=== PATIENT | male | born 1965 | race Caucasian/White ===

== ENCOUNTER 2019-10-02 16:35 | Outpatient (REF) | payer OTHER, SELFPAY ==
[2019-10-06 14:39] LABS: COVID-19 RT-PCR Result Not Detected
== END 2019-10-02 16:55 ==
LOC: NCHCN 16:35
PROVIDERS: PCP Family Medicine; Visit Provider Physician Assistant
DX: Z20.828 Contact with and (suspected) exposure to other viral communicable diseases (principal); J06.9 Acute upper respiratory infection, unspecified
CPT/HCPCS: U0003

== ENCOUNTER 2019-11-03 19:31 | Outpatient (REF) | payer OTHER, SELFPAY ==
[2019-11-06 09:06] LABS: COVID-19 RT-PCR Result Negative (Negative)
== END 2019-11-03 19:51 ==
LOC: NCHCN 19:31
PROVIDERS: PCP Family Medicine; Visit Provider Physician Assistant
DX: J06.9 Acute upper respiratory infection, unspecified (principal); R05 Cough; J31.0 Chronic rhinitis
CPT/HCPCS: U0003

== ENCOUNTER 2020-02-09 08:16 | Outpatient (CLI) | payer OTHER, SELFPAY ==
[2020-02-10 23:45] LABS: COVID-19 RT-PCR Result NEGATIVE (Negative)
== END 2020-02-09 08:36 ==
PROVIDERS: PCP Family Medicine; Visit Provider Surgery
DX: Z01.818 Encounter for other preprocedural examination (principal)
CPT/HCPCS: U0003

== ENCOUNTER 2020-02-12 06:12 | Day surgery (SDC) | payer OTHER, SELFPAY ==
[2020-02-12] VITALS (7 sets, daily range): BP systolic 83–139; BP diastolic 54–105; PULSE 47–78; RESP 10–16; TEMP 35.7–37; O2SAT 96–100
[2020-02-12] MEDS: Lactated Ringers 1,000 ML 80 ML IV (06:51)
[2020-02-12] MEDS: Celecoxib 200 MG CAP PO (06:51)
[2020-02-12] MEDS: Acetaminophen 500 MG TAB 1000 MG PO (06:51)
[2020-02-12] MEDS: Gabapentin 300 MG CAP PO (06:51)
[2020-02-12] MEDS: ceFAZolin 2 GM/50 ML BAG IVPB (07:42)
[2020-02-12] MEDS: Bupivacaine 0.5% Pres-Free 30 ML VIAL (07:46)
[2020-02-12] MEDS: Bupivacaine LIPOSOME/PF 133 MG/10 ML VIAL IJ (07:46)
--- NOTE | 2020-02-12 09:08 | ROE_ITS ---
Date of service: 02/12/20 Time of Service: 09:09 Operative Note Operative Note DATE OF PROCEDURE: 02/12/20 PRE-OP DIAGNOSIS: left inguinal hernia- painful POST-OP DIAGNOSIS: same PROCEDURE: open left inguinal hernia repair w/ mesh- indirect SURGEON: Jacqui Moeller ANESTHESIA: MAC ESTIMATED BLOOD LOSS: 5 PATHOLOGY: none sent COMPLICATIONS: None Patient was transported to: same day Patient's condition: stable Procedure Description: INDICATIONS: The pt is here today for surgery regarding symptomatic --- inguinal hernia that has failed outpatient conservative medical management and he is here today for repair. Informed consent was obtained, explaining risks and benefits of the procedure including but not limited to bleeding, infection, pneumonia, blood clots, chronic pain, chronic numbness, damage to testicle resulting in removal, recurrence of hernia, reaction to Mesh necessitating removal, and other unforetold complications, and complications of anesthesia-which were addressed by the HORTICULTURE INSTRUCTOR. The patient is marked in preOp prior to the procedure DESCRIPTION OF PROCEDURE: The pt is then brought to the operative room suite. Anesthesia was administered per the Department of Anesthesia. The patient was prepped and draped in the usual sterile fashion using ChloraPrep scrub solution. Pause for the cause was done. He did receive preop IV antibiotics, and 30 mL of .25% Marcaine w/ epinephrine was used for local anesthetization. A #12 blade was used to make an incision over the external ring. Electrocautery used to provide hemostasis and dissect down to the fascia. The fascia was pretty much obliterated and there was nothing to open. The cord is elevated. The nerve was not identified. There is a small cord lipomas. Electro-cautery is used to provide hemostasis. A Helga drain was placed around the cord to assist in mobilization. The cord was explored. There was is small hernia sac on the cord. There is no direct hernia pushing through the floor. The hernia sac is dissected off the cord using a combination of blunt dissection and electrocautery. Electrocautery is used to provide hemostasis. There are no contents within the hernia sac. The hernia sac is than inverted and returned to the abdominal cavity. A medium size plug is than inserted into the defect through the internal ring, and over sewn to tighten up the ring with 2-0 vicryl. The cord structures are still able to freely move through the ring itself. The patch was then placed onto the floor, and using 2-0 Vicryl, sewn into the pubic tubercle and the shelving portions of the inguinal ligament, in the standard Lichenstein fashion. The tails of the mesh are brought around the cord, sewn together w/ 2-0 Vicryl, and tucked under the external oblique. The wound was copiously irrigated. There was no bleeding noted. The drain was removed. All structures are returned to normal anatomical position. The nerve is not sewn into the mesh, nor caught up in any sutures. The external oblique is re-approximated using 2-0 vicryl in a running fashion. Deep tissue was approximated with 3-0 Vicryl in a running fashion, and skin was approximated with 4-0 Monocryl in a running subcuticular fashion. Skin glue and sterile dressings are applied. The patient tolerated the procedure without complications to recovery in stable condition. JACQUI MOELLER, DO
--- NOTE | 2020-02-12 09:22 | W.PM.DSUDISC ---
Discharge Plan Disposition Patient Disposition: HOME Condition: Good Discharge Details Reason For Visit: HERNIA INGUINAL (L) Attending Provider: Jacqui Olmos Primary Care Provider: Maryse Perry Home Meds and New Rx's Prescriptions: New ibuprofen 600 mg tablet 600 mg PO Q6H PRNQty: 60 RF: 3 tramadol 50 mg tablet 50 mg PO Q6H PRNQty: 14 RF: 0 Continued fexofenadine [Radhika Allergy] 180 mg tablet 180 mg PO DAILY RF: 0 multivitamin [Daily Multi-Vitamin] Tablet 1 tab PO DAILY RF: 0 Excedrin Migraine 250-250-65 mg tablet 2 tab PO ONCE RF: 0 Discontinued ibuprofen 200 mg tablet 400 mg PO Q6H PRNRF: 0 Discharge Instructions Additional Instructions: Dr. Olmos HERNIA REPAIR ? POSTOPERATIVE INSTRUCTIONS Patients who have this type of surgery can usually be expected to return to work within two weeks and have minimal amounts of discomfort. ? ACTIVITY: The day of surgery should be spent resting. However, you can be up for short periods of time, I.E., going to the bathroom or kitchen. Avoid lifting or straining. On the day following surgery, you can be up and about as desired. ? LIFTING: Restrict your lifting to no more than five pounds for the first week following surgery. For the second week after surgery, don?t lift more than ten pounds. We will decide when you are done with restrictions and when you can return to work, at your follow-up appointment. ? DIET: There are no dietary restrictions following surgery. However, you may want to start with small amounts of liquids to avoid nausea the day of surgery. ? INCISION CARE: You will notice purple skin glue closing the incision. Do not peel this off- it will wear off on its own. After 24 hours you may shower. The dressing may be replaced for comfort, but is not necessary. An ice bag may be applied to the incision for 72 hours following surgery. ? SIGNS OF INFECTION: It is not unusual to have some black and blue discoloration of the skin around the incision, but also scrotum and penis. It will slowly disappear. If you have any increased redness, drainage, fever (above 100 degrees), please contact your doctor for an examination. ? DISCOMFORT: You may expect to have some mild discomfort at the incision sight. If severe pain develops you should contact your doctor for further instructions. ? URINATION: Patients who have surgery occasionally have problems urinating. If you experience problems and are not able to urinate within 6 hours following your surgery, please call your doctor immediately or go to your nearest Emergency Room for evaluation. ? DRIVING: NO driving for 72 hours after surgery or if you are still taking narcotic pain medication. ? MEDICATIONS: Alternate Tylenol 1000mg by mouth every 8hours and Ibuprofen 600mg every 6hours. Take the Tylenol and ibuprofen continuously for the first 72hrs- not just when you have pain. Use the tramadol for breakthrough pain. Use ICE! Twenty minutes on, and then off, continuously for the first 72hours. If you are taking narcotic pain medication, follow the instructions on the label and do not drive. Pain medications can make you very constipated. Make sure you are moving your bowels daily. If not, take Miralax, milk of magnesia or magnesium citrate. ? REPORT: Unusual swelling, severe pain, unresolved nausea, signs of infection, or difficulty in urination to your surgeon. Follow up in clinic with Dr. Olmos in 1-2 weeks. [phone] Stand Alone Forms: DSU Post op Instructions Activity:: no lifting over 5-10 Remove Dressings/Wound Care:: Do Not Remove Shower/Bathe:: 24 hours Diet:: As Tolerated Discharge Orders Discharge Orders: Discharge Order (Routine); Ordered 02/12/20 Ordered By: Jacqui Olmos Discharge Data Discharge Date/Time-TO BE ENTERED AT DEPARTURE: 02/12/20 10:55 Discharge Comment: with DS: Diagnosis Discharge Diagnosis (1) Left inguinal hernia: Status: Acute
== END 2020-02-12 10:55 | disposition home or self-care (01) ==
PROVIDERS: PCP Family Medicine; Visit Provider Surgery
PROC: (CPT 49505; principal; 2020-02-12 08:45)
DX: K40.90 Unilateral inguinal hernia, without obstruction or gangrene, not specified as recurrent (principal); G89.18 Other acute postprocedural pain; F17.210 Nicotine dependence, cigarettes, uncomplicated
CPT/HCPCS: 49505; 76942; C1781; J0690; J1100; J1885; J2001; J2405

== ENCOUNTER 2020-03-06 11:41 | Outpatient (REF) | payer OTHER, SELFPAY ==
[2020-03-06 20:35] LABS: HCT 42.3 % (40.0-50.0); HGB 14.4 g/dL (13.5-17.5); MCH 31.6 pg (27.0-33.0); MPV 11.1 fL (8.0-11.0); Platelet Count 279 10^3/uL (130-400); RBC 4.55 10^6/uL (4.36-5.78); RDW 12.6 % (11.8-14.1); RDW-SD 43.4 fL; WBC 5.37 10^3/uL (4.4-10.8)
[2020-03-06 21:03] LABS: Hemoglobin A1C 5.7 % (3.8-5.6)
[2020-03-06 21:07] LABS: ALT 31 U/L (16-63); AST 15 U/L (15-37); Albumin 4.1 g/dL (3.4-5.0); Alkaline Phosphatase 72 U/L (46-116); Anion Gap 9.2 mmol/L (3-11); BUN 19 mg/dL (7-18); Bilirubin, Total 0.4 mg/dL (0.2-1.0); CO2 27.8 mmol/L (21.0-32.0); CREATININE 1.01 mg/dL (0.70-1.30); Calcium 9.1 mg/dL (8.5-10.1); Calculated LDL 131 mg/dL (<100); Chloride 103 mmol/L (98-107); Cholesterol 191 mg/dL (<200); Glucose 121 mg/dL (74-106); HDL Cholesterol 46 mg/dL (40-60); Potassium 4.2 mmol/L (3.5-5.1); Sodium 140 mmol/L (136-145); TSH (W/Ref FT4) 1.56 uIU/mL (0.36-3.74); Total Protein 7.3 g/dL (6.4-8.2); Triglyceride 73 mg/dL (<150)
[2020-03-06 21:40] LABS: COMMENT (LAB VIEW ONLY) 24.74 mg/dL
== END 2020-03-06 12:01 ==
LOC: NCHCN 11:41
PROVIDERS: PCP Family Medicine; Visit Provider Family Medicine
DX: I10 Essential (primary) hypertension (principal)
CPT/HCPCS: 80053; 80061; 85027; 82043; 82570; 83036; 84443

== ENCOUNTER 2020-04-01 01:20 | Outpatient (CLI) | payer OTHER, SELFPAY ==
--- NOTE | 2020-04-01 15:30 | DI.MRI_ITS ---
EXAM: MR LUMBAR SPINE WO CLINICAL HISTORY: LT SCIATICA, BACK PAIN, M54.32. TECHNIQUE: Multiplanar multisequence MRI was performed. COMPARISON: No exams were available for comparison FINDINGS: MR examination lumbosacral spine was performed according to the usual protocol. No significant bony signal abnormality is seen apart from mild Tiffanie discal vertebral signal changes at multiple levels co nsistent with disc degeneration. There are mild to moderate facet hypertrophic degenerative changes at L4-5 and L5-S1. No significant findings from the T11-T12 level through the L3-4 level apart from minimal disc bulge a t L1-2. The conus medullaris appears intact. No bony central canal spinal stenosis or neural forami nal stenosis identified at these levels. At L4-5 there is a large disc herniation which is central, left paracentral, and left lateral and whi ch occupies up to about 40 percent of the cross-sectional area of the spinal canal at this level. Th ere is presumed impingement on the left L5 nerve root. Neural foramina and bony central spinal canal appear intact as does level. At L5-S1 there is a slight disc bulge, no central canal spinal stenosis, disc herniation, or neural f oraminal stenosis.. IMPRESSION: Large left-sided disc herniation at L4-5 with marked deformity of the thecal sac, this occupies up to about 40 percent of the cross-sectional area of the spinal canal and appears to impinge/compressed l eft L5 nerve root. DATA REPOSITORY:
== END 2020-04-01 01:40 ==
PROVIDERS: PCP Family Medicine; Visit Provider Family Medicine
DX: M51.26 Other intervertebral disc displacement, lumbar region (principal)
CPT/HCPCS: 72148

== ENCOUNTER 2020-05-01 17:59 | Outpatient (REF) | payer OTHER, SELFPAY ==
[2020-05-01 20:52] LABS: HGB 14.9 g/dL (13.5-17.5); MCH 32.1 pg (27.0-33.0); MCHC 33.9 % (32.0-36.0); MCV 94.8 fL (80-95); Platelet Count 298 10^3/uL (130-400); RBC 4.64 10^6/uL (4.36-5.78); RDW 13.5 % (11.8-14.1); RDW-SD 47.4 fL; WBC 10.36 10^3/uL (4.4-10.8)
[2020-05-01 21:16] LABS: ALT 40 U/L (16-63); AST 13 U/L (15-37); Albumin 3.6 g/dL (3.4-5.0); Alkaline Phosphatase 64 U/L (46-116); Anion Gap 7.5 mmol/L (3-11); BUN 28 mg/dL (7-18); Bilirubin, Total 0.4 mg/dL (0.2-1.0); CO2 27.5 mmol/L (21.0-32.0); CREATININE 1.11 mg/dL (0.70-1.30); Calcium 9.3 mg/dL (8.5-10.1); Chloride 102 mmol/L (98-107); Glucose 112 mg/dL (74-106); Potassium 5.1 mmol/L (3.5-5.1); Sodium 137 mmol/L (136-145); Total Protein 6.7 g/dL (6.4-8.2)
== END 2020-05-01 18:19 ==
LOC: NCHCN 17:59
PROVIDERS: PCP Family Medicine; Visit Provider Family Medicine
DX: I10 Essential (primary) hypertension (principal); Z01.818 Encounter for other preprocedural examination
CPT/HCPCS: 80053; 85027

== ENCOUNTER 2020-09-02 01:36 | Outpatient (CLI) | payer OTHER, SELFPAY ==
[2020-09-03 19:38] LABS: COVID-19 RT-PCR UVMMC Result Negative (Negative)
== END 2020-09-02 01:37 | disposition home or self-care (01) ==
LOC: LBO 01:36
PROVIDERS: PCP Family Medicine; Visit Provider Family Medicine
DX: Z20.828 Contact with and (suspected) exposure to other viral communicable diseases (principal)
CPT/HCPCS: U0003

== ENCOUNTER 2020-09-05 03:00 | Outpatient (CLI) | payer OTHER, SELFPAY ==
[2020-09-05] MEDS: Albuterol HFA 18 GM 200 PUFF INH IH (09:21)
[2020-09-05] MEDS: Inhaler, Assist Device 1 EACH MC (09:21)
--- NOTE | 2020-09-09 08:08 | W.PFT ---
Date of service: 09/05/20 Time of Service: 08:09 Pulmonary Function Test Result Interpretation Spirometry: Shows mild obstructive airways disease with no significant bronchodilator response Lung Volumes: No restriction Diffusion Capacity: Mildly reduced even when corrected to alveolar volume Airway Pressure: Normal Impression Mild obstructive airways disease with no bronchodilator response, this is associated with Mild diffusion defect Clinical Correlation therefore is recommended.
== END 2020-09-05 03:01 | disposition home or self-care (01) ==
PROVIDERS: PCP Family Medicine; Visit Provider Family Medicine
DX: R06.09 Other forms of dyspnea (principal); Z87.891 Personal history of nicotine dependence
CPT/HCPCS: 94060; 94726; 94729

== ENCOUNTER 2020-10-02 09:08 | Outpatient (REF) | payer OTHER, SELFPAY ==
[2020-10-02 15:17] LABS: HCT 43.3 % (40.0-50.0); HGB 14.4 g/dL (13.5-17.5); MCHC 33.3 % (32.0-36.0); MCV 93.3 fL (80-95); MPV 10.8 fL (8.0-11.0); Platelet Count 266 10^3/uL (130-400); RBC 4.64 10^6/uL (4.36-5.78); RDW 12.4 % (11.8-14.1); RDW-SD 42.8 fL; WBC 5.42 10^3/uL (4.4-10.8)
[2020-10-02 15:42] LABS: ALT 45 U/L (16-63); AST 20 U/L (15-37); Albumin 4.2 g/dL (3.4-5.0); Alkaline Phosphatase 64 U/L (46-116); Anion Gap 8.2 mmol/L (3-11); BUN 17 mg/dL (7-18); Bilirubin, Total 0.3 mg/dL (0.2-1.0); CO2 27.8 mmol/L (21.0-32.0); CREATININE 0.9 mg/dL (0.70-1.30); Calcium 9.1 mg/dL (8.5-10.1); Chloride 102 mmol/L (98-107); Glucose 103 mg/dL (74-106); Potassium 4.4 mmol/L (3.5-5.1); Sodium 138 mmol/L (136-145); Total Protein 7.3 g/dL (6.4-8.2)
[2020-10-02 22:55] LABS: ESR 6 mm/hr (<or=20)
== END 2020-10-02 09:09 | disposition home or self-care (01) ==
LOC: NCHCN 09:08
PROVIDERS: PCP Family Medicine; Visit Provider Family Medicine
DX: I10 Essential (primary) hypertension (principal); R10.9 Unspecified abdominal pain; M54.5 Low back pain
CPT/HCPCS: 80053; 85027; 85652

== ENCOUNTER 2020-10-17 09:51 | Outpatient (CLI) | payer OTHER, SELFPAY ==
--- NOTE | 2020-10-17 | DI.RAD_ITS ---
EXAM: XR LUMBAR SPINE AP, LAT CLINICAL HISTORY: BACK AND LEG PAIN AFTER SURGERY. TECHNIQUE: 2D digital imaging was performed. COMPARISON: No exams were available for comparison FINDINGS: No evidence of fracture or listhesis nor pars defects. Some disc space narrowing at L1-2 level is no matheus. Lesser amount of disc space L2-3. Normal disc height L3-4. Mild disc space narrowing L4-5 and L5-S1 levels. There is no scoliosis. Vacuum phenomenon is seen within the L1-2 disc space. Sacroi liac joints unremarkable. There is no scoliosis. Some vascular calcification is noted at the level of the lower most aorta and proximal common iliac arteries. Facet joints exhibit minimal degenerativ e changes. There is no scoliosis. IMPRESSION: Degenerative disc disease as described above. DATA REPOSITORY: RADIATION DOSE DELIVERED:
== END 2020-10-17 10:11 ==
PROVIDERS: PCP Family Medicine; Visit Provider Physician Assistant Surgical
DX: M54.5 Low back pain (principal); M79.604 Pain in right leg; M79.605 Pain in left leg; M51.37 Other intervertebral disc degeneration, lumbosacral region; Z98.890 Other specified postprocedural states
CPT/HCPCS: 72100

== ENCOUNTER 2020-10-23 15:48 | Outpatient (REF) | payer OTHER, SELFPAY ==
[2020-10-23 20:06] LABS: Magnesium 2.1 mg/dL (1.8-2.4)
[2020-10-23 21:20] LABS: Ferritin 693 ng/mL (26-388); Vitamin B12 622 pg/mL (193-986)
== END 2020-10-23 15:49 | disposition home or self-care (01) ==
LOC: NCHCN 15:48
PROVIDERS: PCP Family Medicine; Visit Provider Family Medicine
DX: R20.2 Paresthesia of skin (principal); R25.2 Cramp and spasm
CPT/HCPCS: 82607; 82728; 82746; 83735

== ENCOUNTER 2020-11-25 19:31 | Outpatient (REF) | payer OTHER, SELFPAY ==
[2020-11-25 18:24] LABS: C-Reactive Protein 0.07 mg/dL (0.0-0.3)
[2020-11-27 10:14] LABS: Cyclic Citrullinated Peptide <2.5 U/mL (<5.0)
[2020-11-27 13:28] LABS: ANA Interpretation Negative (Negative)
[2020-11-27 13:32] LABS: IgA 186 mg/dL (85-499); Interpretation (See Note); Tissue Transglutaminase IgA <1.2 U/mL (<4.0)
== END 2020-11-25 19:32 | disposition home or self-care (01) ==
LOC: NCHCN 19:31
PROVIDERS: PCP Family Medicine; Visit Provider Family Medicine
DX: R53.83 Other fatigue (principal); M25.50 Pain in unspecified joint; M79.604 Pain in right leg; M79.605 Pain in left leg
CPT/HCPCS: 82784; 83516; 86200; 86038; 86140

== ENCOUNTER 2020-11-26 08:44 | Outpatient (CLI) | payer OTHER, SELFPAY ==
[2020-11-26 08:50] VITALS: BP 116/88; PULSE 64; RESP 16; TEMP 35.8; O2SAT 99
--- NOTE | 2020-11-26 09:34 | DI.RAD_ITS ---
Exam(s) XR PAIN CLINIC LUMBAR SP 2V EXAM: XR PAIN CLINIC LUMBAR SP 2V CLINICAL HISTORY: Dx:Lumbar Radiculopathy TECHNIQUE: 2D and realtime digital imaging was performed. COMPARISON: No exams were available for comparison FINDINGS: C-arm fluoroscopy was utilized by Dr. Gomez during reported lumbar epidural steroid injection. Hard copper roller handler printing y shows injection in the midline at what appears to be the L5-S1 level. IMPRESSION: RADIATION DOSE DELIVERED: taniya Sanders=7.76 mGy
[2020-11-26] MEDS: Omnipaque 240 MG/ML 50 ML BTL IJ (09:38)
[2020-11-26] MEDS: methylPREDNISolone ACETATE 80 MG/ML VIAL IJ (09:38)
--- NOTE | 2020-11-26 09:40 | PDOC.PAIN ---
Pain Clinic Procedure Note Procedure Note Procedure Note: CANDAL EPIDURAL STEROID WITH CATHETER INJECTION PROCEDURE NOTE Pre-operative diagnosis: lumbar radiculopathy Post-operative diagnosis: same as above COMMENTS: patient has left more than right leg pain. he is status post L4-5 diskectomy with laminectomy by Dr Can in 04/2020. Prior to surgery, he was having left leg symptoms which improved after surgery but is now recurring. He has occasional right calf tingling to a lesser extend compared to left leg. He was evaluated by Ms Ara Hollis APRN in our pain clinic for this issue. Adrian Guardado has been referred to the [facility] for lumbar epidural steroid injection. Patient was greeted by the nurse who verified patients name and . Patient was then taken to the fluoroscopy suite. Patient was interviewed and the medical record reviewed. There were no medical, pharmacologic, radiographic, or other structural contraindications to attempting fluoroscopically guided lumbar epidural steroid injection. Risks and expected side effects as well as potential benefits of the procedure were reviewed and voiced concerns addressed. The patient consent form was signed and witnessed. Standard time-out procedure was performed. Patient was placed in the prone position on the fluoroscopy table and automated blood pressure cuff and pulse oximeter applied. The skin entry point for entering/approaching the epidural space via the sacral hiatus and marked. Following thorough chlorhexadine preparation of the skin and draping and 1% lidocaine infiltration of the skin entry point and subcutaneous tissues, a 17 gauge Touhy needle was placed under fluoroscopic guidance and with loss of resistance technique into the epidural space. Needle tip placement and depth were aided and confirmed by fluoroscopy. There was no paresthesia or return of blood or CSF through the needle. An 19 gauge radio-opaque Arrow cath was thread to the L5-S1 and 1 cc's of Omnipaque 240 was injected with clear epidural spread confirmed with fluoroscopy. 80mg depomedrol was injected, this is followed by 2cc of preservative free 1% lidocaine. There was not any unusual discomfort expressed. Vital signs were stable throughout the procedure and were as recorded in nursing records. Follow up plans and appointments were discussed.Post procedure instruction was given as documented in nursing records and having met discharge criteria and was discharged from the [facility]. COMMENTS: Patient tolerated procedure without issue. Pre-procedure pain level VAS score moderate (4-5) out of 10, post-procedure pain level 3/10. Howard Gomez MD Pain Management
[2020-11-26 09:45] VITALS: BP 117/88; PULSE 58; RESP 15; O2SAT 100
== END 2020-11-26 08:45 | disposition home or self-care (01) ==
LOC: PC 08:44
PROVIDERS: PCP Family Medicine; Visit Provider Internal Medicine
DX: M54.16 Radiculopathy, lumbar region (principal)
CPT/HCPCS: 62323; 72100; J1040; Q9967

== ENCOUNTER 2021-01-03 13:55 | Day surgery (SDC) | payer OTHER, SELFPAY ==
[2021-01-03 14:25] VITALS: BP 120/86; PULSE 93; RESP 16; TEMP 36.2; O2SAT 99
--- NOTE | 2021-01-03 14:46 | ANES.PREOP_ITS ---
General Info Date of Service Date Performed: 01/03/21 Height: 5 ft 9 in Weight: 72.2 kg Body Mass Index (BMI): 23.5 Surgical Procedure: Operation Date: 01/03/21 13:05 Proposed Procedures Side Surgeon mitul Olmos, DO Meds Allergies and Home Medications Allergies Allergy/AdvReac Type Severity Reaction Status Date / Time tree and shrub pollen Allergy Verified 01/01/21 14:18 Home Medication Medication Instructions Recorded multivitamin 1 tab PO DAILY 02/07/20 lisinopril 40 mg tablet 20 mg PO DAILY 05/08/20 cyclobenzaprine 10 mg tablet 10 mg PO HS 10/10/20 pantoprazole 40 mg tablet,delayed 40 mg PO DAILY #30 tab 10/10/20 release albuterol sulfate [Proventil HFA] 2 puff INHALATION Q6H PRN 10/21/20 cetirizine 10 mg PO DAILY 10/21/20 diclofenac sodium [Voltaren] 4 g TOPICAL BID PRN 10/21/20 duloxetine 20 mg capsule,delayed 20 mg PO DAILY cap 10/29/20 release turmeric 400 mg capsule 400 mg PO DAILY 10/29/20 CBD oil 20 mg PO BID 12/05/20 bisacodyl 5 mg tablet,delayed 5 mg PO ONCE #4 tab 12/26/20 release polyethylene glycol 3350 17 238 g PO ONCE #238 g 12/26/20 gram/dose oral powder camphor-methyl salicylate-menthol 1 applic TOPICAL DAILY PRN 12/31/20 3 %-15 %-5 % topical cream lidocaine 4 % topical patch 1 patch TOPICAL DAILY PRN 12/31/20 menthol 16 % topical spray 1 spray TOPICAL DAILY 12/31/20 Current Visit Medications: Current Medications Generic Name Dose Route Start Last Admin Trade Name Freq PRN Reason Stop Dose Admin Ringer's Solution 1,000 mls @ 80 mls/hr 01/03/21 06:00 IV 02/01/21 23:59 [facility]ION [facility] IV Miscellaneous Supplies 1 each 01/03/21 06:00 Iv Access IV 02/01/21 23:59 DIRECTED BONIFACIO Sodium Chloride 0 ml 01/03/21 06:00 Normal Saline Flush 10 Ml Syr IV 02/01/21 23:59 PRN PRN Sodium Chloride 0 ml 01/03/21 06:00 Normal Saline 10 Ml Vial IJ 02/01/21 23:59 DIRECTED PRN Sterile Water 0 ml 01/03/21 06:00 Water,Injection,Sterile 10 Ml Vial IJ 02/01/21 23:59 DIRECTED PRN PFSH Active Problems Active Problems: Problem Status Onset Code Inguinodynia R10.30 Shingles outbreak B02.9 Chronic low back pain with right-sided sciatica M54.41, G89.29 Former smoker Z87.891 Left inguinal hernia K40.90 H/O vasectomy Z98.52 Medical History Medical History Abdominal pain Acute depression Allergic rhinitis Arthritis of facet joint of lumbar spine Back pain Bilateral lumbar radiculopathy VALENTIN (dyspnea on exertion) Fatigue GERD (gastroesophageal reflux disease) Hernia History of chest pain Pt. states he thinks it related to his hernia and states my whole torso is screwed up History of prediabetes Hypertension Impairment of balance pt. states if he gets up fast or bends over he gets dizzy Left inguinal hernia Left leg pain Low back pain Lumbar disc herniation with radiculopathy Numbness and tingling of foot Pre-diabetes Rash Sciatica, left side Shingles Situational depression Vertebral osteophyte Surgical History Surgical History H/O vasectomy History of left inguinal hernia repair Status post lumbar surgery Tobacco Smoking/Tobacco Use Status: Former Tobacco Use Alcohol Alcohol Intake: current Alcohol intake frequency: a few times a month Alcohol type: beer and hard liquor Substance Use Substance use: Occasionally Substance use type: marijuana Vital Signs and Lab Results Vital Signs Most Recent Vital Signs in EMR: Most Recent Vital Signs Temp Pulse Resp BP Pulse Ox 36.2 C L 93 H 16 120/86 99 01/03/21 14:25 01/03/21 14:25 01/03/21 14:25 01/03/21 14:25 01/03/21 14:25 Lab Results Blood Type / Crossmatch: No Data to Display Complete Blood Count: No Data to Display Complete Metabolic Panel: No Data to Display Liver Function Panel: No Data to Display Coagulation Panel: No Data to Display Cardiac Panel: No Data to Display Arterial Blood Gas: No Data to Display Venous Blood Gas: No Data to Display Pancreas Panel: No Data to Display Thyroid Panel: No Data to Display Infectious Disease: No Data to Display Blood Cultures: No Data to Display Toxicology Panel: No Data to Display Imaging and Studies Imaging and Studies Stress Test Summary: Impressions: Normal study after maximal exercise. Summary: Stress: Exercise capacity is average for age. 07/25/15 Pulmonary Function Summary: Impression Mild obstructive airways disease with no bronchodilator response, this is associated with Mild diffusion defect Clinical Correlation therefore is recommended. 09/09/20 Anesthesia Assessment and Plan Anesthesia History Personal History: No History of Anesthesia Complications and Pseudocholi nesterase Deficiency Family History: No Family History of Anesthesia Complications Exercise Tolerance Exercise Tolerance: Metabolic Equivalents>4 Pertinent Negatives Pertinent Negatives: No Symptoms of GERD, No Major Cardiovascular Symptoms or Complaints, No Major Pulmonary Symptoms or Complaints and No History of CVA/TIA Cardiac & Pulmonary Exam Cardiac Exam: Normal S1/S2 Heart Sounds Pulmonary Exam: Clear Bilateral Breath Sounds Airway Exam Known Difficult Airway: No Mallampati Class: 1 Mouth Opening: Narrow (< 3cm) Thyromental Distance: Greater than 3 cm Neck Range of Motion: Full ROM Neck Circumference: Normal Teeth Condition: Normal Dentition ASA Classification ASA Score: ASA 2 Emergency Case?: No NPO Status NPO Status: NPO Clears >2 hours, Solids >8 hours Anesthesia Plan Resuscitation Status: Full Code Anesthesia Technique: General Anesthesia Airway Planned: Natural Airway Monitors Used: Standard Monitors
[2021-01-03] MEDS: Lactated Ringers 1,000 ML 80 ML IV (14:53)
[2021-01-03 14:55] VITALS: BMI 23.5
--- NOTE | 2021-01-03 16:20 | BOWEL_PTH ---
PATIENT: Adrian Guardado LOC: [facility] U#:[id number] AGE/SX: 55/M ROOM: RE01/03/[address]: Jacqui Olmos : 1965 BED: DIS: 01/03/2021 SPEC #: [id number] RECD: 01/03/21 17:40 STATUS: FELIX RE #: [id number] SRAVAN: 01/03/21 16:[address]: Jacqui Olmos DEPT: Surgical Specimen RECD BY: Reyna Fletcher ENTERED: 01/03/21 17:41 SP TYPE: Bowel OTHR DR: Maryse Perry Tissues: 1 - BIOPSY BOWEL Procedures: GROSS AND MICRO LEVEL 4 Comments: [id number]
--- NOTE | 2021-01-03 16:23 | W.COLOREPORT ---
Date of service: 01/03/21 Time of Service: 20:57 Colonoscopy Report Date of procedure: 01/03/21 Pre-op diagnosis general: Heme+ stool test Post-op diagnosis procedure note: other (diverticula/A. polyp) Procedure: hot snore polypectomy Anesthesia Type: General:No Airway Estimated blood loss (mL): 1 Pathology: other Complications: None Disposition: same day Prep: Miralax/Dulcolax Retraction Time: 12 Procedure Description: After informed consent was obtained the patient was taken to the procedure room and placed in a left decubitous position. Monitors were applied and a time out was done. The patients name, date of , procedure, allergies to medications and metal in their body was reviewed. The patient was then sedated. Once sedated and comfortable a rectal exam was done. External exam was normal. Internal exam revealed a normal sphincter tone and no palpable masses. The scope was then introduced and retrofelexed. no internal hemorrhoids were identified. The scope was then advanced to the cecum w/out difficulty. The TI and appendiceal orifice were identified. The prep was good . The scope was then slowly retracted over 12 minutes back into the rectum. He has a large 1.5 cm polyp at 20 cm. The polyp is on a long thin stalk. This is removed with a hot polypectomy snare. All specimen is retrieved and no bleeding is noted. Clip is not required. He does have diverticuli throughout the entirety of the colon?they do carry all the way over to the right colon. Majority are concentrated in the sigmoid colon. They are small in size and number. There is no signs of active bleeding or infection. The scope was removed and the patient was woken up and taken back to Same day surgery in stable condition. The patient tolerated the procedure well and there were no immediate complications. repeat scope in 3 yrs time Follow up: The patient should follow up in 3 years unless they develop changes in bowel habits or other new gastrointestinal complaints.
[2021-01-03 16:27] VITALS: BP 108/79; PULSE 88; RESP 14; TEMP 36.3; O2SAT 97
--- NOTE | 2021-01-03 16:27 | W.ANESPOSTOP ---
Postoperative Evaluation Date, Time and Location Date Performed: 01/03/21 Time Performed: 16:27 Patient Location: Day Surgery Unit Vital Signs Most Recent Imported Vital Signs: Most Recent Vital Signs Temp Pulse Resp BP Pulse Ox 36.2 C L 93 H 16 120/86 99 01/03/21 14:25 01/03/21 14:25 01/03/21 14:25 01/03/21 14:25 01/03/21 14:25 Most Recent Manually Entered Vital Signs: Adult Blood Pressure: 108/79 Heart Rate: 82 Respirations: 18 Oxygen Saturation (%): 96 Temperature (C): 36.2 C Pain Score (0-10 Scale): 0 Assessment Mental Status: Arousable with meaningful communication Airway and Respiratory Function: Patent airway with normal (patient baseline) respiratory exam Cardiovascular Function: Hemodynamically Stable Hydration Status: Adequately Hydrated Nausea & Vomiting: No Nausea or Vomiting Pain: Pt. Denies Any Pain Peripheral Nerve Block: Patient did not receive a nerve block
[2021-01-03 16:28] VITALS: BP 108/79; PULSE 82; RESP 18; TEMPC 36.2; O2SAT 96
--- NOTE | 2021-01-03 16:30 | W.PM.DSUDISC ---
Discharge Plan Disposition Patient Disposition: HOME Condition: Good Discharge Details Reason For Visit: colon scope Attending Provider: Jacqui Olmos Primary Care Provider: Maryse Perry Home Meds and New Rx's Prescriptions: Continued multivitamin [Daily Multi-Vitamin] Tablet 1 tab PO DAILY RF: 0 cetirizine 10 mg Tablet 10 mg PO DAILY RF: 0 albuterol sulfate [Proventil HFA] 90 mcg/actuation Hfa Aerosol Inhaler 2 puff INHALATION Q6H PRNRF: 0 diclofenac sodium [Voltaren] 1 % Gel 4 g TOPICAL BID PRNRF: 0 duloxetine [Cymbalta] 20 mg capsule,delayed release(DR/EC) 20 mg PO DAILY RF: 0 turmeric 400 mg capsule 400 mg PO DAILY RF: 0 cyclobenzaprine 10 mg tablet 10 mg PO HS RF: 0 pantoprazole 40 mg tablet,delayed release (DR/EC) 40 mg PO DAILY Qty: 30 RF: 12 CBD oil 20 mg capsule 20 mg PO BID RF: 0 lisinopril 40 mg tablet 20 mg PO DAILY RF: 0 lidocaine [Salonpas (lidocaine)] 4 % adhesive patch,medicated 1 patch topical DAILY PRNRF: 0 Icy Hot (menthol) 16 % aerosol,spray 1 spray topical DAILY RF: 0 [place] 3-15-5 % cream 1 applic topical DAILY PRNRF: 0 Discontinued bisacodyl [Dulcolax (bisacodyl)] 5 mg tablet,delayed release (DR/EC) 5 mg PO ONCE Qty: 4 RF: 0 polyethylene glycol 3350 17 gram/dose powder 238 g PO ONCE Qty: 238 RF: 0 Discharge Instructions Additional Instructions: DSU Colonoscopy Post-Op Instructions Instructions for Everyone who is given Anesthesia: For your safety, please do the following for the next twenty-four (24) hours: *Do Not operate a motor vehicle (car, truck, motorcycle, etc.) *Do Not drink alcoholic beverages or use any recreational drugs for the first 24 hours or while taking pain medications. The medications in your body may have a reaction that can be dangerous. *Do Not make any important decisions or sign any important papers. Findings:diverticula throughout the entire colon large polyp -My office will send a letter in 3 to 4 weeks time detailing the type of polyp it was and when to repeat the colonoscopy -No ASA/NSAID's for 72 hrs Follow up: Most likely repeat in 3 years time 1. No lifting over 20 pounds or strenuous activity for the first 24 hours after your procedure. After 24 hours there are no restrictions on your activity but you may feel fatigued for a few days. 2. After you arrive home you may have a light meal and return to your normal diet as you can tolerate it without feeling sick to your stomach. 3. You may have a bloated, gaseous feeling in your belly (abdomen) after a colonoscopy. Passing gas and belching will help. Walking or lying down on your left side with your knees flexed may relieve the discomfort. Call the office at [phone] (Office) or [phone] (Hospital) right away if you notice any of the following: a.Vomiting of blood or ?coffee ground stools?. b.Rectal bleeding 1Tbsp, blood clots or continuous bleeding. c.Severe belly (abdominal) pain. d.A hard distended belly (abdomen) and an inability to pass gas. 4. Please don?t expect to have a normal BM (bowel movement) for 2-3 days after your procedure. 5. If there are questions regarding the findings of your procedure, please contact your doctor 6. If you are unable to contact your doctor with a problem, contact the hospital at [phone]. 7. Continue all your regular medications unless directed otherwise. I understand the above instructions and have no questions. Signature of Patient or Adult Escort Name of Responsible Adult Escort Signature of Nurse Date/Time Activity:: see above Diet:: see above DS: Diagnosis Discharge Diagnosis (1) Heme + stool: Status: Acute
[2021-01-03] MEDS: Hyoscyamine 0.125 MG SL/ORAL/CHEW SL (16:59)
[2021-01-03 17:04] VITALS: BP 100/70; PULSE 70; RESP 18; TEMP 36; O2SAT 100
== END 2021-01-03 17:40 | disposition home or self-care (01) ==
PROVIDERS: PCP Family Medicine; Visit Provider Surgery
PROC: 0DJD8ZZ Inspection of Lower Intestinal Tract, Via Natural or Artificial Opening Endoscopic (ICD-10-PCS; CPT 45378; principal; 2021-01-03 13:00)
DX: Z12.11 Encounter for screening for malignant neoplasm of colon (principal); D12.5 Benign neoplasm of sigmoid colon; K57.30 Diverticulosis of large intestine without perforation or abscess without bleeding; I10 Essential (primary) hypertension; R73.03 Prediabetes; M54.5 Low back pain; K21.9 Gastro-esophageal reflux disease without esophagitis
CPT/HCPCS: 45385; 88305; J2001; J3490

== ENCOUNTER 2021-06-09 12:37 | Outpatient (REF) | payer OTHER, SELFPAY ==
[2021-06-09 15:43] LABS: Calculated LDL 141 mg/dL (<100); Cholesterol 207 mg/dL (<200); HDL Cholesterol 50 mg/dL (40-60); Triglyceride 80 mg/dL (<150)
[2021-06-09 15:44] LABS: Hemoglobin A1C 5.3 % (<5.7)
[2021-06-10 09:54] LABS: Hepatitis C Ab w Rflx HCV PCR Negative (Negative)
[2021-06-10 10:10] LABS: HIV-1/2 Ag & Ab Screen Negative (Negative)
[2021-06-11 15:55] LABS: Testosterone, Free 11.6 ng/dL (4.06-15.6); Testosterone, Total 646 ng/dL (240-950)
== END 2021-06-09 12:38 | disposition home or self-care (01) ==
LOC: NCHCN 12:37
PROVIDERS: PCP Family Medicine; Visit Provider Family Medicine
DX: I10 Essential (primary) hypertension (principal); R73.03 Prediabetes; R53.83 Other fatigue; Z00.00 Encounter for general adult medical examination without abnormal findings; Z11.4 Encounter for screening for human immunodeficiency virus [HIV]; Z11.59 Encounter for screening for other viral diseases
CPT/HCPCS: 80061; 84402; 84403; 86803; 87389; 83036

== ENCOUNTER 2021-08-21 12:07 | Outpatient (CLI) | payer OTHER, SELFPAY ==
--- NOTE | 2021-08-21 06:00 | DI.RAD_ITS ---
Exam(s) XR PAIN CLINIC LUMBAR SP 2V EXAM: XR PAIN CLINIC LUMBAR SP 2V CLINICAL HISTORY: Dx: Lumbar Radiculopathy TECHNIQUE: 2D and realtime digital imaging was performed. COMPARISON: No exams were available for comparison FINDINGS: C-arm fluoroscopy was utilized by Dr. Mahmood during caudal steroid injection. Hard copy shows an appar ent epidural injection at the level of the distal sacrum IMPRESSION: RADIATION DOSE DELIVERED: Ka,r= 8.38 . mGy
[2021-08-21 12:24] VITALS: BP 139/93; PULSE 87; RESP 18; TEMP 37; O2SAT 99
--- NOTE | 2021-08-21 12:59 | PDOC.PAIN ---
Pain Clinic Procedure Note Procedure Note Procedure Note: CAUDAL EPIDURAL STEROID WITH CATHETER INJECTION PROCEDURE NOTE COMMENTS: He was evaluated in our office on 07/23/21. His pre-procedure pain VAS was 6/10. DX: Lumbar radiculopathy Adrian Guardado has been referred to the [facility] for lumbar epidural steroid injection. Patient was greeted by the nurse who verified patients name and . Patient was then taken to the fluoroscopy suite. Patient was interviewed and the medical record reviewed. There were no medical, pharmacologic, radiographic, or other structural contraindications to attempting fluoroscopically guided lumbar epidural steroid injection. Risks and expected side effects as well as potential benefits of the procedure were reviewed and voiced concerns addressed. The patient consent form was signed and witnessed. Standard time-out procedure was performed. Patient was placed in the prone position on the fluoroscopy table and automated blood pressure cuff and pulse oximeter applied. The skin entry point for entering/approaching the epidural space at the sacral hiatus and marked. Following thorough chlorhexadine preparation of the skin and draping and 1% lidocaine infiltration of the skin entry point and subcutaneous tissues, a 17 gauge Touhy needle was placed under fluoroscopic guidance and with loss of resistance technique into the epidural space. Needle tip placement and depth were aided and confirmed by fluoroscopy. There was no paresthesia or return of blood or CSF through the needle. An Arrow cath was thread to the S1 region and 1 cc's of Omnipaque 240 was injected with clear epidural spread confirmed with fluoroscopy. 80mg depomedrol was injected. There was not any unusual discomfort expressed. Vital signs were stable throughout the procedure and were as recorded in nursing records. Follow up plans and appointments were discussed.Post procedure instruction was given as documented in nursing records and having met discharge criteria and was discharged from the [facility]. COMMENTS: This procedure can be completed up to 3 times per 12 months if it is helpful. Post-operative pain VAS = 3/10. Moo Mahmood DO, MPH [facility]
[2021-08-21 13:07] VITALS: BP 137/81; PULSE 67; RESP 18; O2SAT 98
[2021-08-21] MEDS: methylPREDNISolone ACETATE 80 MG/ML VIAL IJ (13:07)
[2021-08-21] MEDS: Omnipaque 240 MG/ML 50 ML BTL IJ (13:07)
== END 2021-08-21 12:08 | disposition home or self-care (01) ==
LOC: PC 12:07
PROVIDERS: PCP Family Medicine; Visit Provider Preventive Medicine Occupational Medicine
DX: M54.16 Radiculopathy, lumbar region (principal)
CPT/HCPCS: 62323; 72100; J1040; Q9967

== ENCOUNTER 2022-02-18 16:20 | Outpatient (REF) | payer OTHER, SELFPAY ==
[2022-02-18 15:25] LABS: Anion Gap 6.4 mmol/L (3-11); BUN 15 mg/dL (7-18); CO2 27.6 mmol/L (21.0-32.0); CREATININE 0.9 mg/dL (0.70-1.30); Calcium 8.9 mg/dL (8.5-10.1); Chloride 101 mmol/L (98-107); Glucose 97 mg/dL (74-106); Potassium 4.1 mmol/L (3.5-5.1); Sodium 135 mmol/L (136-145)
== END 2022-02-18 16:21 | disposition home or self-care (01) ==
LOC: NCHCN 16:20
PROVIDERS: PCP Family Medicine; Visit Provider Family Medicine
DX: I10 Essential (primary) hypertension (principal)
CPT/HCPCS: 80048

== ENCOUNTER → 2023-06-14 01:10 | Outpatient (CLI) | payer OTHER, SELFPAY ==
--- NOTE | 2023-06-14 08:15 | DI.MRI_ITS ---
Exam(s) MR IAC BRAIN WO/W EXAM: MR IAC BRAIN WO/W CLINICAL HISTORY: L>R SNHL,h90.3sn hearing loss. TECHNIQUE: Multiplanar multisequence MRI of the brain and internal auditory canals was performed. CONTRAST MATERIAL: IV Contrast: 15 mL of Dotarem contrast administered. COMPARISON: CT HEAD WITH/WITHOUT CONTRAST from 02/08/2012 MR MRA HEAD WO from 04/18/[address] WITHOUT CONTRAST from 09/17/2014 FINDINGS: VENTRICLES AND EXTRA AXIAL SPACES: Normal in size and morphology for the patient's age. HEMORRHAGE: None. CEREBRAL PARENCHYMA: No focus of restricted diffusion to suggest acute infarct. No space-occupying le yaneth identified. MIDLINE SHIFT: None. BRAINSTEM/CEREBELLUM: Normal. CALVARIUM: Normal. ENHANCEMENT: No suspicious enhancement identified. VISUALIZED PARANASAL SINUSES/MASTOIDS: There is opacification of several mid ethmoid air cells bilate rally. The remaining visualized paranasal sinuses are clear. There is fluid seen in the mastoid air cells bilaterally. [place] OF COOK: Normal flow void. PITUITARY GLAND: Unremarkable. IAC/CP ANGLE: The internal auditory canals are within normal limits. The cerebellar pontine angles ar e unremarkable. No enhancing lesions are seen. Visualized portion of the facial nerves appear within normal limits. OTHER FINDINGS: None. IMPRESSION: 1. No evidence of a mass or enhancing lesion in the internal auditory canals or cerebellopontine angl es. 2. No evidence of an intracranial mass or acute infarct. 3. Ethmoid sinusitis. Mild mastoiditis bilaterally. DATA REPOSITORY:
[2023-06-14 13:21] LABS: CREATININE 0.9 mg/dL (0.70-1.30); Estimated GFR 100.24 (mL/min/1.73m2)
[2023-06-14] MEDS: Normal Saline Flush 10 ML SYR IVP (14:02)
[2023-06-14] MEDS: Gadoterate meglumine 20 ML SYRINGE 15 ML IVP (14:02)
== END ==
PROVIDERS: PCP Family Medicine; Visit Provider Otolaryngology
DX: H90.3 Sensorineural hearing loss, bilateral (principal); J01.20 Acute ethmoidal sinusitis, unspecified
CPT/HCPCS: 70553; 82565

== ENCOUNTER 2024-05-29 09:51 | Day surgery (SDC) | payer OTHER, SELFPAY ==
--- NOTE | 2024-05-28 19:03 | W.PM.DSUDISC ---
Date of service: 05/29/24 Time of Service: 11:00 Discharge Plan Disposition Patient Disposition: Home Condition: Good Discharge Details Reason For Visit: screening colonoscopy Attending Provider: Silviano Sales Primary Care Provider: Maryse Perry Home Meds and New Rx's Prescriptions: Continued multivitamin [Daily Multi-Vitamin] Tablet 1 tab PO DAILY magnesium 400 mg PO DAILY amlodipine 10 mg tablet 10 mg PO HS cyclobenzaprine 10 mg tablet 10 mg PO HS gabapentin 300 mg capsule 300 mg PO QHS turmeric 400 mg capsule 400 mg PO DAILY vitamin B complex Capsule 1 cap PO DAILY amitriptyline 10 mg tablet 10 mg PO HS Patient Comments: TAKE ONE TO TWO TABLETS BY MOUTH AT BEDTIME omega-3 fatty acids Capsule 1,000 mg PO BID Discontinued bisacodyl [Dulcolax (bisacodyl)] 5 mg tablet,delayed release (DR/EC) 5 mg PO ONCE Qty: 4 0RF Rx Instructions: Take per colonoscopy instructions provided by ordering providers office polyethylene glycol 3350 17 gram/dose powder 17 g PO ONCE Qty: 238 0RF Rx Instructions: Take per colonoscopy instructions provided by ordering providers office Discharge Instructions Instructions: Colon polyps, Diverticulosis Additional Instructions: Adrian, was very nice to meet you today, and I hope you are comfortable during the colonoscopy. Everything went very smoothly. Your prep was excellent, and I could see everything fine. You have a little bit of proctitis, or inflammation in the rectum. This could be something as simple as irritation from the bowel prep, or could be related to the loose stools that you experience. Very mild inflammatory bowel disease, or perhaps irritable bowel syndrome would be consistent with this. He also had 1 polyp in your rectum, which I removed today. The polyp we sent off for testing. Similar to your last experience, we will check on the nature of the polyp before we make a decision regarding the timing of your next colonoscopy. But I would expect something like 3 to 5 years depending upon that polyp. He also have a little bit of diverticulosis. These are little weak spots in the muscular layer of the colon wall that causes the inside lining of the colon to pooch through. These can get infected or inflamed during episodes that we refer to as flareups of diverticulitis. I attached some general information here about typical approaches to: Rectal polyps, as well as diverticular disease. Once I have the results of the polyp report, the office will be in touch. If you have any questions in the meantime, please do not hesitate to ask. 1. If tolerated, consume a soft, low fiber diet for 1-2 days. 2. Do not drive, drink alcohol, operate machinery, make critical decisions, or do activities that require coordination or balance for 24 hours. 3. Because air was put into your colon during the procedure, expelling air from your rectum (passing gas or farting) is normal. 4. You may not have a bowel movement for 1-3 days because of the colonoscopy prep. This is normal. 5. Go directly to the emergency room if you notice any of the following: Develop chills (warm to touch), or if you have a thermometer and your temperature is above 101 Difficulty breathing or difficultly swallowing Persistent vomiting Severe abdominal pain, other than gas cramps Severe chest pain Black, tarry stools Any bleeding ? exceeding one tablespoon 6. Call your physician if the site where your intravenous was started becomes red, swollen, painful, and warm to touch. 7. Your physician has reviewed your pre-procedure medications. Please continue to take those medications as previously ordered. You will be given specific information/education regarding any changes to your medications before leaving. Activity:: Activity as Tolerated Diet:: As Tolerated Discharge Orders Discharge Orders: Discharge Order (Routine); Ordered 05/28/24 Ordered By: Silviano Sales DS: Diagnosis Discharge Diagnosis (1) Encounter for screening colonoscopy: Status: Acute Asessment and Plan: Follow-up on polypectomy results
--- NOTE | 2024-05-28 19:04 | COLE_ITS ---
Date of service: 05/29/24 Time of Service: 11:02 Colonoscopy Report Date of procedure: 05/29/24 Pre-op diagnosis general: screening colonoscopy Post-op diagnosis procedure note: other (Proctitis, rectal polyp, diverticulosis) Procedure: colonoscopy with polypectomy Surgeon: Silviano Sales Anesthesia Type: General:No Airway Estimated blood loss (mL): 5 Pathology: other (0.25 cm flat polyp in the rectum) Complications: None Disposition: same day Indications: Adrian is a 59 year old man with a history of adenomatous polyps who needs his next screening colonoscopy Prep: Miralax/Dulcolax Procedure Start Time: 10:34 Procedure End Time: 10:51 Retraction Time: 10 Findings: Mild proctitis, diverticulosis, 0 .25 cm flat polyp in the rectum Procedure Description: After the induction of anesthesia, and with the patient in left lateral decubitus position, I began by performing an external anorectal exam.? Perineum and skin were normal, as was the anal verge.? There was no evidence of external hemorrhoids.? Next, I performed a digital rectal exam.? I did not appreciate any abnormal findings.? Next, I advanced a colonoscope into the rectal vault.? I performed retroflexion.? This appeared normal. In the midportion of the rectal vault was a small patch of inflammation. There is no evidence of any ulceration or recent bleeding. Immediately adjacent to this was a 0.5 cm flat polyp. This was removed with cold forceps with minimal bleeding..? Using insufflation, I then advanced the colonoscope beyond the rectal folds and into the sigmoid colon before advancing towards the cecum.? The quality of the prep was excellent.? The scope was noted to be in the cecum by identification of the ileocecal valve and appendiceal orifice.? I then began withdrawing the colonoscope using repeated irrigation as necessary for full evaluation of the colonic mucosa. ?There was some sigmoid diverticulosis. Once the scope was withdrawn to the level of the rectum, great care was taken to examine portions of the rectal folds.? Finally, the scope was withdrawn and the patient was brought to the same-day surgery recovery unit as the anesthetic wore off. ?The findings and instructions were shared with the patient prior to discharge. [place] Bowel Prep [place] Bowel Prep Right Colon: 3 Left Colon: 3 Transverse Colon: 3 Total Score: 9
--- NOTE | 2024-05-29 07:51 | ANES.PREOP_ITS ---
General Info Date of Service Date Performed: 05/29/24 Height: 5 ft 9 in Weight: 76.204 kg Body Mass Index (BMI): 24.7 Surgical Procedure: Operation Date: 05/29/24 11:05 Proposed Procedure Side Surgeon mitul Sales MD Meds Allergies and Home Medications Allergies Allergy/AdvReac Type Severity Reaction Status Date / Time tree and shrub pollen Allergy Other (See Verified 05/29/24 10:11 Comment) Home Medication ?Medication ?Instructions ?Recorded multivitamin (Daily Multi-Vitamin 1 tab PO DAILY 02/07/20 tablet) omega-3 fatty acids 1,000 mg PO BID 08/21/21 magnesium 400 mg PO DAILY 05/11/23 amlodipine 10 mg tablet 10 mg PO HS 02/22/24 cyclobenzaprine 10 mg tablet 10 mg PO HS 02/22/24 gabapentin 300 mg capsule 300 mg PO QHS 02/22/24 turmeric 400 mg capsule 400 mg PO DAILY 02/22/24 vitamin B complex 1 cap PO DAILY 02/22/24 amitriptyline 10 mg tablet 10 mg PO HS 05/29/24 Current Visit Medications: Current Medications Generic Name Dose Route Start Last Admin Trade Name Freq PRN Reason Stop Dose Admin IV Miscellaneous Supplies 1 each 05/29/24 06:00 Iv Access IV 06/25/24 23:59 [facility]ED [facility] Ondansetron HCl 4 mg 05/28/24 19:05 Ondansetron 4 Mg/2 Ml Vial IVP 06/27/24 19:04 Q4H PRN PRN Nausea / Vomiting Sodium Chloride 0 ml 05/29/24 06:00 Normal Saline Flush 10 Ml Syr IV 06/25/24 23:59 PRN PRN Sodium Chloride 0 ml 05/29/24 06:00 Normal Saline 10 Ml Vial IJ 06/25/24 23:59 DIRECTED PRN Sterile Water 0 ml 05/29/24 06:00 Water,Injection,Sterile 10 Ml Vial IJ 06/25/24 23:59 DIRECTED PRN PFSH Active Problems Active Problems: Problem Status Onset Code Encounter for screening colonoscopy Acute Z12.11 Asymmetric SNHL (sensorineural hearing loss) Acute H90.3 Lumbar radiculitis Acute M54.16 Neuropathy Acute G62.9 Insomnia Acute G47.00 Chronic back pain Acute M54.9, G89.29 Sensorineural hearing loss (SNHL) of both ears Acute H90.3 Tinnitus of both ears Acute H93.13 Allergic rhinitis Acute J30.9 Impacted cerumen, right ear Acute H61.21 Tinnitus, bilateral Acute H93.13 Peripheral neuropathy Acute G62.9 Tubulovillous adenoma Acute D36.9 Heme + stool Acute R19.5 Inguinodynia Acute R10.30 Shingles outbreak Acute B02.9 Chronic low back pain with right-sided sciatica Acute M54.41, G89.29 Former smoker Acute Z87.891 Left inguinal hernia Acute K40.90 H/O vasectomy Acute Z98.52 Medical History Medical History IBS (irritable bowel syndrome) Preventative health care Bilateral lumbar radiculopathy History of prediabetes Acute depression Numbness and tingling of foot Left leg pain 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 states if he gets up fast or bends over he gets dizzy Shingles GERD (gastroesophageal reflux disease) VALENTIN (dyspnea on exertion) Rash Low back pain Sciatica, left side Hypertension Fatigue Pre-diabetes Situational depression Lumbar disc herniation with radiculopathy History of chest pain Pt. states he thinks it related to his hernia and states my whole torso is screwed up Abdominal pain Back pain Hernia Surgical History Surgical History History of colonoscopy with polypectomy (~01/03/21) Status post lumbar surgery History of left inguinal hernia repair Tobacco Smoking/Tobacco Use Status: Former Tobacco Use Alcohol Alcohol Intake: current Alcohol intake frequency: holidays/special occasions only Alcohol type: beer and hard liquor Substance Use Substance use: Occasionally Substance use type: marijuana Vital Signs and Lab Results Vital Signs Most Recent Vital Signs in EMR: Temp Pulse Resp BP Pulse Ox 36.5 C 72 16 140/92 H 99 05/29/24 10:00 05/29/24 10:00 05/29/24 10:00 05/29/24 10:00 05/29/24 10:00 Lab Results Blood Type / Crossmatch: No Data to Display Complete Blood Count: No Data to Display Complete Metabolic Panel: No Data to Display Liver Function Panel: No Data to Display Coagulation Panel: No Data to Display Cardiac Panel: No Data to Display Arterial Blood Gas: No Data to Display Venous Blood Gas: No Data to Display Pancreas Panel: No Data to Display Thyroid Panel: No Data to Display Infectious Disease: No Data to Display Blood Cultures: No Data to Display Toxicology Panel: No Data to Display Imaging and Studies Imaging and Studies Study information below may be from another EMR and interpreted by another provider. Please see original notes in EMR for more complete details. Stress Test Summary: Impressions: Normal study after maximal exercise. Summary: Stress: Exercise capacity is average for age. 07/25/15 Pulmonary Function Summary: Impression Mild obstructive airways disease with no bronchodilator response, this is associated with Mild diffusion defect Clinical Correlation therefore is recommended. 09/09/20 Anesthesia Assessment and Plan Anesthesia History Personal History: No History of Anesthesia Complications Family History: No Family History of Anesthesia Complications Exercise Tolerance Exercise Tolerance: Metabolic Equivalents>4 Pertinent Negatives Pertinent Negatives: No Symptoms of GERD, No Major Cardiovascular Symptoms or Complaints and No Major Pulmonary Symptoms or Complaints Cardiac & Pulmonary Exam Cardiac Exam: Normal S1/S2 Heart Sounds Pulmonary Exam: Clear Bilateral Breath Sounds Implantable Cardiac Device Does patient have a Pacemaker or an ICD?: No Airway Exam Known Difficult Airway: No Mallampati Class: 1 Mouth Opening: Narrow (< 3cm) Thyromental Distance: Greater than 3 cm Neck Range of Motion: Full ROM Neck Circumference: Normal Teeth Condition: Normal Dentition ASA Classification ASA Score: ASA 2 Emergency Case?: No NPO Status NPO Status: NPO Clears >2 hours, Solids >8 hours Anesthesia Plan Resuscitation Status: Full Code Anesthesia Technique: General Anesthesia Airway Planned: Natural Airway Monitors Used: Standard Monitors Preoperative Comments:: 59 yo for colo. Sig pmhx: htn, GERD, back pain, dyspnea, pre dm. Stress: normal PFT: mild obstruction Previous anes: - colo, prop, no issues - hernia, Mac 3 grade 1.
[2024-05-29 10:00] VITALS: BP 140/92; PULSE 72; RESP 16; TEMP 36.5; O2SAT 99
[2024-05-29] MEDS: Normal Saline Flush 10 ML SYR IV (10:15)
--- NOTE | 2024-05-29 10:35 | BOWEL_PTH ---
PATIENT: Adrian Guardado LOC: [facility] U#:[id number] AGE/SX: 59/M ROOM: RE05/29/[address]: Silviano Sales MD : [id number] BED: DIS: 05/29/2024 SPEC #: [id number] RECD: 05/29/24 12:55 STATUS: FELIX REQ #: [id number] SRAVAN: 05/29/24 10:[address]: Silviano Sales DEPT: Surgical Specimen RECD BY: Reyna Fletcher ENTERED: 05/29/24 12:56 SP TYPE: Bowel OTHR DR: Maryse Perry Tissues: 1 - BIOPSY BOWEL Procedures: GROSS AND MICRO LEVEL 4 Comments: [id number]
[2024-05-29 10:55] VITALS: BP 109/76; PULSE 79; RESP 16; TEMP 36.1; O2SAT 99
[2024-05-29 11:02] VITALS: BMI 24.7
--- NOTE | 2024-05-29 11:05 | W.ANESPOSTOP ---
Postoperative Evaluation Date, Time and Location Date Performed: 05/29/24 Time Performed: 10:57 Patient Location: Day Surgery Unit Vital Signs Most Recent Imported Vital Signs: Most Recent Vital Signs Temp Pulse Resp BP Pulse Ox 36.1 C L 79 16 109/76 99 05/29/24 10:55 05/29/24 10:55 05/29/24 10:55 05/29/24 10:55 05/29/24 10:55 Pain Score Most Recent Pain Score: Most Recent Pain Score Pain Level 0 05/29/24 10:55 Assessment Mental Status: Awake (Alert & Oriented to Patient Baseline) Airway and Respiratory Function: Patent airway with normal (patient baseline) respiratory exam Cardiovascular Function: Hemodynamically Stable Hydration Status: Adequately Hydrated Nausea & Vomiting: No Nausea or Vomiting Pain: Pt. Denies Any Pain Peripheral Nerve Block: Patient did not receive a nerve block
[2024-05-29 11:30] VITALS: BP 118/91; PULSE 58; RESP 16; TEMP 36.5; O2SAT 99
== END 2024-05-29 11:45 | disposition home or self-care (01) ==
LOC: SUR 09:51
PROVIDERS: PCP Family Medicine; Visit Provider Surgery
PROC: 0DJD8ZZ Inspection of Lower Intestinal Tract, Via Natural or Artificial Opening Endoscopic (ICD-10-PCS; CPT 45378; principal; 2024-05-29 11:00)
DX: Z12.11 Encounter for screening for malignant neoplasm of colon (principal); K62.1 Rectal polyp; K57.30 Diverticulosis of large intestine without perforation or abscess without bleeding; K62.89 Other specified diseases of anus and rectum; I10 Essential (primary) hypertension; R73.03 Prediabetes
CPT/HCPCS: 45380; 88305; J2704

== ENCOUNTER 2024-06-02 15:20 | Outpatient (REF) | payer SELFPAY ==
--- OUTSIDE RECORDS SUMMARY | 2024-06-02 15:21 | XMS_ITS | Clinical Summary ---
Author Organization [facility] Address [address] [place] [address] Care Team Providers Care Bolt Loader Name Role Phone Maryse Perry MD Primary Care Provider [phone] Encounters Date Type Department Care Team Description 05/29/2024 Lab Requisition [facility] Pathology & Laboratory Medicine - [facility] [address] [place] [address] Silviano Sales MD Encounter for screening for malignant neoplasm of colon from Last 3 Months Social History Tobacco Use Types Packs/Day Years Used Date Smoking Tobacco: Never Assessed Interpersonal Safety Answer Date Record ed Physically Hurt Never 02/18/2020 Verbally Threaten Not on file 02/18/2020 Sex and Gender Information Value Date Recorded Sex Assigned at Not on file Legal Sex Male 18:17 EST Gender Identity Not on file Sexual Orientation Not on file Plan of Treatment Health Maintenance Due Date Last Done Comments Hepatitis B Vaccine (1 of 3 - 19+ 3-dose series) 04/05 COVID-19 Vaccine ( season) 2024 Hepatitis C Screen Completed 06/09/2021 Procedures Procedure Name Priority Date/Time Associated Diagnosis Comments SURGICAL PATHOLOGY Today 05/29/2024 10 :35 EST Encounter for screening for malignant neoplasm of colon HEPATITIS C AB W REFLEX TO HCV RNA BY PCR Routine 06/09/2021 10:17 EST from Last 3 Months or Most Recently Relevant to Health Maintenance Results * SURGICAL PATHOLOGY (05/29/2024 10:35 EST) Note to Patient The following pathology results have been interpreted by your pathologist and may be available to you before your health provider has had the opportunity to review them. Please allow time for your provider to receive these results and explore management options, if applicable. 05/30/2024 18:06 [facility] Final Diagnosis A. RECTUM, POLYP, BIOPSY: - Hyperplastic polyp. 05/30/2024 18:06 [facility] Attestation By the signature below, the attending physician certifies that they have 1) personally conducted a gross and/or microscopic examination of the described specimen(s), and/or personally interpreted the results of laboratory testing of the described specimen(s), and 2) personally rendered or confirmed the above diagnosis. 05/30/2024 18:06 [facility] at 1806 Clinical History Colorectal cancer screening, history of colon polyps, daily incontinent of liquid stool 05/30/2024 18:06 [facility] Gross Description A. Received in formalin labelled with proper patient identification (initials D, T) and rectal polyp is a single garcía focally brown tissue (0.3 x 0.3 x 0.2 cm). Submitted intact in A1. Shreya Shanestacy 05/30/2024 6:15 05/30/2024 18:06 [facility] Performing Lab [facility] 05/30/2024 18:06 [facility] Scanned Images 05/30/2024 18:06 [facility] Tissue SPECIMEN FROM RECTUM / Unknown 05/29/2024 10:35 EST 05/29/2024 17:58 EST us Silviano Sales MD PATHOLOGY ORDERABLES Final Resu lt [facility] [address] [place] [address] * HEPATITIS C AB W REFLEX TO HCV RNA BY PCR (06/09/2021 10:17 EST) Hep C Antibody Negative Negative 06/10/2021 9:48 [facility] Blood VENOUS BLOOD / Unknown 06/09/2021 10:17 EST 06/09/2021 21:38 EST us Provider Outr Resulting Lab CHEMISTRY & BLOOD GA S ORDERABLES Final Result [facility] [address] [place] [address] from Last 3 Months or Most Recently Relevant to Health Maintenance Insurance C[employer] Care Teams Bolt Loader Relationship Specialty Start Date End Date Maryse Perry MD [address] [place] [phone] PCP - General 05/29/15
--- OUTSIDE RECORDS SUMMARY | 2024-06-02 15:21 | XMS_ITS | Encounter Summary ---
Author Organization [facility] Address [address] [place] [address] Care Team Providers Care Marine Rigger Name Role Phone Maryse Perry MD Primary Care Provider [phone] Encounter Details Date Type Department Care Team (Late st Contact Info) Description 06/09/2021 Lab Requisition [facility] Pathology & Laboratory Medicine - [facility] [address] [place], [place] [id number] Outr Resulting Lab, Provider Social History Tobacco Use Types Packs/Day Years Used Date Smoking Tobacco: Never Assessed Interpersonal Safety Answer Date Record ed Physically Hurt Never 02/18/2020 Verbally Threaten Not on file 02/18/2020 Sex and Gender Information Value Date Recorded Sex Assigned at Not on file Legal Sex Male 18:17 EST Gender Identity Not on file Sexual Orientation Not on file documented as of this encounter Plan of Treatment Not on file documented as of this encounter Procedures Procedure Name Priority Date/Time Associated Diagnosis Comments HEPATITIS C AB W REFLEX TO HCV RNA BY PCR Routine 06/09/2021 10:17 EST documented in this encounter Results * HEPATITIS C AB W REFLEX TO HCV RNA BY PCR (06/09/2021 10:17 EST) Hep C Antibody Negative Negative 06/10/2021 9:48 EST [facility] Blood VENOUS BLOOD / Unknown 06/09/2021 10:17 EST 06/09/2021 21:38 EST us Provider Outr Resulting Lab CHEMISTRY & BLOOD GA S ORDERABLES Final Result [facility] [address] [place] [address] documented in this encounter Visit Diagnoses Not on filedocumented in this encounter Care Teams Marine Rigger Relationship Specialty Start Date End Date Maryse Perry MD [address] [place] [phone] PCP - General 05/29/15 documented as of this encounter
--- OUTSIDE RECORDS SUMMARY | 2024-06-02 15:21 | XMS_ITS | Encounter Summary ---
Author Organization [facility] Address [address] [place] [address] Care Team Providers Care Pier Worker Name Role Phone Maryse Perry MD Primary Care Provider [phone] Encounter Details Date Type Department Care Team (Late st Contact Info) Description 01/03/2021 Lab Requisition [facility] Pathology & Laboratory Medicine - [facility] [address] [place] [address] Jacqui Olmos, DO [address] [place], [place] [id number] Encounter for other general examination Social History Tobacco Use Types Packs/Day Years [...] Date/Time Associated Diagnosis Comments SURGICAL PATHOLOGY Today 01/03/2021 16 :20 EDT Encounter for other general examination documented in this encounter Results * SURGICAL PATHOLOGY (01/03/2021 16:20 EDT) Final Diagnosis A. 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 01/06/2021 17:39 EDT [facility] Attestation By the signature below, the attending physician certifies that they have 1) personally conducted a gross and/or microscopic examination of the described specimen(s), and/or personally interpreted the results of laboratory testing of the described specimen(s), and 2) personally rendered or confirmed the above diagnosis. 01/06/2021 17:39 [facility] at 1739 Clinical History Heme occult positive 01/06/2021 17:39 EDT [facility] Gross Description A. Received in formalin labelled with proper patient identification (initials D, T) and polyp @ 20 cm is a single brown nodular polypoid tissue (0.7 x 0.5 x 0.3 cm). The specimen is bisected and submitted entirely in A1. JESUSITA PRO(ASC) 01/04/2021 13:46 01/06/2021 17:39 EDT [facility] Performing Lab [facility] 01/06/2021 17:39 T [facility] Scanned Images 01/06/2021 17:39 T [facility] Tissue ENTIRE COLON / Unknown 01/03/2021 16:20 EDT 01/03/2021 22:22 EDT us Jacqui Olmos DO PATHOLOGY ORDERABLES Final Re sult [facility] [address] [place] [address] documented in this encounter Visit Diagnoses Diagnosis Encounter for other general examination documented in this encounter Care Teams Pier Worker Relationship Specialty Start Date End Date Maryse Perry MD [address] [place] [phone] PCP - General 05/29/15 documented as of this encounter
--- OUTSIDE RECORDS SUMMARY | 2024-06-02 15:21 | XMS_ITS | Encounter Summary ---
Author Organization [facility] Address [address] [place] [address] Care Team Providers Care Insurance Agents Supervisor Name Role Phone Maryse Perry MD Primary Care Provider [phone] Encounter Details Date Type Department Care Team (Late st Contact Info) Description 11/03/2019 Lab Requisition [facility] Pathology & Laboratory Medicine - [facility] [address] [place] [address] Miky Meraz MD [address] [place] [phone] Encounter for other general examination Social History Tobacco Use Types Packs/Day Years Used Date Smoking Tobacco: Never Assessed Sex and Gender Information Value Date Recorded Sex Assigned at Not on file Legal Sex Male 18:17 EST Gender Identity Not on file Sexual Orientation Not on file documented as of this encounter Plan of Treatment Not on file documented as of this encounter Procedures Procedure Name Priority Date/Time Associated Diagnosis Comments ZZCOVID-19 TEST [facility] PCR Today 11/03/2019 11:52 EDT Encounter for other general examination documented in this encounter Results * COVID-19 TEST [facility] PCR (11/03/2019 11:52 EDT) COVID-19 rt-PCR Result Negative Negative 11/04/2019 15:49 EDT [facility] Comment: Negative results do not preclude 2019-nCoV infection and should not be used as the sole basis for treatment or other patient management decisions. Negative results must be combined with clinical observations, patient history, and epidemiological information. This test has not been FDA cleared or approved. This test has been internally validated, but independent review and determination of emergency use authorization ??(EUA) by the FDA is pending. Performed on the [employer] Fast Swab ENTIRE NASOPHARYNX / Unknown 11/03/2019 11:52 EDT 11/03/2019 22:15 EDT Miky Meraz MD MICROBIOLOGY - GENERAL ELENA YAO Final Result [facility] [address] [place] [address] documented in this encounter Visit Diagnoses Diagnosis Encounter for other general examination documented in this encounter Care Teams Insurance Agents Supervisor Relationship Specialty Start Date End Date Maryse Perry MD [address] [place] [phone] PCP - General 05/29/15 documented as of this encounter
--- OUTSIDE RECORDS SUMMARY | 2024-06-02 15:21 | XMS_ITS | Encounter Summary ---
Author Organization [facility] Address [address] [place] [address] Care Team Providers Care Coding Specialist Name Role Phone Maryse Perry MD Primary Care Provider [phone] Encounter Details Date Type Department Care Team (Late st Contact Info) Description 05/29/2024 Lab Requisition [facility] Pathology & Laboratory Medicine - [facility] [address] [place] [address] Silviano Sales MD [address] [place] [address], [address] [place], [place] [id number] Encounter for screening for malignant neoplasm of colon Social History Tobacco Use Types Packs/Day Years [...] for screening for malignant neoplasm of colon documented in this encounter Results * SURGICAL PATHOLOGY (05/29/2024 10:35 EST) Note to Patient The following pathology results have been interpreted by your pathologist and may be available to you before your health provider has had the opportunity to review them. Please allow time for your provider to receive these results and explore management options, if applicable. 05/30/2024 18:06 [facility] Final Diagnosis A. RECTUM, POLYP, BIOPSY: - Hyperplastic polyp. 05/30/2024 18:06 [facility] Attestation By the signature below, the attending physician certifies that they have 1) personally conducted a gross and/or microscopic examination of the described specimen(s), and/or personally interpreted the results of laboratory testing of the described specimen(s), and 2) personally rendered or confirmed the above diagnosis. 05/30/2024 18:06 [facility] at 1806 Clinical History Colorectal cancer screening, history of colon polyps, daily incontinent of liquid stool 05/30/2024 18:06 [facility] Gross Description A. Received in formalin labelled with proper patient identification (initials D, T) and rectal polyp is a single garcía focally brown tissue (0.3 x 0.3 x 0.2 cm). Submitted intact in A1. Shreya Denney 05/30/2024 6:15 05/30/2024 18:06 [facility] Performing Lab [facility] 05/30/2024 18:06 [facility] Scanned Images 05/30/2024 18:06 [facility] Tissue SPECIMEN FROM RECTUM / Unknown 05/29/2024 10:35 EST 05/29/2024 17:58 EST us Silviano Sales MD PATHOLOGY ORDERABLES Final Resu lt [facility] [address] [place] [address] documented in this encounter Visit Diagnoses Diagnosis Encounter for screening for malignant neoplasm of colon Special screening for malignant neoplasms, colon documented in this encounter Care Teams Coding Specialist Relationship Specialty Start Date End Date Maryse Perry MD [address] [place] [phone] PCP - General 05/29/15 documented as of this encounter
--- OUTSIDE RECORDS SUMMARY | 2024-06-02 15:21 | XMS_ITS | Encounter Summary ---
Author Organization [facility] Address [address] [place] [address] Care Team Providers Care Manager Of Compensation Name Role Phone Maryse Perry MD Primary Care Provider [phone] Encounter Details Date Type Department Care Team (Late st Contact Info) Description 09/02/2020 Lab Requisition [facility] Pathology & Laboratory Medicine - [facility] [address] [place], [place] [phone] Outr Resulting Lab, Provider Social History Tobacco [...] Priority Date/Time Associated Diagnosis Comments ZZCOVID-19 TEST [facility] PCR Today 09/02/2020 13:43 EST COVID-19 TESTING Routine 09/02/2020 13:4 3 EST documented in this encounter Results * COVID-19 TEST [facility] PCR (09/02/2020 13:43 EST) Swab ENTIRE NASOPHARYNX / Unknown 09/02/2020 13:43 EST 09/02/2020 20:51 EST us Provider Outr Resulting Lab MICROBIOLOGY - GENER AL ORDERABLES Final Result [facility] [address] [place] [address] * COVID-19 TESTING (09/02/2020 13:43 EST) COVID-19 rt-PCR Result Negative Negative 09/03/2020 19:32 EST [facility] Comment: This test was developed and its performance characteristics determined by [facility]. It has not been cleared or approved by the US Food and Drug Administration. FDA does not require this test to go through premarket FDA review. This test is used for clinical purposes. It should not be regarded as investigational or for research. This laboratory is certified under the Clinical Laboratory Improvement Amendments (CLIA) as qualified to perform high complexity clinical laboratory testing. This test is based on the [facility] COVID-19 Emergency Use Authorization (EUA) assay, with minor modification as defined by the FDA Performed on the 48domain Pro RT-PCR System. This test has not been FDA cleared or approved. This test has been authorized by FDA under an EUA for use by authorized laboratories. This test has been authorized only for detection of nucleic acid from 2019-nCoV, not for any other viruses or pathogens. This test is only authorized for the duration of the declaration that circumstances exist justifying the authorization of emergency use of in vitro diagnostic tests for detection and/or diagnosis of 2019-nCoV under section 564(b)(1) of Act, 21 U.S.C ?? 360bbb-3(b) (1), unless the authorization is terminated or revoked sooner. Negative results do not preclude 2019-nCoV infection and should not be used as the sole basis for treatment or other patient management decisions. Negative results must be combined with clinical observations, patient history, and epidemiological information. Performing Lab [facility] 09/03/2020 19:32 EST [facility] Swab 09/02/2020 13:4 3 EST 09/02/2020 20:51 EST us Provider Outr Resulting Lab MICROBIOLOGY - GENER AL ORDERABLES Final Result Performing Organization Address City/[facility]/ZIP Co de Phone Number [facility] [address] [place] [phone] documented in this encounter Visit Diagnoses Not on filedocumented in this encounter Care Teams Manager Of Compensation Relationship Specialty Start Date End Date Maryse Perry MD [address] [place] [phone] PCP - General 05/29/15 documented as of this encounter
--- OUTSIDE RECORDS SUMMARY | 2024-06-02 15:21 | XMS_ITS | Encounter Summary ---
Author Organization [facility] Address [address] [place] [address] Care Team Providers Care Assistant Professor Of Life Sciences Name Role Phone Maryse Perry MD Primary Care Provider [phone] Encounter Details Date Type Department Care Team (Late st Contact Info) Description 06/09/2021 Lab Requisition [facility] Pathology & Laboratory Medicine - [facility] [address] [place], [place] [phone] Outr Resulting Lab, Provider Social History Tobacco [...] Procedure Name Priority Date/Time Associated Diagnosis Comments HIV 1/2 ANTIGEN AND ANTIBODY, 4TH GENERATION Routine 06/09/2021 10:17 EST documented in this encounter Results * HIV 1/2 ANTIGEN AND ANTIBODY, 4TH GENERATION (06/09/2021 10:17 EST) HIV 1 and 2 Antibody/p24 Antigen, 4th Generation Negative Negative 06/10/2021 10:06 EST [facility] Comment:If acute HIV-1 infec tion is suspected in a high risk patient, submit plasma specimen for HIV-1 RNA quantitation test. Blood VENOUS BLOOD / Unknown 06/09/2021 10:17 EST 06/09/2021 21:38 EST Narrative [facility] - 06/10/2021 10:06 EST Fourth Generation assay performed on the Ybrant Digitalaur XPT. us Provider Outr Resulting Lab IMMUNOLOGY AND SEROL OGY ORDERABLES Final Result [facility] [address] [place] [address] documented in this encounter Visit Diagnoses Not on filedocumented in this encounter Care Teams Assistant Professor Of Life Sciences Relationship Specialty Start Date End Date Maryse Perry MD [address] [place] [phone] PCP - General 05/29/15 documented as of this encounter
--- OUTSIDE RECORDS SUMMARY | 2024-06-02 15:21 | XMS_ITS | Encounter Summary ---
Author Organization [facility] Address [address] [place] [address] Care Team Providers Care Streetcar Dispatcher Name Role Phone Maryse Perry MD Primary Care Provider [phone] Encounter Details Date Type Department Care Team (Late st Contact Info) Description 11/26/2020 Lab Requisition [facility] Pathology & Laboratory Medicine - [facility] [address] [place], [place] [phone] Outr Resulting Lab, Provider Social History Tobacco [...] Procedure Name Priority Date/Time Associated Diagnosis Comments CELIAC DISEASE PANEL Today 11/25/2020 16:17 EDT HOLD SST Today 11/25/2020 16:17 EDT HOLD SST Today 11/25/2020 16:17 EDT CCP ANTIBODIES Today 11/25/2020 16:17 EDT ANTI NUCLEAR AB (RENETTA), IFA Today 11/25/2020 16:17 EDT documented in this encounter Results * HOLD SST (11/25/2020 16:17 EDT) Hold Hold 11/26/2020 17:[address] [facility] Blood VENOUS BLOOD / Unknown 11/25/2020 16:17 EDT 11/26/2020 16:43 EDT us Provider Outr Resulting Lab LAB INFO SERVICE AND SUPPORT & PHONE RESULT Final Result [facility] [address] [place] [address] * HOLD SST (11/25/2020 16:17 EDT) Hold Hold 11/26/2020 17:[address] [facility] Blood VENOUS BLOOD / Unknown 11/25/2020 16:17 EDT 11/26/2020 16:43 EDT us Provider Outr Resulting Lab LAB INFO SERVICE AND SUPPORT & PHONE RESULT Final Result Performing Organization Address [facility]/ZIP Co de Phone Number [facility] [address] [place] [address] * ANTI NUCLEAR AB (RENETTA), IFA (11/25/2020 16:17 EDT) [facility] RENETTA Interpretation Negative Negative 2020 13:[address] [facility] Comment:No titer performed, RENETTA Screen is negative. Blood VENOUS BLOOD / Unknown 11/25/2020 16:17 EDT 11/26/2020 16:[address] [facility] - 11/27/2020 13:23 EDT Results were obtained with the INOVA NOVA Lite HEp-2 RENETTA Kit by indirect immunofluorescence. us Provider Outr Resulting Lab IMMUNOLOGY AND SEROL OGY ORDERABLES Final Result Performing Organization Address [facility]/ZIP Co de Phone Number [facility] [address] [place] [address] * CCP ANTIBODIES (11/25/2020 16:17 EDT) CCP Antibodies <2.5 <5.0 U/mL 11/27/2020 10:[address] [facility] Blood VENOUS BLOOD / Unknown 11/25/2020 16:17 EDT 11/26/2020 16:42 EDT us Provider Outr Resulting Lab IMMUNOLOGY AND SEROL OGY ORDERABLES Final Result Performing Organization Address [facility] de Phone Number [facility] [address] [place] [address] * CELIAC DISEASE PANEL (11/25/2020 16:17 EDT) Tissue Transglutaminase Antibody IGA <1.2 <4.0 U/mL 11/27/2020 13:[address] [facility] Comment: A negative result may be due to IgA deficiency and does not rule out celiac disease. ? Negative: ??<4.0 U/mL ? Weak Positive: ??4.0 - 10.0 U/mL ? Positive: ??>10.0 U/mL Results were obtained with the Qalendra QUANTA Lite R h-tTG IgA VANITA assay on the EduRise DSX. IgA 186 85 - 499 mg/dL 11/27/2020 13:[address] [facility] Celiac Disease Interpretation Negative Serology. Celiac disease unlikely. Approximately 10% of patients with celiac disease are seronegative. Patients who are already adhering to a gluten-free diet may also be seronegative. If celiac disease is highly clinically suspected, referral to gastroenterology for additional evaluation is recommended. 11/27/2020 13:[address] [facility] Blood VENOUS BLOOD / Unknown 11/25/2020 16:17 EDT 11/26/2020 16:42 EDT us Provider Outr Resulting Lab IMMUNOLOGY AND SEROL OGY ORDERABLES Final Result Performing Organization Address [facility]/ZIP Co de Phone Number [facility] [address] [place] [address] documented in this encounter Visit Diagnoses Not on filedocumented in this encounter Care Teams Streetcar Dispatcher Relationship Specialty Start Date End Date Maryse Perry MD [address] [place] [phone] PCP - General 05/29/15 documented as of this encounter
--- OUTSIDE RECORDS SUMMARY | 2024-06-02 15:21 | XMS_ITS | Encounter Summary ---
Author Organization [facility] Address [address] [place] [address] Care Team Providers Care Correctional Officer Lieutenant Name Role Phone Maryse Perry MD Primary Care Provider [phone] Encounter Details Date Type Department Care Team (Late st Contact Info) Description 02/09/2020 Lab Requisition [facility] Pathology & Laboratory Medicine - [facility] [address], [place] [id number] Outr Resulting Lab, Provider Social History Tobacco [...] Procedure Name Priority Date/Time Associated Diagnosis Comments DO NOT ORDER STANDALONE - [facility] COVID TEST Today 02/09/2020 11:15 EDT COVID-19 TESTING Routine 02/09/2020 11:1 5 EDT documented in this encounter Results * DO NOT ORDER STANDALONE - [facility] COVID TEST (02/09/2020 11:15 EDT) COVID-19 rt-PCR Result NEGATIVE Negative 02/10/2020 22:09 EDT [facility] Comment: 2019-novel Coronavirus (2019-nCoV) not detected by the qRT-PCR assay. Consider testing for other respiratory viruses or re-collecting for 2019-nCoV testing. Note: Optimum timing for peak viral levels during infections caused by 2019-nCoV have not been determined. Collection of multiple specimens from the same patient may be necessary to detect the virus. Limitations Positive results are indicative of active infection with SARS-CoV-2 but do not rule out bacterial infection or co-infection with other viruses. The agent detected may not be the definite cause of disease. In addition, detection of viral RNA may not indicate the presence of infectious virus or that SARS-CoV-2 is the causative agent for clinical symptoms. Negative results do not preclude SARS-CoV-2 infection and should not be used as the sole basis for patient management decisions. Negative results must be combined with clinical observations, patient history, and epidemiological information. False negative results may also occur if amplification inhibitors are present in the specimen or if inadequate numbers of organisms are present in the specimen. Optimum specimen types and timing for peak viral levels during infections caused by SARS-CoV-2 have not been fully determined. Collection of multiple specimens (types and time points) from the same patient may be necessary to detect the virus. The test was validated for use with upper respiratory specimens obtained via nasopharyngeal or oropharyngeal swabs in VTM, UTM, M4, M5, M6, saline, and MTM media. The performance of this test has not been established for other specimens. Specimens collected using other FDA recommended Specimen Collection Materials listed in the FDA COVID-19 Diagnostic Technologies communication (October 12, 2019) are processed with the caveat that they were not all validated for use with this test and the result must be interpreted in this context. Furthermore, a false negative results may occur if a specimen is improperly collected, transported or handled. If the virus mutates in the RT-PCR target region, SARS-CoV-2 may not be detected or may be detected less predictably. Inhibitors or other types of interference may produce a false negative result. An interference study evaluating the effect of common cold medications was not performed. This test is not FDA-cleared but its performance characteristics were established by our CLIA-certified, CAP-accredited, high complexity laboratory in accordance with CLIA regulations, [employer] (CAP) guidelines (Oct 05, 2019), and FDA guidance (Sep 16, 2019). This test is only for use under the Food and Drug Administration's Emergency Use Authorization. Swab ENTIRE NASOPHARYNX / Unknown 02/09/2020 11:15 EDT 02/09/2020 15:48 EDT us Provider Outr Resulting Lab MICROBIOLOGY - GENER AL ORDERABLES Final Result [facility] [place] * COVID-19 TESTING (02/09/2020 11:15 EDT) [facility] COVID-19 rt-PCR Result NEGATIVE Negative 02/10/2020 23:40 EDT [facility] Comment: 2019-novel Coronavirus (2019-nCoV) not detected by the qRT-PCR assay. Consider testing for other respiratory viruses or re-collecting for 2019-nCoV testing. Note: Optimum timing for peak viral levels during infections caused by 2019-nCoV have not been determined. Collection of multiple specimens from the same patient may be necessary to detect the virus. Limitations Positive results are indicative of active infection with SARS-CoV-2 but do not rule out bacterial infection or co-infection with other viruses. The agent detected may not be the definite cause of disease. In addition, detection of viral RNA may not indicate the presence of infectious virus or that SARS-CoV-2 is the causative agent for clinical symptoms. Negative results do not preclude SARS-CoV-2 infection and should not be used as the sole basis for patient management decisions. Negative results must be combined with clinical observations, patient history, and epidemiological information. False negative results may also occur if amplification inhibitors are present in the specimen or if inadequate numbers of organisms are present in the specimen. Optimum specimen types and timing for peak viral levels during infections caused by SARS-CoV-2 have not been fully determined. Collection of multiple specimens (types and time points) from the same patient may be necessary to detect the virus. The test was validated for use with upper respiratory specimens obtained via nasopharyngeal or oropharyngeal swabs in VTM, UTM, M4, M5, M6, saline, and MTM media. The performance of this test has not been established for other specimens. Specimens collected using other FDA recommended Specimen Collection Materials listed in the FDA COVID-19 [employer] communication (October 12, 2019) are processed with the caveat that they were not all validated for use with this test and the result must be interpreted in this context. Furthermore, a false negative results may occur if a specimen is improperly collected, transported or handled. If the virus mutates in the RT-PCR target region, SARS-CoV-2 may not be detected or may be detected less predictably. Inhibitors or other types of interference may produce a false negative result. An interference study evaluating the effect of common cold medications was not performed. This test is not FDA-cleared but its performance characteristics were established by our CLIA-certified, CAP-accredited, high complexity laboratory in accordance with CLIA regulations, College [employer] [place] [employer] (CAP) guidelines (Oct 05, 2019), and FDA guidance (Sep 16, 2019). This test is only for use under the Food and Drug Administration's Emergency Use Authorization. Performing Lab [facility] 02/10/2020 23:40 EDT [facility] Swab 02/09/2020 11:1 5 EDT 02/09/2020 15:48 EDT us Provider Outr Resulting Lab MICROBIOLOGY - GENER AL ORDERABLES Final Result [facility] [address] [place] [address] [facility] [place], [place] documented in this encounter Visit Diagnoses Not on filedocumented in this encounter Care Teams Correctional Officer Lieutenant Relationship Specialty Start Date End Date Maryse Perry MD [address] [place] [phone] PCP - General 05/29/15 documented as of this encounter
--- OUTSIDE RECORDS SUMMARY | 2024-06-02 15:21 | XMS_ITS | Referral Summary ---
Author Organization [facility] Address [address] [place] [address] Care Team Providers Care Transit Man Name Role Phone Maryse Perry MD Primary Care Provider [phone] Encounters Date Type Department Care Team Description 05/29/2024 Lab Requisition [facility] Pathology & Laboratory Medicine - [facility] [address] [place] [address] Silviano Sales MD Encounter for screening for [...] Orientation Not on file Plan of Treatment Not on file Procedures Procedure Name Priority Date/Time Associated Diagnosis [...] explore management options, if applicable. 05/30/2024 18:06 [facility] Final Diagnosis A. RECTUM, POLYP, BIOPSY: - Hyperplastic polyp. 05/30/2024 18:06 [facility] Attestation By the signature below, the attending physician certifies that they have 1) personally conducted a gross and/or microscopic examination of the described specimen(s), and/or personally interpreted the results of laboratory testing of the described specimen(s), and 2) personally rendered or confirmed the above diagnosis. 05/30/2024 18:06 [facility] at 1806 Clinical History Colorectal cancer screening, history of colon polyps, daily incontinent of liquid stool 05/30/2024 18:06 [facility] Gross Description A. Received in formalin labelled with proper patient identification (initials D, T) and rectal polyp is a single garcía focally brown tissue (0.3 x 0.3 x 0.2 cm). Submitted intact in A1. Shreya Denney 05/30/2024 6:15 05/30/2024 18:06 [facility] Performing Lab [facility] 05/30/2024 18:06 [facility] Scanned Images 05/30/2024 18:06 [facility] Tissue SPECIMEN FROM RECTUM / Unknown 05/29/2024 10:35 EST 05/29/2024 17:58 EST us Silviano Sales MD PATHOLOGY ORDERABLES Final Resu lt [facility] [address] [place] [address] * HEPATITIS C AB W REFLEX TO HCV RNA BY PCR (06/09/2021 10:17 EST) Hep C Antibody Negative Negative 06/10/2021 9:48 [facility] Blood VENOUS BLOOD / Unknown 06/09/2021 10:17 EST 06/09/2021 21:38 EST us Provider Outr Resulting Lab CHEMISTRY & BLOOD GA S ORDERABLES Final Result [facility] [address] [place] [address] from Last 3 Months or Most Recently Relevant to Health Maintenance Insurance [employer] Care Teams Transit Man Relationship Specialty Start Date End Date Maryse Perry MD [address] [place] [address] [phone] PCP - General 05/29/15
--- OUTSIDE RECORDS SUMMARY | 2024-06-02 15:22 | XMS_ITS | Encounter Summary ---
Author Organization [facility] [place] [address] [place] [address] Care Team Providers Care Brief Writer Name Role Phone Maryse Perry MD Primary Care Provider [phone] Encounter Details Date Type Department Care Team (Late st Contact Info) Description 10/09/2022 8:00 AM EDT Office Visit Functional [facility] Program at [facility] [address] [place] [phone] Stanley Flannery Jr., PT Low back pain, non-specific; Sacroiliac joint dysfunction of right side; Radiculopathy of lumbar region; Sacro-iliac pain; Chronic bilateral low back pain with bilateral sciatica Social History Tobacco Use Types Packs/Day Years Used Date Smoking Tobacco: Former Cigarettes 0.3 36 1 09/03/1983 - 07/03/2020 Smokeless Tobacco: Never Alcohol Use Standard Drinks/Week Comments Yes 0 (1 standard drink = 0.6 oz pur e alcohol) drinks occasionally Sex and Gender Information Value Date Recorded Sex Assigned at Not on file Gender Identity Not on file Sexual Orientation Not on file documented as of this encounter Miscellaneous Notes * Treatment - Therapy - Stanley Flannery Jr., PT - 10/09/2022 8:00 AM EDT [facility] Physical Therapy Note [facility] Day 14 Protocol Subjective: Adrian returns today for a scheduled follow up appointment with [facility]. Adrian reported Lower Back Pain Stiffness this morning. Objectives and Treatment Received Exercises performed as a group of 6 with guidance and individualized cues for form. 30 Minutes Standing Warm Up Exercises High March Heel-kick March Squat Step Back Toe Touch Knees to Hands B Forward Lunges Side Lunges Forward Bending and Backward Bending Chin Tucks 30 Minutes Supine, Sidelying, Prone Mat Exercises (2 x 15 each) Lower trunk rotation Straight Leg Raises Curl Up/Crunch Bridge Lower Abdominal Foot Taps B Sidelying Hip Abduction Prone Scap Retraction Prone Hip Extension Press Ups Dumbbells - Bicep curls, shoulder raises to 90 degrees of flexion, straight leg deadlift, and pronereverse flies on plinth. 2x10 reps for each Weight Machines - Lat pull downs, single arm seated row, leg press, chest press, knee extensions, and back extensions. 2x10 reps for each [place] chair back extensions 2 sets to tolerance Cardio performed today: 1 Hr Walk See [facility] flowsheet for details on time held and weights completed Patient participated in all exercises. Assessment: Adrian returns for follow up visit. He was able to progress weights appropriately, while successfully maintaining form. Cues were needed intermittently for maintenance of posture during exercise and avoid compensation. He actively participated as a member of the group throughout session. Plan: Return for follow up with [facility] per protocol. Length of visit: Participated in warm-up and strengthening program from 8:00 a.m. through 11:00 a.m. today as part of group intervention with individualized cues provided. Lena Maguire PTA/JAMESON, present and assisting in supervision of session. Personal Function 3 Month Goals ?? 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 documented in this encounter Plan of Treatment Not on file documented as of this encounter Visit Diagnoses Diagnosis Low back pain, non-specific Sacroiliac joint dysfunction of right side Disorders of sacrum Radiculopathy of lumbar region Thoracic or lumbosacral neuritis or radiculitis, unspecified Sacro-iliac pain Disorders of sacrum Chronic bilateral low back pain with bilateral sciatica documented in this encounter Care Teams Brief Writer Relationship Specialty Start Date End Date Maryse Perry MD [address] [place] [address] PCP - General Family Medicine 11/28/20 documented as of this encounter
--- OUTSIDE RECORDS SUMMARY | 2024-06-02 15:22 | XMS_ITS | Encounter Summary ---
Author Organization [facility] Address [address] [facility] [place] [address] Care Team Providers Care Construction Technician Name Role Phone Maryse Perry MD Primary Care Provider [phone] Reason for Visit * Reason Comments Back Pain Encounter Details Date Type Department Care Team (Late st Contact Info) Description 10/05/2022 11:00 AM EDT Office Visit Functional [facility] at [facility] [address] [place] [phone] Jacque Engel, OT Low back pain, non-specific Social History Tobacco Use Types Packs/Day Years [...] Miscellaneous Notes * Treatment - Therapy - Jacque Engel OT - 10/05/2022 11:00 AM EDT [facility] Occupational Therapy Note [facility] Day 10 Protocol Subjective: Mr. Guardado returns today for a scheduled follow up appointment with [facility]. He reports feeling okay, weekend was challenging. Objective: Refer to [facility] protocol for details and explanation of each activity. Mr. Guardado participated in the following activities: See individual flow sheets for weight progressions. Increased resistance levels of functional conditioning exercises according to personal recovery goals. Instructed in proper body mechanics for safe lifting. Monitored and instructed in proper form during functional conditioning exercises and provided cues for safety and efficiency. Group of 8 Functional Therapy: 1. AM Session of functional conditioning ( X ) Completed ( ) Not Completed Exercises reviewed are as follows: - Crate Carry for 5 Minutes or 1 Handed Bucket carry 10 minutes - Push/Pull - x10 reps - Weighted Cart Twist x20 reps - Wall Clock - x6 reps Functional Crate Lifting: - Floor to Waist (straight- leg lifting) = 2 x 10 reps - Waist to Shoulder = 2 x10 reps - Occasional Lift (Squat Lift) = 1x 5 reps 2. PM Session of functional conditioning ( X ) Completed ( ) Not Completed Exercises reviewed are as follows: - Crate Carry for 5 Minutes or 1 Handed Bucket carry 10 minutes - Push/Pull - x10 reps - Weighted Vacuum - x20 reps - PEGS 4 minutes/ 3 Functional Crate Lifting: - Floor to Waist (straight- leg lifting) = 2 x 10 reps - Waist to Shoulder = 2x10 reps - Occasional Lift (Squat Lift) = 1 x 5 reps Instructed in 10 minutes of mindfulness meditation activity focusing on walking meditation. Participated in a 40 minute outdoor walk including 1.4 miles, a hill climb and up/down one flight of stairs. Weekend Home Program: Reviewed Mr. Guardado's participation in assigned home exercise program over the past weekend. He reports he was able to complete his home program: Walking 20 minutes: Completed Stretching twice a day: Completed Functional lifting: Completed Mindfulness meditation: Completed Please see goals in initial OT evaluation report from Day 1. Daily functional conditioning progressis documented on a flow sheet which is available on request. Assessment: Mr. Guardado continues to work according to protocol in order to reach his functional goals. He had a good understanding of today's conditioning principles and participated actively in progression of function. He continues to demonstrate good form with all functional conditioning exercises as weights progress. He actively participated with initiation of training components. They were supportive of the other members of the group throughout the session. Plan: Return for follow up with [facility] per protocol. Continue training according to planned progressions towards functional recovery goals. Length of Treatment: Mr. Guardado participated in program activities from 11:00 a.m. through 3:00 p.m. today as part of group intervention with individualized cues provided. Lena Maguire PTA/JAMESON, present and assisting in supervision of session. documented in this encounter Plan of Treatment Not on file documented as of this encounter Visit Diagnoses Diagnosis Low back pain, non-specific documented in this encounter Care Teams Construction Technician Relationship Specialty Start Date End Date Maryse Perry MD [address] [place] [address] PCP - General Family Medicine 11/28/20 documented as of this encounter
--- OUTSIDE RECORDS SUMMARY | 2024-06-02 15:22 | XMS_ITS | Encounter Summary ---
Author Organization [facility] Address [facility] [place] [address] Care Team Providers Care Front Desk Assistant Name Role Phone Maryse Perry MD Primary Care Provider [phone] Reason for Visit * Reason Comments Follow-up [facility] 1 MON F/U - Test ing prior at [facility] Encounter Details Date Type Department Care Team (Late st Contact Info) Description 11/13/2022 9:30 AM EDT Office Visit [facility] [place] [phone] Serenity Smart, CEILING INSTALLER [facility] [place] [address] Low back pain, non-specific; Sacroiliac joint dysfunction of right side; Radiculopathy of lumbar region Social History Tobacco Use Types Packs/Day Years [...] on file documented as of this encounter Last Filed Vital Signs Vital Sign Reading Time Taken Comments Blood Pressure - - Pulse - - Temperature - - Respiratory Rate - - Oxygen Saturation - - Inhaled Oxygen Concentration - - Weight 75.8 kg (167 lb) 11/13/2022 9:29 AM EDT Height 175.3 cm (5' 9) 11/13/2022 9:29 AM EDT Body Mass Index 24.66 11/13/2022 9:29 AM EDT documented in this encounter Progress Notes * Serenity Smart APRN - 11/13/2022 9:30 AM EDT Chief Complaint: right side low back/ SI joint pain and right lower extremity tingling, left low sided back pain, radiating down left lower extremity. SUBJECTIVE: Adrian Guardado is here for one month follow up to completion of the Functional [facility] program. In general, things have gone fairly well. 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 Wakes him at night. Having some headaches related to allergies. OBJECTIVE; Functional goals and progress Towards those goals is: A&O in NAD. Normal respiratory effort No lower extremity edema or cyanosis noted. Tender lumbar paraspinal musculature and bilateral SIJs. DTRs intact Strength intact Gait is intact. ASSESSMENT: 1. Low back pain, non-specific 2. Sacroiliac joint dysfunction of right side 3. Radiculopathy of lumbar region Chief complaint requiring rehabilitation: right side low back/SI joint pain and right lower extremity tingling, left low sided back pain, radiating down left lower extremity. PLAN: Patient will f/u on a prn basis. Mg at hs and trial magnesium sport spray. Advised to discuss insomnia with PCP for consideration of sleep study. Discussed positioning to help reduce spasm. 20 out of 25 minutes was spent in face to face consultation of present symptoms and future plan of care. documented in this encounter Plan of Treatment Not on file documented as of this encounter Visit Diagnoses Diagnosis Low back pain, non-specific Sacroiliac joint dysfunction of right side Disorders of sacrum Radiculopathy of lumbar region Thoracic or lumbosacral neuritis or radiculitis, unspecified documented in this encounter Care Teams Front Desk Assistant Relationship Specialty Start Date End Date Maryse Perry MD [address] [place] [address] PCP - General Family Medicine 11/28/20 documented as of this encounter
--- OUTSIDE RECORDS SUMMARY | 2024-06-02 15:22 | XMS_ITS | Encounter Summary ---
Author Organization [facility] Address One [facility] [address] Care Team Providers Care Landscape Management Technician Name Role Phone Maryse Perry MD Primary Care Provider [phone] Encounter Details Date Type Department Care Team (Late st Contact Info) Description 10/01/2022 8:00 AM EDT Office Visit Functional Mandaen Program at [facility] [address] [place] [phone] Stanley Flannery Jr., PT Low back pain, non-specific; Chronic bilateral low back pain with bilateral sciatica; Sacro-iliac pain; Radiculopathy of lumbar region; Sacroiliac joint dysfunction of right side Social History Tobacco Use Types Packs/Day Years [...] on file documented as of this encounter Progress Notes * Stanley Flannery Jr., PT - 10/01/2022 8:00 AM EDT Functional Mandaen Program (Day 8) Physical Therapy Mid-Way Testing ?? Personal Function 3 Month Goals ?? 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 Be able to lift 50lbs Recreational:?Be able to walk for 1 hour, Be able to start up chain pan, be able to cut, stack wood, Be able to garden Daily Living:?Be able to vacuum, Be able to bend over to load glove examiner, reach for dog bowl, ??Be able to sleep for 6hrs continuously ?? Subjective: Mr. Guardado returns today for a scheduled follow up appointment with FRP. 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 Adrian would to discuss a return to work planning. Objective: Endurance and Flexibility Test Results: Reported Tolerance (minutes) First Day of FRP: Mid-Way of FRP: Sittin ??60 Standin ??300 Walkin ??30 Flexibility (degrees): Neck: First Day of FRP: Mid-Way of FRP: Bending Forward: 44 ??60 Bending Back: 45 ??50 Turning Right: 65 ??80 Turning Left: 75 ??80 Tilting Right: 38 ??45 Tilting Left: 30 ??42 Low Back: First Day of FRP: Mid-Way of FRP: Bending Forward: 32 ??35 Bending Back: 3 ??5 Straight Leg Raise Right: 63 ??70 Straight Leg Raise Left: 63 ??70 Straight Leg Raise Pelvic: ? Treadmill First Day of FRP: Mid-Way of FRP: ?? MET Level: Heart Rate: MET Level: Heart Rate: Treadmill Endurance: 4 98 ??8 ??118 Reason for Stopping (if applicable): Balance ??Short of Breath ?? Sensation: Light touch reduced L lateral lower leg, . ?? Reflexes Right Left Tricep normal normal Brachioradialis normal normal Patella normal normal Achilles normal normal ?? AROM (degrees) shoulder flexion right WNL, left WNL. ?? UE Strength Right Left Shoulder abduction 5/5 5/5 Shoulder ER 5/5 5/5 Elbow flexion 5/5 5/5 Elbow extension 5/5 5/5 Wrist ulnar deviation 55/5 5/5 Finger abduction 5/5 5/5 LE Strength Right Left Hip flexion 4+/5 4+/5 Knee extension 5/5 5/5 Dorsiflexion 5/5 5/5 Hallux extension 5/5 5/5 Plantarflexion 5/5 5/5 ?? Neural tension screening: Seated straight leg raise right positive, left neg. ?? Assessment:?? Adrian is progressing as planned with quota based training.?He is also making modest progress with ROM and endurance over the first 8 days of program which bodes well for long-term improvement over 4 week program and beyond. He has built considerable tolerance with weight training as well as evidenced by OT assessment. ? Plan: Return for follow up with FRP per protocol. ?? Length of visit: ??Participated in program physical activity from 8:00 a.m. through 11:00 a.m. today.??During that time, a total of 30 minutes was spent to develop, monitor, and progress individualized physical therapy strategies. documented in this encounter Plan of Treatment Not on file documented as of this encounter Visit Diagnoses Diagnosis Low back pain, non-specific Chronic bilateral low back pain with bilateral sciatica Sacro-iliac pain Disorders of sacrum Radiculopathy of lumbar region Thoracic or lumbosacral neuritis or radiculitis, unspecified Sacroiliac joint dysfunction of right side Disorders of sacrum documented in this encounter Care Teams Landscape Management Technician Relationship Specialty Start Date End Date Maryse Perry MD [address] [place] [address] PCP - General Family Medicine 11/28/20 documented as of this encounter
--- OUTSIDE RECORDS SUMMARY | 2024-06-02 15:22 | XMS_ITS | Encounter Summary ---
Author Organization [facility] Address [facility] [place] [address] Care Team Providers Care Rubberizing Mechanic Name Role Phone Maryse Perry MD Primary Care Provider [phone] Encounter Details Date Type Department Care Team (Late st Contact Info) Description 09/30/2022 8:00 AM EDT Office Visit Functional Denominational Program at [facility] [address] [place] [phone] Stanley Flannery Jr., PT Low back pain, non-specific; Chronic bilateral low back pain with bilateral sciatica; Radiculopathy of lumbar region; Sacroiliac joint dysfunction of right side; Sacro-iliac pain Social History Tobacco Use Types Packs/Day Years [...] Therapy - Stanley Flannery Jr., PT - 09/30/2022 8:00 AM EDT FRP Physical Therapy Note FRP Day 7 Protocol Subjective: Adrian returns today for a scheduled follow up appointment with FRP. Adrian stated he is feeling pretty good reporting lower back soreness. Objectives and Treatment Received Exercises performed as a group of 6 with guidance and individualized cues for form. 30 Minutes Standing Step Exercises Toe Taps Heel Taps Step Up - R foot lead Step Up - L foot lead Side Step - R Side Step - L Step Up and Knee Lift - R Step Up and Knee Lift - L Step Up and Over Forward Bending Back Bending Chin Tuck Neck Extensions 30 Minutes Exercise Ball (2 x 10 each) Seated Spine Flexion/Extension Seated Alt Arm Raises Seated March Wall Push Ups Wall Squats Supine Lower Trunk Rotation Supine Crunches Press Ups Dumbbells - Bicep curls, shoulder raises to 90 degrees of flexion, straight leg deadlift, and pronereverse flies on plinth. 2x10 reps for each Weight Machines - Lat pull downs, single arm seated row, leg press, chest press, knee extensions, and back extensions. 2x10 reps for each Olayinka chair back extensions 2 sets to tolerance Cardio performed today: None See FRP flowsheet for details on time [...] session. Plan: Return for follow up with [facility] per protocol. Length of visit: Participated in [...] Be able to bend over to load dredge hand, reach for dog bowl, ??Be able to sleep for 6hrs continuously ?? documented in this encounter Plan of Treatment Not on file documented as of this encounter Visit Diagnoses Diagnosis Low back pain, non-specific Chronic bilateral low back pain with bilateral sciatica Radiculopathy of lumbar region Thoracic or lumbosacral neuritis or radiculitis, unspecified Sacroiliac joint dysfunction of right side Disorders of sacrum Sacro-iliac pain Disorders of sacrum documented in this encounter Care Teams Rubberizing Mechanic Relationship Specialty Start Date End Date Maryse Perry MD [address] [facility] [address] [place] [address] PCP - General Family Medicine 11/28/20 documented as of this encounter
--- OUTSIDE RECORDS SUMMARY | 2024-06-02 15:22 | XMS_ITS | Encounter Summary ---
Author Organization [facility] Address One [facility] [place] [address] Care Team Providers Care House Rn Name Role Phone Maryse Perry MD Primary Care Provider [phone] Encounter Details Date Type Department Care Team (Latest Contact Info) Description 11/13/2022 Travel Social History Tobacco Use Types Packs/Day Years [...] documented as of this encounter Visit Diagnoses Not on filedocumented in this encounter Care Teams House Rn Relationship Specialty Start Date End Date Maryse Perry MD [address] [place] [address] PCP - General Family Medicine 11/28/20 documented as of this encounter
--- OUTSIDE RECORDS SUMMARY | 2024-06-02 15:22 | XMS_ITS | Encounter Summary ---
Author Organization [facility] Address [facility] [place] [address] Care Team Providers Care Spragger Name Role Phone Maryse Perry MD Primary Care Provider [phone] Reason for Visit * Reason Comments Back Pain Encounter Details Date Type Department Care Team (Late st Contact Info) Description 10/12/2022 11:00 AM EDT Office Visit Functional Sikhism Program at [facility] [address] [place] [phone] Jacque Engel, OT Low back pain, non-specific [...] - Therapy - Jacque Engel OT - 10/12/2022 11:00 AM EDT P Occupational Therapy Note [facility] Day 15 Protocol Subjective: Mr. Guardado returns today for a scheduled follow up appointment with [facility]. He reports continued back pain, however finds his function has improved. Objective: Refer to [facility] protocol for details and explanation of each activity. Mr. Guardado participated in the following activities: See individual flow sheets for weight progressions. Increased resistance levels of functional conditioning exercises according to personal recovery goals. Continued to monitor form with heavier lifting to ensure good body mechanics, safety and efficiency. Group of 8 Functional Therapy: 1. AM Session of functional conditioning ( X ) Completed ( ) Not Completed Exercises reviewed are as follows: - Crate Carry for 5 Minutes or 1 Handed Bucket carry 10 minutes - Push/Pull - x10 reps - Weighted Cart Twist x20 reps - Wall Clock - x4 reps Functional Crate Lifting: - Floor to [...] - x20 reps - PEGS 4 minutes/ 2 Functional Crate Lifting: - Floor to Waist (straight- leg lifting) = 2 x 10 reps - Waist to Shoulder = 2x10 reps - Occasional Lift (Squat Lift) = 1 x 5 reps Instructed in 3 minutes of mindfulness meditation activity focusing on breathing. Participated in a30 minute outdoor walk including 1.2 miles and up/down one flight of stairs. Weekend [...] and participated actively in progression of function. They demonstrate good form with all functional conditioning exercises and hasdone well with pacing himself during his gym routine which will benefit him post program. He actively participated with initiation of training components. They were supportive of the other members ofthe group throughout the session. Plan: Return for follow up with FRP per protocol. Continue training according to planned progressions towards functional recovery goals. Length of Treatment: Mr. Guardado participated in program activities from 11:00 a.m. through 3:00 p.m. today as part of group intervention with individualized cues provided. Lena Maguire PTA/JAMESON, present and assisting in supervision of session. Goals Personal Function 3 Month Goals ?? 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
--- OUTSIDE RECORDS SUMMARY | 2024-06-02 15:22 | XMS_ITS | Encounter Summary ---
Author Organization [facility] Address [facility] [place] [address] Care Team Providers Care Political Anthropologist Name Role Phone Maryse Perry MD Primary Care Provider [phone] Reason for Visit * Reason Comments Back Pain Encounter Details Date Type Department Care Team (Late st Contact Info) Description 10/06/2022 11:00 AM EDT Office Visit Functional Amish Program at [facility] [address] [place] [phone] Jacque Engel, OT Low back pain, non-specific [...] - Therapy - Jacque Engel OT - 10/06/2022 11:00 AM EDT P Occupational Therapy Note [facility] Day 11 Protocol Subjective: Mr. Guardado returns today for a scheduled follow up appointment with [facility]. He reports no new complaints today. Objective: Refer to [facility] protocol for details and explanation of [...] Twist x20 reps - Wall Clock - x8 reps Functional Crate Lifting: - Floor to [...] = 1 x 5 reps Instructed in 5 minutes of mindfulness meditation activity focusing on progressive muscle relaxation. Participated in a 26 minute outdoor walk including 1 mile, and up/down one flight of stairs, and 10 minutes of unguarded beach ball volleyball activity. Self-Care Discussion: Provided instruction on a pacing strategy to help determine appropriate activity stop/rest points based on time, rather than symptoms in order to better prevent and manage pain flare-ups. Encouraged him to identify one important activity that he would like to increase tolerance. Please see goals in initial OT evaluation [...] form with all functional conditioning exercises as the weights progress. He voiced he might be challenged by incorporation of pacing strategies into his work schedule, however this will be crucial in the long run to maintain his increased tolerances gained during program. Plan to meet individually tomorrow to discuss this and return to work concerns. 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
--- OUTSIDE RECORDS SUMMARY | 2024-06-02 15:22 | XMS_ITS | Encounter Summary ---
Author Organization [facility] Address [address] [place] [address] Care Team Providers Care Soda Jerker Name Role Phone Unavailable Primary Care Provider Unavailabl e Encounter Details Date Type Department Care Team (Late st Contact Info) Description 02/24/2001 Results Only [facility] [address] [place] [address] Jewel Hamilton MD [address] [place] [address] Social History Tobacco Use Types Packs/Day Years [...] Priority Date/Time Associated Diagnosis Comments SURGICAL PATHOLOGY Routine 02/24/2001 0:00 EDT documented in this encounter Results * SURGICAL PATHOLOGY (02/24/2001 0:00 EDT) Pathology Report: SURGICAL PATHOLOGY REPORT Reports generated via electronic interface contain original data; however they are lacking the format of the original report. Caution should be taken when reading/interpreti ng unformatted reports. Name: ? ADRIAN SPICER ? Accession #: ? [id number] ? : ? 1965 (Age: 35) ??M ? Collect Date: ? 02/24/2001 ? Location: ? [facility] ? Receive Date: ? 02/28/2001 ? Provider: JEWEL HAMILTON MD Copy to: ADRIAN BAZAN MD ? Final Pathologic Diagnosis: A. ?Vas deferens, right, vasectomy: 1. ?Full cross section obtained with no pathologic features. B. ?Vas deferens, left, vasectomy: 1. ?Full cross section obtained with no pathologic features. Document reviewed and electronically signed by: Jessie Ferreira MD Report ??Date: 03/03/2001 17:37 By the signature above, the attending physician certifies that he/she has personally conducted a gross and/or microscopic examination of the described specimens and rendered or confirmed the above diagnosis. Specimen(s) Received: ? R & L vas deferens Clinical History: ? Elective sterilization; bilateral vasectomy; clinical diagnosis code: V25.2 Gross Description: ? Received in formalin labelled Debby and #1 R vas deferens is a garcía-white cylindrically shaped fragment of tissue that measures 0.6 cm in length and 0.2 cm in diameter. ??Serial sectioning reveals a pinpoint lumen with a wall thickness of 0.1 cm. ??Two retail wireless sales representative cross sections are submitted as (A). Received in formalin labelled Debby and #2 L vas deferens is a garcía-white cylindrically shaped fragment of tissue that measures 1.1 cm in length and 0.2 cm in diameter. ??Serial sectioning reveals a pinpoint lumen with a wall thickness of 0.1 cm. ??Two retail wireless sales representative cross sections are submitted as (B). (Dr. Green-PL)/mhd End of Report [facility] 02/24/2001 02/28/2001 15: 51 EDT us Jewel Hamilton MD PATHOLOGY ORDERABLES Final Resul t [facility] [address] [place] [address] documented in this encounter Visit Diagnoses Not on filedocumented in this encounter
--- OUTSIDE RECORDS SUMMARY | 2024-06-02 15:22 | XMS_ITS | Encounter Summary ---
Author Organization [facility] [place] [address] Care Team Providers Care Medical Data Entry Clerk Name Role Phone Maryse Perry MD Primary Care Provider [phone] Encounter Details Date Type Department Care Team (Late st Contact Info) Description 09/28/2022 8:00 AM EDT Office Visit Functional Mosque Program at [facility] [address] [place] [phone] Stanley Flannery Jr., PT Low back pain, non-specific; Sacro-iliac pain; Sacroiliac joint dysfunction of right side; Radiculopathy of lumbar region; Chronic bilateral low back pain with bilateral [...] Therapy - Stanley Flannery Jr., PT - 09/28/2022 8:00 AM EDT FRP Physical Therapy Note [facility]P Day 5 Protocol Subjective: Adrian returns today for a scheduled follow up appointment with FRP. Adrian stated he is feeling okay reporting Lower Back Pain & Tightness. Objectives and Treatment Received Exercises performed as a group of 8 with guidance and individualized cues for form. [...] 2 sets to tolerance Cardio performed today: 10 Mins on TM See FRP flowsheet for details on time [...] session. Plan: Return for follow up with [facility] per protocol. Length of visit: Participated in warm-up and strengthening program from 8:00 a.m. through 10:00 a.m. 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 documented in this encounter Plan of Treatment Not on file documented as of this encounter Visit Diagnoses Diagnosis Low back pain, non-specific Sacro-iliac pain Disorders of sacrum Sacroiliac joint dysfunction of right side Disorders of sacrum Radiculopathy of lumbar region Thoracic or lumbosacral neuritis or radiculitis, unspecified Chronic bilateral low back pain with bilateral sciatica documented in this encounter Care Teams Medical Data Entry Clerk Relationship Specialty Start Date End Date Maryse Perry MD [address] [facility] [address] [place] [address] PCP - General Family Medicine 11/28/20 documented as of this encounter
--- OUTSIDE RECORDS SUMMARY | 2024-06-02 15:22 | XMS_ITS | Encounter Summary ---
Author Organization [facility] Address [facility] [place] [address] Care Team Providers Care Rigger Third Name Role Phone Maryse Perry MD Primary Care Provider [phone] Encounter Details Date Type Department Care Team (Late st Contact Info) Description 10/12/2022 8:00 AM EDT Office Visit Functional Quaker Program at [facility] [address] [place] [phone] Stanley Flannery Jr., PT Low back pain, non-specific; Sacroiliac joint dysfunction of right side; Chronic bilateral low back pain with bilateral sciatica; Radiculopathy of lumbar region; Sacro-iliac pain Social History Tobacco Use Types [...] Therapy - Stanley Flannery Jr., PT - 10/12/2022 8:00 AM EDT FRP Physical Therapy Note [facility] Day 15 Protocol Subjective: Adrian returns today for a scheduled follow up appointment with FRP. Adrian reported continued Lower Back Tightness, but reported he is moving Better. Objectives and Treatment Received Exercises performed as a group of 7 with guidance and individualized cues for form. 30 Minutes Standing Warm Up Exercises High March Heel-kick March Squat Step Back Toe Touch Knees to Hands B Forward Lunges Side Lunges Forward Bending and Backward Bending Chin Tucks 30 Minutes Supine, Sidelying, Prone Mat Exercises (2 x 20 each) Lower trunk rotation Straight Leg Raises [...] weights completed Patient participated in all exercises. Self-Care Program Type of Exercise Specific recommendations Frequency Mindfulness/ Relaxation - 3 minute breathing & Progressive Muscle Relaxation ([employer] Timer Alexandra- Wiliam Markham) - 10 Percent Happier 2-3x/day AM & PM Stretching Mat stretches (mp3 in myDH) 5-7x/wk MECHANICAL STRATEGIES: 1. Back: Press Ups from floor/standing backbends against table & Cat/Cow 2. Neck/Shoulder: Chin tucks, then head back and shake 3. Shoulders/Upper Back: Back bend over chair/edge of bed All At least 2x/day Cardio/Aerobic/ Endurance (gives endorphine boost - natural pain reliever) Choose from: Walk Step routine (mp3 in myDH) Warm Up [place] (mp3 in myDH) Treadmill Rowing Machine Biking 3-7x/wk For 20-30 min Strength training Gym Routine/Theraband Routine OR Mat Strengthening Routine OR Crate Lifting (1x/wk) 3-5x/wk Your Self-Care Flare-up Plan: 1. Don't Panic, take a deep breath or two a. Is this the same chronic pain or new pain? b. If new pain and you are still having trouble after a few days, have it checked out. 2. Check Your Head (What things in life are stressful? What automatic thoughts are you having aboutthe pain?) 3. Try Mechanical Strategies (See Stretching) to balance repeated daily movements (See Self Care: Counter-acting Daily Strains). a. You may need to do these strategies more often and see if they help 4. Resume exercise routine? Have you stopped doing some of all of your exercises? a. Start slowly if it's challenging (10 min walk or more if you can.) 5. Use Mindfulness/relaxation strategies to calm the nervous system. Use passive coping tools (ex. heat, ice, massage, etc. - temporary relief) ONLY to help return to active tools (exercise) that will cause lasting change. Assessment: Adrian returns for follow up visit. He was able to progress weights appropriately, while successfully maintaining form. Cues were needed intermittently for maintenance of posture during exercise and avoid compensation. He actively participated as a member of the group throughout session. Met with Adrian??individually to outline a weekly schedule for self care exercise at home and in agym setting. Discussed prescription for gym use x 3 months. 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 Establishedself-care Flare-up plan. Adrian understands the importance of continuing the program to meet vocational, recreational, and daily living goals. Plan: Return for follow up with FRP per protocol. Length of visit: Participated in [...] Be able to bend over to load gunner's mate, reach for dog bowl, ??Be able to sleep for 6hrs continuously ? documented in this encounter Plan of Treatment Not on file documented as of this encounter Visit Diagnoses Diagnosis Low back pain, non-specific Sacroiliac joint dysfunction of right side Disorders of sacrum Chronic bilateral low back pain with bilateral sciatica Radiculopathy of lumbar region Thoracic or lumbosacral neuritis or radiculitis, unspecified Sacro-iliac pain Disorders of sacrum documented in this encounter Care Teams Rigger Third Relationship Specialty Start Date End Date Maryse Perry MD [address] [place] [address] PCP - General Family Medicine 11/28/20 documented as of this encounter
--- OUTSIDE RECORDS SUMMARY | 2024-06-02 15:22 | XMS_ITS | Encounter Summary ---
Author Organization [facility] Address [facility] [place] [address] Care Team Providers Care Car Seat Maker Name Role Phone Maryse Perry MD Primary Care Provider [phone] Reason for Visit * Reason Comments Back Pain Encounter Details Date Type Department Care Team (Late st Contact Info) Description 09/25/2022 11:00 AM EST Office Visit Functional Congregational Program at [facility] [address] [place] [phone] Jacque Engel, OT Low back pain, non-specific [...] - Therapy - Jacque Engel OT - 09/25/2022 11:00 AM EST FRP Occupational Therapy Note [facility] Day 4 Protocol Subjective: Mr. Guardado returns today for a scheduled follow up appointment with P. He reports feeling increased pain in his low back today. Objective: Refer to [facility] protocol for details and explanation of [...] Weighted Vacuum - x20 reps - PEGS 3 minutes/ 3 Functional Crate Lifting: - Floor to Waist (straight- leg lifting) = 2 x 10 reps - Waist to Shoulder = 2x10 reps - Occasional Lift (Squat Lift) = 1 x 5 reps Instructed in 15 minutes of mindfulness meditation activity focusing on whole body breathing. Participated in a 30 minute outdoor walk including 0.6 miles, and 15 minutes of unguarded beach ball volleyball activity. Provided an overview of a home exercise program for him to keep up with over the weekend to maintain progress to date, focusing on walking, stretching, functional lifting, and mindfulness meditation. Assigned weekend homework of deciding when and where he will exercise each day and assigned target lifting goals for the upcoming weekend. Home exercise program to include once daily functional lifting of forward bend x 20 repetitions and squat x 5 repetitions. Will compliment with once daily walking session, twice daily stretching sessions, and 5-10 minutes of mindfulness meditation focusing on breathing. Weekend Lifting Numbers Type of lift Weight Forward Bend 10 Squat 15 Please see goals in initial OT evaluation report from Day 1. Daily functional conditioning progressis documented on a flow sheet which is available on request. Assessment: Mr. Guardado continues to work according to protocol in order to reach his functional goals. He had a good understanding of today's conditioning principles and participated actively in progression of function. He continues to demonstrate fair form with all functional conditioning exercises and has demonstrated improvement with regards to flexibility as demonstrated by the PEG exercisetoday. He actively participated with initiation of training components. They were supportive of theother members of the group throughout the session. Plan: Return for follow up with FRP per protocol. Continue training according to planned progressions towards functional recovery goals. Length of Treatment: Mr. Guardado participated in program activities from 11:00 a.m. through 3:00 p.m. today as part of group intervention with individualized cues provided. Goals Personal Function 3 Month Goals ?? 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 documented in this encounter Plan of Treatment Not on file documented as of this encounter Visit Diagnoses Diagnosis Low back pain, non-specific documented in this encounter Care Teams Car Seat Maker Relationship Specialty Start Date End Date Maryse Perry MD [address] [place] [address] PCP - General Family Medicine 11/28/20 documented as of this encounter
--- OUTSIDE RECORDS SUMMARY | 2024-06-02 15:22 | XMS_ITS | Encounter Summary ---
Author Organization [facility] Address [place] [address] Care Team Providers Care Airborne Operations Superintendent Name Role Phone Maryse Perry MD Primary Care Provider Encounter Details Date Type Department Care Team (Late st Contact Info) Description 09/25/2022 8:00 AM EST Office Visit Functional Mandaen Program at [facility] [address] [place] [phone] Stanley Flannery Jr., PT Low back pain, non-specific; Sacro-iliac pain; Radiculopathy of lumbar region; Chronic bilateral low back pain with bilateral sciatica; Sacroiliac joint dysfunction of right side Social [...] Therapy - Stanley Flannery Jr., PT - 09/25/2022 8:00 AM EST [facility]P Physical Therapy Note [facility] Day 4 Protocol Subjective: Adrian returns today for a scheduled follow up appointment with FRP. Adrian stated he doing well just sore. Objectives and Treatment Received Exercises performed as a group of 8 with guidance and individualized cues for form. 30 Minutes Standing Warm Up Exercises High March Heel-kick March Squat Step Back Toe Touch Knees to Hands B Forward Lunges Side Lunges Forward Bending and Backward Bending Chin Tucks 30 Minutes Supine, Sidelying, Prone Mat Exercises (2 x 10 each) Lower trunk rotation Straight Leg Raises [...] Assessment: Adrian returns for follow up visit. They were able to progress weights appropriately, while successfully maintaining form. Cues were needed intermittently for maintenance of posture during exercise and avoid compensation. He actively participated as a member of the group throughout sessi on. Plan: Return for follow up with [facility] per protocol. 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
--- OUTSIDE RECORDS SUMMARY | 2024-06-02 15:22 | XMS_ITS | Encounter Summary ---
Author Organization [facility] Address [address] [place] [address] Care Team Providers Care Gunsmith Apprentice Name Role Phone Maryse Perry MD Primary Care Provider [phone] Encounter Details Date Type Department Care Team (Latest Contact Info) Description 03/24/2017 8:55 EDT - 03/24/2017 23:59 EDT Hospital Encounter [address] [address] Unknown, Provider, MD Discharge Disposition: Home or Self Care Social History Tobacco Use Types Packs/Day Years Used Date Smoking Tobacco: Never Assessed Sex and Gender Information Value Date Recorded Sex Assigned at Not on file Legal Sex Male 18:17 EST Gender Identity Not on file Sexual Orientation Not on file documented as of this encounter Discharge Disposition Disposition Code Departure Means Destination Home or Self Correction documented in this encounter Plan of Treatment Not on file documented as of this encounter Visit Diagnoses Not on filedocumented in this encounter Care Teams Gunsmith Apprentice Relationship Specialty Start Date End Date Maryse Perry MD [address] [place] [id number] PCP - General 05/29/15 documented as of this encounter
--- OUTSIDE RECORDS SUMMARY | 2024-06-02 15:22 | XMS_ITS | Encounter Summary ---
Author Organization [facility] Address [facility] [place] [address] Care Team Providers Care Sports Equipment Supervisor Name Role Phone Maryse Perry MD Primary Care Provider [phone] Reason for Visit * Reason Comments Back Pain Encounter Details Date Type Department Care Team (Late st Contact Info) Description 10/08/2022 11:00 AM EDT Office Visit Functional Evangelical Program at [facility] [address] [place] [phone] Jacque Engel, OT Low back pain, non-specific [...] - Therapy - Jacque Engel OT - 10/08/2022 11:00 AM EDT P Occupational Therapy Note [facility] Day 13 Protocol Subjective: Mr. Guardado returns today for a scheduled follow up appointment with [facility]. He reports feeling okay, sore as usual. Objective: Refer to [facility] protocol for details and explanation of each [...] 1x 5 reps 2. PM Session of Unguarded activity and mindfulness Instructed in 25 minutes of mindfulness meditation activity focusing on Walk in the [place]. Participated in 12 minutes of bike at level 9 and 45 minutes of unguarded gallegos bag toss activity. Sleep Discussion: Discussed importance of improving sleep in order to better manage and cope with pain. Discussion included education about the causes of poor sleep and insomnia, the bidirectional effect between sleepand pain, and reviewing skills related to improved sleep quantity and quality. Basic sleep drive, architecture, and structure were reviewed, and specific recommendations made for improving sleep. Individualized Treatment: Met with Mr. Guardado to discuss vocational plan and return to work concerns. Educated Mr. Guardadoon FRP expectations, and work capacity. We reviewed upcoming end of program testing and developmentof his work Met with Mr. Guardado for continued discussion of vocational plan and return to work concerns. Reviewed upcoming end of program testing and development of his work release based on the testing and review of his progress during FRP. Also discussed the FRP follow-up visits that are designed to reviewhis status and make adjustments as needed to his discharge plan. We did discuss increasing his workdays since his capacity will be greater than when he started the program. We also discussed ways to add a little bit of the home program to his routine at a time, rather than trying to focus on getting it all in place at once as a way to be more successful. Will meet again next week to further discuss work capacity and collaborate on return to work release and accommodations that consider his tolerances during program, training and final testing numbers, as well as individualized discussions and problem solving. Please see goals in initial OT evaluation report from Day 1. Daily functional conditioning progressis documented on a flow sheet which is available on request. Assessment: Mr. Guardado continues to work according to protocol in order to reach his functional goals. He had a good understanding of today's conditioning principles and participated actively in progression of function. He continues to demonstrate good pacing throughout his functional conditioning routine and we discussed return to work plans today. He actively participated with initiation of training [...] present and assisting in supervision of session. A total of 15 minutes was spent during that time to establish and implement individualized occupational therapy strategies. Goals Personal Function 3 Month Goals ?? 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
--- OUTSIDE RECORDS SUMMARY | 2024-06-02 15:22 | XMS_ITS | Encounter Summary ---
Author Organization [facility] Address [facility] [place] [address] Care Team Providers Care Mechanic Marine Engine Name Role Phone Maryse Perry MD Primary Care Provider [phone] Encounter Details Date Type Department Care Team (Late st Contact Info) Description 09/24/2022 10:00 AM EST Office Visit Functional Pentecostalism Program at [facility] [address] [place] [address] Madeleine Durham, YARI 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 Pain & Function? Presenter: Madeleine Durham MS GRAPHICS INTERN This one hour lecture began with interactive exercises to demonstrate the difficulties in assessingand understanding another person???s pain. Then the question of activity limitation and prescription was reviewed in terms of personal pain experience and expectations, functional goals and priorities, medical expertise. The learning model of reacting to pain by limiting activity was reviewed leading to a discussion of the development of safe training methods that are gradually progressive and goal- and quota-based rather than symptom- reactive. Importance of maintaining physical gains after rehabilitation by committing to a more active lifestyle was stressed. and Title: Goal Setting Presenter:Madeleine Durham APRN This is a one hour lecture and interactive group session. Individuals??? responses to their initialgoal setting questionnaires are discussed with special attention to the diversity of their pain andfunctional goals and priorities. The complex relationship between pain and function is discussed inthe context of underlying beliefs and expectations and how these may dramatically affect recovery and the individuals??? ability to get what they want from treatment. Practical application of these issues to the individual???s situation is stressed. Lecture Time: 60 min. documented in this encounter Plan of Treatment Not on file documented as of this encounter Visit Diagnoses Diagnosis Low back pain, non-specific documented in this encounter Care Teams Mechanic Marine Engine Relationship Specialty Start Date End Date Maryse Perry MD [address] [place] [address] PCP - General Family Medicine 11/28/20 documented as of this encounter
--- OUTSIDE RECORDS SUMMARY | 2024-06-02 15:22 | XMS_ITS | Encounter Summary ---
Author Organization [facility] Address [facility] [place] [address] Care Team Providers Care Inspector Tubes Name Role Phone Maryse Perry MD Primary Care Provider [phone] Reason for Visit * Reason Comments Back Pain Encounter Details Date Type Department Care Team (Late st Contact Info) Description 10/07/2022 11:00 AM EDT Office Visit Functional Zoroastrianism Program at [facility] [address] [place] [phone] Jacque Engel, OT Low back pain, non-specific [...] - Therapy - Jacque Engel OT - 10/07/2022 11:00 AM EDT FRP Occupational Therapy Note [facility] Day 12 Protocol Subjective: Mr. Guardado returns today for a scheduled follow up appointment with [facility]. He reports feeling sore today. Objective: Refer to [facility] protocol for details and explanation of [...] = 1 x 5 reps Instructed in 16 minutes of mindfulness meditation activity focusing on progressive muscle relaxation. Participated in a 30 minute outdoor walk including 1 mile and up/down one flight of stairs. Self-Care Discussion: Met to discuss overall self care principles including: posture, pacing, body mechanics, exercise and some basics of managing flare-ups. Encouraged him to think about how he will apply the individualized strategies that he has been practicing while at [facility], and how he will incorporate them into his individual self-care plan. Continued to discuss the process of developing a specific home program with Mr. Guardado for him tocontinue progressing his functional capacities after discharge. Mr. Guardado was oriented to the resources provided in the program binder that describe the variouscardio, stretching, and strengthening exercises completed during [facility] that can be incorporated into their home-based self-care program. Mr. Guardado was educated in the process used to develop their self-care program. He was instructedto identify which exercises he finds most beneficial and practical, to prepare for an individual meeting with the PT prior to discharge, to finalize his individual self care plan. Mr. Guardado was advised to follow the program routine developed jointly with the FRP team for 3-6 months post discharge, to ensure understanding of the basic principles discussed, with ample time toget used to an established routine. Please see goals in initial OT evaluation [...] demonstrate good form with all functional conditioning exercises. He actively participated with initiation of training components. They were supportive of the other membersof the group throughout the session. 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 documented in this encounter Plan of Treatment Not on file documented as of this encounter Visit Diagnoses Diagnosis Low back pain, non-specific documented in this encounter Care Teams Inspector Tubes Relationship Specialty Start Date End Date Maryse Perry MD [address] [place] [address] PCP - General Family Medicine 11/28/20 documented as of this encounter
--- OUTSIDE RECORDS SUMMARY | 2024-06-02 15:22 | XMS_ITS | Encounter Summary ---
Author Organization [facility] Address [facility] [place] [address] Care Team Providers Care Rail Maintenance Worker Name Role Phone Maryse Perry MD Primary Care Provider [phone] Encounter Details Date Type Department Care Team (Late st Contact Info) Description 10/08/2022 8:00 AM EDT Office Visit Functional Synagogue Program at [facility] [address] [place] [phone] Stanley Flannery Jr., PT Low back pain, non-specific; Radiculopathy of lumbar region; Sacro-iliac pain; Chronic [...] Therapy - Stanley Flannery Jr., PT - 10/08/2022 8:00 AM EDT FRP Physical Therapy Note P Day Protocol Subjective: Adrian returns today for a scheduled follow up appointment with FRP. Adrian stated his Lower Back is Stiff. Objectives and Treatment Received Exercises performed as [...] Extensions 30 Minutes Exercise Ball (2 x 15 each) Seated Spine Flexion/Extension Seated Alt Arm [...] 2 sets to tolerance Cardio performed today: 12 Mins on Upright Bike See FRP flowsheet for details on time [...] session. Plan: Return for follow up with [facility] per protocol. 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
--- OUTSIDE RECORDS SUMMARY | 2024-06-02 15:22 | XMS_ITS | Encounter Summary ---
Author Organization [facility] Address One [facility] [place] [address] Care Team Providers Care Figure Clerk Name Role Phone Maryse Perry MD Primary Care Provider [phone] Encounter Details Date Type Department Care Team (Late st Contact Info) Description 10/02/2022 8:00 AM EDT Office Visit Functional Anglican Program at [facility] [address] [place] [phone] tSanley Flannery Jr., PT Low back pain, non-specific; Chronic bilateral low back pain with bilateral sciatica; Sacroiliac joint dysfunction of right side; Sacro-iliac pain; Radiculopathy of lumbar region Social History Tobacco [...] Therapy - Stanley Flannery Jr., PT - 10/02/2022 8:00 AM EDT FRP Physical Therapy Note [facility] Day 9 Protocol Subjective: Adrian returns today for a scheduled follow up appointment with FRP. Adrian stated he is feeling lower back pain & tightness from testing yesterday. Objectives and Treatment Received Exercises performed as [...] tolerance Cardio performed today: 10 Mins on Upright Bike See FRP flowsheet [...] session. Plan: Return for follow up with [facility] per protocol. 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
--- OUTSIDE RECORDS SUMMARY | 2024-06-02 15:22 | XMS_ITS | Encounter Summary ---
Author Organization [facility] Address [address] [place] [address] Care Team Providers Care Business Liaison Manager Name Role Phone Maryse Perry MD Primary Care Provider [phone] Reason for Visit * Reason Comments Back Pain Encounter Details Date Type Department Care Team (Late st Contact Info) Description 10/14/2022 11:00 AM EDT Office Visit Functional [facility] at [facility] [address] [place] [id number] Jacque Engel, OT Low back pain, non-specific [...] - Therapy - Jacque Engel OT - 10/14/2022 11:00 AM EDT P Occupational Therapy Note [facility] Day 17 Protocol Subjective: Mr. Guardado returns today for a scheduled follow up appointment with [facility]. He reports no new complaints today. Objective: Refer to [facility] protocol for details and explanation of each [...] reps - Wall Clock - x6 reps - PEGS 5 minutes/ 2 Functional Crate Lifting: - Floor to Waist (straight- leg lifting) = 2 x 10 reps - Waist to Shoulder = 2 x10 reps - Occasional Lift (Squat Lift) = 1x 5 reps 2. PM Session of Outdoor walk, unguarded activity and mindfulness Instructed in 10 minutes of mindfulness meditation activity focusing on silent meditation. Participated in a 60 minute outdoor walk including 1.8 miles, a hill climb and up/down one flight of stairs,and 15 minutes of unguarded beach ball volleyball activity. Please see goals in initial OT evaluation report from Day 1. Daily functional conditioning progressis documented on a flow sheet which is available on request. Assessment: Mr. Guardado continues to work according to protocol in order to reach his functional goals. He had a good understanding of today's conditioning principles and participated actively in progression of function. They demonstrate form and pacing strategies with all functional conditioning e xercises. Plan to complete final testing tomorrow and review goals in preparation for discharge meetings. 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
--- OUTSIDE RECORDS SUMMARY | 2024-06-02 15:22 | XMS_ITS | Encounter Summary ---
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 [facility] Admission Staff Meeting 09/24/2022 Zaira Nuñez, am compiling the information for Madeleine Durham APRN, to discuss and review with the patient. I met with Mr. Guardado for the entire 30 minutes today to discuss his admission and progress in the [facility] Program as written in this note. We discussed medical progress, imaging, surgical decision making, current pain and functional status, compared that status to personal recovery goals, and established the plan of care accordingly as below. The chief complaint requiring rehabilitation is right side low back/SI joint pain and right lower extremity tingling, left low sided back pain, radiating down left lower extremity. ??Anatomic diagnoses have included radiculopathy. Prior treatments included??surgery, injections, physical therapy, Lyrica, tylenol, chiropractic, heat, left shoe inserts, ice, icy hot/biofreeze/lidocaine, lidocaine patches, tiger balm, TENs unit. ??Stretching and walking continue to be done every day, and heat stillhelps. Moving helps his symptoms. He would ultimately like to reduce some of his medications. ?? Further diagnostic testing??is not??planned. ??Additional medical procedures are not??planned. ? Activity limiting health problems include history of??migraines, bilateral knee pain, right carpal tunnel. ?? 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 He??reports there is not??an active worker's compensation claim and/or there??is not??a personal injury claim associated with this injury. Results of the Touch Pad Questionnaires You Filled out: 09/22/2022 [facility] DISCHARGE SUMMARY QUESTIONNAIRE TOTALS INSOMNIA SEVERITY INDEX 15 (Moderately severe insomnia) Total PHQ-9 13 (Moderate Depression) Central Sensitization Inventory 59 (Severe) PDQ Total Score 90 (Severe) MAYDA-7 13 (Moderate Anxiety) Facs Scoring 62 (Severe) Visual Analog Scale (VAS) for Pain Score 2.57 Pain over the last week rating score 4.81 Title Endurance and Flexibility Test Results: Reported Tolerance (minutes) First Day of FRP: End of FRP: 1 Month Follow-up: 3 Month Follow-up (optional): Sittin Standin Walkin Flexibility (degrees): Neck: First Day of FRP: End of FRP: 1 Month Follow-up: 3 Month Follow-up (optional): Bending Forward: 44 Bending Back: 45 Turning Right: 65 Turning Left: 75 Tilting Right: 38 Tilting Left: 30 Low Back: First Day of FRP: End of FRP: 1 Month Follow-up: 3 Month Follow-up (optional): Bending Forward: 32 Bending Back: 3 Straight Leg Raise Right: 63 Straight Leg Raise Left: 63 Straight Leg Raise Pelvic: Treadmill First Day of FRP: End of FRP: 1 Month Follow-up: 3 Month Follow-up (optional): MET Level: Heart Rate: MET Level: Heart Rate: MET Level: Heart Rate: MET Level: Heart Rate: Treadmill Endurance: 4 98 Reason for Stopping (if applicable): balance FRP OT Objective Measures Physical Capacity Test Results: Lifting: (pounds/heart rate) First Day of FRP End of Program 1 Month Follow-Up 3 Month Follow-Up Repetitive Floor to Waist ? Repetitive Waist to Shoulder ? 1-Time Maximum 20 ? 2-Handed Carry - 50 ft 20 ? 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 Cc: Adrian Guardado [address] [place] [id number] Maryse Perry MD [address] [address] FUNCTIONAL CHRISTIANITY PROGRAM (FRP) PROTOCOL DESCRIPTION IN ORDER TO MAINTAIN APPROPRIATE SOCIAL DISTANCING DUE TO THE COVID-19 PANDEMIC, THE PROGRAM WILL BE A HYBRID MODEL OF ON-SITE DAYS WELL PARTICIPATION VIA TELEHEALTH SERVICES. NEED FOR ON-SITE VS. TELEHEALTH TREATMENT WILL BE DETERMINED BASED ON THE # OF PARTICIPANTS AND THE VARIED NEED FOR SPECIFIC ACCESS TO FRP EQUIPMENT. THE BASIC STRUCTURE AND COMPONENTS EACH DAY WILL BE CONSISTENT REGARDLESS OF LOCATION AND FULL PARTICIPATION WILL BE EXPECTED FROM ALL. DAY 1 TESTING The first day of FRP consists of testing by multiple disciplines to measure baseline values including: Visual Analog Pain Scale, FACS, CSI, MAYDA-7, PDQ, LARISA, PHQ-9, PCL-5, Sitting Standing & Walking tolerance, Range of Motion measured in degrees using an inclinometer, MET Level, Lifting capacity(occasional & frequent), Push/Pull, Carry-2 handed 50 ft, DOT level. The Moy-Ruiz Reading Test may also be utilized as needed to provide information in the most appropriate format. Day 1 testing includes: * Physical Therapy: Functional Assessment (PT section) * Occupational Therapy: Functional Assessment (OT section) * Touch Pad Survey for questionnaires * Medical Consult with [facility] (Associate Pain Provider: JESUSITA GREENBERG) or MD Medical Provider STRETCH, STRENGTH, & AEROBICS 1 hour daily with 2 [facility] staff members (combination of: DPT,OT, CAFE MANAGER/TOVAR) Low impact aerobic conditioning and strengthening class that alternates between floor aerobics, step aerobics, yoga, exercise ball training, supine/prone/side- lying strengthening and stretching. Thisis the first class of every day so that patients begin the day with a warm-up of low-impact and lowintensity conditioning. The goal of the class is to introduce and encourage different types of cardiovascular conditioning and strengthening. STRENGTHENING & CARDIOVASCULAR EXERCISE 1 hour daily with 2 [facility] staff members (DPT & CAFE MANAGER) The physical therapy staff instructs, modifies, and supervises upper extremity, lower extremity, and core strengthening exercises focused on regaining total body fitness. These exercises are completed by all patients and include free weights, weight machines, general upper and lower extremity exercise, and specific spinal flexor and extensor strengthening. Available dumbbells include 1-50 lbs. The exercises are listed in the training record and can be changed for each program and/or individualized for each patient. Patients are methodically encouraged to increase their repetitions, sets or weight for their exercises daily. The therapists will recommend an increase in 1 set, or 10 repetitions, or 1-20 lbs in weight. This will be decided by the therapists daily based on the patient's ability to complete the current exercise prescription, exercise mechanics, tolerance level, or current relevant physical complaints. Cardiovascular conditioning includes at least 3-15 minutes of one activity to be completed in 1-4 sessions. FRP patients seldom have the conditioning to complete 15 minutes of one activity at a sufficient intensity to provoke a cardiovascular training response. Therefore, P utilizes multiple sessions to reach cardiovascular goals. Multiple types of cardiovascular equipment will be used which include: stationary bike, elliptical machine, treadmill, outdoor walks and stairwells. Exercise grades, intensity, and times are monitored and recorded. Perceived exertion or heart rate may also be usedto rate exercise intensity. Intensity, incline, speed, and/or time will be increased daily. However, walking speed will be initially accelerated and emphasized. A normal walking speed of 3.5mph is a common goal of patients before the end of a program. Self-Care (sometimes ???Home Exercise?? ) Plans are individualized for specific chief complaints and any secondary musculoskeletal and/or cardiovascular concerns. They include cardiovascular training, strengthening, stretching (ROM activities when needed) and mindfulness/relaxation training. These programs are to be completed by patients during their time away from [facility] (evenings, weekends - off days as necessary). Throughout the course of treatment, patients are educated and guided in exercise decision-making principles. This education takes place throughout the treatment sessions, and is progressive for each patient at the pace that is appropriate for them. The goal is that, by program completion, they willbe able to make alterations/corrections as required independently so as to maintain the safety and effectiveness of their therapeutic exercises. By completion of the program, the patient will have an individualized therapeutic exercise Self Care Plan composed of 4 parts (cardiovascular training, strengthening, stretching and mindfulness/relaxation). It will be designed to maintain or progress gains in their preferred setting (home or gym) so they can benefit from continued functional recovery and pain relief on their own. Development of a ???Flare-Up Plan?? with the team is also included as part of the Self-Care plan prior to completion. Education will be provided throughout the program sessions on the natural history of chronic pain and the expectation that flare-ups will occur as part of this natural history. Theplan will include ways to distinguish chronic pain from acute pain and to determine whether or not medical intervention is necessary. Also included are personalized mechanical strategies and pain neuroscience strategies that can be used to manage chronic pain symptoms. FUNCTIONAL CONDITIONING 2 hours (over 2 sessions - AM and PM) with 2 [facility] staff members (OT, TOVAR/CAFE MANAGER, occasionally DPT) Work Conditioning: Involves progressive and graded activities used at work, home 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 These activities include 1. Lifting: starts at roughly 1/3 of ???frequent?? testing weight and increases in regular intervals each day until goal weight is reached. * Frequent -Floor to waist - 20 X per session; 1-2 sessions per day * Frequent - Waist to shoulder -20 X per session; 1-2 sessions per day * Occasional Lifting- 5X per session; 1-2 sessions per day 2. Carrying - 5-10 minutes - 1 and 2 handed approaches, increasing weight carried on a daily basis 3. Repetitive bending and reaching - up to 10 minutes - wearing hand weights to increase upper extremity strength and tolerance to bending. 4. Pushing and pulling sled -25 feet - either weight and repetitions increase daily 5. Lifting through ROM - increases in either repetition or weight daily During the work conditioning sessions, individuals are taught other strategies including pacing formanaging pain symptoms and when to utilize them most effectively. Sessions are designed to increasework capacity goals through both strengthening and exposure to the level identified in the Occupational Therapy initial note. Self Care Planning sessions are also conducted by the OT team, with focus on time management as well as location and resource planning. WALK and/or UNGUARDED ACTIVITIES, MINDFULNESS/RELAXATION TRAINING & STRETCHING 1 hour with 2 [facility] staff members (OT, TOVAR/CAFE MANAGER, occasionally DPT) Walk: 2-5x/wk patients will walk for 15-30 minutes, starting on flat terrain with minimal inclines for less time. They are encouraged to increase their speed, and therefore, heart rate, each day at their own pace to ultimately increase their walking tolerance. As their tolerance progresses, walks will include more incline. Unguarded Activity: 2-5x/wk games will be utilized to increase cardiovascular fitness, strength, endurance and flexibility and to encourage spontaneous or quick movements. Games will be played for 15-30 minutes. Mindfulness/Relaxation Training: Daily - patients will participate in 10-30 minutes of education and practice including but not limited to the following mindfulness and relaxation techniques for painmanagement: breathing focus, body scan, walking meditation, guided imagery, progressive muscle relaxation. Stretching techniques that are taught include standing and mat-based approaches. INDIVIDUAL TIME 15-30 minutes of individual treatment time with the OT and DPT. MEDICAL APPOINTMENTS (Meeting with [facility]/) Two 25 minute individual clinic visits with a medical provider to discuss progress, concerns and individuals status, goals, and plan. These happen in the first week of program to discuss overall plan, and at approximately the midway point of the program to discuss any concerns that may arise. Additionally, a 25 minute discharge clinic visit will happen on the final day of the program to summarizethe plan for the patient going forward, including the Self Long-Term Program, and any work plans ifapplicable. PAIN EDUCATION SERIES All discussions are approximately 1 hour and led by Occupational and Physical Therapy staff. The latest research shows that the more you know about pain and how it works, the better off you'llbe. This includes moving and functioning better, experiencing less pain, and having an increased ability and interest in healthy exercise and movement. This knowledge is essential to your recovery, and research has shown that anyone can understand it, so welcome to Pain Neuroscience. These group discussions are designed to educate patients on pain neuroscience, coping skills and how to manage pain stressors in their lives. All patients are encouraged to participate in the group discussion as they feel comfortable. The objective is to help patients understand that they are not alone in their feelings and pain situations. Group discussions allow connections to be made with the staff as well as other group members allowing a supportive environment for all. Topics covered will include: 1. Introduction to basic pain neuroscience - Learn what is happening in your tissues, nerves, and brain to create pain. How do we know what we know about pain, and if we know so much - why are you still in pain? This will explain some of the mysteries of pain. 2. The Sbu-Ejaikm-Wwsnec Model of Pain and Multidisciplinary Treatment - Understanding and treatingpain from a comprehensive, multidisciplinary approach is the gold standard of care. Studies have shown that understanding and viewing chronic pain though a biopsychosocial lens is a critical component of success in a program like this. 3. Pain Control Skills - Learn how habitual thoughts, emotions, and behaviors can actually turn thevolume up on pain and how techniques like breathing, relaxation response and mindfulness medicationcan turn the volume down. 4. Sleep and Chronic Pain - If you're not moving and you're not sleeping, you're not going to feel better. Learn to improve sleep habits even if you still have pain. 5. Pulling It All Together - How to maintain new habits at home, and how to manage relapses and flare-ups. MEDICAL PROVIDER DISCUSSIONS All discussions are 45 min-1 hour and are led by an MD/[facility] Interactive group discussions are designed to educate, motivate, and empower the patients to self-manage their pain and accompanying medical co-morbidities. Topics covered: 1. FUNCTIONAL CHRISTIANITY & GOAL SETTING ??? Interactive exercises to demonstrate the difficulties in assessing and understanding another person's pain. ??? The learning model of reacting to pain by limiting activity is reviewed, leading to a discussion of the development of safe training methods that are gradually progressive and goal- and quota-based rather than symptom-reactive. Importance of maintaining physical gains after rehabilitation by committing to a more active lifestyle is stressed. ??? The complex relationship between pain and function is discussed in the context of underlying beliefs and expectations and how these may dramatically affect recovery and the individuals' ability to get what they want from treatment. Practical application of these issues to the individual's situation is stressed. 2. ANATOMY, IMAGING, SURGICAL DECISION MAKING, MEDICATIONS ??? Topics covered: Importance of the History, Physical Examination, and Imaging studies. Solving the Mystery: Where is the Pain Coming From? Defines anatomy and possible pain generators in the back.Some thoughts and explanations for the failure to improve: What's known, what's not ??? This also includes listing all the patients' current and prior chief complaint-related medications, placing each in its pharmacological category. The personal experiences of the patients in termsof side effects and benefits are reviewed and discussed with references to the biochemical and clinical effects of the drugs. The lack of curative impact of these medications is stressed. The difficulties in determining optimal doses for analgesics are discussed in the context of the varying needs of patients and regulatory issues involved. The importance of prescribing in the framework of functional goals is reviewed as opposed to focusing entirely on symptom relief. 3. CHRONIC PAIN & THE NERVOUS SYSTEM ??? Reviews basic neuro anatomy and the relationship between pain and cognitive states, as well as the concept of central sensitization. A discussion regarding coping skills such as meditation, mindfulness and cognitive restructuring is discussed. 4. LIFESTYLE AND WELLNESS ??? The purpose of this discussion is to identify modifiable and non-modifiable factors that influence health and wellness. Focus on defining wellness and health, discussing non-modifiable risk factors of morbidity and mortality vs. modifiable factors. Discussion of strategies for maximal management of non- modifiable factors. Includes diet, nutrition information, exercise recommendations, sleep and stress management. All participants encouraged to participate and share helpful coping strategies. SUPPLEMENTAL DISCUSSIONS by [facility] staff OT, TOVAR/CAFE MANAGER, DPT, ORACLE EBS ARCHITECT as needed 1. COUNTERACTING STRAINS OF DAILY LIVING ??? An introduction to mechanical self-care techniques, why they can be helpful and the best ways to use them on a daily basis. 2. SELF CARE PLAN DEVELOPMENT ??? A review of the different parts of the Self Care Plan, which include traditional exercises suchas Strengthening, Stretching and Cardiovascular exercises, along with pain management techniques such as breathing and meditation, and a ???Flare-Up Plan?? to help manage pain on more challenging days. ??? How to incorporate a Self Care Plan into your (busy) daily life when it feels overwhelming. What are the expected challenges and what options will you have? 3. PACING STRATEGIES FOR CHRONIC PAIN ??? Why people with chronic pain often get stuck in unhelpful cycles with pain management (the ???Downward Pain Spiral?? and ???Boom and Bust Cycle?? ) and how to use a time-based method rather thana symptom-focused method to manage pain. 4. JOB HUNTING ??? A review of job seeking skills and hints to use after an injury and rehabilitation. Includes topics such as employer's obligations, your obligations, vocational rehabilitation, resume and cover letter writing, application process and writing. There is also an extensive discussion of the Americans with Disabilities Act. 5. WORKERS COMPENSATION & INSURANCE This will be provided asynchronously via telehealth recording. ??? This lecture provides a detailed description of the benefits, known criteria, application and review process for (6) most common types of disability; Workers Compensation, Short term/Chcf Disability, Social Security Disability, Tort/Liability, Marketing And Promotions Manager [place], and Medicaid. ??? During the course of the lecture patients are encouraged to share their concerns and questions as well as to elicit and dispel any myths, beliefs or assumptions they, their families, or others may have had about these resources. Further exploration of the often ensuing disappointments many patients have when recognizing the limitations of the types of disabilities as well as exploration and re-framing of the potential opportunities. ??? Concurrently, specifics of plateau (ie MMI or End Medical) for workers compensation as well as information on how impairment ratings are calculated are explored both to encourage patient planningas well as to begin to face these significant psychosocial stressors faced by patients as they end Functional [facility] and come to plateau. Patients who are not workers compensation are also encouraged to participate in this conversation as part of a therapeutic review of understanding their fellow participants and the challenges faced by others. FUNCTIONAL CHRISTIANITY PROGRAM (FRP) DAILY PROTOCOL OVERVIEW: FRP consists of 19* days of interdisciplinary treatment and patients are in the clinic each day from 8 am to 3 pm. Individual meeting times with DPT, OT, Medical Providers and Care Management occur at multiple points during the FRP. *Occasionally the # of program days may be changed to as few as 14 or as many as 20 due to staffinglimitations Functional [facility] Protocol Day 1 - Testing PT Evaluation (45 minutes) OT Evaluation (45 minutes) [facility] Evaluation (45 minutes) Care Management meeting as needed (30-45 minutes) Orientation and additional testing as needed (0.5-1 hour) Day 2 - Orientation Stretch, Strengthening and Aerobics Class (1 hour) Strengthening and Cardiovascular Exercise (1 hour) Functional Conditioning (1 hour) Pain Education/Medical Provider/Other Supplemental Discussion Topic (1 hour) Functional Conditioning (1 hour) Walk/Unguarded Activity, Mindfulness/Relaxation and Stretching (1 hour) Meeting with [facility] (25 minutes) - happens within first 2-5 days of program Day 3 Stretch, Strengthening and Aerobics Class (1 hour) Strengthening and Cardiovascular Exercise (1 hour) Functional Conditioning (1 hour) Pain Education/Medical Provider/Other Supplemental Discussion Topic (1 hour) Functional Conditioning (1 hour) Walk/Unguarded Activity, Mindfulness/Relaxation and Stretching (1 hour) Day 4 Stretch, Strengthening and Aerobics Class (1 hour) Strengthening and Cardiovascular Exercise (1 hour) Functional Conditioning (1 hour) Pain Education/Medical Provider/Other Supplemental Discussion Topic (1 hour) Functional Conditioning (1 hour) Walk/Unguarded Activity, Mindfulness/Relaxation and Stretching (1 hour) Day 5 Stretch, Strengthening and Aerobics Class (1 hour) Strengthening and Cardiovascular Exercise (1 hour) Functional Conditioning (1 hour) Pain Education/Medical Provider/Other Supplemental Discussion Topic (1 hour) Functional Conditioning (1 hour) Walk/Unguarded Activity, Mindfulness/Relaxation and Stretching (1 hour) Day 6 Stretch, Strengthening and Aerobics Class (1 hour) Strengthening and Cardiovascular Exercise (1 hour) Functional Conditioning (1 hour) Pain Education/Medical Provider/Other Supplemental Discussion Topic (1 hour) Functional Conditioning (1 hour) Walk/Unguarded Activity, Mindfulness/Relaxation and Stretching (1 hour) Day 7 Stretch, Strengthening and Aerobics Class (1 hour) Strengthening and Cardiovascular Exercise (1 hour) Functional Conditioning (1 hour) Pain Education/Medical Provider/Other Supplemental Discussion Topic (1 hour) Functional Conditioning (1 hour) Walk/Unguarded Activity, Mindfulness/Relaxation and Stretching (1 hour) Day 8 Stretch, Strengthening and Aerobics Class (1 hour) [place] Testing (60 min) Strengthening and Cardiovascular Exercise (30 minutes) Functional Conditioning (30 minutes) Pain Education/Medical Provider/Other Supplemental Discussion Topic (1 hour) Functional Conditioning (1 hour) Walk/Unguarded Activity, Mindfulness/Relaxation and Stretching (1 hour) Day 9 Stretch, Strengthening and Aerobics Class (1 hour) Strengthening and Cardiovascular Exercise (1 hour) Functional Conditioning (1 hour) Meeting with KIAH (25 minutes) - Madison review Pain Education/Medical Provider/Other Supplemental Discussion Topic (1 hour) Functional Conditioning (1 hour) Walk/Unguarded Activity, Mindfulness/Relaxation and Stretching (1 hour) Day 10 Stretch, Strengthening and Aerobics Class (1 hour) Strengthening and Cardiovascular Exercise (1 hour) Functional Conditioning (1 hour) Pain Education/Medical Provider/Other Supplemental Discussion Topic (1 hour) Functional Conditioning (1 hour) Walk/Unguarded Activity, Mindfulness/Relaxation and Stretching (1 hour) Day 11 Stretch, Strengthening and Aerobics Class (1 hour) Strengthening and Cardiovascular Exercise (1 hour) Functional Conditioning (1 hour) Pain Education/Medical Provider/Other Supplemental Discussion Topic (1 hour) Functional Conditioning (1 hour) Walk/Unguarded Activity, Mindfulness/Relaxation and Stretching (1 hour) Day 12 Stretch, Strengthening and Aerobics Class (1 hour) Strengthening and Cardiovascular Exercise (1 hour) Functional Conditioning (1 hour) Pain Education/Medical Provider/Other Supplemental Discussion Topic (1 hour) Functional Conditioning (1 hour) Walk/Unguarded Activity, Mindfulness/Relaxation and Stretching (1 hour) Day 13 Stretch, Strengthening and Aerobics Class (1 hour) Strengthening and Cardiovascular Exercise (1 hour) Functional Conditioning (1 hour) Pain Education/Medical Provider/Other Supplemental Discussion Topic (1 hour) Functional Conditioning (1 hour) Walk/Unguarded Activity, Mindfulness/Relaxation and Stretching (1 hour) Day 14 Stretch, Strengthening and Aerobics Class (1 hour) Strengthening and Cardiovascular Exercise (1 hour) Functional Conditioning (1 hour) Pain Education/Medical Provider/Other Supplemental Discussion Topic (1 hour) Functional Conditioning (1 hour) Walk/Unguarded Activity, Mindfulness/Relaxation and Stretching (1 hour) Day 15 Stretch, Strengthening and Aerobics Class (1 hour) Strengthening and Cardiovascular Exercise (1 hour) Functional Conditioning (1 hour) Pain Education/Medical Provider/Other Supplemental Discussion Topic (1 hour) Functional Conditioning (1 hour) Walk/Unguarded Activity, Mindfulness/Relaxation and Stretching (1 hour) Day 16 Stretch, Strengthening and Aerobics Class (1 hour) Strengthening and Cardiovascular Exercise (1 hour) Functional Conditioning (1 hour) Pain Education/Medical Provider/Other Supplemental Discussion Topic (1 hour) Functional Conditioning (1 hour) Walk/Unguarded Activity, Mindfulness/Relaxation and Stretching (1 hour) Day 17 Stretch, Strengthening and Aerobics Class (1 hour) Strengthening and Cardiovascular Exercise (1 hour) Functional Conditioning (1 hour) Pain Education/Medical Provider/Other Supplemental Discussion Topic (1 hour) Functional Conditioning (1 hour) Walk/Unguarded Activity, Mindfulness/Relaxation and Stretching (1 hour) Day 18 Stretch, Strengthening and Aerobics Class (1 hour) Final Testing (2 hours) Strengthening and Cardiovascular Exercise (1 hour) Functional Conditioning (1-2 hours) Walk/Unguarded Activity, Mindfulness/Relaxation and Stretching (1 hour) Day 19 Stretch, Strengthening and Aerobics Class (1 hour) Strengthening and Functional Conditioning (1 hour) Functional Conditioning (up to 1 hour) Individual Discharge Meeting with MD/KIAH and FRP team (25 minutes) Graduation and Final D/C information (20 minutes) documented in this encounter Plan of Treatment Not on file documented as of this encounter Visit Diagnoses Diagnosis Low back pain, non-specific documented in this encounter Care Teams Dragline Operator Helper Relationship Specialty Start Date End Date Maryse Perry MD [facility] [address] [place] [address] PCP - General Family Medicine 11/28/20 documented as of this encounter
--- OUTSIDE RECORDS SUMMARY | 2024-06-02 15:22 | XMS_ITS | Encounter Summary ---
Author Organization [facility] Address [address] [place] [address] Care Team Providers Care Electronics Lead Name Role Phone Maryse Perry MD Primary Care Provider [phone] Reason for Visit * Reason Comments Back Pain Encounter Details Date Type Department Care Team (Late st Contact Info) Description 10/23/2022 3:00 PM EDT Office Visit Functional [facility] Program at [facility] [address] [place] [id number] Lena Maguire, PEST CONTROL PILOT Low back pain, non-specific Social History Tobacco [...] Miscellaneous Notes * Treatment - Therapy - Lena Maguire PTA - 10/23/2022 3:00 PM EDT FRP Follow-up Gym Visit Work Status: Returned to work this week Subjective: Adrian reports that this week has been challenging and has also been complicated by health issues in the family requiring his to be away. He does his usual [employer] health workout in the morning before work (he has added the FRP floor exercises and a walk for 15 min). He does 20 minof cardio on his elliptical or bike in the PM + a weight strengthening exercise. Some sleep issues this week but not too bad. Heating pad and mindfulness first thing in AM and after workout at night. Objective: Treatment Received: gym Date End of Program 1 Week Status Treadmill 2.5 mph x 7% incline x 20' 2.5 mph x 7% incline x 20' Stretching: FIS, EIS FIS, EIS Vvchh-zq-ptnyr str leg lift (x20) 27.5# 27.5# Ubdel-qv-wxlkcuyo lift (x20) 22.5# 22.5# Squat lift (x5) 60# 60# Patient Education/Home Exercise Program: Reviewed Adrian's home exercise program and reviewed the importance of establishing consistent routine early, which he has done. No barriers to home program identified at this time. FRP Self Usp Program Type of Exercise Specific recommendations Frequency 1 week status Mindfulness/ Relaxation ? ? 3 minute breathing & Progressive Muscle Relaxation (Funinhand Timer Alexandra - Wiliam Markham) ??? 10 Percent Happier 2-3x/day ?AM &??PM Compliant Stretching Mat stretches (mp3 in myDH) 5-7x/wk Compliant MECHANICAL STRATEGIES: 1. Back: Press Ups from floor/standing backbends against table & Cat/Cow 2. Neck/Shoulder: Chin tucks, then head back and shake 3. Shoulders/Upper Back: Back bend over chair/edge of bed All At least 2x/day ?? Discussed doing FW and BW bends more frequently throughout the day at work. Cardio/Aerobic/ Endurance (gives endorphine boost - natural pain reliever) Choose from: Walk Step routine (mp3 in myDH) Warm Up [place] (mp3 in myDH) Treadmill Rowing Machine Biking 3-7x/wk For 20-30 min Compliant Strength training ? Gym Routine/Theraband Routine OR Mat Strengthening Routine OR Crate Lifting (1x/wk) 3-5x/wk Compliant ?? Your Self-Care Flare-up Plan: 1. Don't Panic, [...] active tools (exercise) that will cause lasting change.?? Assessment: Adrian has maintained gains made in the FRP and demonstrates good understanding of his home exercise program as well as the importance of continuing stretching, strengthening, mindfulnesspractice and cardiovascular exercise to maintain/increase functional capacities. Goals: Maintain/increase functional capacities. Plan: Adrian will meet with LUIS Garcia, for the [facility] follow-up in approximately one month. Adrian was encouraged to call with any questions or concerns regarding today's visit or the home exercise program. Length of visit: A total of 30 minutes was spent educating and treating Adrian and reviewing his home exercise program. documented in this encounter Plan of Treatment Not on file documented as of this encounter Visit Diagnoses Diagnosis Low back pain, non-specific documented in this encounter Care Teams Electronics Lead Relationship Specialty Start Date End Date Maryse Perry MD [address] [place] [address] PCP - General Family Medicine 11/28/20 documented as of this encounter
--- OUTSIDE RECORDS SUMMARY | 2024-06-02 15:22 | XMS_ITS | Encounter Summary ---
Author Organization [facility] Address [address] [facility] [place] [address] Care Team Providers Care Pie Maker Name Role Phone Maryse Perry MD Primary Care Provider Encounter Details Date Type Department Care Team (Latest Contact Info) Description 10/08/2022 Travel Social History Tobacco Use Types Packs/Day [...] on filedocumented in this encounter Care Teams Pie Maker Relationship Specialty Start Date End Date Maryse Perry MD [address] [place] [address] PCP - General Family Medicine 11/28/20 documented as of this encounter
--- OUTSIDE RECORDS SUMMARY | 2024-06-02 15:22 | XMS_ITS | Encounter Summary ---
Author Organization [facility] Address One [facility] [place] [address] Care Team Providers Care Medical Physicist Name Role Phone Maryse Perry MD Primary Care Provider [phone] Encounter Details Date Type Department Care Team (Latest Contact Info) Description 10/13/2022 Travel Social History Tobacco Use Types Packs/Day [...] on filedocumented in this encounter Care Teams Medical Physicist Relationship Specialty Start Date End Date Maryse Perry MD [address] [place] [address] PCP - General Family Medicine 11/28/20 documented as of this encounter
--- OUTSIDE RECORDS SUMMARY | 2024-06-02 15:22 | XMS_ITS | Encounter Summary ---
Author Organization [facility] Address One [facility] [place] [address] Care Team Providers Care Lens Cementer Name Role Phone Maryse Perry MD Primary Care Provider [phone] Reason for Visit * Reason Comments Back Pain Encounter Details Date Type Department Care Team (Late st Contact Info) Description 11/13/2022 8:00 AM EDT Office Visit Functional Mormon Program at [facility] [address] [place] [phone] Jacque Engel, OT Low back pain, non-specific [...] as of this encounter Progress Notes * Jacque Engel OT - 11/13/2022 8:00 AM EDT Images from the original note were not included. FUNCTIONAL SABIANIST PROGRAM FRP 1 MONTH FOLLOW-UP Dear Adrian Guardado, Thank you for attending your follow-up visit today. Your chief complaint requiring the FRP was right side low back/SI joint pain and right lower extremity tingling, left low sided back pain, radiating down left lower extremity. Anatomic diagnoses have included radiculopathy. Prior treatments included surgery, injections, physical therapy, Lyrica, Tylenol, chiropractic, heat, left shoe inserts, ice, icy hot/biofreeze/lidocaine, lidocaine patches, tiger balm, TENs unit. Stretching and walking continue to be done every day, and heat still helps. Moving helps his symptoms. He would ultimately like to reduce some of his medications Activity limiting health problems include history of migraines, bilateral knee pain, and right carpal tunnel. Since completing the program, everything has been going okay. He reports he mostly feels sore, likecharlie horses in his left calf. He reports his legs feel tired and weak. He reports he has had a few flare ups (6), he reports he raked one Wednesday and over-did it and did not do anything for thenext two days. He has returned to work and feels it has been okay. He reports he has been working through his lunch breaks and it has been busy. Patient Active Problem List Diagnosis Code ??? Sacroiliac joint dysfunction of right side M53.3 Results of the Touch Pad Questionnaires You Filled out: ??DH FRP DISCHARGE SUMMARY QUESTIONNAIRE TOTALS 09/22/2022 10/15/2022 11/13/2022 INSOMNIA SEVERITY INDEX (0-28) 15 (Moderately severe insomnia) 8 (Subthreshold) 14 (Subthreshold insomnia) Total PHQ-9 (0-27) 13 (Moderate Depression) 2 (Minimal) 8 (Mild Depression) Central Sensitization Inventory (0-100) 59 (Severe) 46 (Moderate) 56 (Severe) PDQ Total Score (0-150) 90 (Severe) 32 (Mild) 23 (Mild/Moderate) MAYDA-7 (0-21) 13 (Moderate Anxiety) 3 (Minimal) 6 (Mild Anxiety) Facs Scoring (0-100) 62 (Severe) 37 (Moderate) 36 (Moderate) Visual Analog Scale (VAS) for Pain Score (0-10) 2.57 1.12 1.87 Pain over the last week rating score (0-10) 4.81 2.36 2.34 Title Endurance and Flexibility Test Results: Reported Tolerance (minutes) First Day of FRP: End of FRP: 1 Month Follow-up: 3 Month Follow-up (optional): Sittin 120 120 Standin 300 300 Walkin 120 120 Flexibility (degrees): Neck: First Day of FRP: End of FRP: 1 Month Follow-up: 3 Month Follow-up (optional): Bending Forward: 44 70 70 Bending Back: 45 55 40 Turning Right: 65 90 80 Turning Left: 75 85 80 Tilting Right: 38 60 55 Tilting Left: 30 55 40 Low Back: First Day of FRP: End of FRP: 1 Month Follow-up: 3 Month Follow-up (optional): Bending Forward: 32 40 20 Bending Back: 3 25 20 Straight Leg Raise Right: 63 80 80 Straight Leg Raise Left: 63 80 75 Straight Leg Raise Pelvic: Treadmill First Day of FRP: End of FRP: 1 Month Follow-up: 3 Month Follow-up (optional): MET Level: Heart Rate: MET Level: Heart Rate: MET Level: Heart Rate: MET Level: Heart Rate: Treadmill Endurance: 4 98 9 134 9 100 Reason for Stopping (if applicable): balance Short of Breath Short of breath and left calf pain [place] Occupational Performance Measure Results - 3 Month Occupational Goals: Occupational Goals FRP Day 1 P S Current Status: End of Program Current Status: 1-month Follow-up P S Work/Productive Activity: Be able to slightly increase work days, doing more things maintenance tasks 3 3 Has been in communication with work, planning to return after program and increase to 6 hrs/day Returned to work, working about 6 hours and finds he is doing a lot of work orders. 6 6 Be able to lift 60lbs 2 2 Met Goal Has been lifting some toilets and ceiling tile boxes (around 40-50lbs) 5 5 Recreation/Leisure: Be able to walk for 1 hour with inclines 2 2 Was able to walk down to river andcome back up incline with trekking poles, 45 minutes. Has been completing inclines during programs.Has tried a couple of times but hasn't lately because of work. Uses trekking poles. 6 6 Be able to start up chain saw, be able to cut, stack wood, - - Has been able to try, used for 20 minutes and tried to incorporate some pacing strategies. Hasn't used it since end of program - - Be able to garden 1 1 Hasn't tried Has been cleaning all the flower beds, raking. 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 Finds he is sleeping continuously for about 2-3 hours. Uses icy hot lidocaine patches for his left calf 2 2 Total 14 15 3 Total 41 41 Mean score 2 1.85 Mean score 5.85 5.85 Change from Day 1 (??2 point change is clinically significant) 3.85 4 Original Lifting Goal New lifting goal: 60 lbs 65 lbs Current Lifting 65 lbs Current Lifting 65 lbs *Vu: P=Performance Score S=Satisfaction with Performance Score ASSESSMENT of OCCUPATIONAL PERFORMANCE Physical Capacity Test Results: Lifting: (pounds/heart rate) First Day of FRP End of Program 1 Month Follow-Up 3 Month Follow-Up Repetitive Floor to Waist 65/100 65/132 Repetitive Waist to Shoulder 30/93 35/119 1-Time Maximum 20 70 70 2-Handed Carry - 50 ft 20 60 60 Work Demand Level Sedentary-Light Medium Medium The results of this testing must be integrated with clinical findings and other observations to derive a final assessment of work capacity. Your Current Work/Functional Status: Mr. Guardado has returned to work, completing 6 hours per day and finds it has been super busy. He has been able to lift items at work but has been cautious. He has made good progress towards most of his functional goals, however hasn't been able to walk as muchand use his chain saw due to being busy at work. Status of Discharge Plans since Last Visit/Follow-up: Mr. Guardado has been compliant with his homeexercise routine. FRP Self Retirement Program Type of Exercise Specific recommendations Frequency 1 Week Follow Up 1 Month Follow Up Mindfulness/ Relaxation ? ? 3 minute breathing & Progressive Muscle Relaxation (Insight Timer Alexandra - Wiliam Markham) ??? 10 Percent Happier 2-3x/day AM & PM Compliant Has been doing some Qigong Stretching Mat stretches (mp3 in [facility]) 5-7x/wk Compliant Daily MECHANICAL STRATEGIES: 1. Back: Press Ups from floor/standing backbends against table & Cat/Cow 2. Neck/Shoulder: Chin tucks, then head back and shake 3. Shoulders/Upper Back: Back bend over chair/edge of bed All At least 2x/day Discussed doing FW and BW bends more frequently throughout the day at work. Daily Cardio/Aerobic/ Endurance (gives endorphine boost - natural pain reliever) Choose from: Walk Step routine (mp3 in myDH) Warm Up [place] (mp3 in myD) Treadmill Rowing Machine Biking 3-7x/wk For 20-30 min Compliant Walks everyday in AM/PM. Elliptical and/or bike for 20-25 mins 3-4x/week. Strength training Gym Routine/Theraband Routine OR Mat Strengthening Routine OR Crate Lifting (1x/wk) 3-5x/wk Compliant Completes mat strengthening exercises everyday. Will do therabands after cardio Your Self-Care Flare-up Plan: 1. Don't Panic, [...] (exercise) that will cause lasting change. Assessment: Mr. Guardado has been able to maintain most of his gains made at the end of program. Amberly done well with incorporation of his home exercise program into his routine, despite fatigue from work. We did discuss the importance of taking his lunch break and utilizing some of that time for stretching. He did loose some range of motion in both the cervical and lumbar spine, so we discussedcontinuing to perform the daily stretches, not just before work but during and after work. We also discussed incorporating more walks without his dog to get his heart rate up. He has met most of his functional goals, besides using his chainsaw and more walks on inclines due to his work schedule, however is going to try them when he has time. He is most concerned about his sleeping and his left leg cramps which he should discussed with Serenity Smart APRN at his follow up today. PLAN: Exercise: Continue with current plan Vocational Planning: Continue with current plan Counseling: None Next [facility] Follow-up Date: 3 month follow up as needed. 60 minutes was spent to review status of goals, test physical performance, and plan for continued self care. Cc: Adrian Guardado [address] [place] [address] [place] [address] Maryse Perry MD [address] [place] [address] documented in this encounter Plan of Treatment Not on file documented as of this encounter Visit Diagnoses Diagnosis Low back pain, non-specific documented in this encounter Care Teams Lens Cementer Relationship Specialty Start Date End Date Maryse Perry MD [address] [place] [address] PCP - General Family Medicine 11/28/20 documented as of this encounter
--- OUTSIDE RECORDS SUMMARY | 2024-06-02 15:22 | XMS_ITS | Encounter Summary ---
Author Organization [facility] [place] [address] Care Team Providers Care Regulatory Affairs Strategy Specialist Name Role Phone Maryse Perry MD Primary Care Provider [phone] Encounter Details Date Type Department Care Team (Late st Contact Info) Description 10/14/2022 8:00 AM EDT Office Visit Functional Alevism Program at [facility] [address] [place] [phone] Stanley Flannery Jr., PT Low back pain, non-specific; Sacro-iliac pain; Radiculopathy of lumbar region; Sacroiliac joint dysfunction of right side; Chronic [...] Therapy - Stanley Flannery Jr., PT - 10/14/2022 8:00 AM EDT FRP Physical Therapy Note FRP Day Protocol Subjective: Adrian returns today for a scheduled follow up appointment with FRP. Adrian reported continued Lower Back Stiffness, but feels Good. Objectives and Treatment Received Exercises performed as [...] session. Plan: Return for follow up with [facility] per protocol. 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
--- OUTSIDE RECORDS SUMMARY | 2024-06-02 15:22 | XMS_ITS | Encounter Summary ---
Author Organization [facility] Address One [facility] [place] [address] Care Team Providers Care Utility Tech Name Role Phone Maryse Perry MD Primary Care Provider [phone] Encounter Details Date Type Department Care Team (Latest Contact Info) Description 09/24/2022 Travel Social History Tobacco Use Types Packs/Day [...] on filedocumented in this encounter Care Teams Utility Tech Relationship Specialty Start Date End Date Maryse Perry MD [address] [place] [address] PCP - General Family Medicine 11/28/20 documented as of this encounter
--- OUTSIDE RECORDS SUMMARY | 2024-06-02 15:22 | XMS_ITS | Encounter Summary ---
Author Organization [facility] Address One [facility] [place] [address] Care Team Providers Care Long Wall Shear Operator Name Role Phone Maryse Perry MD Primary Care Provider [phone] Encounter Details Date Type Department Care Team (Latest Contact Info) Description 10/02/2022 Travel Social History Tobacco Use Types Packs/Day [...] on filedocumented in this encounter Care Teams Long Wall Shear Operator Relationship Specialty Start Date End Date Maryse Perry MD [address] [place] [address] PCP - General Family Medicine 11/28/20 documented as of this encounter
--- OUTSIDE RECORDS SUMMARY | 2024-06-02 15:22 | XMS_ITS | Encounter Summary ---
Author Organization [facility] Address [facility] [place] [address] Care Team Providers Care Management Trainee Marketing Name Role Phone Maryse Perry MD Primary Care Provider [phone] Encounter Details Date Type Department Care Team (Late st Contact Info) Description 10/02/2022 8:00 AM EDT Office Visit Functional Congregational Program at [facility] [address] [place] [address] Serenity Smart, MANAGER ROOFING [facility] [place] [address] Low back pain, non-specific; Radiculopathy of lumbar region; Sacroiliac joint dysfunction [...] as of this encounter Progress Notes * Serenity Smart, YARI - 10/02/2022 8:00 AM EDT Chief complaint requiring rehabilitation: lumbar radiculopathy, SIJ dysfunction SUBJECTIVE: Adrian is here for follow up regarding Problems identified in the day 1 visit. We identified the following barriers to obtaining His functional goals: history of??migraine headaches daily. Has been having headaches. Ross that he may have had less earringing for 2 days but it started again today. After the strength training he has been a bit more sore. Not taking flexeril during the day has helped him feel more clear. May be sleeping a little better. It takes approx 30 min to fall asleep and he wakes early. He is planning to try a different mattress to see if it helps. Bilateral knees have been more sore but Voltaren gel helps. Leg presses are most painful. right carpal tunnel has been sore. He has made adjustment to his exercises which have been helpful Progress has been consistent. Increased his lifting goal. Adopting pain neuroscience education principles. OBJECTIVE: Exam is deferred today. ASSESSMENT: Mr. Guardado is a 57 year old male with chronicc lower back and left leg pain. He is doing very well. He has increased the lifting goal and is feeling better. PLAN; Continued functional latter-day for chief complaint of lower back and leg pain 20 of this 25 minute counseling based visit was spent in face to face discussion regarding present and future plan of care. documented in this encounter Plan of Treatment Not on file documented as of this encounter Visit Diagnoses Diagnosis Low back pain, non-specific Radiculopathy of lumbar region Thoracic or lumbosacral neuritis or radiculitis, unspecified Sacroiliac joint dysfunction of right side Disorders of sacrum documented in this encounter Care Teams Management Trainee Marketing Relationship Specialty Start Date End Date Maryse Perry MD [address] [place] [address] PCP - General Family Medicine 11/28/20 documented as of this encounter
--- OUTSIDE RECORDS SUMMARY | 2024-06-02 15:22 | XMS_ITS | Encounter Summary ---
Author Organization [facility] Address [facility] [place] [address] Care Team Providers Care Solar Photovoltaic Electrician Name Role Phone Maryse Perry MD Primary Care Provider [phone] Reason for Visit * Reason Comments Back Pain Encounter Details Date Type Department Care Team (Late st Contact Info) Description 10/02/2022 11:00 AM EDT Office Visit Functional Anglican Program at [facility] [address] [place] [phone] Lena Maguire OTA Low back pain, non-specific Social History Tobacco [...] * Treatment - Therapy - Lena Maguire OTA - 10/02/2022 11:00 AM EDT P Occupational Therapy Note [facility] Day 9 Protocol Subjective: Mr. Guardado returns today for a scheduled follow up appointment with [facility]. He reports that he is ok with the peg activity although it is challenging. Objective: Refer to [facility] protocol for details and explanation of each activity. Mr. Guardado participated in the following activities: See individual flow sheets for weight progressions. Group of 7 Functional Therapy: 1. AM Session of functional conditioning ( X ) Completed ( ) Not Completed Exercises reviewed are as follows: - Crate Carry for 5 Minutes or 1 Handed Bucket carry 10 minutes - Push/Pull - x10 reps - Weighted Cart Twist x20 reps - Wall Clock - x4 reps at increased weight Functional Crate Lifting: - Floor to Waist [...] minutes of mindfulness meditation activity focusing on Thoughts and Emotions around pain. Participated in a 30 minute outdoor walk including 1 mile, up and down one flight of stairs and a slight hill climb, and 15 minutes of unguarded beach ball [...] participated actively in progression of function. He actively participated with initiation of training components. They were supportive of the other members of the group throughout the session. Plan: Return for follow up with [facility] per protocol. Continue training according to planned progressions towards functional recovery goals. Length of Treatment: Mr. Guardado participated in program activities from 10:00 a.m. through 3:00 p.m. today as part of group intervention with individualized cues provided. documented in this encounter Plan of Treatment Not on file documented as of this encounter Visit Diagnoses Diagnosis Low back pain, non-specific documented in this encounter Care Teams Solar Photovoltaic Electrician Relationship Specialty Start Date End Date Maryse Perry MD [address] [place] [address] PCP - General Family Medicine 11/28/20 documented as of this encounter
--- OUTSIDE RECORDS SUMMARY | 2024-06-02 15:22 | XMS_ITS | Encounter Summary ---
Author Organization [facility] Address [place] [address] Care Team Providers Care Supervisor Electronics Inspection Name Role Phone Maryse Perry MD Primary Care Provider [phone] Reason for Visit * Reason Comments Back Pain Encounter Details Date Type Department Care Team (Late st Contact Info) Description 10/15/2022 11:00 AM EDT Office Visit Functional Baptist Program at [facility] [address] [place] [phone] Jacque Engel, OT Low back pain, non-specific [...] Progress Notes * Jacque Engel OT - 10/15/2022 11:00 AM EDT [facility] Occupational Therapy Note [facility] Re-evaluation/Final Testing [facility] Day 18 Protocol Subjective: Mr. Guardado returns today for a scheduled follow up appointment with [facility]. He reports he is feeling good about his progress made during his time here and is feeling more confident in hisabilities to complete his daily tasks and engage in recreational tasks. Objective: Refer to P protocol for details and explanation of each activity. Mr. Guardado participated in the following activities: AM Re-evaluation ( X ) Completed ( ) Not completed PM Walk, stretch ( X ) Completed ( ) Not completed PM Session of functional conditioning ( X ) Completed:blinded weight assessment activity ( ) Not Completed Re-evaluation assessed functional strength, work readiness, and status of goals. Discussed the concept of a work readiness date in preparation for discharge tomorrow. Outlined a specific home lifting program with Mr. Guardado for him to continue progressing his functional capacities after discharge. Olivia Occupational Performance Measure Results - 3 Month Occupational Goals: Occupational Goals [facility] Day 1 P S Current Status: End of Program Current Status: 1-month Follow-up P S Work/Productive Activity: Be able to slightly increase work days, doing more things maintenance tasks 3 3 Has been in communication with work, planning to return after program and increase to 6 hrs/day Be able to lift 60lbs 2 2 Met Goal Recreation/Leisure: Be able to walk for 1 hour with inclines 2 2 Was able to walk down to river andcome back up incline with trekking poles, 45 minutes. Has been completing inclines during programs. Be able to start up chain saw, be able to cut, stack wood, 1 1 Has been able to try, used for 20 minutes and tried to incorporate some pacing strategies. 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 Total 15 14 Total Mean score 1.87 1.75 Mean score Change from Day 1 (??2 point change is clinically significant) Original Lifting Goal New lifting goal: 60 lbs 65 lbs Current Lifting 65 lbs Current Lifting lbs *Vu: P=Performance Score S=Satisfaction with Performance Score ASSESSMENT of OCCUPATIONAL PERFORMANCE Physical Capacity Test Results: Lifting: (pounds/heart rate) First Day of [facility]P End of Program 1 Month Follow-Up 3 Month Follow-Up Repetitive Floor to Waist 65/100 Repetitive Waist to Shoulder 30 1-Time Maximum 20 70 2-Handed Carry - 50 ft 20 60 Work Demand Level Sedentary-Light Medium The results of this testing must be integrated with clinical findings and other observations to derive a final assessment of work capacity. Vocational Planning: Job to return to: Yes Plan to start work at the end of the program: Yes. Planning to increase from 5 hrs to 6 hrs per dayuntil 1 month follow up a) Anticipated work readiness date: 10/19/2022 i) with restrictions: within tolerances and capacities noted above and in work capability form. Assessment: Mr. Guardado continues to work according to protocol in order to reach his functional goals. He has made substantial progress towards his 3 month functional recovery goals and has gone from a Sedentary-Light Physical Demand Level to a Medium Physical Demand Level. He has met his functional lifting goal and has done well with understanding and applying pain neuroscience education and pacing strategies to his gym routine. He has demonstrated a significant improvement in his self confidence in approaching challenging situations with regards to weights and his confidence in his abilities to complete work related tasks and daily living tasks. He was a pleasure to work with. Please see also short term OT goals in initial note. Plan: Return for follow up with [facility] per protocol. Length of Treatment: Mr. Guardado participated in program activities from 11:00 a.m. through 2:30 p.m today. During that time, a total of 15 minutes was spent re-testing physical performance and a total of 15 minutes was spent implementing individualized occupational therapy strategies. Care was provided by both an Occupational Therapist and Software Database Architect, [place] documented in this encounter Plan of Treatment Not on file documented as of this encounter Visit Diagnoses Diagnosis Low back pain, non-specific documented in this encounter Care Teams Supervisor Electronics Inspection Relationship Specialty Start Date End Date Maryse Perry MD [address] [place] [address] PCP - General Family Medicine 11/28/20 documented as of this encounter
--- OUTSIDE RECORDS SUMMARY | 2024-06-02 15:22 | XMS_ITS | Encounter Summary ---
Author Organization [facility] Address One [facility] [place] [address] Care Team Providers Care Labor Contractor Name Role Phone Maryse Perry MD Primary Care Provider [phone] Encounter Details Date Type Department Care Team (Latest Contact Info) Description 10/14/2022 Travel Social History Tobacco Use Types Packs/Day [...] on filedocumented in this encounter Care Teams Labor Contractor Relationship Specialty Start Date End Date Maryse Perry MD [address] [place] [address] PCP - General Family Medicine 11/28/20 documented as of this encounter
--- OUTSIDE RECORDS SUMMARY | 2024-06-02 15:22 | XMS_ITS | Encounter Summary ---
Author Organization [facility] Address [facility] [place] [address] Care Team Providers Care Restaurant Line Cook Name Role Phone Maryse Perry MD Primary Care Provider Encounter Details Date Type Department Care Team (Late st Contact Info) Description 09/30/2022 11:00 AM EDT Office Visit Functional Denominational Program at [facility] [address] [place] [phone] Jacque Engel, OT Low back pain, non-specific [...] - Therapy - Jacque Engel OT - 09/30/2022 11:00 AM EDT P Occupational Therapy Note [facility] Day 7 Protocol Subjective: Mr. Guardado returns today for a scheduled follow up appointment with [facility]. He reports the PEG exercise is becoming easier. He also reports he wore different footwear today which seemed tohelp with his low back pain. Objective: Refer to [facility] protocol for details and explanation of [...] minutes of mindfulness meditation activity focusing on Grounding. Participated in a15 minute treadmill walk including 5% incline at 2.5-2.6 mph, and 15 minutes of unguarded card gameactivity involving stooping and fast changing movements. Pain Education: Collaborated with Physical Therapy Your [employer] Discussion around applying Pain Neuroscience Education (PNE) introduced at Pain 100, including the concepts of an over-sensitive alarm, the role of threat perception, and the biopsychosocial model of chronic pain to their own experience. Today's topic focused on the Explain Pain approach of evaluating the context of a person's pain that can contribute to experiencing pain or not (e.g., Danger in Me v. Safety in Me). Participants watched the beginning of an educational video with Ricky Sweeney, PhD, Dsc (https://www.youtbluebottlebiz.com/watch?v=[email or web address]_Fs00nM) describing the brain's role in pain processing, and the ways that implicit mess ages of danger or safety determine the brain's decision whether to protect bodily tissues with pain. Participants were educated about the scientific basis of this understanding of pain. Please see goals in initial OT evaluation report from Day 1. Daily functional conditioning progressis documented on a flow sheet which is available on request. Assessment: Mr. Guardado continues to work according to protocol in order to reach his functional goals. He had a good understanding of today's conditioning principles and participated actively in progression of function. He continues to demonstrate significant improvement with form for all functional conditioning exercises and has demonstrated significant improvement in his flexibility and how he approaches mores challenging tasks/exercises that require forward flexion. 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
--- OUTSIDE RECORDS SUMMARY | 2024-06-02 15:22 | XMS_ITS | Encounter Summary ---
Author Organization [facility] Address [facility] [place] [address] Care Team Providers Care Desktop Administrator Name Role Phone Maryse Perry MD Primary Care Provider [phone] Encounter Details Date Type Department Care Team (Late st Contact Info) Description 09/28/2022 10:00 AM EDT Office Visit Functional Lutheran Program at [facility] [address] [place] [address] Serenity Smart APRN [facility] [place] [address] Low back pain, non-specific; Sacroiliac joint dysfunction of right side Social [...] of this encounter Progress Notes * Serenity Smart APRN - 09/28/2022 10:00 AM EDT [id number] Adrian Guardado 09/24/2022 Chief complaint requiring rehabilitation:lumbar radiculopathy, SIJ dysfunction FUNCTIONAL TAOISM PROGRAM REHABILTIATION TRAINING LECTURE Title: SPINAL ANATOMY, IMAGING, SURGERY, REHABILITATION AND MEDICATIONS Presenter: Serenity Smart APRN This is a one-hour discussion meant to enhance future encounters with health care providers. Patient expectations of pain relief and diagnosis were matched with a review of differential diagnosis andthe anatomy of spinal pain. Diagnostic tools and their capacities and limitations were reviewed. Absence of clear surgically correctable diagnoses, natural history of acute episode recovery and the nature of disability from chronic pain were reviewed. The role of quota based, goal oriented rehabilitation was reviewed in this context. The medication portion of the discussion began with Listing the patients??? current and prior chiefcomplaint-related medications, placing each in its pharmacological category. The personal experiences of the patients in terms of side effects and benefits were reviewed and discussed with referencesto the biochemical and clinical effects if the drugs. The lack of curative impact of these medications was stressed. The difficulties in determining optimal doses for analgesics were discussed in thecontext of the varying needs of patients and regulatory issues involved. The importance of prescribing in the framework of functional goals was reviewed as opposed to focusing entirely on symptom relief. documented in this encounter Plan of Treatment Not on file documented as of this encounter Visit Diagnoses Diagnosis Low back pain, non-specific Sacroiliac joint dysfunction of right side Disorders of sacrum documented in this encounter Care Teams Desktop Administrator Relationship Specialty Start Date End Date Maryse Perry MD [address] [place] [address] PCP - General Family Medicine 11/28/20 documented as of this encounter
--- OUTSIDE RECORDS SUMMARY | 2024-06-02 15:22 | XMS_ITS | Encounter Summary ---
Author Organization [facility] Address [facility] [place] [address] Care Team Providers Care Nurse Head Name Role Phone Maryse Perry MD Primary Care Provider [phone] Encounter Details Date Type Department Care Team (Late st Contact Info) Description 10/05/2022 8:00 AM EDT Office Visit Functional Anabaptist Program at [facility] [address] [place] [phone] Stanley Flannery Jr., PT Low back pain, non-specific; Radiculopathy of lumbar region; Sacro-iliac pain; Sacroiliac joint dysfunction of right side; Chronic [...] Therapy - Stanley Flannery Jr., PT - 10/05/2022 8:00 AM EDT [facility] Physical Therapy Note [facility] Day 10 Protocol Subjective: Adrian returns today for a scheduled follow up appointment with [facility]. Adrian stated he is feeling lower back sore & stiffness. Objectives and Treatment Received Exercises performed as [...] 2 sets to tolerance Cardio performed today: 15 Mins on TM See FRP flowsheet for [...] session. Plan: Return for follow up with [facility] per protocol. 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 documented in this encounter Plan of Treatment Not on file documented as of this encounter Visit Diagnoses Diagnosis Low back pain, non-specific Radiculopathy of lumbar region Thoracic or lumbosacral neuritis or radiculitis, unspecified Sacro-iliac pain Disorders of sacrum Sacroiliac joint dysfunction of right side Disorders of sacrum Chronic bilateral low back pain with bilateral sciatica documented in this encounter Care Teams Nurse Head Relationship Specialty Start Date End Date Maryse Perry MD [address] [facility] [address] [place] [address] PCP - General Family Medicine 11/28/20 documented as of this encounter
--- OUTSIDE RECORDS SUMMARY | 2024-06-02 15:22 | XMS_ITS | Encounter Summary ---
Author Organization [facility] Address [facility] [place] [address] Care Team Providers Care Arm Maker Name Role Phone Maryse Perry MD Primary Care Provider [phone] Encounter Details Date Type Department Care Team (Late st Contact Info) Description 10/12/2022 10:00 AM EDT Office Visit Functional Adventist Program at [facility] [address] [place] [address] Madeleine Durham APRN [facility] [place] [address] Low back pain, non-specific Social History Tobacco [...] of this encounter Progress Notes * Madeleine Durham APRN - 10/12/2022 10:00 AM EDT [id number] Adrian Guardado 10/12/2022 FUNCTIONAL RSTORATION PROGRAM REHABILITATION TRAINING LECTURE Chief complaint requiring rehabilitation: back pain Presenter: Madeleine [place] APRN Lifestyle and wellness discussion The purpose of this discussion is to identify modifiable and non modifiable factors that influencehealth and wellness. We will define wellness and health, discuss non modifiable risk factors of morbidity and mortality and modifiable factors. We will then discuss strategies for maximal management ofnon modifiable factors. Discussion will include diet and exercise recommendations, sleep and stressmanagement. All participants will be encouraged to participate and share helpful coping strategies. Time Spent: 1 hr. documented in this encounter Plan of Treatment Not on file documented as of this encounter Visit Diagnoses Diagnosis Low back pain, non-specific documented in this encounter Care Teams Arm Maker Relationship Specialty Start Date End Date Maryse Perry MD [address] [facility] [address] [place] [address] PCP - General Family Medicine 11/28/20 documented as of this encounter
--- OUTSIDE RECORDS SUMMARY | 2024-06-02 15:22 | XMS_ITS | Clinical Summary ---
Author Organization [facility] Address One [facility] [place] [address] Care Team Providers Care Crew Person Name Role Phone Maryse Perry MD Primary Care Provider [phone] Allergies Active Allergy Reactions Criticality Noted Date Comments Tree And Shrub Pollen 01/01/2021 Medications Medication Sig Dispensed Refills Start Date End Date Status cyclobenzaprine (Flexeril) 10 mg Tablet Take 10 mg by mouth as needed for Muscle spasms. Active multivitamin (THERAGRAN) Tablet Take 1 tablet by mouth daily. Active acetaminophen (Tylenol) 500 mg Tablet Take 1,000 mg by mouth every 6 hours as needed for Pain. Active pantoprazole EC (Protonix) 40 mg Tablet, Delayed Release (E.C.) Take 40 mg by mouth daily. 12/12/2020 Active menthol 16 % Aerosol, [place] Apply topically daily as needed. Active Camphor-Methyl Salicyl-Menthol ([place]) 3-15-5 % Cream Apply topically daily as needed. Active amLODIPine (Norvasc) 10 mg Tablet 10 mg daily. 04/11/2022 Active UNABLE TO FIND daily. tumeric Active fish oil-omega-3 fatty acids 1,000 mg Capsule Take 2 g by mouth 2 times daily. Active diclofenac sodium ([place]) 2 % Solution in Packet Apply topically. Active Active Problems Problem Noted Date Diagnosed Date Sacroiliac joint dysfunction of right side 07/01 Social History Tobacco Use Types Packs/Day Years Used Date Smoking Tobacco: Former Cigarettes 0.3 36 1 09/03/1983 - 07/03/2020 Smokeless Tobacco: Never Alcohol Use Standard Drinks/Week Comments Yes 0 (1 standard drink = 0.6 oz pur e alcohol) drinks occasionally Sex and Gender Information Value Date Recorded Sex Assigned at Not on file Gender Identity Not on file Sexual Orientation Not on file Last Filed Vital Signs Vital Sign Reading Time Taken Comments Blood Pressure 140/91 09/22/2022 1:03 PM EST Pulse 59 09/22/2022 1:03 PM EST Temperature 36.2 ??C (97.2 ??F) 01/10/2021 2:58 PM ED T Respiratory Rate 16 01/10/2021 2:58 PM EDT Oxygen Saturation 100% 08/31/2022 1:00 PM EST Inhaled Oxygen Concentration - - Weight 75.8 kg (167 lb) 11/13/2022 9:29 AM EDT Height 175.3 cm (5' 9) 11/13/2022 9:29 AM EDT Body Mass Index 24.66 11/13/2022 9:29 AM EDT Plan of Treatment Health Maintenance Due Date Last Done Comments CT Colonography 1967 Colonoscopy 1965 Colorectal Cancer Screening 1965 FIT DNA 1967 FIT 1965 Sigmoidoscopy (10 year) with FIT yearly 1967 Sigmoidoscopy 1965 HIV screen 1985 Hepatitis C Screening 1985 Lipid Screening 1985 Hepatitis B vaccine (0-59 yrs) (1) 1986 Tetanus/Diphtheria/Pertussis Vaccines (1 - Tdap) 04/05 Zoster vaccine (1 of 2) 2017 Advance Directive 2022 Covid-19 Vaccine (1 - 2023- season) 2024 Influenza (Flu) vaccine (1 o f 1 - Influenza standard series) 03/19/2024 Diabetes Screening (HgbA1C or Glucose) Discontinued Procedures Procedure Name Priority Date/Time Associated Diagnosis Comments COMPREHENSIVE METABOLIC PANEL Routine 02/25/2021 9:42 AM EDT Paresthesia from Last 3 Months or Most Recently Relevant to Health Maintenance Results * Comprehensive metabolic panel (non-fasting) (02/25/2021 9:42 AM EDT) Glucose 91 65 - 199 mg/dL [facility] Comment:Diabetes: >=200 mg/d L plus symptoms Blood Urea Nitrogen 15 10 - 20 mg/dL [facility] Creatinine 0.86 0.80 - 1.50 mg/dL [facility] Sodium 141 135 - 145 mmol/L [facility] Potassium 4.4 3.5 - 5.0 mmol/L [facility] Comment: Please note: ??Patients with WBC >100,000 may have falsely elevated Potassium levels. ??For accurate Potassium quantification in these patients send serum separator tube (gold top) for subsequent determinations. ??Contact the Clinical Chemistry Laboratory if there are any questions. Chloride 103 98 - 107 mmol/L [facility] Carbon Dioxide 30 22 - 31 mmol/L [facility] Anion Gap 8 5 - 15 mmol/L [facility] Calcium 9.2 8.5 - 10.5 mg/dL [facility] Protein, Total 6.8 6.1 - 8.0 gm/dL [facility] Albumin 4.6 3.2 - 5.2 gm/dL [facility] Aspartate Aminotransferase 19 0 - 39 unit/L [facility] Alanine Aminotransferase 22 0 - 55 unit/L [facility] Alkaline Phosphatase 66 40 - 130 unit/L [facility] Bilirubin, Total 0.4 0.2 - 1.3 mg/dL [facility] Est Glomerular Filtration Rate 99 >=60 mL/min/1. 73 m?? [facility] Comment: This patient? s estimated glomerular filtration rate (eGFR) is between 99 mL/min/1.73 m2 (patients with less muscle mass per kg body weight) and 115 mL/min/1.73 m2 (patients with more muscle mass per kg body weight) as determined by the CKD-EPI equation. Assessment of eGFR is not appropriate when creatinine concentrations are rapidly changing. For clinical decisions where creatinine clearance will affect therapy, a 24-hour urine creatinine clearance may be advised. Assignment of CKD stage 1 - 5 for patients with an eGFR near the transition point between stages may be based on clinical assessment of muscle mass and symptoms in addition to eGFR. Blood 02/25/2021 9:42 AM EDT 02/25/2021 10:04 AM EDT Narrative Resulting Agency Comment Spec In Lab Rob Díaz MD CHEMISTRY ORDERABLES [facility] [address] [place] [address] from Last 3 Months or Most Recently Relevant to Health Maintenance Care Teams Crew Person Relationship Specialty Start Date End Date Maryse Perry MD [address] [place] [address] PCP - General Family Medicine 11/28/20
--- OUTSIDE RECORDS SUMMARY | 2024-06-02 15:22 | XMS_ITS | Encounter Summary ---
Author Organization [facility] Address One [facility] [place] [address] Care Team Providers Care Program Control Analyst Name Role Phone Maryse Perry MD Primary Care Provider [phone] Encounter Details Date Type Department Care Team (Late st Contact Info) Description 10/13/2022 8:00 AM EDT Office Visit Functional Congregation Program at [facility] [address] [place] [id number] Stanley Flannery Jr., PT Low back pain, non-specific; Sacro-iliac pain; Sacroiliac joint dysfunction of right side; Chronic bilateral low back pain with bilateral sciatica; Radiculopathy of lumbar region Social History Tobacco [...] Therapy - Stanley Flannery Jr., PT - 10/13/2022 8:00 AM EDT [facility] Physical Therapy Note P Day Protocol Subjective: Adrian returns today for a scheduled follow up appointment with [facility]. Adrian stated his lower back is feeling good this morning. Objectives and Treatment Received Exercises [...] session. Plan: Return for follow up with [facility] per protocol. 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
--- OUTSIDE RECORDS SUMMARY | 2024-06-02 15:22 | XMS_ITS | Encounter Summary ---
Author Organization [facility] Address [facility] [place] [address] Care Team Providers Care Advertising Vice President Name Role Phone Maryse Perry MD Primary Care Provider [phone] Reason for Visit * Reason Comments Back Pain Encounter Details Date Type Department Care Team (Late st Contact Info) Description 09/24/2022 11:00 AM EST Office Visit Functional Restorationist Program at [facility] [address] [place] [phone] Jacque Engel, OT Low back pain, non-specific [...] - Therapy - Jacque Engel OT - 09/24/2022 11:00 AM EST [facility] Occupational Therapy Note P Day 3 Protocol Subjective: Mr. Guardado returns today for a scheduled follow up appointment with [facility]. He reports feeling some stiffness and soreness today. He did report that once he started straight leg lifting, he noticed he was able to go further the more he did the exercise. Objective: Refer to P protocol for details and explanation of each activity. Mr. Guardado participated in the following activities: Increased resistance levels of functional conditioning exercises [...] - x20 reps - PEGS 3 minutes/ 5 Functional Crate Lifting: - Floor to Waist (straight- leg lifting) = 2 x 10 reps - Waist to Shoulder = 2x10 reps - Occasional Lift (Squat Lift) = 1 x 5 reps Instructed in 5 minutes of mindfulness meditation activity focusing on breathing. Participated in a30 minute outdoor walk including 0.6 miles, and 10 minutes of unguarded beach ball volleyball activity. Mindfulness Discussion: Education provided around nervous system in relation to mindfulness practice. Discussed the ways that specific exercises can activate parasympathetic nervous system, including breathing retraining, progressive muscle relaxation, and guided imagery. We discussed the difference between the sympathetic nervous system and parasympathetic nervous system and how one can utilize stretches and various mindfulness practices to reduce muscle tension. Please see goals in initial OT evaluation report from Day 1. Daily functional conditioning progressis documented on a flow sheet which is available on request. Assessment: Mr. Guardado continues to work according to protocol in order to reach his functional goals. He had a good understanding of today's conditioning principles and participated actively in progression of function. He continues to demonstrate guarding around exercises that require flexion ofhis lumbar spine, including straight leg lifting and PEG exercise which could be related to fear avoidance behaviors. We discussed how his nervous system has been hyperalert with forward bending. Anticipate once he becomes stronger and confident in his abilities, his movement will be more fluid. Heactively participated with initiation of training components. They [...] things maintenance tasks. Be able to lift 60lbs Recreational:?Be able to walk for 1 hour with inclines, Be able to start up chain pan, be able to cut, stack wood, Be able to garden Daily Living:?Be able to vacuum, Be able to bend over to load bark press operator, reach for dog bowl, ??Be able to sleep for 6hrs continuously documented in this encounter Plan of Treatment Not on file documented as of this encounter Visit Diagnoses Diagnosis Low back pain, non-specific documented in this encounter Care Teams Advertising Vice President Relationship Specialty Start Date End Date Maryse Perry MD [address] [place] [address] PCP - General Family Medicine 11/28/20 documented as of this encounter
--- OUTSIDE RECORDS SUMMARY | 2024-06-02 15:22 | XMS_ITS | Encounter Summary ---
Author Organization [facility] Address One [facility] [place] [address] Care Team Providers Care Consulting Solution Manager Name Role Phone Maryse Perry MD Primary Care Provider [phone] Encounter Details Date Type Department Care Team (Latest Contact Info) Description 10/12/2022 Travel Social History Tobacco Use Types Packs/Day [...] on filedocumented in this encounter Care Teams Consulting Solution Manager Relationship Specialty Start Date End Date Maryse Perry MD [address] [place] [address] PCP - General Family Medicine 11/28/20 documented as of this encounter
--- OUTSIDE RECORDS SUMMARY | 2024-06-02 15:22 | XMS_ITS | Encounter Summary ---
Author Organization [facility] Address [address] [place] [address] Care Team Providers Care Fruit Express Agent Name Role Phone Maryse Damon MD Primary Care Provider [phone] Encounter Details Date Type Department Care Team (Late st Contact Info) Description 03/24/2017 Results Only [facility] [phone] Eliseo Dutton, [address] [place] [address] Social History Tobacco Use Types Packs/Day Years [...] Date/Time Associated Diagnosis Comments SURGICAL PATHOLOGY Routine 03/24/2017 9:54 EDT documented in this encounter Results * SURGICAL PATHOLOGY (03/24/2017 9:54 EDT) Pathology Report: SURGICAL PATHOLOGY REPORT Reports generated via electronic interface contain original data; however they are lacking the format of the original report. Caution should be taken when reading/interpret ing unformatted reports. Name: ? ADRIAN SPICER ? Accession #: ? [id number] ? : ? 1965 (Age: 51) ??M ? Collect Date: ? 03/24/2017 ? Location: ? [facility] ? Receive Date: ? 03/25/2017 ? Provider: ELISEO DUTTON DO Copy to: MARYSE DAMON MD ? Final Pathologic Diagnosis: SKIN OF SIDEBURN, RIGHT, SHAVE BIOPSY: - Seborrheic keratosis. Document reviewed and electronically signed by: NORBERT GIBSON MD Report ??Date: 03/26/2017 13:07 By the signature above, the attending physician certifies that he/she has personally conducted a gross and/or microscopic examination of the described specimens and rendered or confirmed the above diagnosis. Specimen(s) Received: Right sideburn Clinical History: Growing skin mass; clinical diagnosis code: D49.2 Gross Description: ? Received in formalin labelled with proper patient identification (initials D, T) and right sideburn is a shave biopsy of a garcía-mcgarry nodule (0.9 x 0.8 x 0.2 cm). The margin is inked blue. The specimen is sectioned into five sections and entirely submitted in 1 and 2. Chelsy Escalona 03/25/2017 11:43 AM End of Report [facility] 03/24/2017 9:54 EDT 03/25/2017 9:54 EDT us Eliseo Dutton DO PATHOLOGY ORDERABLES Fi nal Result [facility] [address] [place] [address] documented in this encounter Visit Diagnoses Not on filedocumented in this encounter Care Teams Fruit Express Agent Relationship Specialty Start Date End Date Maryse Damon MD [address] [place] [phone] PCP - General 05/29/15 documented as of this encounter
--- OUTSIDE RECORDS SUMMARY | 2024-06-02 15:22 | XMS_ITS | Encounter Summary ---
Author Organization [facility] Address [facility] [place] [address] Care Team Providers Care Excavator Backhoe Operator Name Role Phone Maryse Perry MD Primary Care Provider [phone] Encounter Details Date Type Department Care Team (Late st Contact Info) Description 09/29/2022 11:00 AM EDT Office Visit Functional Sabianism Program at [facility] [address] [place] [phone] Jacque Engel, OT Low back pain, non-specific [...] - Therapy - Jacque Engel OT - 09/29/2022 11:00 AM EDT [facility] Occupational Therapy Note [facility] Day 6 Protocol Subjective: Mr. Guardado returns today for a scheduled follow up appointment with [facility]. He reports no new complaints today. Half day of program today due to inclement weather. Objective: Refer to [facility] protocol for details and explanation of [...] Lift (Squat Lift) = 1x 5 reps Instructed in a self care management and relapse prevention strategy known as counteracting strainsof daily living. Handout provided regarding the indications, benefits, and strategies that can be used to alleviate discomfort as part of a self care plan. Participated in an introduction to self-care planning/home exercise program for him to continue progressing his functional capacities after discharge. Assigned homework for him to begin thinking about his daily schedule and when and where he will plan to integrate the four components of the self-care program (stretching, cardio, strengthening and mindfulness) into his daily schedule post discharge. Encouraged him to start outlining his weekly schedule and routine. 2. PM Session of functional conditioning ( ) Completed ( X ) Not Completed Please see goals in initial OT [...] all functional conditioning exercises and has demonstrated improved pace through his functional conditioning routine. He actively participated with initiation of training components. They were supportive of the other members of the group throughout the session. Plan: Return for follow up with [facility] per protocol. Continue training according to planned progressions towards functional recovery goals. Length of Treatment: Mr. Guardado participated in program activities from 10:00 a.m. through 12:00 p.m. today as part of group intervention with individualized cues provided. Lena Maguire PTA/JAMESON, present and assisting in supervision of session. Goals Personal Function 3 Month Goals ?? 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 Be able to lift??60lbs Recreational:?Be able to walk for 1 hour??with inclines, Be able to start up [employer], be ableto cut, stack wood, Be able to garden Daily Living:?Be able to vacuum, Be able to bend over to load photo tech, reach for dog bowl, ??Be able to sleep for 6hrs continuously ? documented in this encounter Plan of Treatment Not on file documented as of this encounter Visit Diagnoses Diagnosis Low back pain, non-specific documented in this encounter Care Teams Excavator Backhoe Operator Relationship Specialty Start Date End Date Maryse Perry MD [address] [place] [address] PCP - General Family Medicine 11/28/20 documented as of this encounter
--- OUTSIDE RECORDS SUMMARY | 2024-06-02 15:22 | XMS_ITS | Encounter Summary ---
Author Organization [facility] Address [facility] [address] Care Team Providers Care Paper Reel Operator Name Role Phone Maryse Perry MD Primary Care Provider [phone] Reason for Visit * Reason Comments Back Pain Encounter Details Date Type Department Care Team (Late st Contact Info) Description 10/09/2022 11:00 AM EDT Office Visit Functional Tenriism Program at [facility] [address] [place] [phone] Jacque Engel, OT Low back pain, non-specific [...] - Therapy - Jacque Engel OT - 10/09/2022 11:00 AM EDT P Occupational Therapy Note [facility] Day 14 Protocol Subjective: Mr. Guardado returns today for a scheduled follow up appointment with [facility]. He reports he is feeling sore this afternoon. Objective: Refer to [facility] protocol for details and explanation [...] focusing on silent meditation. Participated in a 40 minute outdoor walk including 1.4 miles, up/down one flight of stairs and a hill climb. Assigned updated target lifting goals for the upcoming weekend. Home exercise program to include once daily functional lifting of forward bend x 20 repetitions and squat x 5 repetitions. Will compliment with once daily walking session, twice daily stretching sessions, and 5-10 minutes of mindfulness meditation focusing on assigned selection of his choice. Please see goals in initial OT evaluation [...] form with all functional conditioning exercises as his weights progress. He actively participated with initiation of training components. They were supportive of the other members of the group throughout the session. Plan: Return for follow up with [facility] per protocol. Continue training according to planned progressions towards functional recovery goals. Length of Treatment: Mr. Guardado participated in program activities from 11:00 a.m. through 2:00 p.m. today as part of group intervention [...] Be able to bend over to load mining support worker, reach for dog bowl, ??Be able to sleep for 6hrs continuously documented in this encounter Plan of Treatment Not on file documented as of this encounter Visit Diagnoses Diagnosis Low back pain, non-specific documented in this encounter Care Teams Paper Reel Operator Relationship Specialty Start Date End Date Maryse Perry MD [facility] [address] [place] [address] PCP - General Family Medicine 11/28/20 documented as of this encounter
--- OUTSIDE RECORDS SUMMARY | 2024-06-02 15:22 | XMS_ITS | Encounter Summary ---
Author Organization [facility] Address One [facility] [place] [address] Care Team Providers Care Cnc Operator Machinist Name Role Phone Maryse Perry MD Primary Care Provider [phone] Encounter Details Date Type Department Care Team (Latest Contact Info) Description 10/09/2022 Travel Social History Tobacco Use Types Packs/Day [...] on filedocumented in this encounter Care Teams Cnc Operator Machinist Relationship Specialty Start Date End Date Maryse Perry MD [address] [place] [address] PCP - General Family Medicine 11/28/20 documented as of this encounter
--- OUTSIDE RECORDS SUMMARY | 2024-06-02 15:22 | XMS_ITS | Encounter Summary ---
Author Organization [facility] Address [facility] [place] [address] Care Team Providers Care Interpretative Dancer Name Role Phone Maryse Perry MD Primary Care Provider [phone] Encounter Details Date Type Department Care Team (Late st Contact Info) Description 10/06/2022 8:00 AM EDT Office Visit Functional Gnosticism Program at [facility] [address] [place] [phone] Stanley Flannery Jr., PT Low back pain, non-specific; Chronic bilateral low back pain with bilateral sciatica; Sacroiliac joint dysfunction of right side; Radiculopathy of lumbar region; Sacro-iliac pain Social [...] Therapy - Stanley Flannery Jr., PT - 10/06/2022 8:00 AM EDT [facility] Physical Therapy Note [facility] Day 11 Protocol Subjective: Adrian returns today for a scheduled follow up appointment with [facility]. Adrian stated his lower back is feeling pretty good this morning. Objectives and Treatment Received [...] session. Plan: Return for follow up with [facility] per protocol. Length of visit: Participated in [...] Be able to bend over to load dietary tech, reach for dog bowl, ??Be able [...] sacrum documented in this encounter Care Teams Interpretative Dancer Relationship Specialty Start Date End Date Maryse Perry MD [address] [facility] [address] [place] [address] PCP - General Family Medicine 11/28/20 documented as of this encounter
--- OUTSIDE RECORDS SUMMARY | 2024-06-02 15:22 | XMS_ITS | Encounter Summary ---
Author Organization [facility] Address One [facility] [place] [address] Care Team Providers Care Propeller Layout Worker Name Role Phone Maryse Perry MD Primary Care Provider [phone] Encounter Details Date Type Department Care Team (Latest Contact Info) Description 09/30/2022 Travel Social History Tobacco Use Types Packs/Day [...] on filedocumented in this encounter Care Teams Propeller Layout Worker Relationship Specialty Start Date End Date Maryse Perry MD [address] [place] [address] PCP - General Family Medicine 11/28/20 documented as of this encounter
--- OUTSIDE RECORDS SUMMARY | 2024-06-02 15:22 | XMS_ITS | Encounter Summary ---
Author Organization [facility] Address [facility] [place] [address] Care Team Providers Care Broadcast Program Director Name Role Phone Maryse Perry MD Primary Care Provider [phone] Reason for Visit * Reason Comments Back Pain Encounter Details Date Type Department Care Team (Late st Contact Info) Description 09/28/2022 11:00 AM EDT Office Visit Functional Synagogue Program at [facility] [address] [place] [phone] Jacque Engel, OT Low back pain, non-specific [...] - Therapy - Jacque Engel OT - 09/28/2022 11:00 AM EDT P Occupational Therapy Note [facility] Day 5 Protocol Subjective: Mr. Guardado returns today for a scheduled follow up appointment with [facility]. 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 Objective: Refer to [facility] protocol for details and explanation [...] = 1 x 5 reps Instructed in 8 minutes of mindfulness meditation activity focusing on body scan. Participated in a30 minute outdoor walk including 1 mile, up/down one flight of stairs and a slight hill climb. Weekend Home Program: Reviewed Mr. Guardado's participation [...] which is available on request. Assessment: Mr. Guradado continues to work according to protocol in order to reach his functional goals. He had a good understanding of today's conditioning principles and participated actively in progression of function. He continues to demonstrate good form with all functional conditioning exercises and has demonstrated improved flexibility in his lumbar spine as observed during the PEG exercise. We discussed graduated approaches to increases in activities in order to increase his tolerances and reduce his brain's associated perception of threat with certain movements and activities. He actively participated with initiation of training [...] Be able to bend over to load intranet support, reach for dog bowl, ??Be able to sleep for 6hrs continuously ?? documented in this encounter Plan of Treatment Not on file documented as of this encounter Visit Diagnoses Diagnosis Low back pain, non-specific documented in this encounter Care Teams Broadcast Program Director Relationship Specialty Start Date End Date Maryse Perry MD [facility] [address] [place] [address] PCP - General Family Medicine 11/28/20 documented as of this encounter
--- OUTSIDE RECORDS SUMMARY | 2024-06-02 15:22 | XMS_ITS | Encounter Summary ---
Author Organization [facility] Address One [facility] [place] [address] Care Team Providers Care Finance Effectiveness Manager Name Role Phone Maryse Perry MD Primary Care Provider [phone] Reason for Visit * Reason Comments Back Pain Encounter Details Date Type Department Care Team (Late st Contact Info) Description 10/01/2022 11:00 AM EDT Office Visit Functional Voodoo Program at [facility] [address] [place] [phone] Jacque Engel, OT Low back pain, non-specific [...] Progress Notes * Jacque Engel OT - 10/01/2022 11:00 AM EDT P Occupational Therapy Note [place] Testing [facility] Day 8 Protocol Subjective: Mr. Guardado returns today for a scheduled follow up appointment with [facility]. He reports he is feeling good overall and stronger and his pain is not as bad when he came into the program. 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 Planning to meet sometime next week for return to work planning. Objective: Refer to [facility] protocol for details and explanation of each activity. Mr. Guardado participated in the following activities: Group of 8 Functional Therapy: 1. AM Session of functional conditioning ( X ) Completed ( ) Not Completed Lifting re-evaluation Functional Strength Testing: Day 1 Day 8 Repetitive Floor to Waist (PILE) 15 50 PM Walk, unguarded activity and mindfulness: Instructed in 20 minutes of mindfulness meditation activity focusing on What to do about pain. Participated in a 30 minute outdoor walk including 1 mile, up and down one flight of stairs and a slighthill climb, and 15 minutes of unguarded beach ball volleyball activity Individualized Treatment: Increased resistance levels of functional conditioning exercises according to personal recovery goals. Completed midway functional strength testing. Used graphs as a visual aide to discuss daily progression of conditioning exercises toward 4 week strength training goals. Will continue to use graphs to map daily progress toward these goals. Met to further discuss and clarify functional recovery goals. We have agreed to set 25 lbs as a strength training goal for frequent waist to shoulder lifting, 30 lbs as a strength training goal for frequent floor to waist and 65 lbs as a occasional lifting goal as he would like to be able to meet his vocational and functional goals. Mr. Guardado participated actively in progression of function. Pain Education: Collaborated with Physical Therapy [employer] Continued discussion from yesterday with a focus on the Explain Pain approach of evaluating the context of a person's pain that can contribute to experiencing pain or not (e.g., Danger in Me v. Safety in Me). Assessment: Mr. Guardado is progressing according to FRP protocol and his functional goals as notedin initial OT evaluation report on Day 1. Objective testing today confirms he has made substantial gains thus far in terms of his physical capacities and has increased his lifting goal from 60 to 65 lbs. He continues to demonstrate improvement with all his functional conditioning exercises and finds he has been able to apply pain neuroscience education into his gym routine and is starting to think about his pain differently than before the program. Plan: Return for follow up with P per protocol. Length of Treatment: Mr. Guardado participated in program activities from 11:00 a.m. through 3:00 p.m. today. A total of 15 minutes were spent during that time to implement individualized occupational therapy strategies. Care was provided by both an Occupational Therapist and Special Class Welder, [place] Goals Personal Function 3 Month Goals ?? 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 Be able to lift??60lbs Recreational:?Be able to walk for 1 hour??with inclines, Be able to start up chain pan, be ableto cut, stack wood, Be able to garden Daily Living:?Be able to vacuum, Be able to bend over to load rda, reach for dog bowl, ??Be able to sleep for 6hrs continuously ?? documented in this encounter Plan of Treatment Not on file documented as of this encounter Visit Diagnoses Diagnosis Low back pain, non-specific documented in this encounter Care Teams Finance Effectiveness Manager Relationship Specialty Start Date End Date Maryse Perry MD [address] [facility] [address] [place] [address] PCP - General Family Medicine 11/28/20 documented as of this encounter
--- OUTSIDE RECORDS SUMMARY | 2024-06-02 15:22 | XMS_ITS | Encounter Summary ---
Author Organization [facility] Address One [facility] [place] [address] Care Team Providers Care Lime Kiln Operator Name Role Phone Mayrse Perry MD Primary Care Provider [phone] Encounter Details Date Type Department Care Team (Latest Contact Info) Description 10/15/2022 Travel Social History Tobacco Use Types Packs/Day [...] on filedocumented in this encounter Care Teams Lime Kiln Operator Relationship Specialty Start Date End Date Maryse Perry MD [address] [place] [address] PCP - General Family Medicine 11/28/20 documented as of this encounter
--- OUTSIDE RECORDS SUMMARY | 2024-06-02 15:22 | XMS_ITS | Encounter Summary ---
Author Organization [facility] Address One [facility] [place] [address] Care Team Providers Care Rn Employee Health Name Role Phone Maryse Perry MD Primary Care Provider [phone] Encounter Details Date Type Department Care Team (Latest Contact Info) Description 10/23/2022 Travel Social History Tobacco Use Types Packs/Day [...] on filedocumented in this encounter Care Teams Rn Employee Health Relationship Specialty Start Date End Date Maryse Perry MD [address] [place] [address] PCP - General Family Medicine 11/28/20 documented as of this encounter
--- OUTSIDE RECORDS SUMMARY | 2024-06-02 15:22 | XMS_ITS | Encounter Summary ---
Author Organization [facility] [place] [address] Care Team Providers Care Pole Setter Name Role Phone Maryse Perry MD Primary Care Provider [phone] Encounter Details Date Type Department Care Team (Late st Contact Info) Description 09/29/2022 8:00 AM EDT Office Visit Functional Bahai Program at [facility] [address] [place] [phone] Stanley Flannery Jr., PT Low back pain, [...] Therapy - Stanley Flannery Jr., PT - 09/29/2022 8:00 AM EDT [facility] Physical Therapy Note [facility] Day 6 Protocol Subjective: Adrian returns today for a scheduled follow up appointment with [facility]P. Adrian reported continued Lower Back Pain & Tightness. Objectives and Treatment Received Exercises performed as a group of 5 with guidance and individualized cues for form. 30 Minutes Standing Warm Up Exercises High March Heel-kick March Squat Step Back Toe Touch Knees to Hands B Forward Lunges Side Lunges Forward Bending and Backward Bending Chin Tucks 30 Minutes Supine, Sidelying, Prone Mat Exercises (2 x 12 each) Lower trunk rotation Straight Leg Raises [...] session. Plan: Return for follow up with [facility] per protocol. 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
--- OUTSIDE RECORDS SUMMARY | 2024-06-02 15:22 | XMS_ITS | Encounter Summary ---
Author Organization [facility] Address One [facility] [address] Care Team Providers Care Inspector Material Disposition Name Role Phone Maryse Perry MD Primary Care Provider [phone] Encounter Details Date Type Department Care Team (Latest Contact Info) Description 09/28/2022 Travel Social History Tobacco Use Types Packs/Day [...] on filedocumented in this encounter Care Teams Inspector Material Disposition Relationship Specialty Start Date End Date Maryse Perry MD [address] [place] [address] PCP - General Family Medicine 11/28/20 documented as of this encounter
--- OUTSIDE RECORDS SUMMARY | 2024-06-02 15:22 | XMS_ITS | Encounter Summary ---
Author Organization [facility] Address [facility] [address] Care Team Providers Care Junior Programmer Analyst Name Role Phone Maryse Perry MD Primary Care Provider [phone] Encounter Details Date Type Department Care Team (Late st Contact Info) Description 10/05/2022 10:00 AM EDT Office Visit Functional Alevism Program at [facility] [address] [place] [address] Serenity Smart APRN [facility] [place] [address] Low back pain, non-specific; Chronic bilateral low [...] Progress Notes * Serenity Smart APRN - 10/05/2022 10:00 AM EDT CHRONIC PAIN AND THE NERVOUS SYSTEM LECTURE. This one hour lecture begins with a review of the patho-anatomic model of pain transmission and reviews basic neuro anatomy . The relationship between pain and cognitive states is reviewed. As is the concept of central sensitization. A discussion regarding coping skills such as meditation, mindfulness and cognitive restructuring is discussed neuroscience Time Spent:45 MINUTES documented in this encounter Plan of Treatment Not on file documented as of this encounter Visit Diagnoses Diagnosis Low back pain, non-specific Chronic bilateral low back pain with bilateral sciatica Radiculopathy of lumbar region Thoracic or lumbosacral neuritis or radiculitis, unspecified documented in this encounter Care Teams Junior Programmer Analyst Relationship Specialty Start Date End Date Maryse Perry MD [facility] [address] [facility] [address] [place] [address] PCP - General Family Medicine 11/28/20 documented as of this encounter
--- OUTSIDE RECORDS SUMMARY | 2024-06-02 15:22 | XMS_ITS | Encounter Summary ---
Author Organization [facility] Address One [facility] [place] [address] Care Team Providers Care Correspondence Clerk Name Role Phone Maryse Perry MD Primary Care Provider [phone] Reason for Visit * Reason Comments Back Pain Encounter Details Date Type Department Care Team (Late st Contact Info) Description 10/13/2022 11:00 AM EDT Office Visit Functional Yazidism Program at [facility] [address] [place] [phone] Jacque Engel, OT Low back pain, non-specific [...] Progress Notes * Jacque Engel OT - 10/13/2022 11:00 AM EDT [facility] Occupational Therapy Note [facility] Day 16 Protocol Subjective: Mr. Guardado returns today for a scheduled follow up appointment with [facility]. He reports feeling good this morning. Objective: Refer to [facility] protocol for details and explanation of [...] one flight of stairs and a hill climb,and 20 minutes of unguarded beach ball volleyball activity . Please see goals in initial OT evaluation [...] PTA/JAMESON, present and assisting in supervision of session.. Goals Personal Function 3 Month Goals ?? 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
--- OUTSIDE RECORDS SUMMARY | 2024-06-02 15:22 | XMS_ITS | Encounter Summary ---
Author Organization [facility] Address [facility] [address] Care Team Providers Care Scowman Name Role Phone Maryse Perry MD Primary Care Provider [phone] Encounter Details Date Type Department Care Team (Late st Contact Info) Description 10/15/2022 8:00 AM EDT Office Visit Functional Sikh Program at [facility] [address] [place] [phone] Stanley Flannery Jr., PT Low back pain, non-specific; Sacro-iliac pain; Chronic bilateral low back pain [...] as of this encounter Miscellaneous Notes * Discharge - Therapy - Stanley Flannery Jr., PT - 10/15/2022 8:00 AM EDT [facility] Physical Therapy Note [facility] Day 18 Protocol Subjective: Adrian returns today for a scheduled follow up appointment with FRP and reports currentfunctional tolerances as listed below. Adrian reported feeling stronger and more flexible and less fearful of moving. ?? Objective: Title Endurance and Flexibility Test Results: Reported Tolerance (minutes) First Day of FRP: End of FRP: 1 Month Follow-up: 3 Month Follow-up (optional): Sittin 120 Standin 300 Walkin 120 Flexibility (degrees): Neck: First Day of FRP: End of FRP: 1 Month Follow-up: 3 Month Follow-up (optional): Bending Forward: 44 70 Bending Back: 45 55 Turning Right: 65 90 Turning Left: 75 85 Tilting Right: 38 60 Tilting Left: 30 55 Low Back: First Day of FRP: End of FRP: 1 Month Follow-up: 3 Month Follow-up (optional): Bending Forward: 32 40 Bending Back: 3 25 Straight Leg Raise Right: 63 80 Straight Leg Raise Left: 63 80 Straight Leg Raise Pelvic: Treadmill First Day of FRP: End of FRP: 1 Month Follow-up: 3 Month Follow-up (optional): MET Level: Heart Rate: MET Level: Heart Rate: MET Level: Heart Rate: MET Level: Heart Rate: Treadmill Endurance: 4 98 9 134 Reason for Stopping (if applicable): balance Short of Breath Sensation: ??Light touch reduced??L lateral lower leg,??. ?? Reflexes Right Left Tricep normal normal Brachioradialis normal normal Patella normal normal Achilles normal normal ?? AROM (degrees) shoulder flexion right??WNL, left??WNL. ?? UE Strength Right Left Shoulder abduction 5/5 5/5 Shoulder ER 5/5 5/5 Elbow flexion 5/5 5/5 Elbow extension 5/5 5/5 Wrist ulnar deviation 5/5 5/5 Finger abduction 5/5 5/5 ? LE Strength Right Left Hip flexion 5/5 5/5 Knee extension 5/5 5/5 Dorsiflexion 5/5 5/5 Hallux extension 5/5 5/5 Plantarflexion 5/5 5/5 ?? Neural tension screening: ??Seated straight leg raise right neg.,?left neg. Treatment Received: Refer to [facility] protocol for explanation of program/physical therapy details. 1. Therapeutic and Functional Exercise: See [facility] flow sheets for progression. Strengthening and conditioning designed per [facility] protocol was: (x) Completed ( ) Not completed 2. Home Exercise Program: Reviewed and modified current home exercise program. The HEP was: (x) Unchanged ( ) Modified 3. Neurological Assessment: (x) No change in status ( ) Change in status 4. Stretching Training Sessions: (x) Completed ( ) Not completed Evaluation of progress during FRP and discharge planning: Participation level was consistent and high. Self-Care Program Type of Exercise Specific recommendations Frequency Mindfulness/ Relaxation - 3 minute breathing & Progressive Muscle Relaxation (zanda Timer Alexandra- Wiliam Markham) - 10 Percent [...] Step routine (mp3 in myDH) Warm Up Eek (mp3 in myDH) Treadmill Rowing Machine Biking [...] that will cause lasting change. Assessment: Adrian has progressed as planned; he has good understanding of his home exercise program. Adrian has made significant progress overall, more notably with physical capacity, tolerance of positions, and lumbar extension and hip flexion. His continued confidence and utilization of exercisemay eventually allow for reduction in symptoms in the future. We will follow-up in 1 week to discuss integration of routine and answer any questions she has after cessation of program. Plan: Continue per FRP protocol. Length of visit: Participated in program physical activity from 8:00 a.m. through 2:30 p.m. today. During that time, 15 minutes were spent to re-test physical performance measures and 30 were spent to treat and further develop individual self-care exercise guidelines. Care was provided by Stanley Flannery Jr. DPT and Lena Maguire PTA. documented in this encounter Plan of Treatment Not on file documented as of this encounter Visit Diagnoses Diagnosis Low back pain, non-specific Sacro-iliac pain Disorders of sacrum Chronic bilateral low back pain with bilateral sciatica Radiculopathy of lumbar region Thoracic or lumbosacral neuritis or radiculitis, unspecified Sacroiliac joint dysfunction of right side Disorders of sacrum documented in this encounter Care Teams Scowman Relationship Specialty Start Date End Date Maryse Perry MD [address] [place] [address] PCP - General Family Medicine 11/28/20 documented as of this encounter
--- OUTSIDE RECORDS SUMMARY | 2024-06-02 15:22 | XMS_ITS | Encounter Summary ---
Author Organization [facility] [place] [address] Care Team Providers Care Shoulder Boner Name Role Phone Maryse Perry MD Primary Care Provider [phone] Encounter Details Date Type Department Care Team (Late st Contact Info) Description 10/16/2022 10:30 AM EDT Office Visit Functional Yarsani Program at [facility] [address] [place] [address] Madeleine Durham APRN [facility] [address] Low back pain, non-specific Social History Tobacco [...] Progress Notes * Madeleine Durham APRN - 10/16/2022 10:30 AM EDT Images from the original note were not included. [facility] Functional Yarsani Program Discharge Summary Mr. Adrian Guardado [id number] 10/16/2022 I, Zaira Justice, am compiling the information for Madeleine Durham APRN to discuss and review with the patient. Mr. Guardado attended the Functional Yarsani Program (FRP) from September 22 to October 16, 2022. The FRP combines progressive physical training, pain and disability education, behavioral med icine and vocational/activity planning geared toward achieving personal functional goals. I met with Mr. Guardado for 25 minutes today to discuss his discharge and progress in the Functional Yarsani Program as written in this note. We discussed medical progress, imaging, surgical decision making, current pain and functional status, compared that status to personal recovery goals and established the plan of care accordingly as below. Mr. Guardado attended the FRP for 19 of 19 days and participation level was consistent and high. Use of self care skills includes stretching, strengthening, cardiovascular conditioning, relaxation and pacing skills. The chief complaint requiring rehabilitation was right side low back/SI joint pain and right lower extremity tingling, left low sided back pain, radiating down left lower extremity. ??Anatomic diagnoses have included radiculopathy. Prior treatments included??surgery, injections, physical therapy, Lyrica, tylenol, chiropractic, heat, left shoe inserts, ice, icy hot/biofreeze/lidocaine, lidocaine patches, tiger balm, TENs unit.?Stretching and walking continue to be done every day, and heat still helps. Moving helps his symptoms.??He would ultimately like to reduce some of his medications. ?? Further diagnostic testing??is not??planned. ??Additional medical procedures are not??planned. ? Activity limiting health problems include history of??migraines, bilateral knee pain, right carpal tunnel. ?? 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 He??reports there is not??an active worker's compensation claim and/or there??is not??a personal injury claim associated with this injury.?? The progress during the [facility] was remarkable for the following outcomes. Results of the Questionnaires You Filled out: [facility] DISCHARGE SUMMARY QUESTIONNAIRE TOTALS 09/22/2022 10/15/2022 INSOMNIA SEVERITY INDEX (0-28) 15 (Moderately severe insomnia) 8 (Subthreshold) Total PHQ-9 (0-27) 13 (Moderate Depression) 2 (Minimal) Central Sensitization Inventory (0-100) 59 (Severe) 46 (Moderate) PDQ Total Score (0-150) 90 (Severe) 32 (Mild) MAYDA-7 (0-21) 13 (Moderate Anxiety) 3 (Minimal) Facs Scoring (0-100) 62 (Severe) 37 (Moderate) Visual Analog Scale (VAS) for Pain Score (0-10) 2.57 1.12 Pain over the last week rating score (0-10) 4.81 2.36 Title Endurance and Flexibility Test Results: Reported [...] Stopping (if applicable): balance Short of Breath FRP OT Objective Measures Physical Capacity Test Results: Lifting: (pounds/heart rate) First Day of FRP End of Program 1 Month Follow-Up 3 Month Follow-Up Repetitive Floor to Waist ?? 65/100 ? Repetitive Waist to Shoulder? 1-Time Maximum 20 70? 2-Handed Carry - 50 ft 20 60 ? Work Demand Level Sedentary-Light ??Medium ? 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 Be able to lift 60lbs. Has been in communication with work, planning to return after program and increase to 6 hrs/day. Met Goal. Recreational: Be able to walk for 1 hour with inclines. Be able to start up chain saw, be able to cut, stack wood. Be able to garden. Was able to walk down to river and come back up incline with trekking poles, 45 minutes. Has been completing inclines during programs. Has been able to try, used for 20 minutes and tried to incorporate some pacing strategies. Hasn't tried. Daily Living: Be able to vacuum. Be able to bend over to load drawing in hand, reach for dog bowl. Be able to sleep for 6hrs continuously. Hasn't tried. Met Goal. Has been able to sleep for about 5 hours. NOTE: Additional team members involved in discharge meeting include - Jacque Engel, OTR/L and Stanley Flannery Jr., DPT, Cert MDT Discharge Plan Self-Care Program Type of Exercise Specific recommendations Frequency Mindfulness/ Relaxation ? ? 3 minute breathing & Progressive Muscle Relaxation (Insight Timer Alexandra - Wiliam Markham) ??? 10 Percent Happier 2-3x/day ?? AM & PM Stretching Mat stretches (mp3 in myDH) 5-7x/wk MECHANICAL STRATEGIES: 1. Back: Press Ups from floor/standing backbends against table & Cat/Cow 2. Neck/Shoulder: Chin tucks, then head back and shake 3. Shoulders/Upper Back: Back bend over chair/edge of bed All At least 2x/day ?? Cardio/Aerobic/ Endurance (gives endorphine boost - natural pain reliever) Choose from: Walk Step routine (mp3 in myDH) Warm Up [place] (mp3 in myDH) Treadmill Rowing Machine Biking 3-7x/wk For 20-30 min Strength training ? Gym Routine/Theraband Routine OR Mat Strengthening Routine OR Crate Lifting (1x/wk) 3-5x/wk ?? Your Self-Care Flare-up Plan: 1. Don't [...] tools (exercise) that will cause lasting change.?? Vocational Planning: Job to return to: Yes Plan to start work at the end of the program: Yes. Planning to increase from 5 hrs to 6 hrs per dayuntil 1 month follow up a) Anticipated work readiness date: 10/19/2022 i) with restrictions: within tolerances and capacities noted above and in work capability form. ?? Follow-up Primary Care: Maryse Perry MD Medication Management: Maryse Perry MD Please arrive to all post program appointments wearing gym clothes and sneakers. You will be re-tested at these visits. Post Program Appointment Provider Arrival Time Location 1 Week Follow Up Sunday, October 23, 2022 Stanley Flannery Jr., DPT, Cert MDT 3:[address] 1 Month Follow Up Sunday, November 13, 2022 Tablet Questionnaire LUIS Garcia/Aisha Smart APRN 7:30 AM 8:00 AM 9:[address] [facility] [place]Please note that your tablet questionnaires can be completed through [facility] the day prior to your appointment. Please plan for a 1-year survey follow-up. I, Madeeline Durham, have reviewed the above compiled information and agree with its accuracy. I spentthe the entire 25 minutes with the patient discussing progress, goals and plans as documented in this note. cc: [place] [id number] Maryse Perry MD [address] [place] [address] Madeleine Durham APRN [facility] [place] [address] documented in this encounter Plan of Treatment Not on file documented as of this encounter Visit Diagnoses Diagnosis Low back pain, non-specific documented in this encounter Care Teams Shoulder Boner Relationship Specialty Start Date End Date Maryse Perry MD [address] [place] [address] PCP - General Family Medicine 11/28/20 documented as of this encounter
--- OUTSIDE RECORDS SUMMARY | 2024-06-02 15:22 | XMS_ITS | Encounter Summary ---
Author Organization [facility] [place] [address] Care Team Providers Care Heel Nail Rasper Name Role Phone Maryse Perry MD Primary Care Provider [phone] Encounter Details Date Type Department Care Team (Late st Contact Info) Description 10/07/2022 8:00 AM EDT Office Visit Functional Congregational Program at [facility] [address] [place] [phone] Stanley Flannery Jr., PT Low back pain, [...] Therapy - Stanley Flannery Jr., PT - 10/07/2022 8:00 AM EDT FRP Physical Therapy Note FRP Day 12 Protocol Subjective: Adrian returns today for a [...] tolerance Cardio performed today: 10 Mins on Elliptical See FRP flowsheet for details on time [...] session. Plan: Return for follow up with [facility] per protocol. 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 [address] [place] [address] PCP - General Family Medicine 11/28/20 documented as of this encounter
--- OUTSIDE RECORDS SUMMARY | 2024-06-02 15:22 | XMS_ITS | Encounter Summary ---
Author Organization [facility] Address [address] [facility] [place] [address] Care Team Providers Care Air Sealing Technician Name Role Phone Maryse Perry MD Primary Care Provider [phone] Encounter Details Date Type Department Care Team (Latest Contact Info) Description 10/07/2022 Travel Social History Tobacco Use Types Packs/Day [...] on filedocumented in this encounter Care Teams Air Sealing Technician Relationship Specialty Start Date End Date Maryse Perry MD [address] [place] [address] PCP - General Family Medicine 11/28/20 documented as of this encounter
--- OUTSIDE RECORDS SUMMARY | 2024-06-02 15:23 | XMS_ITS | Encounter Summary ---
Author Organization [facility] [address] [facility] [place] [address] Care Team Providers Care Bank Accountant Name Role Phone Maryse Perry MD Primary Care Provider [phone] Encounter Details Date Type Department Care Team (Late st Contact Info) Description 09/24/2022 8:00 AM EST Office Visit Functional Mormon Program at [facility] [address] [place] [phone] Stanley Flannery Jr., PT Low back pain, [...] Therapy - Stanley Flannery Jr., PT - 09/24/2022 8:00 AM EST FRP Physical Therapy Note FRP Day 3 Protocol Subjective: Adrian returns today for a scheduled follow up appointment with FRP. Adrian reported she was really sore and stiff. Objectives and Treatment Received Participated in session as a member in a group of 8. 30 Minutes Standing Warm Up Exercises High March Heel-kick March Squat Step Back Toe Touch Knees to Hands B Forward Lunges Side Lunges Forward Bends Backward Bends Chin Tucks 30 Minutes Supine, Sidelying, Prone Mat Exercises (2 x 10 each) Lower trunk rotation Straight Leg Raises Curl Up/Crunch Bridge Lower Abdominal Foot Taps B Sidelying Hip Abduction Prone Scap Retraction Prone Hip Extension Press Ups Exercises performed with guidance in establishing baseline weights for flowsheet: Dumbbells - Bicep curls, shoulder raises to 90 degrees of flexion, straight leg deadlift, and pronereverse flies on plinth. 2x10 reps for each Weight Machines - Lat pull downs, single arm seated row, leg press, chest press, knee extensions, and back extensions. 2x10 reps for each [place] chair back extensions 1 set to tolerance Cardio orientation performed on treadmill, elliptical, and upright bike See P flowsheet for details on time held and weights completed Patient participated in all exercises. Assessment: Adrian returns for follow up visit. He was able to establish challenging, but successful performance with all weights while maintaining form. Cues were needed intermittently for maintenance of form. He actively participated as a member of the group throughout session Plan: Return for follow up with [facility] per protocol. Length of visit: Participated in warm-up and strengthening program from 8:00 a.m. through 11:00 a.m. today as part of group intervention with individualized cues provided Personal Function 3 Month Goals ?? 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
--- OUTSIDE RECORDS SUMMARY | 2024-06-02 15:23 | XMS_ITS | Encounter Summary ---
Author Organization [facility] Address [address] [facility] [place] [address] Care Team Providers Care Powered Bridge Specialist Name Role Phone Maryse Perry MD Primary Care Provider [phone] Reason for Visit * Reason Comments Back Pain Encounter Details Date Type Department Care Team (Late st Contact Info) Description 09/23/2022 11:00 AM EST Office Visit Functional Jainism Program at [facility] [address] [place] [phone] Jacque Engel, OT Low back pain, non-specific [...] - Therapy - Jacque Engel OT - 09/23/2022 11:00 AM EST [facility] Occupational Therapy Note In Person Orientation to Functional Conditioning [facility] Day 2 Protocol Subjective: Mr. Guardado returns for Day 2 of the Functional Jainism Program. He reports he is feeling sore, specifically during the afternoon functional conditioning exercises. He reports the PEG exercise aggravated his low back pain. Objective: Refer to [facility] protocol for additional explanation of program/occupational therapy details. See individual flow sheet for progression of weights. Group of 8 Clinician demonstrated all functional conditioning exercises. Exercises performed as a group with guidance and individualized cues for form. AM Orientation and Conditioning - Mr. Guardado received individual instruction in functional conditioning and was given an opportunity to demonstrate understanding of and ability to perform each task. He completed a return demonstration for each exercise to ensure proper form and safety. Introduced straight-leg lifting technique used to increase back strength and decrease fear of re-injury. The rationale for this technique was thoroughly explained so that Mr. Guardado understands that, while it is an effective training technique, it will not be the appropriate technique to use for all heavy lifts in the future. Mr. Guardado participated in a regular session of conditioning at [facility]. Exercises reviewed are as follows: - Crate Carry for 5 Minutes or 1 Handed Bucket carry 10 minutes - Push/Pull - 0x10 reps - Weighted Cart Twist or Vacuum - 10lbs x20 reps - Wall Clock - 4lb ball x2 reps or PEGS 3 minutes Functional Crate Lifting: - Floor to Waist (straight- leg lifting) = 5 lbs x 10 reps - Waist to Shoulder = 5lbs x10 reps - Occasional Lift (Squat Lift) = 10 lbs x 5 reps Introduced the concept of mindfulness meditation and it's application within the functional tenriism program. Discussed it's use as an effective pain and stress management technique and discussed evidence for this approach. Assigned evening homework of completing a mindful ADL with a focus on paying attention to the 5 senses during a routine task. Discussed what to expect and general flow of formalized practices. ( X ) Completed ( ) Did not complete PM Conditioning - ( X ) Completed ( ) Did not complete Exercises reviewed are as follows: - Crate Carry for 5 Minutes or 1 Handed Bucket carry 10 minutes - Push/Pull - 0x10 reps - Weighted Cart Twist or Vacuum - 10lbs x20 reps - Wall Clock - 4lb ball x2 reps or PEGS 3 minutes Functional Crate Lifting: - Floor to Waist (straight- leg lifting) = 5 lbs x 10 reps - Waist to Shoulder = 5lbs x10 reps - Occasional Lift (Squat Lift) = 10 lbs x 5 reps Assessment: Mr. Guardado demonstrated a good understanding of today's functional conditioning principles and initial exercise protocols. He actively participated with initiation of training components. He demonstrates fair form with all functional conditioning exercises. He self reported that he was anxious today with learning the routine, however anticipate once he becomes more comfortable with the routine and increases his strength, self confidence in his abilities will also increase. He actively participated throughout session and was supportive of other members in the group Plan: Return for follow up with FRP per protocol. Length of Treatment: Mr. Guardado participated in program activities from 11:00 a.m. through 3:00 p.m. today as part of group intervention with individualized cues provided. Personal Function 3 Month Goals ?? 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 Be able to lift 60lbs Recreational: Be able to walk for 1 hour with inclines, Be able to start up chain pan, be able to cut, stack wood, Be able to garden Daily Living: Be able to vacuum, Be able to bend over to load investigations consultant, reach for dog bowl, Be able to sleep for 6hrs continuously documented in this encounter Plan of Treatment Not on file documented as of this encounter Visit Diagnoses Diagnosis Low back pain, non-specific documented in this encounter Care Teams Powered Bridge Specialist Relationship Specialty Start Date End Date Maryse Perry MD [address] [place] [address] PCP - General Family Medicine 11/28/20 documented as of this encounter
--- OUTSIDE RECORDS SUMMARY | 2024-06-02 15:23 | XMS_ITS | Encounter Summary ---
Author Organization [facility] [place] [address] Care Team Providers Care Crown Presser Name Role Phone None Primary Care Provider Unavailabl e Reason for Visit * Auth/Cert Specialty Diagnoses / Procedures Referred By Adolfo t Referred To Contact Diagnoses HNP, Spondylosis Procedures PRO LAMINEC/FACETECT/FORAMIN, LUMBAR 1 SEG PRO LAMINOTOMY, LUMBAR DISK, 1 INTRSP PRO MICROSURG TECHNIQUES, REQ OPER MICROSCOPE LAMINECTOMY, FACETECTOMY & FORAMINOTOMY,LUMBAR, ONE LEVEL (WRVU 15.37) LAMINOTOMY, DECOMPRESSION, FORAMINOTOMY, LUMBAR (WRVU 13.18) MICROSCOPE USE (WRVU 3.46) Referral ID Status Reason Start Date Expiration Date Visits Re quested Visits Authorized [id number] 1 1 Encounter Details Date Type Department Care Team (Late st Contact Info) Description 05/07/2020 7:25 AM EDT Ancillary Procedure Radiology Xray at [facility] [place] [phone] Social History Tobacco Use Types Packs/Day Years Used Date Smoking Tobacco: Every Day Cigarettes 0.3 36 Smokeless Tobacco: Never Alcohol Use Standard Drinks/Week [...] Procedure Name Priority Date/Time Associated Diagnosis Comments XR FLUORO NO RAD <1HR - OR USE Routine 05/07/2020 8:41 AM EDT documented in this encounter Results * XR Fluoro No Rad <1Hr - OR Use (05/07/2020 8:41 AM EDT) Narrative RAD - 05/07/2020 8:42 AM EDT This exam is auto-finalizing. No interpretation was done. Randy Can MD IMG FLUORO ORDERABLE S Performing Organization Address City/State/[facility] Co de Phone Number [place], [place] documented in this encounter Visit Diagnoses Not on filedocumented in this encounter Care Teams Crown Presser Relationship Specialty Start Date End Date None None PCP - General 05/07/20 11/27/20 documented as of this encounter
--- OUTSIDE RECORDS SUMMARY | 2024-06-02 15:23 | XMS_ITS | Encounter Summary ---
Author Organization [facility] Address [address] [facility] [place] [address] Care Team Providers Care Public Address Servicer Name Role Phone Maryse Perry MD Primary Care Provider [phone] Encounter Details Date Type Department Care Team (Latest Contact Info) Description 09/22/2022 Travel Social History Tobacco Use Types Packs/Day [...] on filedocumented in this encounter Care Teams Public Address Servicer Relationship Specialty Start Date End Date Maryse Perry MD [address] [place] [address] PCP - General Family Medicine 11/28/20 documented as of this encounter
--- OUTSIDE RECORDS SUMMARY | 2024-06-02 15:23 | XMS_ITS | Encounter Summary ---
Author Organization [facility] [place] [address] Care Team Providers Care Motion Picture Scene Builder Name Role Phone Maryse Perry MD Primary Care Provider [phone] Reason for Visit * Auth/Cert (Routine) Specialty Diagnoses / Procedures Referred By Adolfo lopez Referred To Contact Diagnoses SI dysfunction Procedures PRO INJECTION, SACROILIAC JOINT INJECTION PROCEDURE, SACROILIAC JOINT (WRVU 1.48) Hiren Hickey MD [facility] [place] [address] [facility] Referral ID Status Reason Start Date Expiration Date Visits Re quested Visits Authorized [id number] 1 1 Encounter Details Date Type Department Care Team (Latest Contact Info) Description 07/01/2022 2:48 PM EST - 07/01/2022 4:44 PM [facility] Hospital En[place] [address] Hiren Hickey MD [facility] [place] [address] Sacro-iliac pain Discharge Disposition: Home Social History Tobacco Use Types Packs/Day Years [...] Sign Reading Time Taken Comments Blood Pressure 109/84 07/01/2022 4:30 PM EST Pulse 87 07/01/2022 3:43 PM EST Temperature - - Respiratory Rate - - Oxygen Saturation 100% 07/01/2022 4:30 PM EST Inhaled Oxygen Concentration - - Weight - - Height - - Body Mass Index - - documented in this encounter Medications at Time of Discharge Medication Sig Dispensed Refills Start Date End Date amLODIPine (Norvasc) 10 mg Tablet 10 mg daily. 04/11/2022 UNABLE TO FIND daily. tumeric fish oil-omega-3 fatty acids 1,000 mg Capsule Take 2 g by mouth 2 times daily. menthol 16 % Aerosol, [place] Apply topically daily as needed. Camphor-Methyl Salicyl-Menthol (Keymar Elcho) 3-15-5 % Cream Apply topically daily as needed. pantoprazole EC (Protonix) 40 mg Tablet, Delayed Release (E.C.) Take 40 mg by mouth daily. 12/12/2020 acetaminophen (Tylenol) 500 mg Tablet Take 1,000 mg by mouth every 6 hours as needed for Pain. cyclobenzaprine (Flexeril) 10 mg Tablet Take 10 mg by mouth as needed for Muscle spasms. multivitamin (THERAGRAN) Tablet Take 1 tablet by mouth daily. pregabalin (LYRICA) 100 mg Capsule Take 100 mg by mouth 3 times daily. 03/16/2022 11/13/2022 buPROPion SR (Wellbutrin SR) 100 mg tablet sustained-release 12 hr 100 mg 2 times daily. 04/11/2011/13/2022 ARNICA TOP Apply topically daily as needed. Roll on 09/22/2022 UNABLE TO FIND daily as needed. Salon paws 09/25/2022 UNABLE TO FIND Apply topically daily as needed. Therma works- foam to help with muscle pain 09/25/2022 documented as of this encounter H&P Notes * Hiren Hickey MD - 07/01/2022 4:13 PM EST Patient Name: Adrian Guardado Patient Age: 57 y.o. Birthdate: 1965 Admit date: 07/01/2022 Attending Physician: Hiren Hickey MD PREPROCEDURE HISTORY AND PHYSICAL Date of Visit: July 01, 2022 Chief Complaint: Low back pain HPI: Subjective Adrian Guardado is a 57 y.o. male who presents today for right SI joint injection . The history is obtained from the patient, and I have reviewed medical records provided by the referring physician and located in the electronic medical record to fill in gaps in the patient's recollection of events, treatments and outcomes. LOCATION: Low back pain PAIN LEVEL AT REST 10/26 PAST MEDICAL HISTORY: Past Medical History: Diagnosis Date ??? High blood pressure PAST SURGICAL HISTORY: Past Surgical History: Procedure Laterality Date ??? HERNIA REPAIR 2019 ??? PRO LAMINEC/FACETECT/FORAMIN, LUMBAR 1 SEG Left 05/07/2020 LAMINECTOMY, FACETECTOMY & FORAMINOTOMY,LUMBAR, ONE LEVEL (WRVU 15.37) performed by Randy Can MD at [facility] OR ??? PRO LAMINOTOMY, LUMBAR DISK, 1 INTRSP Left 05/07/2020 LAMINOTOMY, DECOMPRESSION, FORAMINOTOMY, LUMBAR (WRVU 13.18) performed by Randy Can MD at [facility] OR ??? PRO MICROSURG TECHNIQUES, REQ OPER MICROSCOPE Left 05/07/2020 MICROSCOPE USE (WRVU 3.46) performed by Randy Can MD at [facility] OR FAMILY HISTORY: No family history on file. SOCIAL HISTORY: Social History Socioeconomic History ??? Marital status: Spouse name: Not on file ??? Number of children: Not on file ??? Years of education: Not on file ??? Highest education level: Not on file Occupational History ??? Not on file Tobacco Use ??? Smoking status: Former Packs/day: 0.25 Years: 36.00 Pack years: 9.00 Types: Cigarettes Quit date: 07/03/2020 Years since quittin.9 ??? Smokeless tobacco: Never Vaping Use ??? Vaping Use: Never used Substance and Sexual Activity ??? Alcohol use: Yes Comment: drinks occasionally ??? Drug use: Yes Types: Marijuana ??? Sexual activity: Not on file Other Topics Concern ??? Not on file Social History Narrative ??? Not on file Social Determinants of Health Financial Resource Strain: Not on file Food Insecurity: Not on file Transportation Needs: Not on file Physical Activity: Not on file Housing Stability: Not on file ALLERGIES: Tree and shrub pollen MEDICATIONS: Medications 07/01/22 1543 Medication Sig Taking? amLODIPine (Norvasc) 10 mg Tablet 10 mg daily. pregabalin (LYRICA) 100 mg Capsule Take 100 mg by mouth 3 times daily. buPROPion SR (Wellbutrin SR) 100 mg tablet sustained-release 12 hr 100 mg 2 times daily. UNABLE TO FIND daily. tumeric fish oil-omega-3 fatty acids 1,000 mg Capsule Take 2 g by mouth 3 times daily. ARNICA TOP Apply topically daily as needed. Roll on UNABLE TO FIND daily as needed. Salon paws menthol 16 % Aerosol, [place] Apply topically daily as needed. Camphor-Methyl Salicyl-Menthol (Keymar Elcho) 3-15-5 % Cream Apply topically daily as needed. UNABLE TO FIND Apply topically daily as needed. Therma works- foam to help with muscle pain pantoprazole EC (Protonix) 40 mg Tablet, Delayed Release (E.C.) Take 40 mg by mouth daily. acetaminophen (Tylenol) 500 mg Tablet Take 1,000 mg by mouth every 6 hours as needed for Pain. cyclobenzaprine (Flexeril) 10 mg Tablet Take 10 mg by mouth 3 times daily as needed for Muscle spasms. multivitamin (THERAGRAN) Tablet Take 1 tablet by mouth daily. ROS: Pt denies recent fever, chills, infection, wounds, hospitalizations, ED visits, use of antibiotics.Otherwise, as described above. PHYSICAL EXAM: BP 118/83 (Patient Position: Sitting) Pulse 87 SpO2 99% General: patient well developed and is non-distressed Head: normocephalic and atraumatic CV: normal rate, normal rhythm Pulmonary: effort and breath sounds normal, no wheezing Skin: non-diaphoretic and no rashes noted MSK: Low back pain Physical Exam RADIOLOGIC DATA: Reviewed prior to procedure LABS/DX RESULTS: Labs reviewed and no new labs pertinent to today's procedure. ASSESSMENT: 1. Sacro-iliac pain PLAN: Proceed with right SI joint injection Leon Bonilla MD MPH PGY5 Pain Management Fellow [address] [phone] / [facility] I have seen and examined the patient and reviewed the fellow's above history and agree with the details as written. The assessment and plan were formulated in discussion with me, and I agree with them as documented. Hiren Hickey MD, MS Leasing Property Manager of Anesthesiology [facility] [address] [phone] / [facility] documented in this encounter Miscellaneous Notes * Op Note - Hiren Hickey MD - 07/01/2022 4:33 PM EST Pain Management Operative Note Patient Name: Adrian Guardado : [id number] MR#: [id number] Case Date: 07/01/2022 Surgeon: Surgeon(s) and Role: * Hiren Hickey MD - Primary * Leon Bonilla MD - Fellow Present on Admission: ??? Sacroiliac joint dysfunction of right side Postoperative diagnosis: Same Procedure(s) (LRB): INJECTION PROCEDURE, SACROILIAC JOINT (WRVU 1.48) (Right) INTRA-ARTICULAR SI JOINT INJECTION Date of Service: 05/07/2022 Patient: Adrian Guardado Provider: Leon Bonilla MD, MPH Adrian Guardado has been referred to the Pain Management Center for intra- articular SI joint injection. Mr. Guardado was interviewed and the medical record reviewed. There were no medical, pharmacologic,radiographic or other structural contraindications to attempting fluoroscopically guided intra-articular SI joint injection. Risks and expected side effects as well as potential benefit of the procedure were reviewed with Mr. Guardado, and his voiced concerns were addressed. The printed consent form was signed and witnessed. Standard time-out procedure was performed. Mr. Guardado was placed in the prone position on the fluoroscopy table and automated blood pressurecuff and pulse oximeter applied. The skin entry point for approaching the right sacroiliac joint was identified under the most advantageous fluoroscopic view and marked. Following thorough Chlorhexadine preparation of the skin and draping and 1% lidocaine infiltration of the skin entry point and subcutaneous tissues, a 22 gauge spinal needle was placed under fluoroscopic guidance into the right sacroiliac joint. Intra-articular placement was confirmed by a clear arthrogram resulting from the injection of 0.25ml Omnipaque 240. 1 ml (.5% Bupivicaine 1cc) 40 mg Depomedrol was injected intra-articularily with an initial reproduction of a significant component of the usual pain. The needle was flushed with 0.5 cc of 1% Lidocaine and removed without difficulty. (49 cc of Omnipaque was wasted) Mr. Guardado's vital signs were stable throughout the procedure and were as recorded in the docflowsheet by the nursing staff. If given, dosages of intravenous drugs for anxiolysis and analgesia weredocumented in MAR. Follow up plans and appointments were discussed with the Mr. Guardado. Post procedure instruction was given as documented in nursing documentation and having met discharge criteria, he was dischargedfrom the Pain Management Center. Leon Bonilla MD MPH PGY5 Pain Fellow Discussed and performed with Dr. Hickey who is supervising and attending physician. I have seen and examined the patient and reviewed the fellow's above history and I agree with the details as written. I was the attending physician supervising the fellow in the above care and I was present with the fellow for the entire procedure. Hiren Hickey MD, MS Leasing Property Manager of Anesthesiology [facility] [address] [phone] / [facility] CC: JESUSITA Roe [facility] [address] documented in this encounter Plan of Treatment Not on file documented as of this encounter Procedures Procedure Name Priority Date/Time Associated Diagnosis Comments Injection, Sacroiliac Joint (57759) 07/01/2022 4:28 PM EST Sacro-iliac pain INJECTION PROCEDURE, SACROILIAC JOINT Routine 07/01/2022 3:43 PM EST Sacro-iliac pain documented in this encounter Visit Diagnoses Diagnosis Sacro-iliac pain Disorders of sacrum documented in this encounter Active and Recently Administered Medications Times are shown in EST. PRN Medication Order 06/29/2022 06/30/2022 07/01/2022 BUpivacaine (pf) (Marcaine) (5 mg/mL) 0.5% injection (CANCELED) ONCE PRN, Starting on Wed07/01/22 at 1633, Until Wed07/01/22 at 1844, Intra-Operative (Intra-Procedure), Routine 1633 (Given - Provid er: Leon Bonilla MD - Comment: RIGHT SIJ) iohexoL (Omnipaque) (240 mg/mL) solution (CANCELED) ONCE PRN, Starting on Wed07/01/22 at 1634, Until Wed07/01/22 at 1844, Intra-Operative (Intra-Procedure), Routine 1634 (Given - Provid er: Leon Bonilla MD - Comment: RIGHT SIJ) methylPREDNISolone acetate (DEPO-Medrol) (40 mg/mL) injection (CANCELED) ONCE PRN, Starting on Wed07/01/22 at 1634, Until Wed07/01/22 at 1844, Intra-Operative (Intra-Procedure), Routine 1634 (Given - Provid er: Leon Bonilla MD - Comment: RIGHT SIJ) documented in this encounter Care Teams Motion Picture Scene Builder Relationship Specialty Start Date End Date Maryse Perry MD [address] [place] [address] PCP - General Family Medicine 11/28/20 documented as of this encounter
--- OUTSIDE RECORDS SUMMARY | 2024-06-02 15:23 | XMS_ITS | Encounter Summary ---
Author Organization [facility] Address [facility] [place] [address] Care Team Providers Care Corporate Events Director Name Role Phone Maryse Perry MD Primary Care Provider [phone] Encounter Details Date Type Department Care Team (Late st Contact Info) Description 09/03/2022 Telephone Pain and Spine Center at [facility] [place] [address] Zaira Justice Social History Tobacco Use Types Packs/Day Years [...] as of this encounter Miscellaneous Notes * Telephone Encounter - Zaira Justice - 09/03/2022 9:12 AM EST Spoke with patient to inform him that he has been accepted into the September 2022 Functional Sikhism Program. Requested that he keep a look out in the mail for his invitation packet and call back toconfirm. Also informed him that a staff member would be calling to discuss his insurance coverage for the program. Patient expressed understanding and will call once he receives invitation. documented in this encounter Plan of Treatment Not on file documented as of this encounter Visit Diagnoses Not on filedocumented in this encounter Care Teams Corporate Events Director Relationship Specialty Start Date End Date Maryse Perry MD [address] [place] [address] PCP - General Family Medicine 11/28/20 documented as of this encounter
--- OUTSIDE RECORDS SUMMARY | 2024-06-02 15:23 | XMS_ITS | Encounter Summary ---
Author Organization [facility] [place] [address] Care Team Providers Care Statistical Methods Teacher Name Role Phone Maryse Perry MD Primary Care Provider [phone] Encounter Details Date Type Department Care Team (Latest Contact Info) Description 07/27/2022 4:30 PM EST TH Visit (TeleHealth) [facility] [place] [address] Madeleine Durham APRN [facility] [place] [address] Sacro-iliac pain; Sacroiliac joint dysfunction of right side Social [...] Progress Notes * Madeleine Durham APRN - 07/27/2022 4:30 PM EST Images from the original note were not included. [facility] Date of Consultation: July 24, 2022 Referring Provider: Moises Rayo Reason for request of consultation: Hoping to bend, get out of a chair, some way to get better Chief Complaint: Back pain right side History of Present Illness: Mr. Guardado is a 57 y.o. year-old male who presents to the pain clinic seen at the request of Moises Dumontjaviertianyokastarafael for discussion of chronic low back pain, right-sided, right lateral leg pain and some residual left leg pain. Mr. Cheng saw the patient in the neck and ordered an MRI. He also question whether or not a repeat SI injection might be helpful since the patient has had good response to this in the past. Patient's history is such that he was injured on 2019 with lifting piece of plywoodand twisting. He went to an urgent care and ended up working all summer and then going to surgery eventually and at L4-5 on the left which was causing left lateral leg pain to the great toe. Those symptoms and proved and he can walk without a cane after surgery he spent about a month recovering then got shingles eventually went back to work in September and more full-time till October and then in till January but then had to stop because of his pain. He has had multiple injections that have been helpfulsomewhat. 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 The left has always felt sore and has never really fully recovered. He reports that his goal is to be able to do the things that are important to him. He like to be able to work outside more he likes to work around his house. He walks his elderly [employer] and [employer] mix about 20 minutes a day. He does work on his daughter's house and enjoys that but finds that it is limited. He is done a lot of lifestyle changes he is trying to his diet and has lost a lot of weight, he is quit smoking, he drinks alcohol minimally. He is otherwise healthy. [facility] Telemedicine Visit updated interval history 07/27/2022: Verbal consent: The concept of ???Telemedicine?? has been described to the patient. Patient has been informed of the anticipated benefits and possible risks. Patient understands the information provided regarding telemedicine, has had the opportunity to ask questions about this information, and all questions havebeen answered to patient???s satisfaction. Patient consents for the use of telemedicine in his/her medical care and authorizes the transmission of any relevant medical information to providers and their staff involved in patient???s medical or mental health care. Verbal consent obtained by myself or auxiliary staff: Yes Patient Location: Home Provider Location: Office Adrian reports that he had great results from the SI joint injection with almost no pain. He is reporting a little bit more pain now than he had initially and but pain level can be anywhere from 2-6 on a scale of 10. He is scheduled to come for a gap assessment for the functional cheondoism program on the of this month with myself and Jacque samuels. He has cut back on his work hours going down from 8 hours to 5 hours a day which is helping as well. PAIN ASSESSMENT: Description: sharp right sided Back pain , right leg painis dull and pushing, sharp around the knee Weakness, numbness, tingling: great toe more numb Saddle Anesthesia: no' Other associated symptoms: Lateral hip pain , abdominal pain post hernia repair Alleviating factors: recline, heat on back , pillow with weigth on front ( abdomen) Aggravating factors: activity: bending, transitioning, sitting or driving in a car, reaching, Pain today: 2/10 up to 6 on a scale of 10 myD-H Pain 05/06/2022 VR12 - Physical Summary Component 27.08 VR12 - Mental Component Summary 40.09 Audit C 2 (Low Risk) MODEMS Satisfaction 66.67 Family History of Substance Abuse (Male) 0 Personal History of Substance Abuse(Male) 0 Age 0 History of Preadolescent sexual abuse(Male) 0 Psychological Disease 0 ORT Total Scores (Male) 0 (Low risk) BPI Severity Score 4 BPI Interference Score 5.43 PAST THERAPIES: PT surgery Injection lyrica Tylenol BID Chiropractor Heat shoe insert Functional Status Work-- 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 Allergies & Adverse Reactions: Tree and shrub pollen Problem List: Patient Active Problem List Diagnosis Code ??? Sacroiliac joint dysfunction of right side M53.3 Social History: Social History Socioeconomic History ??? Marital status: Spouse name: Not on file ??? Number of children: Not on file ??? Years of education: Not on file ??? Highest education level: Not on file Occupational History ??? Not on file Tobacco Use ??? Smoking status: Former Packs/day: 0.25 Years: 36.00 Pack years: 9.00 Types: Cigarettes Quit date: 07/03/2020 Years since quittin.0 ??? Smokeless tobacco: Never Vaping Use ??? [...] on file Housing Stability: Not on file Family History No family history on file. Past Medical History: Past Medical History: Diagnosis Date ??? High blood pressure ??? Sacroiliac joint dysfunction of right side 07/01/2022 Past Surgical History: Past Surgical History: Procedure Laterality Date ??? HERNIA REPAIR 2019 ??? PRO INJECTION, SACROILIAC JOINT Right 07/01/2022 INJECTION PROCEDURE, SACROILIAC JOINT (WRVU 1.48) performed by Hiren Hickey MD at [facility] ??? PRO LAMINEC/FACETECT/FORAMIN, LUMBAR 1 SEG Left 05/07/2020 LAMINECTOMY, FACETECTOMY & FORAMINOTOMY,LUMBAR, ONE LEVEL (WRVU 15.37) performed by Randy Can MD at [facility] OR ??? PRO LAMINOTOMY, LUMBAR DISK, 1 INTRSP Left 05/07/2020 LAMINOTOMY, DECOMPRESSION, FORAMINOTOMY, LUMBAR (WRVU 13.18) performed by Randy Can MD at [facility] OR ??? PRO MICROSURG TECHNIQUES, REQ OPER MICROSCOPE Left 05/07/2020 MICROSCOPE USE (WRVU 3.46) performed by Randy Can MD at [facility] OR Review of Systems: Denies fever, chills, weight loss, SOB, abdominal pain, leg weakness/numbnes, arm weakness/numbness, bowel or bladder incontinence, balance issues , cold sensation RISK ASSESSMENT: Smoking: quit smoking Alcohol:very rare Physical Exam: No data found. Appearance/ Behavior Well groomed, good eye contact, relaxed, cooperative, normal speech, no acute distress, no involuntary movements Lungs Respirations unlabored Skin No rash, asymmetric hair loss, bruises, scars, swelling Musckuloskeletal Inspection/Palpation/ Range of Motion/Facet Loading maneuvers Gait: Nonantalgic Assistive device: None Heel, toe, heel to toe: Without difficulty, they can balance on each leg without hip drop. Inspection: good alignment, no excessive curvature, shoulder and hip levels equal bilaterally; no skin breakdown ROM: Fair range of motion with forward flexion, minimal extension, Palpation: Right-sided low back pain, no sensory changes in the lower extremities on the right but some residual left lateral leg sensory changes, reflexes symmetrical at the knees and ankles, negative straight leg raises, negative femoral tension stretch, good range of motion of the hips bilaterally, positive SI joint dysfunction test on the right with DIANA maneuver, Gaenslen's, compression, distraction, shear testing. There is no Buck or clonus. From previous appointment Imaging & Other Studies: I reviewed the images with the patient and answered his questions Assessment: Mr. Guardado is a 57 y.o. year-old male who presents to the [facility] clinic seen at the request of Skylar for discussion of right-sided back pain and some new onset left lateral leg symptoms with numbness and tingling and some pain as well as left-sided residual symptoms. The patient has an upcoming appointment for a gap assessment on the of this month with myself and the OT. In the meantime he is having good response from his SI joint injection. He is noticing some left-sided symptoms but not very few right-sided symptoms. Hopefully he willbe a good candidate for the functional cheondoism program in September. We had talked about having doing some PT in the meantime but it decided to hold off until after he comes to the functional cheondoism gap assessment. Thank you Dr. Rayo for allowing my participation in Adrian Guardado's care. Madeleine Durham, , FOUNDATION RELATIONS DIRECTOR-BC, TECHNOLOGY INTERN Nurse practitioner Pain management [facility] documented in this encounter Plan of Treatment Not on file documented as of this encounter Visit Diagnoses Diagnosis Sacro-iliac pain Disorders of sacrum Sacroiliac joint dysfunction of right side Disorders of sacrum documented in this encounter Care Teams Statistical Methods Teacher Relationship Specialty Start Date End Date Maryse Perry MD [address] [place] [address] PCP - General Family Medicine 11/28/20 documented as of this encounter
--- OUTSIDE RECORDS SUMMARY | 2024-06-02 15:23 | XMS_ITS | Encounter Summary ---
Author Organization [facility] [place] [address] Care Team Providers Care Water Resource Consultant Name Role Phone Maryse Perry MD Primary Care Provider [phone] Reason for Visit * Auth/Cert (Routine) Specialty Diagnoses / Procedures Referred By Adolfo lopez Referred To Contact Diagnoses SI dysfunction Procedures PRO INJECTION, SACROILIAC JOINT INJECTION PROCEDURE, SACROILIAC JOINT (WRVU 1.48) Hiren Hickey MD [facility] [place] [address] RUST Referral ID Status Reason Start Date Expiration Date Visits Re quested Visits Authorized [id number] 1 1 Encounter Details Date Type Department Care Team (Late st Contact Info) Description 07/01/2022 3:30 PM EST - 07/01/2022 4:00 PM [place] [phone] Hiren Hickey MD [facility] [place] [address] INJECTION PROCEDURE, SACROILIAC JOINT (WRVU 1.48) Social History Tobacco Use Types Packs/Day Years [...] Sign Reading Time Taken Comments Blood Pressure 118/83 07/01/2022 3:43 PM EST Pulse 87 07/01/2022 3:43 PM EST Temperature - - Respiratory Rate - - Oxygen Saturation 99% 07/01/2022 3:43 PM EST Inhaled Oxygen Concentration - - [...] 2 times daily. menthol 16 % Aerosol, [place] Apply topically daily as needed. Camphor-Methyl Salicyl-Menthol ([place]) 3-15-5 % Cream Apply topically daily as [...] 15.37) performed by Randy Can MD at [facility] MAIN OR ??? PRO LAMINOTOMY, LUMBAR DISK, 1 INTRSP Left 05/07/2020 LAMINOTOMY, DECOMPRESSION, FORAMINOTOMY, LUMBAR (WRVU 13.18) performed by Randy Can MD at [facility] MAIN OR ??? PRO MICROSURG TECHNIQUES, REQ OPER MICROSCOPE Left 05/07/2020 MICROSCOPE USE (WRVU 3.46) performed by Randy Can MD at [facility] MA[facility] OR FAMILY HISTORY: No family history [...] Tree and shrub pollen MEDICATIONS: Medications 07/01/22 4714 Medication Sig Taking? amLODIPine (Norvasc) 10 mg [...] needed. Salon paws menthol 16 % Aerosol, [place] Apply topically daily as needed. Camphor-Methyl Salicyl-Menthol ([place]) 3-15-5 % Cream Apply topically daily as [...] Bonilla MD MPH PGY5 Pain Management Fellow [address] [address] / [facility] I have seen and examined the patient and reviewed the fellow's above history and agree with the details as written. The assessment and plan were formulated in discussion with me, and I agree with them as documented. Hiren Hickey MD, MS Dietary Services Director of Anesthesiology [facility] [address] [address] / [facility] documented in this encounter Miscellaneous Notes * Op Note - Hiren Hickey MD - 07/01/2022 4:33 PM EST Pain Management Operative Note Patient Name: Adrian Guardado : [id number] MR#: [id number] Case Date: 07/01/2022 Surgeon: Surgeon(s) and Role: [...] drugs for anxiolysis and analgesia weredocumented in SEP. Follow up plans and appointments were discussed [...] the entire procedure. Hiren Hickey MD, MS Dietary Services Director of Anesthesiology [employer] [facility] [address] [phone] / [facility] CC: JESUSITA Roe [facility] [place] [address] documented in this encounter Plan of Treatment Not on file documented as of this encounter Procedures Procedure Name Priority Date/Time Associated Diagnosis Comments Injection, Sacroiliac Joint (49778) 07/01/2022 4:28 PM EST Sacro-iliac pain INJECTION PROCEDURE, SACROILIAC JOINT Routine 07/01/2022 3:43 PM EST Sacro-iliac pain documented in this encounter Visit Diagnoses Diagnosis Sacro-iliac pain Disorders of sacrum Sacro-iliac pain Disorders of sacrum documented in this encounter Administered Medications Inactive Administered Medications - up to 3 most recent administrations Medication Order MAR Action Action Date Dose Rate Site BUpivacaine (pf) (Marcaine) (5 mg/mL) 0.5% injection ONCE PRN, Starting on Wed07/01/22 at 1633, Until Wed07/01/22 at 1844, Intra-Operative (Intra-Procedure), Routine Given 07/01/2022 4:33 PM EST 1 mL iohexoL (Omnipaque) (240 mg/mL) solution ONCE PRN, Starting on Wed07/01/22 at 1634, Until Wed07/01/22 at 1844, Intra-Operative (Intra-Procedure), Routine Given 07/01/2022 4:34 PM EST 1 mL methylPREDNISolone acetate (DEPO-Medrol) (40 mg/mL) injection ONCE PRN, Starting on Wed07/01/22 at 1634, Until Wed07/01/22 at 1844, Intra-Operative (Intra-Procedure), Routine Given 07/01/2022 4:34 PM EST 40 mg documented in this encounter Active and Recently [...] SIJ) documented in this encounter Care Teams Water Resource Consultant Relationship Specialty Start Date End Date Maryse Perry MD [facility] [address] [facility] [address] [place] [address] PCP - General Family Medicine 11/28/20 documented as of this encounter
--- OUTSIDE RECORDS SUMMARY | 2024-06-02 15:23 | XMS_ITS | Encounter Summary ---
Author Organization [facility] Address [facility] [place] [address] Care Team Providers Care Parts Facilitator Name Role Phone Maryse Perry MD Primary Care Provider [phone] Reason for Referral * Consultation (Routine) - Closed Specialty Diagnoses / Procedures Referred By Adolfo lopez Referred To Contact [facility] Diagnoses Low back pain, non-specific Procedures [place] GROUP THERAPEUTIC PROCEDURES [place] GROUP THERAPEUTIC PROCEDURES PRO ESTABLISHED PATIENT LEVEL 3 [facility] [facility] HEALTH EDUCATION PRO THERAPEUTIC ACTIVITIES,DIRECT PT CONTACT BY PROVIDER, EACH 15 MIN PRO THERAPEUTIC ACTIVITIES,DIRECT PT CONTACT BY PROVIDER, EACH 15 MIN Madeleine Durham APRN [facility] [place] [address] [facility] [address] [place] [address] Referral ID Status Reason Start Date Expiration Date V isits Requested Visits Authorized [id number] Closed Consult, Test & Treat 09/14/2022 09/14/2023 1 1 Encounter Details Date Type Department Care Team (Late st Contact Info) Description 09/14/2022 Orders Only [place] [address] Madeleine Durham APRN [facility] [place] [address] Low back pain, non-specific (Primary Dx) Social History Tobacco Use Types Packs/Day Years [...] as of this encounter Plan of Treatment Scheduled Referrals Name Type Priority Associated Diagnoses Orde r Schedule Referral to [facility] and Spine Center (Internal only) Outpatient Referral Routine Low back pain, non-specific Ordered: 09/14/2022 documented as of this encounter Visit Diagnoses Diagnosis Low back pain, non-specific- Primary documented in this encounter Care Teams Parts Facilitator Relationship Specialty Start Date End Date Maryse Perry MD [address] [place] [address] PCP - General Family Medicine 11/28/20 documented as of this encounter
--- OUTSIDE RECORDS SUMMARY | 2024-06-02 15:23 | XMS_ITS | Encounter Summary ---
Author Organization [facility] Address [facility] [place] [address] Care Team Providers Care Outboard Motor Assembler Name Role Phone Maryse Perry MD Primary Care Provider [phone] Reason for Visit * Reason Onset Date Comments Questions 04/25/2021 Encounter Details Date Type Department Care Team (Late st Contact Info) Description 04/25/2021 Telephone Neurology at [facility] [place] [phone] Rob Díaz MD [facility] [place] [address] Questions Social History Tobacco Use Types Packs/Day Years [...] encounter Miscellaneous Notes * Telephone Encounter - Eduin Cobian RN - 04/28/2021 2:02 PM EDT Images for 11/19/20 and 12/31/20 MRI can be selected and viewed in the images tab at this time, MRIreports for the same dates are in the media tabs. * Telephone Encounter - Eduin Cobian RN - 04/28/2021 1:57 PM EDT Returned call to Adrian to discuss. Reached voicemail. Left a message to return call to: Eduin Cobian, RN, [facility] [place], . * Telephone Encounter - Alex Pena - 04/25/2021 8:58 AM EDT Call Center / [place] Message - General Issue Call Provider patient sees in Clinic: Rob Díaz Caller and relationship (if other than patient-full name): [employer] and position if other than patient or family: n/a Call back number: [phone] Ok to leave a message: yes Reason for call: Pt stated he is wondering what the next steps are. Pt stated he is still experiencing nerve pain and would like to schedule a fuv. Pt stated he is still waiting for the MRI result. Please call to discuss. Disposition of Call (choose one and remove others) Routine Message sent to the Nurse: Nurse/[place] contacted via: Message: y Call: n Pager: n documented in this encounter Plan of Treatment Not on file documented as of this encounter Visit Diagnoses Not on filedocumented in this encounter Care Teams Outboard Motor Assembler Relationship Specialty Start Date End Date Maryse Perry MD [address] [place] [address] PCP - General Family Medicine 11/28/20 documented as of this encounter
--- OUTSIDE RECORDS SUMMARY | 2024-06-02 15:23 | XMS_ITS | Encounter Summary ---
Author Organization [facility] [place] [address] Care Team Providers Care Machine Silver Stripper Name Role Phone Maryse Perry MD Primary Care Provider [phone] Encounter Details Date Type Department Care Team (Late st Contact Info) Description 08/31/2022 1:00 PM EST Office Visit [facility] at [facility] [place] [address] Madeleine Durham APRN [facility] [place] [address] Low back pain, non-specific Social History Tobacco [...] Sign Reading Time Taken Comments Blood Pressure 121/87 08/31/2022 1:00 PM EST Pulse 77 08/31/2022 1:00 PM EST Temperature - - Respiratory Rate - - Oxygen Saturation 100% 08/31/2022 1:00 PM EST Inhaled Oxygen Concentration - - Weight - - Height - - Body Mass Index - - documented in this encounter Progress Notes * Madeleine Durham, YARI - 08/31/2022 1:00 PM EST Images from the original note were not included. Functional Worship Program Medica;l [place] Chief complaint requiring rehabilitation: right side low back/SI joint pain and right lower extremity tingling, left low sided back pain, radiating down left lower extremity S: Adrian is being seen today for medical clearance for the Functional Worship program, a graduated exercise program aimed at the patient achieving His functional goals, despite having chronic pain. DESC; HIS, HER, THEIR:[id number]} pain pattern is described as right side low back/SI joint pain and right lower extremity tingling, left low sided back pain, radiating down left lower extremity, He has had treatments including surgery, injections, physical therapy, Lyrica, tylenol, chiropractic, heat, left shoe inserts, ice, icy hot/biofreeze/lidocaine, lidocaine patches, tiger balm, TENs unit. The patient's current goals are : Personal Function 3 Month Goals ?? 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 Be able to lift 50lbs Recreational: Be able to walk for 1 hour, Be able to start up chain pan, be able to cut, stack wood, Be able to garden Daily Living: Be able to vacuum, Be able to bend over to load kiln feeder, reach for dog bowl, Be able to sleep for 6hrs continuously ?? 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 He reports there is not an active worker's compensation claim and/or there is not a personal injuryclaim associated with this injury. ? Further diagnostic testing is not planned. Additional medical procedures are not planned. ?? Activity limiting health problems include history of migraines, bilateral knee pain, right carpal tunnel. Physical Examination PHYSICAL EVALUATION ?? Resting Vital Signs: BP 122/86 HR 88 ?? Gait: normal. Appearance/ Behavior Well groomed, good eye contact, relaxed, cooperative, normal speech, no acute distress, no involuntary movements Eyes Sclera anicteric, conjunctiva clear. ENT Hearing grossly intact Lungs CTA bilaterally Cardiovascular Reg RR without murmur, Skin No rash, asymmetric hair loss, bruises, scars, swelling Musckuloskeletal Inspection/Palpation/ Range of Motion/Facet Loading maneuvers Gait: Nonantalgic Assistive device: None Heel, toe, heel to toe: Without difficulty Pt is able to balance on each leg without hip drop. Inspection: good alignment, no excessive curvature, shoulder and hip levels equal bilaterally; no skin breakdown Palpation: Mildly tender in the left low back. No tenderness over the ischial bursa, no tenderness over the SI joint, Negative sacroiliac joint dysfunction tests, negative weakness with abduction. SLR: negative Neuro Motor Strength Segment Muscle Action Bilateral Results C5 Detoid Shoulder abduction 5/5 C5 Biceps Elbow flexion 5/5 C6 Extensor carpi radialis Wrist extension 5/5 C7 Triceps Elbow extension 5/5 C8, T1 Hand intrinsics Grasp 5/5 L2-5, S 1 Gluteus medius Hip Adduction 5/5 L4-5, S1 Gluteus medius Hip Abduction 5/5 L2 Iliopsoas Hip flexion 5/5 L3 Quadriceps Knee extension 5/5 L4 Tibialis anterior Ankle Dorsiflexion 5/5 L5 Extensor hallucis Great toe extension 5/5 S1 Gastrocnemius Ankle Plantar flexion 5/5 Reflexes: Segment Tendon Bilateral C5 Biceps 2+ C6 Brachioradialis 2+ C7 Triceps 2+ Upper Galvan Neg L3-4 Patella 2+ S1 Ankle 2+ Lower Babinski Down going Clonus Neg Sensory Exam: No sensory deficits noted in cervical, thoracic, lumbar dermatomes Vascular: warm to touch + 2 pedal pulses O: Please see Jacque Engel's note from today for details of the physical testing and current functional level. In general the patient's current level of functioning is in the sedentary demandlevel and goals are in the medium to heavy demand level. A: There is a gap between His goals and abilities. This was a counseling visit for 40 minutes out of 40 talking about symptom management and functional recovery, reviewing the content of FRP, and logistics specific to participation including, travel,lodging and exercise and activity planning . We have mutually decided to proceed with the followingplan. P: Adrian is a green light for functional hoahaoism. He is currently on the wait list for the September program. His human resources department is asking for a estimated return to work date. I have given him my card and Ms. Jessica Hernandez, our social workers information about the fact that we really cannot do this until we determine what program he will be participating in but I did inform him thathe can let them know that once he is in the program when he leaves he will have a work capacity andit would be in detail. . Madeleine Durham, MS, ELEVATED WORK PLATFORM OPERATOR-BC, MENTAL TELEPATHIST Nurse practitioner Pain management [facility] documented in this encounter Plan of Treatment Not on file documented as of this encounter Visit Diagnoses Diagnosis Low back pain, non-specific documented in this encounter Care Teams Machine Silver Stripper Relationship Specialty Start Date End Date Maryse Perry MD [facility] [address] [facility] [address] [place] [address] PCP - General Family Medicine 11/28/20 documented as of this encounter
--- OUTSIDE RECORDS SUMMARY | 2024-06-02 15:23 | XMS_ITS | Encounter Summary ---
Author Organization [facility] Address [facility] [place] [address] Care Team Providers Care Hand Loom Weaver Name Role Phone Maryse Perry MD Primary Care Provider [phone] Reason for Referral * Physical Therapy (Routine) - Closed Specialty Diagnoses / Procedures Referred By Contac t Referred To Contact Diagnoses Radiculopathy of lumbar region Chronic bilateral low back pain with bilateral sciatica Moises Rayo PA [facility] [place] [address] Referral ID Status Reason Start Date Expiration Date V isits Requested Visits Authorized [id number] Closed Evaluate and Treat Non PCP 04/16/2022 10/13/2022 12 12 Reason for Visit * Reason Comments Back Pain Buttock Pain * Consultation (Routine) - Closed Specialty Diagnoses / Procedures Referred By Contac t Referred To Contact [facility] Diagnoses Sacroiliitis Spine - Sacroiliitis/ buttock pain/ MRI 11/2020 & XR 10/2020 in e[facility] Deshawn Vazquez, INSPECTOR MATERIAL DISPOSITION [address] [place] [address] [facility] [place] [address] Referral ID Status Reason Start Date Expiration Date V isits Requested Visits Authorized [id number] Closed Evaluate and Treat PCP Updated and/or Approved 01/21/2022 01/21/2023 3 3 Encounter Details Date Type Department Care Team (Latest Contact Info) Description 04/16/2022 9:45 AM EDT Office Visit [place] [address] Moises Rayo PA [facility] [place] [address] Radiculopathy of lumbar region; Chronic bilateral low [...] Sign Reading Time Taken Comments Blood Pressure 119/90 04/16/2022 9:32 AM EDT Pulse 78 04/16/2022 9:32 AM EDT Temperature - - Respiratory Rate - - Oxygen Saturation - - Inhaled Oxygen Concentration - - Weight 74.8 kg (165 lb) 04/16/2022 9:32 AM EDT Height 175.3 cm (5' 9) 04/16/2022 9:32 AM EDT Body Mass Index 24.37 04/16/2022 9:32 AM EDT documented in this encounter Progress Notes * Moises Rayo PA - 04/16/2022 9:45 AM EDT Images from the original note were not included. [facility] Moises Rayo PA-C Dear Colleagues, I had the pleasure of seeing this patient at the [facility] for evaluation. Brief summary and plan: Diagnosis: 1) Low back pain 2) Lumbar radiculopathy Assessment/plan: Adrian is a 7 year old male who presents to clinic for evaluation of low back pain and bilateral leg symptoms. He has history of discectomy and some residual symptoms from this on the left. He is somewhat limited function due to his symptoms and is interested in options moving forward. He had some relief with SI injection and may benefit from repeat injection. His MRI is dated but did show lateral recess stenosis at the L4-5 level. We discussed that an updated MRI could be pursued to assess anyfurther changes and look for any new neural impingement, particularly given his right leg radiatingpain which is different than when he had his prior MRI. He will reach out to his prior provider that did his SI injection and I placed order for PT that he can start while he has some relief from injection. Order placed for MRI and we will follow up once MRI is completed. 1) MRI lumbar spine 2) Recommend pursuing repeat SI injection. 3) PT referral. Recommend starting this around any interventional procedure. 4) Follow up after imaging for further discussion. HPI: Adrian is a 57 year old male who presents to clinic for evaluation of low back pain and bilateral leg symptoms. He had a prior lumbar discectomy with Dr. Can in 2019 which did provide some initial relief but continues to have persistent left leg symptoms of pain numbness and tingling down his left lower extremity. He also has some right sided symptoms in similar pattern that is somewhat new forhim. He also complains of chronic back pain that is worse with prolonged sitting or increased activity. He does describe some left groin pain as well. His symptoms are limiting for him and he made a career change due to these symptoms. He does not report bowel/bladder changes or constitutional symptoms. Treatments have included multiple trials of PT for which he continues a home exercise program. health care manager. Epidural and SI injections. SI provided modest back relief but did not alleviate leg symptoms. He also has a shoe insert in the left recommended by his chiropractor for leg length. 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 Ambulates without assistive device. Able to toe and heel walk. He has tenderness about the right paraspinals, bilateral SI, sciatic notch. He has functional forward flexion to 80 degrees with increased pain returning to neutral. Pain with extension to 10 degrees. He has decreased sensation about left lateral thigh and calf. Motor strength is 5/5 in bilateral lower extremities. Absent reflex at left knee, 1+ right. Achilles 2+ bilaterally. Positive FABERand Gaenslen's. Imaging: Reviewed lumbar MRI from 11/19/20 which shows L4-5 left lateral recess stenosis abutting the L5 nerveroot and moderate left foraminal narrowing at this level as well. Expected posterior surgical changes seen. Assessment/plan: Adrian is a 7 year old male who presents to clinic for evaluation of low back pain and bilateral leg symptoms. He has history of discectomy and some residual symptoms from this on the left. He is somewhat limited function due to his symptoms and is interested in options moving forward. He had some relief with SI injection and may benefit from repeat injection. His MRI is dated but did show lateral recess stenosis at the L4-5 level. We discussed that an updated MRI could be pursued to assess anyfurther changes and look for any new neural impingement, particularly given his right leg radiatingpain which is different than when he had his prior MRI. He will reach out to his prior provider that did his SI injection and I placed order for PT that he can start while he has some relief from injection. Order placed for MRI and we will follow up once MRI is completed. 1) MRI lumbar spine 2) Recommend pursuing repeat SI injection. 3) PT referral. Recommend starting this around any interventional procedure. 4) Follow up after imaging for further discussion. Thank you for letting me participate in this patient's care. Sincerely, Moises Rayo PA-C [facility] documented in this encounter Miscellaneous Notes * Addendum Note - Raysa El RN - 04/16/2022 9:45 AM EDTAddended by: RAYSA EL on: 04/20/2022 11:44 AM Modules accepted: Orders documented in this encounter Plan of Treatment Scheduled Referrals Name Type Priority Associated Diagnoses Orde r Schedule Referral to Physical Therapy Outpatient Referral Routine Radiculopathy of lumbar region Chronic bilateral low back pain with bilateral sciatica Ordered: 04/16/2022 documented as of this encounter Visit Diagnoses Diagnosis Radiculopathy of lumbar region Thoracic or lumbosacral neuritis or radiculitis, unspecified Chronic bilateral low back pain with bilateral sciatica documented in this encounter Care Teams Hand Loom Weaver Relationship Specialty Start Date End Date Maryse Perry MD [address] [place] [address] PCP - General Family Medicine 11/28/20 documented as of this encounter
--- OUTSIDE RECORDS SUMMARY | 2024-06-02 15:23 | XMS_ITS | Encounter Summary ---
Author Organization [facility] [place] [address] Care Team Providers Care Oracle Ascp Consultant Name Role Phone Unknown Primary Care Provider Unavailabl e Encounter Details Date Type Department Care Team (Late st Contact Info) Description 04/30/2020 12:45 PM EDT Telephone Pre-Admission Testing at [facility] [place] [address] Social History Tobacco Use Types Packs/Day Years [...] as of this encounter Progress Notes * Shreyas Mijares RN - 04/30/2020 1:12 PM EDTSummary: covid screen EXPOSURE: Have you been in contact with anyone suspected of or confirmed to have COVID-19 in the PAST 14 DAYS? []Yes [x]No COVID-19 SCREENING: In the past 14 days, have you had any of the following symptoms: [] Fever (subjective or documented fever) [] Chills [] Cough [] Shortness of breath or difficulty breathing [] Fatigue [] Muscle or body aches [] Headache [] New loss of taste or smell [] Sore throat [] Nausea or vomiting [] Diarrhea [x]NONE OF THE ABOVE documented in this encounter Plan of Treatment Not on file documented as of this encounter Visit Diagnoses Not on filedocumented in this encounter Care Teams Oracle Ascp Consultant Relationship Specialty Start Date End Date Unknown None PCP - General 04/30/20 05/06/20 documented as of this encounter
--- OUTSIDE RECORDS SUMMARY | 2024-06-02 15:23 | XMS_ITS | Encounter Summary ---
Author Organization [facility] Address [facility] [place] [address] Care Team Providers Care Roof Service Technician Name Role Phone Maryse Perry MD Primary Care Provider [phone] Encounter Details Date Type Department Care Team (Late st Contact Info) Description 12/31/2020 12:05 AM EDT Ancillary Procedure Radiology Library at [facility] [place] [address] Maryse Perry MD [address] [place] [address] [address] Social History Tobacco Use Types Packs/Day Years [...] Procedure Name Priority Date/Time Associated Diagnosis Comments FILM LIBRARY STORAGE ONLY MR PELVIS Routine 12/31/2020 12:05 AM EDT documented in this encounter Results * Film Library- Storage Only MR Pelvis (12/31/2020 12:05 AM EDT) Narrative LISANDRA - 04/14/2021 2:05 PM EDT This exam is auto-finalizing. It's purpose is for storage only. Maryse Perry MD IMG FILM LIBRARY ORD ERABLES [place], [place] documented in this encounter Visit Diagnoses Not on filedocumented in this encounter Care Teams Roof Service Technician Relationship Specialty Start Date End Date Maryse Perry MD [facility] [address] [place] [address] PCP - General Family Medicine 11/28/20 documented as of this encounter
--- OUTSIDE RECORDS SUMMARY | 2024-06-02 15:23 | XMS_ITS | Encounter Summary ---
Author Organization [facility] Address [facility] [place] [address] Care Team Providers Care Golf Sales Manager Name Role Phone Maryse Perry MD Primary Care Provider [phone] Reason for Visit * Consultation (Routine) - Closed Specialty Diagnoses / Procedures Referred By Adolfo lopez Referred To Contact Neurology Diagnoses Zoster without complications Paresthesia of skin Dorsalgia, unspecified paresthesia LE - EMG and consult Randy Can MD [address] [place] [address] [facility] [address] [place] [address] Referral ID Status Reason Start Date Expiration Date V isits Requested Visits Authorized [id number] Closed Evaluate and Treat 12/13/2020 12/13/2021 1 1 Encounter Details Date Type Department Care Team (Late st Contact Info) Description 02/25/2021 9:00 AM EDT [place] [address] Rob Díaz MD [facility] [place] [address] Paresthesia Social History Tobacco Use Types Packs/Day Years [...] Sign Reading Time Taken Comments Blood Pressure 117/85 02/25/2021 8:42 AM EDT Pulse 75 02/25/2021 8:42 AM EDT Temperature - - Respiratory Rate - - Oxygen Saturation - - Inhaled Oxygen Concentration - - Weight 77.6 kg (171 lb) 02/25/2021 8:42 AM EDT w ith shoes on Height 175.3 cm (5' 9) 02/25/2021 8:42 AM EDT r eported Body Mass Index 25.25 02/25/2021 8:42 AM EDT documented in this encounter Progress Notes * Rob Díaz MD - 02/25/2021 9:00 AM [place] [address] 02/25/2021 Patient name: Adrian Guardado Date of : 1965 Referring provider: Randy Can MD [address] [place] [address] HISTORY REASON FOR REFERRAL/CHIEF COMPLAINT: Paresthesia HISTORY OF PRESENTING COMPLAINTS: 57 Y M referred for diffuse paresthesiae. He is following with Dr. Can at [facility] for chronic back issues. He says he has tingling of both feet s and hands. He also has pains in his knees, forearm. He dropsthings. Sometimes trip . He had shingles after a back surgery in Apr 2020. He has hernia issues on left side with is also bothering him. Torso feels weak. He was seen by Rheumatology for these issues in December. He was thought to have fibromyalgia. Inflammatory markers were negative. He is taking turmeric supplements for long time. He wonders if that suppressed the inflammatory markers. He was put on cymbalta which hasn't helped much. Subsequently he has been on Gabapentin 600 TiD. It makes him groggy and causing mood issues. He recently quit his job because he has been having difficulty standing for long time. His feet tend to burn by the end of the day. He has raynaud's affecting his hands and legs. He is seeing a chiropractor which seems to be helping his back. After overdoing at work or other activities , back issues worsen. He had been seeing PT for leg weakness. He feels like left leg is weaker than right side . He had shingles vaccine recently and is planned to have the second vaccine. PMHx: Past Medical History: Diagnosis Date ??? High blood pressure Shingles. Past Surgical History: Procedure Laterality Date ??? HERNIA REPAIR 2019 ??? PRO LAMINEC/FACETECT/FORAMIN, LUMBAR 1 SEG Left 05/07/2020 LAMINECTOMY, FACETECTOMY & FORAMINOTOMY,LUMBAR, ONE LEVEL (WRVU 15.37) performed by Randy Can MD at [facility] MAIN OR ??? PRO LAMINOTOMY, LUMBAR DISK, 1 INTRSP Left 05/07/2020 LAMINOTOMY, DECOMPRESSION, FORAMINOTOMY, LUMBAR (WRVU 13.18) performed by Randy Can MD at [facility] MAIN OR ??? PRO MICROSURG TECHNIQUES, REQ OPER MICROSCOPE Left 05/07/2020 MICROSCOPE USE (WRVU 3.46) performed by Randy Can MD at [facility] MAIN OR Family History: No family history on file. Mother had arthritis related issues. Social History: reports that he quit smoking about 7 months ago. His smoking use included cigarettes. He has a 9.00pack-year smoking history. He has never used smokeless tobacco. He reports current alcohol use. He reports current drug use. Drug: Marijuana. No flowsheet data found. Lives in [place] with and daughter. He has 2 daughters. Review of systems: [x] Review of systems otherwise negative Medications: Current Outpatient Medications on File Prior to Visit Medication Sig Dispense Refill ??? ARNICA TOP Apply topically daily as needed. Roll on ??? UNABLE TO FIND daily as needed. Salon paws ??? menthol 16 % Aerosol, [place] Apply topically daily as needed. ??? Camphor-Methyl Salicyl-Menthol ([place]) 3-15-5 % Cream Apply topically daily as needed. ??? UNABLE TO FIND Apply topically daily as needed. Therma works- foam to help with muscle pain ??? lisinopriL (Prinivil;Zestril) 20 mg Tablet Take 20 mg by mouth daily. ??? cyclobenzaprine (Flexeril) 10 mg Tablet Take 10 mg by mouth 3 times daily as needed for Muscle spasms. ??? cetirizine (ZyrTEC) 10 mg Tablet Take 10 mg by mouth daily. ??? multivitamin (THERAGRAN) Tablet Take 1 tablet by mouth daily. ??? DULoxetine DR (Cymbalta) 30 mg Capsule, Delayed Release(E.C.) Take 30 mg by mouth 2 times daily. ??? pantoprazole EC (Protonix) 40 mg Tablet, Delayed Release (E.C.) Take 40 mg by mouth daily. ??? acetaminophen (Tylenol) 500 mg Tablet Take 1,000 mg by mouth every 6 hours as needed for Pain. No current facility-administered medications on file prior to visit. Allergies: Allergies Allergen Reactions ??? Tree And Shrub Pollen EXAMINATION Vitals: BP 117/85 Pulse 75 Ht 175.3 cm (5' 9) Comment: reported Wt 77.6 kg (171 lb) Comment: with shoes on BMI 25.25 kg/m?? General Examination: Appearance: alert, no distress. Malnourished. Cardiovascular: Rate regular, S1S2 normal, no murmur Respiratory: Symmetric expansion, lungs clear to auscultation Extremity: no edema Skin: Marbling +. R side of back has shingles scars. Neurological Examination o Higher functions: - Speech: fluent, no aphasia/dysarthria or dysphonia - Alert and oriented. o Cranial Nerves - II-XII: Pupils bilaterally equal and symmetric conjugate gaze, reacting to light. No ptosis/nystagmus. Vision normal. No field deficits. EOMI. No facial droop. - Hearing loss on left side. o Reflexes - +2 Bilaterally biceps, BR , knee and ankles. o Motor and Coordination - Normal tone, bulk strength and coordination of right and left sided muscles o Sensory - Normal sensations bilaterally. o Skull and Spine/ Gait - Normal - Normal gait - Tandem:Mild imbalance. LABS AND IMAGING Labs GENERAL THYROID: No results found for: TSH, [id number], FREET4, TT4, THYROIDAB, THGAB FolateNo results found for: SFOLATE ESRNo results found for: SEDRATE CRPNo results found for: CRP B12No results found for: [id number] CKNo results found for: CK Angiotensin ConvertaseNo results found for: MARKEL INFECTIONS HIVNo results found for: HIV12 HEPATITIS PANELNo results found for: HAV, HEPBSAB, HBEAG, HEPBSAG, HEPCAB AUTOIMMUNE PANEL ANANo results found for: RENETTA DSDNANo results found for: DNAABDS Vandana results found for: ADELAIDE C3,C4, COMPLEMENTSNo results found for: C3, C4 CARDIOLIPIN, LUPUSNo components found for: CARDIOLIPINANTIBODY, LUPUS, ANTICOAGULANT CELIAC: TTG, GLIADIN, ENDOMYSIALNo components found for: TTRANSGLUTAMINASEANTIBODY ANTIGLIADINANTIBODY VASCULITIS: C,P,ANCA, MPONo results found for: PANCA, CANCA, MYELOP, PR3AB NMONo components found for: NEUROMYELITISOPTICAANTIBODY MG: ACHRAB, Anit MuSK, LEMSNo components found for: ACETYLCHOLINERECEPTORABBINDING, LEMSANTIBODY, ANTISKELETALMUSCLEANTIBODY CRYOGLOBULINSNo components found for: CRYOGLOBULINS METABOLIC CERULOPLASMINNo components found for: CERULOPLASMIN BETA 2 MICROGLOBULINNo results found for: B2MG No results found for: TPROTEINPEP, ALBELECT, ALPHA1, ALPHA2, GAMMAGLOB, APB1 CORTISOLNo results found for: CORTISOL LDH No results found for: LDH NUTRITIONAL VITAMIN DNo results found for: 25OHVITD PRE ALBUMINNo results found for: PREALBUMIN FERRITINNo results found for: IRON COPPERNo results found for: COPPER PERIPHERAL NEUROPATHY HEMOGLOBIN A1CNo results found for: HA1C LIPID PROFILENo results found for: CHLPL, HDL, CHOLHDL, TRIG, LDLCHOL, LDLDIRECT MAYDA 65No results found for: [id number] ANTI GM1,ANTI SGPG, MAG@RESUFAST (MAGAUTOAB,SGPG,MAGWB,GM1AB)@ HEAVY METAL SCREENNo results found for: LEAD, ARSENIC METHYLMLONIC ACIDNo results found for: METHYLMAL IgA, IGG No results found for: IGA, IGG CSF PANEL No results found for: NUCCELMANCSF, RBCCSFCT, SEGSCSF, LYMPHSCSF, NUMCELLCTCSF, CSFGLUC, CSFPROTEIN, XANTHOCHROM, MCSBFTYPE, MCS, CSFIGGINDEX, LYMEAB, VDRLSCRNCSF, OLIGOCSF, HSVDNA, ARBOWNILECSF, ENTVPCR, VZVPCR PARANEOPLASTIC PANEL No results found for: PARANEOINTRP, ANNA1, ANNA2, ANNA3, AGNA1, PCA1, PCA2, PCATYPETR, AMPHIPHYSIN,SMBN3USF, STRIATMSCLAB, CACHABPQTYPE, CACHABNTYPE, ACHRBINDAB, NEUROKCHAB, NMDARECEPTOR, [id number] THROMBOSIS HOMEOCYSTEINENo results found for: HOMOCYSTEINE THROMBOSIS PANELNo results found for: ACAIGM, [id number] FACTOR V LEIDEN No components found for: FACTORVLEIDEN PROTEIN C,SNo components found for: PROTEINC, PROTEINS ANTITHROMBIN IIINo components found for: ANTITHROMBINIII Miscellaneous Send outsNo results found for: MISCSENDOUT, MISCMAYO MRI C/ L spine: DJD changes. ASSESSMENT, PLAN & RECOMMENDATIONS ASSESSMENT: 55 Y M with history of HTN, Zoster referred for evaluation of diffuse pains and paresthesiae. He was previously diagnosed with fibromyalgia. He has some skin changes, rashes related to prior zoster. No large fiber neuropathy signs. Imaging of C/ L spine shows DJD changes. IMPRESSION: Diffuse paresthesia. Fibromyalgia. To r/o small fiber neuropathy. PLAN/RECOMMENDATIONS: ??? He seems to have diffuse paresthesiae which could be related to fibromyalgia. However a small fiber neuropathy needs to be ruled out. ??? Will arrange EMG to evaluate further. ??? Additional blood tests for neuropathy today ??? Started on amitriptyline 10 mg HS with plan to titrate up as tolerated. ??? Follow up for EMG. Rob Díaz MD Department of Neurology [facility] documented in this encounter Miscellaneous Notes * Addendum Note - Diann Horowitz - 02/25/2021 9:00 AM EDTAddended by: DIANN HOROWITZ on: 02/25/2021 09:30 AM Modules accepted: Orders documented in this encounter Plan of Treatment Not on file documented as of this encounter Procedures Procedure Name Priority Date/Time Associated Diagnosis Comments HC VENIPUNCTURE Routine 02/25/2021 9:42 AM EDT Paresthesia HEMOGRAM Routine 02/25/2021 9:42 AM EDT Paresthesia DIFFERENTIAL, AUTOMATED Routine 02/26/20 9:42 AM EDT Paresthesia HC CBC,PLT & AUTO DIFF Routine 9:42 AM EDT Paresthesia HC THYROID STIMULATING HORMONE, SERUM Routine 02/25/2021 9:42 AM EDT Paresthesia HC SERUM PROT. ELECTROPHORESIS Routine 02/25/2021 9:42 AM EDT Paresthesia HC GAMMA GLUTAMYL TRANSFERASE Routine 02/25/2021 9:42 AM EDT Paresthesia HC VITAMIN B12 SERUM Routine 02/25/2021 9:42 AM EDT Paresthesia HC CREATINE PHOSPHOKINASE, SERUM Routine 02/25/2021 9:42 AM EDT Paresthesia COMPREHENSIVE METABOLIC PANEL Routine 02/25/2021 9:42 AM EDT Paresthesia documented in this encounter Results * Differential, Automated (02/25/2021 9:42 AM EDT) Neutrophil % 60.6 % [facility] Neutrophil Absolute 4.17 1.70 - 6.10 x10(3)/[facility] Lymph % 25.0 % [facility] Lymphocytes Abs 1.7 0.9 - 3.2 x10(3)/[facility] Monocyte % 10.2 % [facility] Monocyte Abs 0.7 0.3 - 0.9 x10(3)/[facility] Eos % 2.9 % [facility] Eosinophils Abs 0.2 0.0 - 0.4 x10(3)/[facility] Basophil % 1.0 % [facility] Baso Absolute 0.1 0.0 - 0.1 x10(3)/[facility] Immature Gran % 0.30 % [facility] Comment: Immature granulocytes(IG's)percentage and absolute count will include metamyelocytes, myelocytes, and promyelocytes. Blood smears from CBCs yielding IG's will be scanned manually for concordance. If this scan disagrees with the automated IG or if promyelocytes are noted, a manual differential will be performed. Immature Gran Absolute 0.02 0.00 - 0.04 x10(3)/[facility] Blood 02/25/2021 9:42 AM EDT 02/25/2021 10:04 AM EDT Narrative Resulting Agency Comment Spec In Lab Rob Díaz MD HEMATOLOGY ORDERABLE S [facility] [place] [address] * (ABNORMAL) Hemogram (02/25/2021 9:42 AM EDT) White Blood Cell 6.9 4.0 - 9.5 x10(3)/[facility] Red Blood Cell 4.10(L) 4.58 - 5.54 x10(6)/mc L [facility] Hemoglobin 12.9(L) 13.7 - 16.5 gm/dL [facility] Hematocrit 38.9(L) 40.5 - 48.5 % [facility] Mean Cell Volume 94.9(H) 82.9 - 93.1 fL [facility] Mean Cell Hemoglobin 31.5 27.5 - 32.1 pg [facility] Mean Cell Hemoglobin Concentration 33.2 32.0 - 35.7 gm/dL [facility] Platelet 244 145 - 357 x10(3)/mc L [facility] RDW Standard Deviation 46.0(H) 36.0 - 45.0 fL [facility] RDW coefficient of variation 13.2 11.4 - 13.8 % [facility] Mean Platelet Volume 10.2 7.6 - 12.9 fL [facility] NRBC% auto 0.0 % [facility] NRBC Absolute 0.000 0.000 - 0.000 x10(3)/mc L [facility] Blood 02/25/2021 9:42 AM EDT 02/25/2021 10:04 AM EDT Narrative Resulting Agency Comment Spec In Lab Rob Díaz MD HEMATOLOGY ORDERABLE S [facility] [place] [address] * Lyme IgG & IgM Antibody (02/25/2021 9:42 AM EDT) Lyme Antibody Neg Neg [facility] Blood 02/25/2021 9:42 AM EDT 02/26/2021 5:17 AM EDT Narrative Resulting Agency Comment Spec In Lab Rob Díaz MD IMMUNOLOGY ORDERABLE S [facility] [place] [address] * Gamma GT (02/25/2021 9:42 AM EDT) Gamma Glutamyl Transferase 17 8 - 61 unit/L [facility] Blood 02/25/2021 9:42 AM EDT 02/25/2021 10:04 AM EDT Narrative Resulting Agency Comment Spec In Lab Rob Díaz MD CHEMISTRY ORDERABLES Performing Organization Address City/[facility]/ZIP Co de Phone Number [facility] [place] [address] * Vitamin B12 (02/25/2021 9:42 AM EDT) Vitamin B12 820 232 - 1,245 pg/mL [facility] Blood 02/25/2021 9:42 AM EDT 02/25/2021 10:04 AM EDT Narrative Resulting Agency Comment Spec In Lab Rob Díaz MD CHEMISTRY ORDERABLES Performing Organization Address [facility] Co de Phone Number [facility] [place] [address] * TSH (02/25/2021 9:42 AM EDT) Pathologist [facility] Thyroid Stimulating Hormone 2.46 0.27 - 4.20 mcIU/mL [facility] Comment: Reference Interval (mcIU/mL): Females: ??First Trimester: 0.23-3.88 ??Second Trimester: 0.22-3.90 ??Third Trimester: 0.44-4.66 Blood 02/25/2021 9:42 AM EDT 02/25/2021 10:04 AM EDT Narrative Resulting Agency Comment Spec In Lab Rob Díaz MD CHEMISTRY ORDERABLES Performing Organization Address [facility] Co de Phone Number [facility] [place] [address] * CK (02/25/2021 9:42 AM EDT) [facility] Creatine Kinase 82 0 - 200 unit/L [facility] Blood 02/25/2021 9:42 AM EDT 02/25/2021 10:04 AM EDT Narrative Resulting Agency Comment Spec In Lab Rob Díaz MD CHEMISTRY ORDERABLES Performing Organization Address [facility] Co de Phone Number [facility] [place] [address] * Protein Electrophoresis, serum (02/25/2021 9:42 AM EDT) [facility] Total Prot Electrophoresis 6.5 6.1 - 8.0 gm/dL [facility] Albumin Electrophoresis 4.48 3.60 - 6.00 gm/dL [facility] Alpha 1 Globulin 0.14 0.10 - 0.30 gm/dL [facility] Alpha 2 Globulin 0.60 0.40 - 0.90 gm/dL [facility] Beta Globulin 0.60 0.50 - 1.00 gm/dL [facility] Gamma Globulin 0.68 0.50 - 1.30 gm/dL [facility] M1 Band None Detected None Detected [facility] Blood 02/25/2021 9:42 AM EDT 02/25/2021 10:04 AM EDT Narrative Resulting Agency Comment Spec In Lab Rob Díaz MD CHEMISTRY ORDERABLES [facility] [place] [address] * Comprehensive metabolic panel (non-fasting) (02/25/2021 9:42 AM EDT) Glucose 91 65 - 199 mg/dL [facility] Comment:Diabetes: >=200 mg/d L plus symptoms Blood Urea Nitrogen 15 10 - 20 mg/dL [facility] Creatinine 0.86 0.80 - 1.50 mg/dL [facility] Sodium 141 135 - 145 mmol/L [facility] Potassium 4.4 3.5 - 5.0 mmol/L [facility] Comment: Please note: ??Patients with WBC >100,000 may have falsely elevated Potassium levels. ??For accurate Potassium quantification in these patients send serum separator tube (gold top) for subsequent determinations. ??Contact the Clinical Chemistry Laboratory if there are any questions. Chloride 103 98 - 107 mmol/L [facility] Carbon Dioxide 30 22 - 31 mmol/L [facility] Anion Gap 8 5 - 15 mmol/L [facility] Calcium 9.2 8.5 - 10.5 mg/dL [facility] Protein, Total 6.8 6.1 - 8.0 gm/dL [facility] Albumin 4.6 3.2 - 5.2 gm/dL [facility] Aspartate Aminotransferase 19 0 - 39 unit/L [facility] Alanine Aminotransferase 22 0 - 55 unit/L [facility] Alkaline Phosphatase 66 40 - 130 unit/L [facility] Bilirubin, Total 0.4 0.2 - 1.3 mg/dL [facility] Est Glomerular Filtration Rate 99 >=60 mL/min/1. 73 m?? [facility] Comment: This patient? s estimated [...] In Lab Rob Díaz MD CHEMISTRY ORDERABLES [facility] [place] [address] documented in this encounter Visit Diagnoses Diagnosis Paresthesia Disturbance of skin sensation documented in this encounter Care Teams Golf Sales Manager Relationship Specialty Start Date End Date Maryse Perry MD [address] [place] [address] PCP - General Family Medicine 11/28/20 documented as of this encounter
--- OUTSIDE RECORDS SUMMARY | 2024-06-02 15:23 | XMS_ITS | Encounter Summary ---
Author Organization [facility] [place] [address] Care Team Providers Care Nuclear Auxiliary Operator Name Role Phone Maryse Perry MD Primary Care Provider [phone] Reason for Referral * Consultation (Routine) - Closed Specialty Diagnoses / Procedures Referred By Contac t Referred To [facility] Diagnoses Sacro-iliac pain Madeleine Durham APRN [facility] [place] [address] [facility] [place] [place] [address] Referral ID Status Reason Start Date Expiration Date V isits Requested Visits Authorized [id number] Closed Consult, Test & Treat 05/07/2022 05/07/2023 1 1 Reason for Visit * Consultation (Routine) - Closed Specialty Diagnoses / Procedures Referred By Contac t Referred To [facility] Diagnoses Radiculopathy of lumbar region Chronic bilateral low back pain with bilateral sciatica Moises Rayo PA [facility] [place] [address] [facility] [place] [place] [address] Referral ID Status Reason Start Date Expiration Date V isits Requested Visits Authorized [id number] Closed Consult, Test & Treat 04/16/2022 04/16/2023 3 3 Encounter Details Date Type Department Care Team (Late st Contact Info) Description 05/07/2022 8:00 AM EDT Office Visit Pain and Spine Center [place] [facility] [place] [address] Madeleine Durham, YARI [facility] [place] [address] Sacro-iliac pain (Primary Dx) Social History Tobacco Use Types [...] Sign Reading Time Taken Comments Blood Pressure 122/86 05/07/2022 7:52 AM EDT Pulse 88 05/07/2022 7:52 AM EDT Temperature - - Respiratory Rate - - Oxygen Saturation 100% 05/07/2022 7:52 AM EDT Inhaled Oxygen Concentration - - Weight 77.1 kg (170 lb) 05/07/2022 7:52 AM EDT Height 175.3 cm (5' 9) 05/07/2022 7:52 AM EDT Body Mass Index 25.1 05/07/2022 7:52 AM EDT documented in this encounter Progress Notes * Madeliene Durham, YARI - 05/07/2022 8:00 AM EDT Images from the original note were not included. [facility] Date of Consultation: May 06, 2022 Referring Provider: Moises Rayo Reason for request of consultation: Hoping to bend, get out of a chair, some way to get better Chief Complaint: Back pain right side History of Present Illness: Mr. Guardado is a 57 y.o. 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 He walks his elderly [employer] and [employer] about 20 minutes a day. He does work on his daughter's house and enjoys that but finds that it is limited. He is done a lot of lifestyle changes he is trying to his diet and has lost a lot of weight, he is quit smoking, he drinks alcohol minimally. He is otherwise healthy. PAIN ASSESSMENT: Description: sharp right sided Back [...] or driving in a car, reaching, Pain today:3/10 Best in past week:3/10 Worst in past week:6/10 No flowsheet data found. 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 Allergies & Adverse Reactions: Tree and shrub pollen Problem List: There is no problem list on file for this patient. Social History: Social History Socioeconomic History ??? Marital status: Unknown Spouse name: Not on file ??? Number of children: Not on file ??? Years of education: Not on file ??? Highest education level: Not on file Occupational History ??? Not on file Tobacco Use ??? Smoking status: Former Smoker Packs/day: 0.25 Years: 36.00 Pack years: 9.00 Types: Cigarettes Quit date: 07/03/2020 Years since quittin.8 ??? Smokeless tobacco: Never Used Vaping Use ??? Vaping Use: Never used [...] History: Diagnosis Date ??? High blood pressure Past Surgical History: Past Surgical History: Procedure Laterality Date ??? HERNIA REPAIR 2019 ??? PRO LAMINEC/FACETECT/FORAMIN, LUMBAR 1 SEG Left 05/07/2020 LAMINECTOMY, FACETECTOMY & FORAMINOTOMY,LUMBAR, ONE LEVEL (WRVU 15.37) performed by Randy Can MD at [facility] MAIN OR ??? PRO LAMINOTOMY, LUMBAR DISK, 1 INTRSP Left 05/07/2020 LAMINOTOMY, DECOMPRESSION, FORAMINOTOMY, LUMBAR (WRVU 13.18) performed by Randy Can MD at [facility] MAIN OR ??? PRO MICROSURG TECHNIQUES, REQ OPER MICROSCOPE Left 05/07/2020 MICROSCOPE USE (WRVU 3.46) performed by Randy Can MD at [facility] MAIN OR Review of Systems: Denies fever, [...] testing. There is no Buck or clonus. Imaging & Other Studies: I reviewed the images with the patient and answered his questions Assessment: Mr. Guardado is a 57 y.o. year-old male who presents to the [facility] clinic seen at the request of Mr. Cheng for discussion of right-sided back pain and some new onset left lateral leg symptoms with numbness and tingling and some pain as well as left-sided residual symptoms. The patient and I discussed a couple of things we discussed an epidural steroidinjection to see if that would help with his leg symptoms but he is actually more concerned about his back pain and so I will order an SI and injection for him in addition, we discussed the functional sikhism program and the welcome group for the active pain service and he is quite interested in this. He is uncertain as to whether or not he can take off the whole month for the functional sikhism program so we did also talked about the community- based FRP based at [facility] with Dr. Mahmood. Viraj agreed to have him go forward with the injection and follow-up with me after and in the meantime he is also going to participate in the walking group for the active pain service and will discussfurther treatment options at his follow-up. Printed information about SI injections were given to him and follow-up will be after his procedure. All questions were answered. Thank you Dr. Rayo for allowing my participation in Adrian Guardado's care. Madeleine Durham, MS, COATING MIXER TENDER-BC, PRINCIPAL SOFTWARE ENGINEER Nurse practitioner Pain management [facility] documented in this encounter Plan of Treatment Scheduled Referrals Name Type Priority Associated Diagnoses Orde r Schedule Amb Referral to Active Pain Care Services Outpatient Referral Routine Sacro-iliac pain Ordered: 05/07/2022 documented as of this encounter Visit Diagnoses Diagnosis Sacro-iliac pain- Primary Disorders of sacrum documented in this encounter Care Teams Nuclear Auxiliary Operator Relationship Specialty Start Date End Date Maryse Perry MD [address] [place] [address] PCP - General Family Medicine 11/28/20 documented as of this encounter
--- OUTSIDE RECORDS SUMMARY | 2024-06-02 15:23 | XMS_ITS | Encounter Summary ---
Author Organization [facility] Address [address] [facility] [place] [address] Care Team Providers Care Electrifier Operator Name Role Phone Unknown Primary Care Provider Unavailabl e Encounter Details Date Type Department Care Team (Late st Contact Info) Description 05/02/2020 External Results Pre-Admission Testing at [facility] [place] [address] Social History Tobacco Use Types [...] Procedure Name Priority Date/Time Associated Diagnosis Comments LAB SCAN Routine 05/01/2020 ECG SCAN Routine 05/01/2020 documented in this encounter Results * Scan Doc: Lab (05/01/2020) Historical Provider MD MEDIA MGR SCAN EX T ORDR/RSLT * Scan Doc: ECG (05/01/2020) Historical Provider MD MEDIA MGR SCAN EX T ORDR/RSLT documented in this encounter Visit Diagnoses Not on filedocumented in this encounter Care Teams Electrifier Operator Relationship Specialty Start Date End Date Unknown None PCP - General 04/30/20 05/06/20 documented as of this encounter
--- OUTSIDE RECORDS SUMMARY | 2024-06-02 15:23 | XMS_ITS | Encounter Summary ---
Author Organization [facility] Address [facility] [place] [address] Care Team Providers Care Assistant Professor Of Business Name Role Phone Maryse Perry MD Primary Care Provider [phone] Encounter Details Date Type Department Care Team (Late st Contact Info) Description 04/02/2021 External Results [place] [address] Stevie Vazquez MD [facility] [place] [address] Social History Tobacco Use Types Packs/Day Years [...] Procedure Name Priority Date/Time Associated Diagnosis Comments EMG SCAN Routine 03/31/2021 documented in this encounter Results * Scan Doc: EMG (03/31/2021) Stevie Vazquez MD MEDIA MGR SCAN EXT O RDR/RSLT documented in this encounter Visit Diagnoses Not on filedocumented in this encounter Care Teams Assistant Professor Of Business Relationship Specialty Start Date End Date Maryse Perry MD [address] [place] [address] [address] [place] [address] PCP - General Family Medicine 11/28/20 documented as of this encounter
--- OUTSIDE RECORDS SUMMARY | 2024-06-02 15:23 | XMS_ITS | Encounter Summary ---
Author Organization [facility] Address [facility] [place] [address] Care Team Providers Care Endoscope Technician Name Role Phone None Primary Care Provider Unavailabl e Encounter Details Date Type Department Care Team (Late st Contact Info) Description 06/04/2020 Ancillary Procedure Radiology at [facility] [address] [place] [id number] Randy Can MD [address] [address] Social History Tobacco Use Types Packs/Day Years [...] Diagnosis Comments FILM LIBRARY STORAGE ONLY MR SPINE Routine 06/04/2020 12:00 AM EST documented in this encounter Results * Film Library- Storage Only MR Spine (06/04/2020 12:00 AM EST) Narrative LISANDRA - 06/07/2020 1:55 PM EST This exam is auto-finalizing. It's purpose is for storage only. Randy Can MD IMG FILM LIBRARY ORD ERABLES [place], [place] documented in this encounter Visit Diagnoses Not on filedocumented in this encounter Care Teams Endoscope Technician Relationship Specialty Start Date End Date None None PCP - General 05/07/20 11/27/20 documented as of this encounter
--- OUTSIDE RECORDS SUMMARY | 2024-06-02 15:23 | XMS_ITS | Encounter Summary ---
Author Organization [facility] Address [facility] [place] [address] Care Team Providers Care Fish Culturist Name Role Phone Maryse Perry MD Primary Care Provider [phone] Encounter Details Date Type Department Care Team (Late st Contact Info) Description 09/22/2022 11:45 AM EST Office Visit Functional Mu-Ism Program at [facility] [address] [place] [address] Serenity Smart APRN [facility] [place] [address] Low back pain, non-specific; Sacroiliac joint dysfunction [...] Progress Notes * Serenity Smart, YARI - 09/22/2022 11:45 AM EST Chief complaint requiring rehabilitation: right side low back/ SI joint pain and right lower extremity tingling, left low sided back pain, radiating down left lower extremity 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 Is tired at the end of the day. Tried working 8 hours but couldn't tolerate. Travelling an hour here. Not sure if will do hybrid. Stressed due to financials. Spine surgery [address] Can. Improved gait. This is the goals and health barriers visit and note for admission to the Functional Mu-Ism Program. The patient's current goals are : Personal Function 3 Month Goals ?? 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 Be able to lift 50lbs Recreational:?Be able to walk for 1 hour, Be able to start up chain pan, be able to cut, stack wood, Be able to garden Daily Living:?Be able to vacuum, Be able to bend over to load erp business analyst, reach for dog bowl, ??Be able to sleep for 6hrs continuously ?? With these goals in mind, the following review of systems was positive as noted: Medication review and reconciliation completed in chart Chest pain: No Shortness of breath: No Palpitations: with anxiety Chronic cough: No Hypertension: yes, controlled with amlodipine Joint pains or injuries: CTS right and knees. Any physical problem that might worsen with exercise: No Depression: yes, on wellbutrin--helps Anxiety/PTSD: anxiety, easily overwhelmed. Sleep problems: sleeps poorly. Has trouble getting comfortable and quieting mind Counseling history: No Alcohol: No, can't tolerate it. Previously drank Caffiene: 2 coffee per day. And cups green tea. Cigarettes: quit, 2020 Marijuana occasionally. Only in evening. PHYSICAL EXAM Pulse: 59 BP: 140/91 Lungs: CTA bilaterally Heart:RRR No Murmur, No Click Abdomen: hernia surgical scar left inguinal. Some tenderness Neuro-screen reveals dec sensation left foot. 2+ DTRs. Left ankle 5-/5 remainder 5/5 HEALTH BARRIERS TO PERSONAL GOALS with PLAN for EACH: history of??migraine headaches daily. Takes tylenol, rest helps. bilateral knee pain tries not to let it affect him right carpal tunnel. May need adjustment to activities. Increases with extension Consider sleep study if not improving with increased activity and stress/anxiety reduction strategies. This was a counseling-based visit for 30 of the 45 minute encounter, discussing the goals, barrier problems and plans as outlined above. Serenity Smart APRN Nurse practitioner Functional Mu-Ism Program [facility] documented in this encounter Plan of Treatment Not on file documented as of this encounter Visit Diagnoses Diagnosis Low back pain, non-specific Sacroiliac joint dysfunction of right side Disorders of sacrum Radiculopathy of lumbar region Thoracic or lumbosacral neuritis or radiculitis, unspecified documented in this encounter Care Teams Fish Culturist Relationship Specialty Start Date End Date Maryse Perry MD [facility] [address] [facility] [address] [place] [address] PCP - General Family Medicine 11/28/20 documented as of this encounter
--- OUTSIDE RECORDS SUMMARY | 2024-06-02 15:23 | XMS_ITS | Encounter Summary ---
Author Organization [place] [address] Care Team Providers Care Desk Operator Name Role Phone Maryse Perry MD Primary Care Provider [phone] Reason for Referral * Consultation (Routine) - Closed Specialty Diagnoses / Procedures Referred By Adolfo lopez Referred To Contact Pain and Spine Center Diagnoses Sacroiliitis Spine - Sacroiliitis/ buttock pain/ MRI 11/2020 & XR 10/2020 in [facility] Deshawn Vazquez APRN [address] [place] [address] [facility] [place] [address] Referral ID Status Reason Start Date Expiration Date V isits Requested Visits Authorized [id number] Closed Evaluate and Treat PCP Updated and/or Approved 01/21/2022 01/21/2023 3 3 Encounter Details Date Type Department Care Team (Late st Contact Info) Description 01/21/2022 Transcribe Orders eD Incoming Referrals [phone] Deshawn Vazquez APRN [address] [place] [address] Sacroiliitis Social History Tobacco Use Types Packs/Day Years [...] Spine Center (Internal only) Outpatient Referral Routine Sacroiliitis Ordered: 01/21/2022 documented as of this encounter Visit Diagnoses Diagnosis Sacroiliitis Sacroiliitis, not elsewhere classified documented in this encounter Care Teams Desk Operator Relationship Specialty Start Date End Date Maryse Perry MD [facility] [address] [place] [address] PCP - General Family Medicine 11/28/20 documented as of this encounter
--- OUTSIDE RECORDS SUMMARY | 2024-06-02 15:23 | XMS_ITS | Encounter Summary ---
Author Organization [facility] Address [facility] [place] [address] Care Team Providers Care Senior Teradata Developer Name Role Phone Maryse Perry MD Primary Care Provider [phone] Encounter Details Date Type Department Care Team (Late st Contact Info) Description 04/16/2022 Orders Only [place] [address] Raysa Andrews RN Radiculopathy of lumbar region; Chronic bilateral low [...] as of this encounter Progress Notes * Raysa Andrews RN - 04/16/2022 3:12 PM EDT New MRI order placed to allow Open MRI to follow protocol and include contrast given h/o Left L4/[address] Oleary in 2019 documented in this encounter Plan of Treatment Not on file documented as of this encounter Visit Diagnoses Diagnosis Radiculopathy of lumbar region Thoracic or lumbosacral neuritis or radiculitis, unspecified Chronic bilateral low back pain with bilateral sciatica documented in this encounter Care Teams Senior Teradata Developer Relationship Specialty Start Date End Date Maryse Perry MD [address] [place] [address] PCP - General Family Medicine 11/28/20 documented as of this encounter
--- OUTSIDE RECORDS SUMMARY | 2024-06-02 15:23 | XMS_ITS | Encounter Summary ---
Author Organization [facility] [place] [address] Care Team Providers Care Director Digital Advertising Name Role Phone Maryse Perry MD Primary Care Provider [phone] Encounter Details Date Type Department Care Team (Late st Contact Info) Description 08/31/2022 2:00 PM EST Office Visit Pain and Spine Center at [facility] [place] [address] [facility] [address] Sacro-iliac pain Social History Tobacco Use Types [...] as of this encounter Progress Notes * Maryse Young PsyD - 08/31/2022 2:00 PM EST ACTIVE PAIN CARE, a program of the [facility] Pain Neuroscience Education Patient: Adrian Servin Debby Date: 08/31/2022 Topic: Pain 100 Explain Pain: Musculoskeletal Pain 150 minute Health & Behavior Intervention Group focused on Pain Neuroscience Education providedby Maryse Young PsyD, pain psychologist. The title of the group is Explain Pain: Why Things Hurt and introduces patients to the basics of pain neuroscience. This group is intended to educate patients on how the nervous system and the brain process information and contribute to their pain experience. The intention is to help patients better understand the complexity of their pain and enhance their motivation and ability to engage in active pain care, and thereby develop more effective self management strategies. Participants were educated that pain is a normal, human experience, however persistent pain is typically more due to the sensitive nervous system and how the brain processes information from the bodyand environment. Participants were provided the rationale for the education: that research has shown that if patients know and understand about pain, they experience better treatment outcomes, function better, experience less pain, and have greater interest in healthy exercise and movement. Participants were encouraged to follow up this single-session education with diagnosis specific education and engagement in Active Pain Care interdisciplinary treatment options, including the Functional Jehovah'S Witness Program or Pain Coaching documented in this encounter Plan of Treatment Not on file documented as of this encounter Visit Diagnoses Diagnosis Sacro-iliac pain Disorders of sacrum documented in this encounter Care Teams Director Digital Advertising Relationship Specialty Start Date End Date Maryse Perry MD [facility] [address] [place] [address] PCP - General Family Medicine 11/28/20 documented as of this encounter
--- OUTSIDE RECORDS SUMMARY | 2024-06-02 15:23 | XMS_ITS | Encounter Summary ---
Author Organization [facility] Address [facility] [place] [address] Care Team Providers Care Checkman Name Role Phone Maryse Perry MD Primary Care Provider [phone] Encounter Details Date Type Department Care Team (Late st Contact Info) Description 09/14/2022 Telephone Pain and Spine Center at [facility] [place] [address] Zaira Justice Social History Tobacco Use Types [...] * Telephone Encounter - Zaira Justice - 09/14/2022 2:10 PM EST Reason for call: To determine confirmation of enrollment in the upcoming Functional Gnosticism Program for dates 09/22 -10/16 Invitation Packet Received: Yes Pain Education: Pain 100 Complete Arrival Time for Day 1: 9:15am Covid-19 Vax Status: Yes, Booster Yes Schedule Cleared: Yes Days unable to attend: 0 Traveling each day. Are you interested in a Hybrid option? No At this time we do not anticipate any hybrid participation however, in the event that you are unable to be on site or are pending a covid test result we would like to know the following information: Hybrid Capability: Yes [facility] Account: Active Wifi: Yes (Yes, No, Wired internet) Device: Tablet Microphone, Speaker, Camera: Yes Space free from distraction, large enough for movement: Yes Comfort Level with Technology: Fair The patient was read the following statements to ensure the same discussion for all participants: Your invitation packet contains the Hybrid Equipment Check List - please review this and make note of what you have around your home so that the team of providers know what you have available when itis time to create your home program. FRP days start at 8am, please arrive at 7:45am each day to ensure that you are ready to start at 8am. If you are late or absent for multiple days, the team may discuss discontinuing the program with you until you are able to participate fully. In light of the ever changing Covid-19 infection rate, we ask that in the week leading up to the start of program you please be aware and cautious of your activities, as it can affect you, other participants and staff members in the program. The safety of you and our staff is of utmost importance to the Functional Gnosticism Program (FRP). documented in this encounter Plan of Treatment Not on file documented as of this encounter Visit Diagnoses Not on filedocumented in this encounter Care Teams Checkman Relationship Specialty Start Date End Date Maryse Perry MD [address] [place] [address] PCP - General Family Medicine 11/28/20 documented as of this encounter
--- OUTSIDE RECORDS SUMMARY | 2024-06-02 15:23 | XMS_ITS | Encounter Summary ---
Author Organization [facility] [place] [address] Care Team Providers Care Solution Sales Senior Executive Name Role Phone Shannon Hendricks APRN Primary Care Provider Encounter Details Date Type Department Care Team (Late st Contact Info) Description 04/01/2020 Ancillary Procedure Radiology at [facility] [address] [place] [id number] Randy Can MD [address] [place], [place] [address] [place] [address] Social History Tobacco Use Types Packs/Day Years [...] FILM LIBRARY STORAGE ONLY MR SPINE Routine 04/01/2020 12:00 AM EDT documented in this encounter Results * Film Library- Storage Only MR Spine (04/01/2020 12:00 AM EDT) Narrative RAD - 04/04/2020 5:22 PM EDT This exam is auto-finalizing. It's purpose is for storage only. Randy Can MD IMG FILM LIBRARY ORD ERABLES [place], [place] documented in this encounter Visit Diagnoses Not on filedocumented in this encounter Care Teams Solution Sales Senior Executive Relationship Specialty Start Date End Date Shannon Hendricks APRN [address] [place] [address] PCP - General 06/10/10 04/29/20 documented as of this encounter
--- OUTSIDE RECORDS SUMMARY | 2024-06-02 15:23 | XMS_ITS | Encounter Summary ---
Author Organization [facility] [place] [address] Care Team Providers Care Setter Induction Heating Equipment Name Role Phone Maryse Perry MD Primary Care Provider [phone] Reason for Visit * Reason Comments Back Pain Encounter Details Date Type Department Care Team (Late st Contact Info) Description 09/22/2022 12:30 PM EST Office Visit Functional [facility] at [facility] [place] [address] [place] [phone] Jacque Engel, OT Low back pain, non-specific [...] as of this encounter Miscellaneous Notes * Initial Evaluation - Jacque Engel OT - 09/22/2022 12:30 PM EST Functional [facility] Program (Day 1) Group #: [id number] Occupational Therapy Evaluation Problem List: 1. Unclear Vocational Goal 2. Inability to do usual and customary job and daily activities secondary to decreased lifting strength, functional ROM, limited positional tolerances, fear of re-injury and inability to manage pain. 3. Mr. Guardado lacks effective pain management strategies to use on the job, in the community, andat home. 4. Decreased ability to participate in activities of daily living and home maintenance. 5. Excessive muscle guarding prevents spontaneous motions needed for work, fitter up, 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 Subjective: Mr. Guardado reports that the primary reason for seeking Occupational Therapy services through the Functional [facility] Program is right side low back/SI joint pain and right lower extremity tingling, left low sided back pain, radiating down left lower extremity. Mr. Guardado reports a long standing history of low back pain after he was injured on 2019 with lifting apiece of plywood and twisting. Mr. Guardado reports using the following pain management strategies: Heating Pad, topicals, TENs, Lyrica, Flexeril, Tylenol. 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 OCCUPATIONAL PROFILE Work / Productive Activity Status: Present work status: Excused for the month to complete work. 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 Mr. Guardado reports the following return to work plan: Planning to return [employer] as a Corporate Librarian. Do you plan to return to work after the program: Yes Job to return to: Yes He identifies the following barriers to return to work: - physical demands exceed current physical capacities He is not working with a Vocational Rehabilitation counselor at this time. Mr. Guardado reports receiving the following benefits: None Self-Care (ADL & IADL) & Leisure Activities: Based on the occupational performance interview of the English Occupational Performance Measure (COPM), Mr. Guardado reports Moderate limitationsin self-care and leisure activities. He reports most difficulty with lifting and carrying heavier items with work related tasks and daily activities, and recreational activities. English Occupational Performance Measure Results - 3 Month Occupational Goals: Occupational Goals FRP Day 1 P S Current Status: End of Program Current Status: 1-month Follow-up P S Work/Productive Activity: Be able to work a 8hr day, doing more things maintenance tasks 3 3 Be able to lift 60lbs 2 2 Recreation/Leisure: Be able to walk for 1 hour with inclines 2 2 Be able to start up chain saw, be able to cut, stack wood, 1 1 Be able to garden 1 1 Daily Living (ADL, IADL): Be able to vacuum 2 2 Be able to bend over to load waitangi tribunal member, reach for dog bowl, 2 2 Be able to sleep for 6hrs continuously 2 1 Total 15 14 Total Mean score 1.87 1.75 Mean score Change from Day 1 (??2 point change is clinically significant) Lifting Goal: 60 lbs Current Lifting lbs Current Lifting lbs *Vu: P=Performance Score S=Satisfaction with Performance Score ASSESSMENT of OCCUPATIONAL PERFORMANCE Physical Capacity Test Results: Lifting: (pounds/heart rate) First Day of FRP End of Program 1 Month Follow-Up 3 Month Follow-Up Repetitive Floor to Waist 15 Repetitive Waist to Shoulder 15 1-Time Maximum 20 2-Handed Carry - 50 ft 20 Work Demand Level Sedentary-Light The results of this testing must be integrated with clinical findings and other observations to derive a final assessment of work capacity. Assessment: Mr. Guardado is unable to fully participate in work, recreational, and home-based activities because of decreased functional strength, decreased AROM, decreased endurance, limited positional tolerances, fear of re-injury, and fear of increased pain. He will benefit from participating lexa functional conditioning program designed to increase functional strength, flexibility, and endurance in order to meet functional goals. [facility] Goals: While working towards the remote computer terminal operator (3 month) functional goals listed above, Mr. Guardado will accomplish the following short term goals during the 4- week intensive rehabilitation program.Mr. Guardado will: 1. Develop a viable return to work plan. 2. Demonstrate physical capacities consistent with a Medium work demand level. 3. Demonstrate increased functional strength by lifting 60 pounds floor to waist and 25 pounds waist to shoulder in order to meet work and home lifting goals. 4. Increase his positional tolerances to the level needed for work and home activities. 5. Implement self-care and relapse prevention strategies during the program and at home to control pain. Plan: 1. Functional conditioning 2 times daily to increase physical capacities and allow Mr. Guardado to meet demands of work, recreation and home. 2. Individual counseling / education to develop return to work plan and better understand the return to work process. To develop individualized strategies for self-care pain management, relapse prevention. 3. Daily stretching, relaxation training and walking to increase functional tolerances and allow Mr. Guardado to meet demands of work, recreation and daily activities to meet occupational goals. 4. Therapeutic activities to increase ability to move quickly and tolerate unguarded movements. 45 minutes were spent today to interview Mr. Guardado and test physical capacities. documented in this encounter Plan of Treatment Not on file documented as of this encounter Visit Diagnoses Diagnosis Low back pain, non-specific documented in this encounter Care Teams Setter Induction Heating Equipment Relationship Specialty Start Date End Date Maryse Perry MD [facility] [address] [facility] [address] [place] [address] PCP - General Family Medicine 11/28/20 documented as of this encounter
--- OUTSIDE RECORDS SUMMARY | 2024-06-02 15:23 | XMS_ITS | Encounter Summary ---
Author Organization [facility] Address [address] [place] [address] Care Team Providers Care Career Services Manager Name Role Phone Maryse Perry MD Primary Care Provider [phone] Encounter Details Date Type Department Care Team (Late st Contact Info) Description 09/23/2022 8:00 AM EST Office Visit Functional [facility]ism Program at [facility] [address] [place] [phone] Stanley Flannery Jr., PT Low back pain, [...] Therapy - Stanley Flannery Jr., PT - 09/23/2022 8:00 AM EST Virtual disclaimer needed? .OPTTELEMEDICINEDISCLAIMER FRP Physical Therapy Note FRP Day 2 Protocol Subjective: Adrian returns today for a scheduled follow up appointment with FRP. Adrian is nervous about beginning FRP, not knowing if will be able to do everything. Objectives and Treatment Received: Participated in session as a member of a group of 8. 30 Minutes Standing Warm Up Exercises High March Heel-kick March Squat Step Back Toe Touch Knees to Hands B Forward Lunges Side Lunges Forward bends and Backward Bend Chin Tucks 30 Minutes Supine, Sidelying, Prone Mat Exercises (x10 each) Lower trunk rotation Straight Leg Raises Curl Up/Crunch Bridge Lower Abdominal Foot Taps B Sidelying Hip Abduction Prone Scap Retraction Prone Hip Extension Press Ups Introduction to gym routine including dumbbells, weight machines, and olayinka chair. Clinician demonstration provided with cues on form and common compensations made during each individual exercise. Exercises reviewed are as follows: Dumbbells - Bicep curls, shoulder raises to 90 degrees of flexion, straight leg deadlift, and pronereverse flies on plinth. x10 reps for each Weight Machines - Lat pull downs, single arm seated row, leg press, chest press, knee extensions, and back extensions. x10 reps for each Olayinka chair back extensions - instruction provided on options for rest position to either hang down, or to push back up into standing with assist from upper extremities depending on tolerance. 5 holds Patient participated in all exercises, with some apprehension secondary to fear and anxiety. Flow sheets reviewed for future use. Assessment: Adrian was introduced to gym routine to be accomplished daily during program with cues provided and followed. He demonstrates good comprehension of today's strengthening principles and initial exercise protocols. He actively participated with initiation of training components. They weresupportive of the other members of the group throughout the session. Plan: Return for follow up with FRP per protocol. Length of visit: Participated in strengthening program physical activity from 8:00 a.m. through 11:00 a.m. today as part of group intervention with individualized cues provided. Personal Function 3 Month Goals ?? 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 Be able to lift 50lbs Recreational:?Be able to walk for 1 hour, Be able to start up chain pan, be able to cut, stack wood, Be able to garden Daily Living:?Be able to vacuum, Be able to bend over to load pulper, reach for dog bowl, ??Be able to [...] sacrum documented in this encounter Care Teams Career Services Manager Relationship Specialty Start Date End Date Maryse Perry MD [address] [facility] [address] [place] [address] PCP - General Family Medicine 11/28/20 documented as of this encounter
--- OUTSIDE RECORDS SUMMARY | 2024-06-02 15:23 | XMS_ITS | Encounter Summary ---
Author Organization [facility] Address [facility] [place] [address] Care Team Providers Care Chief Petroleum Engineer Name Role Phone None Primary Care Provider Unavailabl e Encounter Details Date Type Department Care Team (Late st Contact Info) Description 11/19/2020 Ancillary Procedure Radiology at [facility] [address] [place] [phone] Randy Cna MD [address] [place] [address] Social History Tobacco Use Types Packs/Day Years [...] FILM LIBRARY STORAGE ONLY MR SPINE Routine 11/19/2020 12:00 AM EDT documented in this encounter Results * Film Library- Storage Only MR Spine (11/19/2020 12:00 AM EDT) Narrative LISANDRA - 11/21/2020 3:09 PM EDT This exam is auto-finalizing. It's purpose is for storage only. Randy Can MD G FILM LIBRARY ORD ERABLES [place], [place] documented in this encounter Visit Diagnoses Not on filedocumented in this encounter Care Teams Chief Petroleum Engineer Relationship Specialty Start Date End Date None None PCP - General 05/07/20 11/27/20 documented as of this encounter
--- OUTSIDE RECORDS SUMMARY | 2024-06-02 15:23 | XMS_ITS | Encounter Summary ---
Author Organization [facility] Address [facility] [address] Care Team Providers Care Thoroughbred Horse Farm Manager Name Role Phone Maryse Perry MD Primary Care Provider [phone] Encounter Details Date Type Department Care Team (Late st Contact Info) Description 06/23/2022 Telephone [facility] [place] [phone] Letha Ramos LNA Social History Tobacco Use Types Packs/Day Years [...] encounter Miscellaneous Notes * Telephone Encounter - Letha Ramos LNA - 06/23/2022 2:23 PM EST Left mess for patient to call and change appt with Dr Young to [employer] or to Jul 27 2022 in person documented in this encounter Plan of Treatment Not on file documented as of this encounter Visit Diagnoses Not on filedocumented in this encounter Care Teams Thoroughbred Horse Farm Manager Relationship Specialty Start Date End Date Maryse Perry MD [address] [place] [address] PCP - General Family Medicine 11/28/20 documented as of this encounter
--- OUTSIDE RECORDS SUMMARY | 2024-06-02 15:23 | XMS_ITS | Encounter Summary ---
Author Organization [facility] [place] [address] Care Team Providers Care Direct Marketing Intern Name Role Phone Maryse Perry MD Primary Care Provider [phone] Reason for Visit * Consultation (Routine) - Closed Specialty Diagnoses / Procedures Referred By Adolfo lopez Referred To Contact [facility] Diagnoses Sacro-iliac pain Madeleine Durham, [facility] [place] [address] [facility] [place] [address] Referral ID Status Reason Start Date Expiration Date V isits Requested Visits Authorized [id number] Closed Consult, Test & Treat 05/07/2022 05/07/2023 1 1 Encounter Details Date Type Department Care Team (Late st Contact Info) Description 05/28/2022 12:00 PM EST Notes Only [facility] [place] [address] Maryse Young, Shravan [facility] [place] [address] Social History Tobacco Use Types Packs/Day Years [...] as of this encounter Progress Notes * Senna, Zaira M - 05/28/2022 12:00 PM EST [facility] Active Pain Care, A Service of the [facility] Patient: Adrian Guardado Date: 05/28/2022 Appointment: In Person, No Charge Visit Adrian attended a 60 minute Welcome Group for the Active Pain Care Service (APCS). Patients were provided detailed information on the programs and treatment options available to them through the APCS. The group also presented the rationale for engaging in active treatment strategies that include education and interdisciplinary, multimodal therapies. Patients' questions were answered and they wereprovided written materials describing the APCS and recommended next steps. Participants were encouraged to schedule an appointment for a Pain Neuroscience Education class, asresearch studies have shown that if patients have a basic understanding of how chronic pain develops and functions physiologically, they experience better treatment outcomes including improved function, reduced reliance on medications, and have greater interest in healthy exercise and movement. Plan: Adrian will be scheduled to attend Pain 100 if he is interested in participating in APCS. documented in this encounter Plan of Treatment Scheduled Referrals Name Type Priority Associated Diagnoses Orde r Schedule Amb Referral to Active Pain Care Services Outpatient Referral Routine Sacro-iliac pain Ordered: 05/07/2022 documented as of this encounter Visit Diagnoses Not on filedocumented in this encounter Care Teams Direct Marketing Intern Relationship Specialty Start Date End Date Maryse Perry MD [address] [place] [address] PCP - General Family Medicine 11/28/20 documented as of this encounter
--- OUTSIDE RECORDS SUMMARY | 2024-06-02 15:23 | XMS_ITS | Encounter Summary ---
Author Organization [facility] Address [address] [facility] [place] [address] Care Team Providers Care Trading Specialist Name Role Phone Maryse Perry MD Primary Care Provider [phone] Encounter Details Date Type Department Care Team (Latest Contact Info) Description 08/31/2022 Travel Social History Tobacco Use Types Packs/Day [...] on filedocumented in this encounter Care Teams Trading Specialist Relationship Specialty Start Date End Date Maryse Perry MD [address] [place] [address] PCP - General Family Medicine 11/28/20 documented as of this encounter
--- OUTSIDE RECORDS SUMMARY | 2024-06-02 15:23 | XMS_ITS | Encounter Summary ---
Author Organization [facility] Address [facility] [place] [address] Care Team Providers Care Safety Lead Name Role Phone Maryse Perry MD Primary Care Provider [phone] Encounter Details Date Type Department Care Team (Late st Contact Info) Description 04/30/2022 Ancillary Procedure Radiology Library at [facility] [place] [phone] Maryse Perry MD [address] [place] [address] [address] Social History Tobacco Use Types Packs/Day Years [...] FILM LIBRARY STORAGE ONLY MR SPINE Routine 04/30/2022 12:00 AM EDT documented in this encounter Results * Film Library- Storage Only MR Spine (04/30/2022 12:00 AM EDT) Narrative LISANDRA - 05/04/2022 1:42 PM EDT This exam is auto-finalizing. It's purpose is for storage only. Maryse Perry MD IMG FILM LIBRARY ORD ERABLES [place], [place] documented in this encounter Visit Diagnoses Not on filedocumented in this encounter Care Teams Safety Lead Relationship Specialty Start Date End Date Maryse Perry MD [address] [facility] [address] [place] [address] PCP - General Family Medicine 11/28/20 documented as of this encounter
--- OUTSIDE RECORDS SUMMARY | 2024-06-02 15:23 | XMS_ITS | Encounter Summary ---
Author Organization [facility] Address [facility] [place] [address] Care Team Providers Care Heavy Machinery Assembler Name Role Phone Maryse Perry MD Primary Care Provider [phone] Reason for Visit * Consultation (Routine) - Closed Specialty Diagnoses / Procedures Referred By Adolfo lopez Referred To Contact Rheumatology Diagnoses Other fatigue Pain in unspecified joint Maryse Perry MD [facility] [address] [place] [id number] [facility] [place] [facility] [address] [place] [id number] Referral ID Status Reason Start Date Expiration Date V isits Requested Visits Authorized [id number] Closed Consult, Test & Treat Connection [facility] PCP Updated and/or Approved 11/25/2020 11/25/2021 6 6 Encounter Details Date Type Department Care Team (Late st Contact Info) Description 01/10/2021 3:00 PM EDT [place] [address] Meet Mustafa MD [facility] [address] Fibromyalgia Social History Tobacco Use Types Packs/Day Years [...] Sign Reading Time Taken Comments Blood Pressure 103/78 01/10/2021 2:58 PM EDT Pulse 70 01/10/2021 2:58 PM EDT Temperature 36.2 ??C (97.2 ??F) 01/10/2021 2:58 PM ED T Respiratory Rate 16 01/10/2021 2:58 PM EDT Oxygen Saturation 100% 01/10/2021 2:58 PM EDT Inhaled Oxygen Concentration - - Weight 74.7 kg (164 lb 9.6 oz) 01/10/2021 2:58 P M EDT Height 175.3 cm (5' 9) 01/10/2021 2:58 PM EDT Body Mass Index 24.31 01/10/2021 2:58 PM EDT documented in this encounter Progress Notes * Meet Mustafa MD - 01/10/2021 3:00 PM EDT This is an initial rheumatology consultation for Mr. Guardado who is referred by Dr. Perry for evaluation of musculoskeletal pain. Mr. Guardado is a 55-year-old man who describes chronic musculoskeletal pain especially in his hands and feet of approximately 6 months duration the symptoms came on gradually and also have been associated with muscle aching and spasms in addition to debilitating fatigue and sleep disturbance characterized by interrupted sleep is also noted that his fingers turn white and are frequently numb withcold exposure and then turn red and sometimes bluish he does not describe similar symptoms in his feet. 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 He also reports numbness in his feet especially the left foot and describes frequent epi sodes of headaches and intermittent neck pain. He was treated with a course of prednisone with improvement but evaluation is included negative inflammatory markers and serologic studies. 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 He has been taking cyclobenzaprine for muscle spasms at 10 mg daily which is modestly helpful and he recently had his duloxetine increased to 30 mg twice daily 2 weeks ago. He describes daily pain with virtually no days without pain. The past medical history is notable for hernia surgery in January 2020 lumbar disc surgery April 2020. He has a history of hypertension and is on lisinopril. He has a history of migraine and peptic ulcer disease. There is a history of herpes zoster in the right chest wall in the fall 2019 with residual pain in the right mid chest dermatome. Medications were reviewed. Current Outpatient Medications on File Prior to Visit Medication Sig Dispense Refill ??? DULoxetine DR (Cymbalta) 30 mg Capsule, Delayed Release(E.C.) Take 30 mg by mouth 2 times daily. ??? pantoprazole EC (Protonix) 40 mg Tablet, Delayed Release (E.C.) Take 40 mg by mouth daily. ??? lisinopriL (Prinivil;Zestril) 20 mg Tablet Take 20 mg by mouth daily. ??? cyclobenzaprine (Flexeril) 10 mg Tablet Take 10 mg by mouth 3 times daily as needed for Muscle spasms. ??? cetirizine (ZyrTEC) 10 mg Tablet Take 10 mg by mouth daily. ??? multivitamin (THERAGRAN) Tablet Take 1 tablet by mouth daily. ??? acetaminophen (Tylenol) 500 mg Tablet Take 1,000 mg by mouth every 6 hours as needed for Pain. No current facility-administered medications on file prior to visit. 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 Family history is negative for known autoimmune disease. Review of Systems Constitutional: Positive for malaise/fatigue and weight loss. Negative for chills, diaphoresis and fever. HENT: Negative. Eyes: Negative. Respiratory: Negative. Cardiovascular: Negative. Gastrointestinal: Positive for heartburn. Negative for abdominal pain, blood in stool, constipation, diarrhea, melena, nausea and vomiting. Genitourinary: Negative. Musculoskeletal: Positive for back pain, joint pain, myalgias and neck pain. Negative for falls. Skin: Negative for itching and rash. Neurological: Positive for headaches. Endo/Heme/Allergies: Negative. Psychiatric/Behavioral: The patient is nervous/anxious. Physical examination: Skin examination showed no sclerodactyly telangiectasia and nailfold capillaries were normal. The comprehensive musculoskeletal examination showed no synovitis or deformity either in the upper or lower extremities there was full active range of motion of the cervical and lumbar spine. There were multiple soft tissue trigger points at sites typical of fibromyalgia syndrome including the medial andlateral epicondyles the biceps tendon insertion the midpoint of the trapezius the suboccipital muscles diffusely along the paraspinal muscles in the thoracic and lumbar spine the posterior superior iliac crests, the greater trochanters and the anserine bursa bilaterally. The neuromuscular examination showed full motor power. Sensory exam was grossly normal. There were reduced ankle jerk reflexes but reflexes were otherwise normal. Laboratory studies have been notable for normal inflammatory markers:Ferritin 693, ESR 6, CRP 0.7, comprehensive metabolic panel normal. The RENETTA was negative, anti-CCP antibodies and tissue transglutaminase also - 11/25/2020. Impression: The findings are most consistent with fibromyalgia syndrome, there is no evidence of aninflammatory arthropathy or autoimmune condition. He does appear to have Raynaud's phenomenon but Isuspect this is related to occupation namely as a manual labor with a history of vibrating tool use. At this time he has been on a therapeutic dose of duloxetine for too short a period of time to evaluate and I would recommend continuing observation on this FDA approved treatment for fibromyalgia syndrome. Other options if he has lack of improvement over the next few weeks and months could include pregabalin or milnacipran. At this time we left specific follow-up plans open but I indicated to Mr. Guardado that I would be happy to evaluate him at some future point if there are remain questionsor concerns. Total time for this [id number] encounter including coordination of care and counselin minutes. documented in this encounter Plan of Treatment Not on file documented as of this encounter Visit Diagnoses Diagnosis Fibromyalgia Mylagia and myositis, unspecified documented in this encounter Care Teams Heavy Machinery Assembler Relationship Specialty Start Date End Date Maryse Perry MD [address] [place] [address] PCP - General Family Medicine 11/28/20 documented as of this encounter
--- OUTSIDE RECORDS SUMMARY | 2024-06-02 15:23 | XMS_ITS | Encounter Summary ---
Author Organization [facility] [place] [address] Care Team Providers Care Doctorate Of Chiropractic Name Role Phone Maryse Perry MD Primary Care Provider Reason for Visit * Auth/Cert (Routine) Specialty Diagnoses / Procedures Referred By Adolfo lopez Referred To Contact Diagnoses SI dysfunction Procedures PRO INJECTION, SACROILIAC JOINT INJECTION PROCEDURE, SACROILIAC JOINT (WRVU 1.48) Hiren Hickey MD [facility] [place] [address] [facility] Referral ID Status Reason Start Date Expiration Date Visits Re quested Visits Authorized [id number] 1 1 Encounter Details Date Type Department Care Team (Late st Contact Info) Description 07/01/2022 3:30 PM EST Ancillary [place] [address] Hiren Hickey MD [facility] [place] [address] Social History Tobacco Use Types Packs/Day Years [...] Associated Diagnosis Comments FILM LIBRARY STORAGE ONLY PAIN CLINIC C ARM Routine 07/01/2022 4:40 PM EST documented in this encounter Results * Film Library- Storage Only pain Clinic C-Arm (07/01/2022 4:40 PM EST) Narrative [facility] - 07/01/2022 4:40 PM EST See PACS for result report. Hiren Hickey MD IMG FILM LIBRARY ORD ERABLES Performing Organization Address City/State/[facility] Co de Phone Number [place], [place] documented in this encounter Visit Diagnoses Not on filedocumented in this encounter Care Teams Doctorate Of Chiropractic Relationship Specialty Start Date End Date Maryse Perry MD [address] [facility] [address] [place] [address] PCP - General Family Medicine 11/28/20 documented as of this encounter
--- OUTSIDE RECORDS SUMMARY | 2024-06-02 15:23 | XMS_ITS | Encounter Summary ---
Author Organization [facility] Address [facility] [place] [address] Care Team Providers Care Information Technology Analyst Name Role Phone Maryse Perry MD Primary Care Provider [phone] Encounter Details Date Type Department Care Team (Late st Contact Info) Description 09/03/2022 Notes Only [facility] [place] [address] Zaira Justice Social History Tobacco Use Types [...] encounter Progress Notes * Zaira Justice - 09/03/2022 9:42 AM EST Mailed Invitation Packet for the Functional [facility] Program to the patient Program: September 22 - October 16 Pain Education: Complete Start date - 09/22/2022 Arrival Time - TBD once patient has called to confirm Location: [address] Confirmation request date - 09/15/2022 documented in this encounter Plan of Treatment Not on file documented as of this encounter Visit Diagnoses Not on filedocumented in this encounter Care Teams Information Technology Analyst Relationship Specialty Start Date End Date Maryse Perry MD [facility] [address] [place] [address] PCP - General Family Medicine 11/28/20 documented as of this encounter
--- OUTSIDE RECORDS SUMMARY | 2024-06-02 15:23 | XMS_ITS | Encounter Summary ---
Author Organization [facility] Address [facility] [place] [address] Care Team Providers Care Truck Driver Helper Name Role Phone Maryse Perry MD Primary Care Provider [phone] Encounter Details Date Type Department Care Team (Latest Contact Info) Description 05/28/2022 Travel Social History Tobacco Use Types Packs/Day [...] on filedocumented in this encounter Care Teams Truck Driver Helper Relationship Specialty Start Date End Date Maryse Perry MD [address] [place] [address] PCP - General Family Medicine 11/28/20 documented as of this encounter
--- OUTSIDE RECORDS SUMMARY | 2024-06-02 15:23 | XMS_ITS | Encounter Summary ---
Author Organization [facility] [place] [address] Care Team Providers Care Reinforcing Steel Placer Name Role Phone None Primary Care Provider [...] Expiration Date Visits Re quested Visits Authorized [id number] 1 1 Encounter Details Date Type Department Care Team (Latest Contact Info) Description 05/07/2020 6:33 AM EDT - 05/07/2020 11:20 AM EDT Hospital Encounter Post Acute Care Unit at [facility] [address] [place] [id number] Randy Can MD [address] [place] [address] Displacement of lumbar intervertebral disc without myelopathy Discharge Disposition: Home Social History Tobacco Use [...] Sign Reading Time Taken Comments Blood Pressure 121/81 05/07/2020 11:00 AM EDT Pulse 67 05/07/2020 11:00 AM EDT Temperature 36.1 ??C (97 ??F) 05/07/2020 9:12 AM EDT Respiratory Rate 16 05/07/2020 11:00 AM EDT Oxygen Saturation 96% 05/07/2020 11:00 AM EDT Inhaled Oxygen Concentration - - Weight 83 kg (183 lb) 05/07/2020 6:53 AM EDT Height 175.3 cm (5' 9) 05/07/2020 6:53 AM EDT Body Mass Index 27.02 05/07/2020 6:53 AM EDT documented in this encounter Discharge Instructions * Patient Instructions* Moises Shannon PA - 05/07/2020 7:02 AM EDT Full recovery will depend on your having a strong, positive attitude, setting small goals for improvement and working steadily to accomplish each goal. FOLLOW UP APPOINTMENTS: You will be scheduled for a follow-up appointment four to six weeks after surgery with a Physician???s Flying Shear Operator at the surgeon???s office. You will have a follow up appointment with the neurosurgeonin three months. If you have sutures that need to be removed, a suture removal appointment will be made for 10-14 days after surgery. MEDICATIONS: ??? Take your medicine at the time your doctor ordered. ??? Keep a list of your medicines, vitamins, and herbal supplement you take. Keep this list with you at all times. Show it to your caregiver at every visit. Keep the list up-to-date. ??? Ask your caregiver or pharmacist to write an explanation of each medicine you are taking. This should include: why you are taking it, possible side effects, best time of day to take it, what foods to take the medication with or foods to avoid, and when to stop taking it. ??? Only take [id number] or prescription medicine for pain, discomfort or fever as directed by your caregiver. ??? Consult your doctor or pharmacist with any questions. NEW MEDICATIONS AT DISCHARGE: []None []Given prescriptions in office preoperatively OR: Medication Dose/Route/ Frequency Prescription given? Reason for medication Medscape monograph discussed []Yes []No []Yes []No []Yes []No []Yes []No []Yes []No []Yes []No PAIN: ??? It is normal to have pain after your surgery; especially in the lower back. ??? This does not mean that the procedure was unsuccessful or that your recovery will be delayed. ??? Leg aching is also not uncommon. o This is primarily caused by inflammation of the previously compressed nerve. o The discomfort will gradually decrease as the nerve continues to heal. ??? You may also experience muscle spasms across your back and into your legs. ??? Medications will be given to control pain and decrease spasm intensity. ??? Moist heat and/or ice and frequent repositioning may also be helpful. DIET: ??? You may adjust your diet back to normal as your appetite returns. ??? Be sure to drink plenty of fluids, particularly water, and eat whole grain cereals, fruits and fruit juices to combat constipation that is sometimes caused by pain medications. ??? If constipation does occur, an over the counter laxative is acceptable. ??? Call your surgeon if you experience persistent nausea and vomiting. ACTIVITY: ??? Increase your activity slowly. Daily walking is the best exercise. Try to increase your distance a little each day. Go at a pace that doesn???t make you too tired or cause too much pain. ??? It is normal to tire easily for the first week or so after you return home. ??? Swimming after ten to fourteen days is encouraged, if feasible. ??? DO NOT sit for prolonged periods of time for six weeks following your surgery. o Brief periods of time, not to exceed thirty minutes are acceptable (meals or using the bathroom). o Change positions frequently to help eliminate muscle spasm and aching. o When sitting, choose a firm chair that will provide plenty of support. ??? DO NOT lift anything over five pounds. Keep in mind a gallon of milk weighs eight pounds. Do not lift anything that you cannot easily lift with one hand. ??? If you drop something on the floor, pick it up by bending at the knees to lower yourself. DO NOT bend at the waist. ACTIVITY (continued): ??? Sexual relations may be resumed during the recovery period, but positions that strain the back or cause pain should be avoided. ??? Consult your surgeon in regards to your driving status. There are no set time restrictions. Usecommon sense and do not attempt to resume driving until you feel completely comfortable to drive inan uninhibited manner. ??? It is recommended that you do not drive for the first 1-2 weeks or while taking narcotic pain relievers. ??? You may resume other physical activities including work only after consulting with your treating physician. POST ANESTHESIA/SEDATION: ??? You have received medication for sedation and comfort during your procedure. Because these havenot completely left your system, please observe the following precautions: o Plan to relax for the next several hours. o DO NOT drive or operate machinery until the day after your procedure, longer as recommended by your surgeon. o Avoid alcohol for the next 24 hours. o Do not make any important personal or business decisions today. BANDAGE/SHOWERING: ??? You will have Dermabond over the incision (typically a purple glue like substance), with inner sutures that do not need to be removed. The Dermabond will gradually fall off. ??? You may have sutures that require removal. If these are used you will be scheduled for a sutureremoval appointment within 10 to 14 days of the procedure. ??? You may shower after three to five days. ??? Do NOT scrub the incision. ??? Pat the area dry with a towel after showering. ??? Avoid soaking (baths, hot tubs, swimming, etc) until approximately two weeks after your surgery, when your wound is all the way healed. SEEK IMMEDIATE MEDICAL CARE/CALL YOUR SURGEON IF: ??? There is redness, swelling or increasing pain at the wound. SEEK IMMEDIATE MEDICAL CARE/CALL YOUR SURGEON IF (continued): ??? You notice purulent (colored, pus-like) drainage coming from the wound. ??? You notice a foul smell coming from the wound or bandage. ??? You experience urinary problems. ??? You experience any NEW weakness or numbness in your arms or legs. ??? You develop an oral temperature above 101 degrees F. ??? There is a breaking open of the wound. The edges do not stay together after the sutures or tapehas been removed. ??? There is persistent bleeding from an incision. If you have any questions, please call [facility] at [phone], during business hours of Wednesday through Wednesday from 8:00 a.m. until 4:00 p.m. In case of emergency during non-business hours, please call the same main number and follow the prompts to page the neurosurgeon cone treater. SMOKING CESSATION INFORMATION: ??? [place] QUITLINE: ??? [place] QUITLINE: ??? [email or web address] If you smoke, stop now! Smoking may impede healing. MAKE SURE YOU: ??? Understand these instructions. ??? Will seek medical care if you are feeling poor, or get worse. ??? Will call the surgeon???s office with any questions or concerns at : [phone] The above information has been presented or demonstrated. I/we have had the opportunity to ask questions. I/we fully understand the instructions given. I/we have received a copy of this form. documented in this encounter Medications at Time of Discharge Medication Sig Dispensed Refills Start Date End Date acetaminophen (Tylenol) 500 mg Tablet Take 1,000 mg by mouth every 6 hours as needed for Pain. cyclobenzaprine (Flexeril) 10 mg Tablet Take 10 mg by mouth as needed for Muscle spasms. multivitamin (THERAGRAN) Tablet Take 1 tablet by mouth daily. HYDROcodone-acetaminoph en ([place]) 5-325 mg Tablet Take 1-2 tablets by mouth every 6 hours as needed. 20 tablet 05/07/2020 01/10/2021 gabapentin (Neurontin) 100 mg Capsule Take 1 capsule by mouth 3 times daily. 04/22/2020 01/10/2021 lisinopriL (Prinivil;Zestril) 40 mg Tablet Take 20 mg by mouth daily. 04/16/2020 01/10/2021 cetirizine (ZyrTEC) 10 mg Tablet Take 10 mg by mouth daily. 04/16/2022 documented as of this encounter H&P Notes * Moises Shannon PA - 05/07/2020 7:01 AM EDT Patient Name: Adrian Guardado Patient Age: 55 y.o. Birthdate: 1965 Admit date: 05/07/2020 Attending Physician: Randy Can MD The patient's history and physical exam have been reviewed and completed. There has been no interval change from that of the pre-operative history and physical exam done within the last 30 days. documented in this encounter Miscellaneous Notes * Op Note - Randy Can MD - 05/07/2020 9:21 AM EDT [facility] [place] [address] Patient Name: Adrian Guardado : [id number] MR#: [id number] Case Date: 05/07/2020 Case Scheduled Time: 729 Surgeon: Surgeon(s) and Role: * Randy Can MD - Primary * Moises Shannon PA - Physician Flying Shear Operator Preoperative diagnosis: HNP, Spondylosis Postoperative diagnosis: HNP, Spondylosis Procedure(s) (LRB): LAMINECTOMY, FACETECTOMY & FORAMINOTOMY,LUMBAR, ONE LEVEL (WRVU 15.37) (Left) LAMINOTOMY, DECOMPRESSION, FORAMINOTOMY, LUMBAR (WRVU 13.18) (Left) MICROSCOPE USE (WRVU 3.46) (Left) Anesthesia: General Estimated Blood Loss: * No values recorded between 05/07/2020 8:01 AM and 05/07/2020 8:53 AM * Specimens removed during surgery: None Drains: * No LDAs found * Surgical Closure: Primary Closure - skin incision is completely closed without any wires, yvonne, drains or other devices Disposition: awakened from anesthesia, extubated and taken to the recovery room in a stable condition, having suffered no apparent untoward event. Condition: doing well without problems Complications: none (Please see the Surgical Encounter Summary for any Implant and Specimen details pertinent to this patient.) Findings:spondylosis, hnp, chronic spur. No complications or problems. No csf. No unusual bleeding.No motor discharges. Sponge and needle counts correct. Correct level confirmed at multiple points throughout the surgery with intraoperative fluoroscopy and of course the intraoperative findings. Surgical Indications: Adrian Guardado is a 55 y.o. year old male who is suffering from spondylosis and an hnp eccentric to the left at L4/5. Please refer to my office notes for details of presentation, findings on exam, and medical decision making. he has requested that we consider surgical treatment of this condition. Pros and cons, rationale and risks, options and alternatives have been thoroughly reviewed. The patient acknowledges the extensive list of risk of this surgery as explained in nouncertain terms. The patient acknowledges that I cannot provide a guarantee regarding the success of the procedure, the avoidance of complication, or the durability of the result. There has been ample opportunity for the patient to ask and have answered any and all questions, seek any additional information needed to make an informed decision, or seek additional professional opinion if desired. Understanding all of this, he requests that we proceed with operation. Procedure Description: Adrian Guardado was brought into the operating room. he underwent induction of a general endotracheal anesthetic, positioned prone and padded appropriately. The back was then prepped and draped in usual sterile fashion. We paused to confirm the patient's name and identifying information, site and type of surgery to be performed, presence of films if needed, availability of all anticipated necessary equipment and implants, administration of antibiotics and discussion of all other data relevant and required by the preoperative check-list. Once this had all been confirmed,we proceeded to localize the operative level fluoroscopically. Incision was made in the midline to allow access to the operative level. Dissection of the subcutaneous tissues was carried out using the monopolar electrocautery. A self retaining retractor was inserted. We opened the lumbar fascia in the midline, preserving the interspinous ligament. We then elevated the paraspinal musculature on the left side at the L 4/5 level. This was done in the subpereosteal plane. A Ring retractor wasutilized to maintain our exposure. We confirmed our level again with the fluoroscope. We brought inthe high-powered operative microscope. Hemilaminotomy was performed along with a limited medial facetectomy. The ligamentum flavum was opened and removed in piecemeal fashion. Under the microscope, we were able to mobilize the thecal sac and nerve root, thereby exposing the disc herniation. It was largely inferior to the disc space and had migrated along the course of the L5 root, even to the point that there was a large fragment in the L5 foramen. The disc material was removed and the nerve root and thecal sac sufficiently decompressed. We were able to retrieve the foraminal fragment withoutdifficulty. At the level of the disc space, there was a very chronic abnormality that was firm and immobile, consistent with spur. This was noted preoperatively. Our hemilaminectomy and medial facetectomy was sufficient to decompress the canal posterior to this abnormality. Please see the Findings section for additional detail. We inspected thoroughly to ensure complete hemostasis. The dura wassoft and pulsatile. There was no CSF seen. The retractors were released. The soft tissues were inspected to ensure complete hemostasis. We then infiltrated the paraspinal musculature, subcutaneous and subcuticular tissues with a mixture of exparel and 0.5% bupivacaine. The wound was flushed thoroughly with antibiotic irrigant. The effluent was crystal clear. The lumbar fascia was reapproximated with interrupted 2-0 Vicryl sutures. The subcutaneous tissues were closed with inverted 2-0 Vicryl sutures. The subcuticular layer was closed with inverted 3-0 Vicryl sutures. The skin edges were approximated with Dermabond, Benzoin and paper tape. The patient was then allowed to awaken from anesthetic and transferred to the post-anesthesia care unit in stable condition. Infection Bundle used? N/A Moises Shannon PA-C worked under my direction for the duration of the operative session. The credentialing assistant adequately prepped the operative site and maintained the best possible exposure of anatomy incident to the procedure. Randy Can MD 05/07/2020 documented in this encounter Plan of Treatment Not on file documented as of this encounter Procedures Procedure Name Priority Date/Time Associated Diagnosis Comments XR FLUORO NO RAD <1HR - OR USE Routine 05/07/2020 8:41 AM EDT Microsurg Techniques, Req Oper Microscope ([id number]) 05/07/2020 7:33 AM EDT HNP, Spondylosis Laminotomy, Lumbar Disk, 1 Intrsp ([id number]) 05/07/2020 7:33 AM EDT HNP, Spondylosis Laminec/Facetect/Fo javan, Lumbar 1 Seg ([id number]) 05/07/2020 7:33 AM EDT HNP, Spondylosis documented in this encounter Results * XR Fluoro No Rad <1Hr - OR Use (05/07/2020 8:41 AM EDT) Narrative RAD - 05/07/2020 8:42 AM EDT This exam is auto-finalizing. No interpretation was done. Randy Can MD IMG FLUORO ORDERABLE S Performing Organization Address City/State/[facility] Co de Phone Number [place], [place] documented in this encounter Visit Diagnoses Diagnosis Displacement of lumbar intervertebral disc without myelopathy documented in this encounter Administered Medications Inactive Administered Medications - up to 3 most recent administrations Medication Order MAR Action Action Date Dose Rate Site HYDROcodone-acetaminophen ([place]) 5-325 mg per tablet 1-2 tablet 1-2 tablet, Oral, EVERY 4 HOURS PRN, Starting on e 05/07/20 at 0933, Until 05/07/20 at 1143, Pain, For moderate to severe pain (4-10) Initial dose 5mg. If pain control not adequate in 60 minutes, give an additional 5 mg., PACU Recovery, Routine Given 05/07/2020 11:05 AM EDT 1 tablet HYDROmorphone (DILAUDID) injection 0.2-0.4 mg 0.2-0.4 mg, Intravenous, EVERY 5 MIN PRN, Starting on 05/07/20 at 0933, Until 05/07/20 at 1143, Pain, Give 0.2 mg every 5 minutes PRN for mild to moderate pain (1-5) Give 0.4 mg every 5 minutes PRN for moderate to severe pain (6-10). Hold for respiratory rate less than 10 per minute. Maximum dose 4 mg over one hour. If multiple pain medications are ordered, start with hydromorphone or morphine and use fentanyl for breakthrough pain., PACU Recovery, Routine Given 05/07/2020 9:59 AM EDT 0.2 mg Given 05/07/2020 9:52 AM EDT 0.2 mg lactated ringers infusion 1,000 mL, at 50 mL/hr, Intravenous, CONTINUOUS, Starting on Wed05/07/20 at 0645, Until Wed05/07/20 at 1143, Day of Surgery (Day of Procedure) New Bag 05/07/2020 7:34 AM EDT New Bag 05/07/2020 6:45 AM EDT 1,000 mLs 50 mL/hr documented in this encounter Active and Recently Administered Medications Times are shown in EDT. Scheduled Medication Order 05/05/2020 05/06/2020 05/07/2020 ceFAZolin (Ancef) 2 g in dextrose 5% 100 mL infusion (COMPLETED) 2 g, Intravenous, ONCE, 1 dose, On Wed05/07/20 at 0645, Administer over 30 Minutes, To be administered upon arrival to the OR within one hour prior to incision., Day of Surgery (Day of Procedure), Indication for (Active or Suspected): Prophylaxis 0753 (Given - Provid er: Marcia Narvaez MD) Continuous Medication Order 05/05/2020 05/06/2020 05/07/2020 lactated ringers infusion (CANCELED) 1,000 mL, at 50 mL/hr, Intravenous, CONTINUOUS, Starting on Wed05/07/20 at 0645, Until Wed05/07/20 at 1143, Day of Surgery (Day of Procedure) 0645 (New Bag - Prov ider: Tabitha Serna RN)0734 (New Bag - Provider: Marcia Narvaez MD)0840 (Anesthesia Volume Adjustment - Provider: Marcia Narvaez MD)0914 (Anesthesia Volume Adjustment - Provider: Marcia Narvaez MD) PRN Medication Order 05/05/2020 05/06/2020 05/07/2020 BUpivacaine (PF) (Marcaine) 0.5 % (5 mg/mL) injection (CANCELED) ONCE PRN, Starting on Wed05/07/20 at 0828, Until Wed05/07/20 at 1137, Intra-Operative (Intra-Procedure), Routine 0828 (Given - Provid er: Randy Can MD)0846 (Given - Provider: Randy Can MD) BUpivacaine liposome (PF) (EXPAREL) 1.3 % (13.3 mg/mL) injection for infiltration (CANCELED) ONCE PRN, Starting on e 05/07/20 at 0829, Until Tu05/07/20 at 1137, Intra-Operative (Intra-Procedure) 0829 (Given - Provid er: Randy Can MD)0846 (Given - Provider: Randy Can MD) HYDROcodone-acetaminophen ([place]) 5-325 mg per tablet 1-2 tablet (CANCELED) 1-2 tablet, Oral, EVERY 4 HOURS PRN, Starting on Wed05/07/20 at 0933, Until Wed05/07/20 at 1143, Pain, For moderate to severe pain (4-10) Initial dose 5mg. If pain control not adequate in 60 minutes, give an additional 5 mg., PACU Recovery, Routine 1105 (Given - Provid er: Consuelo Darden RN) HYDROmorphone (DILAUDID) injection 0.2-0.4 mg (CANCELED) 0.2-0.4 mg, Intravenous, EVERY 5 MIN PRN, Starting on e 05/07/20 at 0933, Until Tu05/07/20 at 1143, Pain, Give 0.2 mg every 5 minutes PRN for mild to moderate pain (1-5) Give 0.4 mg every 5 minutes PRN for moderate to severe pain (6-10). Hold for respiratory rate less than 10 per minute. Maximum dose 4 mg over one hour. If multiple pain medications are ordered, start with hydromorphone or morphine and use fentanyl for breakthrough pain., PACU Recovery, Routine 0952 (Given - Provid er: Consuelo Darden RN)0959 (Given - Provider: Consuelo Darden RN) documented in this encounter Care Teams Reinforcing Steel Placer Relationship Specialty Start Date End Date None None PCP - General 05/07/20 11/27/20 documented as of this encounter
--- OUTSIDE RECORDS SUMMARY | 2024-06-02 15:23 | XMS_ITS | Encounter Summary ---
Author Organization [facility] [place] [address] Care Team Providers Care Air Deodorizer Servicer Name Role Phone None Primary Care Provider [...] Expiration Date Visits Re quested Visits Authorized [id number] 1 1 Encounter Details Date Type Department Care Team (Late st Contact Info) Description 05/07/2020 7:30 AM EDT - 05/07/2020 9:58 AM EDT Surgery Operating Room [address] [place] [address] Randy Can MD [address] [place] [address] LAMINECTOMY, FACETECTOMY & FORAMINOTOMY,LUMBAR, ONE LEVEL (WRVU 15.37) Social History Tobacco Use Types Packs/Day Years [...] Sign Reading Time Taken Comments Blood Pressure 124/84 05/07/2020 9:47 AM EDT Pulse 74 05/07/2020 6:53 AM EDT Temperature 36.1 ??C (97 ??F) 05/07/2020 9:12 AM EDT Respiratory Rate 16 05/07/2020 9:47 AM EDT Oxygen Saturation 100% 05/07/2020 9:47 AM EDT Inhaled Oxygen Concentration - - [...] six weeks after surgery with a Physician???s Associate Professor Of Pathology at the surgeon???s office. You will have [...] to stop taking it. ??? Only take wvce-kpp-[id number] or prescription medicine for pain, discomfort or [...] If you have any questions, please call [facility] Neurology and Neurosurgery at [phone], during business hours of Wednesday through Wednesday from 8:00 a.m. until 4:00 p.m. In case of emergency during non-business hours, please call the same main number and follow the prompts to page the neurosurgeon traffic control flagger. SMOKING CESSATION INFORMATION: ??? [place] QUITLINE: ??? [place] QUITLINE: ??? [email or web address] If you smoke, stop now! Smoking may impede healing. MAKE SURE YOU: ??? Understand these instructions. ??? Will seek medical care if you are feeling poor, or get worse. ??? Will call the surgeon???s office with any questions or concerns at : [phone] The above information has been presented or [...] 1 tablet by mouth daily. HYDROcodone-acetaminoph en (Savannah) 5-325 mg Tablet Take 1-2 tablets by [...] Can MD - 05/07/2020 9:21 AM EDT [facility] [place] [address] Patient Name: Adrian Guardado : [id number] MR#: [id number] Case Date: 05/07/2020 Case Scheduled Time: 729 Surgeon: Surgeon(s) and Role: * Randy Can MD - Primary * Moises Shannon PA - Physician Associate Professor Of Pathology Preoperative diagnosis: HNP, Spondylosis Postoperative diagnosis: HNP, [...] the duration of the operative session. The assistant manager of operations adequately prepped the operative site and maintained the best possible exposure of anatomy incident to the procedure. Randy Can MD 05/07/2020 documented in this encounter Plan of Treatment Not on file documented as of this encounter Procedures Procedure Name Priority Date/Time Associated Diagnosis Comments XR FLUORO NO RAD <1HR - OR USE Routine 05/07/2020 8:41 AM EDT Microsurg Techniques, Req Oper Microscope ([id number]) 05/07/2020 7:33 AM EDT HNP, Spondylosis Laminotomy, Lumbar Disk, 1 Intrsp ([id number]) 05/07/2020 7:33 AM EDT HNP, Spondylosis Laminec/Facetect/Fo javan, Lumbar 1 Seg ([id number]) 05/07/2020 7:33 AM EDT HNP, Spondylosis documented in this encounter Results * XR Fluoro No Rad <1Hr - OR Use (05/07/2020 8:41 AM EDT) Narrative RAD - 05/07/2020 8:42 AM EDT This exam is auto-finalizing. No interpretation was done. Randy Can MD IMG FLUORO ORDERABLE [address] [place], [place] documented in this encounter Visit Diagnoses Not on filedocumented in this encounter Administered Medications Inactive Administered Medications - up to 3 most recent administrations Medication Order MAR Action Action Date Dose Rate Site BUpivacaine (PF) (Marcaine) 0.5 % (5 mg/mL) injection ONCE PRN, Starting on Wed05/07/20 at 0828, Until Wed05/07/20 at 1137, Intra-Operative (Intra-Procedure), Routine Given 05/07/2020 8:46 AM EDT 15 mLs 19- Surgical Site Given 05/07/2020 8:28 AM EDT 30 mLs 19 - Surgical Site BUpivacaine liposome (PF) (EXPAREL) 1.3 % (13.3 mg/mL) injection for infiltration ONCE PRN, Starting on Wed05/07/20 at 0829, Until Wed05/07/20 at 1137, Intra-Operative (Intra-Procedure) Given 05/07/2020 8:46 AM EDT 15 mLs 19- Surgical Site Given 05/07/2020 8:29 AM EDT 20 mLs 19 - Surgical Site HYDROcodone-acetaminophen (Savannah) 5-325 mg per tablet 1-2 tablet 1-2 [...] Intravenous, EVERY 5 MIN PRN, Starting on Wed05/07/20 at 0933, Until 05/07/20 at 1143, Pain, [...] mg/mL) injection (CANCELED) ONCE PRN, Starting on 05/07/20 at 0828, Until 05/07/20 at 1137, Intra-Operative (Intra-Procedure), Routine 0828 (Given - Provid er: Randy Can MD)0846 (Given - Provider: Randy Can MD) BUpivacaine liposome (PF) (EXPAREL) 1.3 % (13.3 mg/mL) injection for infiltration (CANCELED) ONCE PRN, Starting on Wed05/07/20 at 0829, Until e 05/07/20 at 1137, Intra-Operative (Intra-Procedure) 0829 (Given - Provid er: Randy Can MD)0846 (Given - Provider: Randy Can MD) HYDROcodone-acetaminophen (Savannah) 5-325 mg per tablet 1-2 tablet (CANCELED) [...] 0952 (Given - Provid er: Consuelo Darden RN)0916 (Given - Provider: Consuelo Darden RN) documented in this encounter Care Teams Air Deodorizer Servicer Relationship Specialty Start Date End Date None None PCP - General 05/07/20 11/27/20 documented as of this encounter
--- OUTSIDE RECORDS SUMMARY | 2024-06-02 15:23 | XMS_ITS | Encounter Summary ---
Author Organization [facility] Address [address] [facility] [place] [address] Care Team Providers Care Jewel Waxer Name Role Phone Maryse Perry MD Primary Care Provider [phone] Reason for Visit * Reason Comments Back Pain Encounter Details Date Type Department Care Team (Late st Contact Info) Description 08/31/2022 11:00 AM EST Office Visit Functional Bahai Program at [facility] [address] [place] [phone] Jacque Engel, OT Sacro-iliac pain Social History Tobacco Use Types [...] Initial Evaluation - Jacque Engel OT - 08/31/2022 11:00 AM EST GOALS AND PHYSICAL CAPACITIES ASSESSMENT Mr. Guardado [facility] to assist with determining candidacy foradmission into the Functional Bahai Program. Mr. Guardado reports that the chief complaint requiring rehabilitation is right side low back/SI joint pain and right lower extremity tingling, left low sided back pain, radiating down left lower extremity. Anatomic diagnoses have included radiculopathy. Prior treatments included surgery, injections, physical therapy, Lyrica, tylenol, chiropractic, heat, left shoe inserts, ice, icy hot/biofreeze/l idocaine, lidocaine patches, tiger balm, TENs unit. Further diagnostic testing is not planned. Additional medical procedures are not planned. Activity limiting health problems include history of migraines, bilateral knee pain, right carpal tunnel. 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 Personal Function 3 Month Goals Vocational: Be able to work a 8hr day, doing more things maintenance tasks. Be able to lift 50lbs Recreational: Be able to walk for 1 hour, Be able to start up chain pan, be able to cut, stack wood, Be able to garden Daily Living: Be able to vacuum, Be able to bend over to load leather lacer, reach for dog bowl, Be able to sleep for 6hrs continuously PHYSICAL EVALUATION Resting Vital Signs: BP 122/86 HR 88 Gait: normal. AROM (degrees): Lumbar Spine Forward bend (0-90) 40 Backward bend (0-30) 5 SLR Right (0-90) 50 SLR Left (0-90) 50 SLR-Pelvic Motion [smallest SLR - (flex + ext)] 20 Cervical Spine Flexion (0-60) 50 Extension (0-50) 25 Rot. Right (0-80) 65 Rot. Left (0-80) 65 Lat. Flex Right (0-45) 35 Lat. Flex Left (0-45) 35 Endurance Testing: Modified Ramp Treadmill Test Minutes Completed 3:00 % Grade 10 Speed (mph) 1.7 MET/HR 4 110 Reason for Stop Point: Low back and left calve pain Functional Strength Testing: PILE Testing lbs/HR Floor To Waist 10 / 100 Waist to Shoulder 10 / 82 Reason for Stop Point: Low back pain During physical testing, participation level cooperative and consistent. Demand Levels of Functional Recovery Goals Current Capacity Limit / Physical Demand Level (PDL) Vocational: Medium Recreational: Medium-Heavy Daily Living: Light-medium Sedentary The PDL listed above is based on today's physical performance screening tests. More comprehensive physical testing integrated with clinical findings would be required to derive an accurate work capacity. ASSESSMENT OF FUNCTIONAL TESTING: Based on today???s physical capacity findings Adrian Guardado is a candidate for a multidisciplinary intensive physical rehabilitation program with behavioral support. There are physical limitations in gait, range of motion, walking endurance, functional strength, and overall physical capacities that interfere with basic functional tasks and hinder quality of life. I believe that this can improve with functional rehabilitation. PLAN: Pending medical clearance, Adrian has been recommended for the upcoming Functional Bahai Program (FRP) that includes 3-4 weeks of intensive PT/OT followed by a minimum of 6 months commitment toself care exercise for improving and maintaining physical capacities. He has concerns about potential logistical barriers that may affect his ability to participate in the intensive rehab program, so should speak with [facility] social work staff prior to leaving today. We did go over the [employer] for local lodging in the area, however he reported he will be traveling most days. Total time for testin minutes documented in this encounter Plan of Treatment Not on file documented as of this encounter Visit Diagnoses Diagnosis Sacro-iliac pain Disorders of sacrum documented in this encounter Care Teams Jewel Waxer Relationship Specialty Start Date End Date Maryse Perry MD [address] [place] [address] PCP - General Family Medicine 11/28/20 documented as of this encounter
--- OUTSIDE RECORDS SUMMARY | 2024-06-02 15:23 | XMS_ITS | Encounter Summary ---
Author Organization [facility] [place] [address] Care Team Providers Care Animal Behaviourist Name Role Phone None Primary Care Provider [...] Expiration Date Visits Re quested Visits Authorized [id number] 1 1 Encounter Details Date Type Department Care Team (Late st Contact Info) Description 05/07/2020 7:34 AM EDT Anesthesia [facility] [place] [address] Marcia Narvaez MD [facility] DR ANESTHESIOLOGY [place] [address] Anesthesia Record Procedure Summary Procedure Name Responsible Anesthesiologist Anesthesia Start Time Anesthesia Stop Time LAMINECTOMY, FACETECTOMY & FORAMINOTOMY,LUMBAR, ONE LEVEL (WRVU 15.37) (Left: Spine Lumbar) Marcia Narvaez MD 05/07/20 0734 05/07/20 0914 Events Date Time Event Comment 05/07/2020 0730 0734 AN Verify 0734 Start 0734 An Start Data 0740 An Induction 0743 An Intubation 0753 Anesthesia Ready 0801 Procedure Start 0858 Extubation/LMA Out 0908 an stop data 0914 Recovery or ICU Handoff Reshma ent care was transferred to the destination unit staff after review of the patient's medical history, current anesthetic/surgical status and plan, according to the Provider Handoff Checklist. 0914 Stop Meds Name Total Midazolam 2 mg fentaNYL 100 mcg Propofol 280 mg Rocuronium 50 mg Neostigmine 3 mg Glycopyrrolate 0.6 mg Ondansetron 4 mg Dexamethasone 10 mg ePHEDrine 15 mg PHENYLephrine 200 mcg ceFAZolin (Ancef) 2 g in dextrose 5% 100 mL infusion 2 g lactated ringers infusion 1,600 mL * Agents Name O2 Air N2O Sevoflurane (et) O2 Auxiliary Flowmeter 1 * Blood No blood administrations on file. Lines, Drains, and Airways Type Details Placement Removal (RETIRED) Peripheral IV Line - Single Lumen 05/07/20; 0644; 04/23/21 (LDA Cleanup utility RA#[id number]); 1650 ([employer] Cleanup utility RA#[id number]) 05/07/20 0644 by Tabitha Serna RN 04/23/21 1650 by Eleuterio Ballesteros (RETIRED) Peripheral IV Line - Single Lumen 05/07/20; 0712; cephalic vein (lateral side of arm), right; ukjf-ccm-mmeqjz catheter system; 18 gauge; bryn,b; distraction; no longer indicated, removed per policy/procedure, catheter/device intact; 05/07/20; 1107 05/07/20 0712 by Tabitha Serna RN 05/07/20 1107 by Consuelo Darden RN ETT Mask Ventilation: Ea sy (1); ETT Type: Cuffed; ETT Size: 7.5 mm; Mac Blade: 4; Notes: Asleep, Pre-O2, Stylette; Attempts: 1; Laryngoscopy Grade: 1; ETT Placement Verified By: Auscultation, Capnometry, Visual; Secured at Teeth: 23 cm; Inserted by: EDWARD KRUEGER; Removal Date: 05/07/20; Removal Time: 0805/07/20 0748 by Marcia Narvaez MD 05/07/20 0858 by Marcia Narvaez MD Incision 05/07/20; 0801; lumb ar spine; 03/16/22 ([employer] cleanup utility RA#[id number]); 1715 (LDA cleanup utility RA#[id number]) 05/07/20 0801 by Allyn Daugherty RN 03/16/22 1715 by Tyra Agustin documented in this encounter Social History Tobacco Use Types Packs/Day Years [...] on file documented as of this encounter OR Notes * Anesthesia Postprocedure Evaluation - Marcia Narvaez MD - 05/07/2020 11:23 AM EDT Department of Anesthesiology Post-procedure Note Patient: Adrian Guardado Procedure Summary Date: 05/07/20 Room / Location: [facility] OR MAIN OR Anesthesia Start: 733 Anesthesia Stop: 913 Procedures: LAMINECTOMY, FACETECTOMY & FORAMINOTOMY,LUMBAR, ONE LEVEL (WRVU 15.37) (Left Spine Lumbar) LAMINOTOMY, DECOMPRESSION, FORAMINOTOMY, LUMBAR (WRVU 13.18) (Left Spine Lumbar) MICROSCOPE USE (WRVU 3.46) (Left Spine Lumbar) Diagnosis: (HNP, Spondylosis) Surgeon: Randy Can MD Responsible Provider: Marcia Narvaez MD Anesthesia Type: general ASA Status: 2 All Anesthesia Providers: Anesthesiologist: Marcia Narvaez MD Vitals Value Taken Time BP 142/92 05/07/20 1045 Temp 36.1 ??C (97 ??F) 05/07/20 0912 Pulse 73 05/07/20 1045 Resp 12 05/07/20 1045 SpO2 97 % 05/07/20 1045 Pain Level 3 05/07/20 1015 Patient Location: PACU Level of Consciousness: Awake and Alert Pain Management: Satisfactory Analgesia PONV: None Cardiovascular Status: At Baseline Respiratory Status: At Baseline Postoperative Fluid Status: Intravascular EUvolemia Possible Anesthetic Complications: NONE apparent at time of evaluation Final Primary Anesthesia Type: General (The anesthetic type performed was the same as planned.) Comments: * Anesthesia Preprocedure Evaluation - Marcia Narvaez MD - 05/07/2020 7:30 AM EDT Pre-Anesthesia Evaluation for: Adrian Guardado a 55 y.o. male. Procedure(s): LAMINECTOMY, FACETECTOMY & FORAMINOTOMY,LUMBAR, ONE LEVEL (WRVU 15.37) LAMINOTOMY, DECOMPRESSION, FORAMINOTOMY, LUMBAR (WRVU 13.18) MICROSCOPE USE (WRVU 3.46) There are no active problems to display for this patient. Past Medical History: Diagnosis Date ??? High blood pressure Past Surgical History: Procedure Laterality Date ??? HERNIA REPAIR 2019 Social History Tobacco Use ??? Smoking status: Current Every Day Smoker Packs/day: 0.25 Years: 36.00 Pack years: 9.00 Types: Cigarettes ??? Smokeless tobacco: Never Used Substance Use Topics ??? Alcohol use: Yes Frequency: Never Comment: drinks occasionally Social History Substance and Sexual Activity Drug Use Yes ??? Types: Marijuana No Known Allergies Medications: MAR and/or home medications have been reviewed. Physical Exam: Patient Vitals for the past 24 hrs: Temp Pulse Resp BP SpO2 05/07/20 0653 36.7 ??C (98.1 ??F) 74 16 (!) 131/98 100 % Body mass index is 27.02 kg/m??. Height: 175.3 cm (5' 9) Weight: 83 kg (183 lb) Airway Assessment: Mallampati: II TM distance: >3 FB Neck ROM: full Small aperture Cardiovascular Assessment: Rhythm: regular Rate: normal (-) murmur cardiovascular exam normal Pulmonary Assessment: (-) wheezes and decreased breath sounds pulmonary exam normal Dental Assessment: - normal exam Misc Assessment: IV access: Peripheral line Anesthesia Plan: ASA 2 general, with a(n) intravenous induction GETA Region - Other Informed Consent: Anesthetic plan and risks discussed with patient. Plan discussed with attending. PAT Clinic Note documented in this encounter Plan of Treatment Not on file documented as of this encounter Visit Diagnoses Not on filedocumented in this encounter Administered Medications Inactive Administered Medications - up to 3 most recent administrations Medication Order MAR Action Action Date Dose Rate Site ceFAZolin (Ancef) 2 g in dextrose 5% 100 mL infusion 2 g, Intravenous, ONCE, 1 dose, On Wed05/07/20 at 0645, Administer over 30 Minutes, To be administered upon arrival to the OR within one hour prior to incision., Day of Surgery (Day of Procedure), Indication for (Active or Suspected): Prophylaxis Given 05/07/2020 7:53 AM EDT 2 g dexamethasone (Decadron) injection PRN, Starting on Wed05/07/20 at 0802, Until Wed05/07/20 at 0916, Anesthesia Intra-op, Routine Given 05/07/2020 8:02 AM EDT 10 mg ePHEDrine injection PRN, Starting on Wed05/07/20 at 0811, Until Wed05/07/20 at 0916, Anesthesia Intra-op, Routine Given 05/07/2020 8:29 AM EDT 10 mg Given 05/07/2020 8:11 AM EDT 5 mg fentaNYL 50 mcg/mL multi-dose injection PRN, Starting on Wed05/07/20 at 0740, Until Wed05/07/20 at 0916, Anesthesia Intra-op, Routine Given 05/07/2020 7:40 AM EDT 100 mcg glycopyrrolate (ROBINUL) injection PRN, Starting on Wed05/07/20 at 0831, Until Wed05/07/20 at 0916, Anesthesia Intra-op, Routine Given 05/07/2020 8:48 AM EDT 0.4 mg Given 05/07/2020 8:31 AM EDT 0.2 mg lactated ringers infusion 1,000 mL, at 50 mL/hr, Intravenous, CONTINUOUS, Starting on Wed05/07/20 at 0645, Until Wed05/07/20 at 1143, Day of Surgery (Day of Procedure) New Bag 05/07/2020 7:34 AM EDT New Bag 05/07/2020 6:45 AM EDT 1,000 mLs 50 mL/hr midazolam (PF) (VERSED) multi-dose injection PRN, Starting on Wed05/07/20 at 0734, Until Wed05/07/20 at 0916, Anesthesia Intra-op, Routine Given 05/07/2020 7:34 AM EDT 2 mg neostigmine (BLOXIVERZ) injection PRN, Starting on Wed05/07/20 at 0848, Until Wed05/07/20 at 0916, Anesthesia Intra-op, Routine Given 05/07/2020 8:48 AM EDT 3 mg ondansetron (ZOFRAN) injection PRN, Starting on Wed05/07/20 at 0839, Until Wed05/07/20 at 0916, Anesthesia Intra-op, Routine Given 05/07/2020 8:39 AM EDT 4 mg PHENYLephrine (DOROTEO-SYNEPHRINE) injection PRN, Starting on Wed05/07/20 at 0813, Until Wed05/07/20 at 0916, Anesthesia Intra-op, Routine Given 05/07/2020 8:37 AM EDT 100 mcg Given 05/07/2020 8:13 AM EDT 100 mcg propofoL (Diprivan) 10 mg/mL bolus injection (Anesthesia) PRN, Starting on Wed05/07/20 at 0740, Until Wed05/07/20 at 0916, Anesthesia Intra-op Given 05/07/2020 8:50 AM EDT 30 mg Given 05/07/2020 7:40 AM EDT 250 mg rocuronium (Zemuron) 10 mg/mL injection PRN, Starting on Wed05/07/20 at 0740, Until Wed05/07/20 at 0916, Anesthesia Intra-op, Routine Given 05/07/2020 7:40 AM EDT 50 mg documented in this encounter Care Teams Animal Behaviourist Relationship Specialty Start Date End Date None None PCP - General 05/07/20 11/27/20 documented as of this encounter
--- OUTSIDE RECORDS SUMMARY | 2024-06-02 15:23 | XMS_ITS | Encounter Summary ---
Author Organization [facility] Address [facility] [place] [address] Care Team Providers Care Professor Of Psychology Name Role Phone Mrayse Perry MD Primary Care Provider [phone] Encounter Details Date Type Department Care Team (Latest Contact Info) Description 03/31/2021 8:30 AM EDT Procedure [place] [address] Stevie Vazquez MD [facility] [place] [address] Small fiber neuropathy Social History Tobacco Use Types Packs/Day Years [...] as of this encounter Progress Notes * Stevie Vazquez MD - 03/31/2021 8:30 AM EDT Adrian Guardado referred for EDX studies by Dr. Rob Díaz and Maryse Perry MD [facility] [address] [place] [id number] to look for evidence of large fiber peripheral neuropathy. Report scannedinto ED. All results are normal. 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
--- OUTSIDE RECORDS SUMMARY | 2024-06-02 15:23 | XMS_ITS | Encounter Summary ---
Author Organization [facility] Address [facility] [place] [address] Care Team Providers Care Janitor Caretaker Name Role Phone Maryse Perry MD Primary Care Provider [phone] Reason for Referral * Consultation (Routine) - Closed Specialty Diagnoses / Procedures Referred By Adolfo lopez Referred To Contact [facility] Diagnoses Radiculopathy of lumbar region Chronic bilateral low back pain with bilateral sciatica Moises Rayo PA [facility] [place] [address] [facility] [place] [address] Referral ID Status Reason Start Date Expiration Date V isits Requested Visits Authorized [id number] Closed Consult, Test & Treat 04/16/2022 04/16/2023 3 3 Encounter Details Date Type Department Care Team (Late st Contact Info) Description 04/16/2022 Orders Only [place] [phone] Moises Rayo PA [facility] [place] [address] Radiculopathy of lumbar region; Chronic bilateral low [...] as of this encounter Progress Notes * Fredi Marcus RN - 04/16/2022 2:58 PM EDT Patient contacted previous provider for repeat SI joint injections, he was told they are currently not scheduling injections, he would like to have this scheduled at [facility]. Moises MC informed of the above, he authorized referral to Pain. documented in this encounter Plan of Treatment Scheduled Referrals Name Type Priority Associated Diagnoses Orde r Schedule Referral to [facility] and Sp[facility] Center (Internal only) Outpatient Referral Routine Radiculopathy of lumbar region Chronic bilateral low back pain with bilateral sciatica Ordered: 04/16/2022 documented as of this encounter Visit Diagnoses Diagnosis Radiculopathy of lumbar region Thoracic or lumbosacral neuritis or radiculitis, unspecified Chronic bilateral low back pain with bilateral sciatica documented in this encounter Care Teams Janitor Caretaker Relationship Specialty Start Date End Date Maryse Perry MD [address] [place] [address] PCP - General Family Medicine 11/28/20 documented as of this encounter
--- OUTSIDE RECORDS SUMMARY | 2024-06-02 15:23 | XMS_ITS | Encounter Summary ---
Author Organization [facility] Address [address] [facility] [place] [address] Care Team Providers Care Contact Lens Blocker Name Role Phone None Primary Care Provider Unavailabl e Encounter Details Date Type Department Care Team (Late st Contact Info) Description 10/17/2020 Ancillary Procedure Radiology at [facility] [address] [place] [id number] Randy Can MD [address] [place] [address] Social History Tobacco Use Types Packs/Day Years [...] Associated Diagnosis Comments FILM LIBRARY STORAGE ONLY DX SPINE Routine 10/17/2020 12:00 AM EDT documented in this encounter Results * Film Library- Storage Only DX Spine (10/17/2020 12:00 AM EDT) Narrative LISANDRA - 10/22/2020 12:33 PM EDT This exam is auto-finalizing. It's purpose is for storage only. Randy Can MD G FILM LIBRARY ORD ERABLES [place], [place] documented in this encounter Visit Diagnoses Not on filedocumented in this encounter Care Teams Contact Lens Blocker Relationship Specialty Start Date End Date None None PCP - General 05/07/20 11/27/20 documented as of this encounter
--- OUTSIDE RECORDS SUMMARY | 2024-06-02 15:23 | XMS_ITS | Encounter Summary ---
Author Organization [facility] Address [facility] [place] [address] Care Team Providers Care Barrel Lapper Name Role Phone Maryse Perry MD Primary Care Provider [phone] Reason for Visit * Reason Comments Back Pain Encounter Details Date Type Department Care Team (Late st Contact Info) Description 09/22/2022 9:30 AM EST Office Visit Functional Oriental Orthodox Program at [facility] [address] [place] [id number] Shon Singh, PT Low back pain, non-specific Social History Tobacco [...] Pulse 59 09/22/2022 1:03 PM EST Temperature - - Respiratory Rate - - Oxygen Saturation - - Inhaled Oxygen Concentration - - Weight - - Height - - Body Mass Index - - documented in this encounter Miscellaneous Notes * Initial Evaluation - Shon Singh, PT - 09/22/2022 9:30 AM ESTSummary: FRP Evaluation Functional Oriental Orthodox Program (Day 1) Physical Therapy Examination Personal Function 3 Month Goals ?? 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 Mr. Guardado reports that the chief complaint requiring rehabilitation is right side low back/SI joint pain and right lower extremity tingling, left low sided back pain, radiating down left lower extremity. Anatomic diagnoses have included radiculopathy. Prior treatments included surgery, injections, physical therapy, Lyrica, tylenol, chiropractic, heat, left shoe inserts, ice, icy hot/biofreeze/l idocaine, lidocaine patches, tiger balm, TENs unit. Stretching and walking continue to be done every day, and heat still helps. Moving helps his symptoms. ?? Further diagnostic testing is not planned. Additional medical procedures are not planned. ?? Activity limiting health problems include history of migraines, bilateral knee pain, right carpal tunnel. ?? 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 He reports there is not an active worker's compensation claim and/or there is not a personal injuryclaim associated with this injury. Title Endurance and Flexibility Test Results: Reported [...] 98 Reason for Stopping (if applicable): balance Sensation: Light touch reduced L lateral lower leg, . Reflexes Right Left Tricep normal normal Brachioradialis normal normal Patella normal normal Achilles normal normal AROM (degrees) shoulder flexion right WNL, left WNL. UE Strength Right Left Shoulder abduction 5/5 5/5 Shoulder ER 5/5 5/5 Elbow flexion 5/5 5/5 Elbow extension 5/5 5/5 Wrist ulnar deviation 55/5 5/5 Finger abduction 5/5 5/5 LE Strength Right Left Hip flexion 4+/5 4+/5 Knee extension 5/5 5/5 Dorsiflexion 5/5 5/5 Hallux extension 5/5 5/5 Plantarflexion 5/5 5/5 Neural tension screening: Seated straight leg raise right positive, left neg. Assessment Adrian Guardado has moderate range of motion deficits and mild strength deficits with baseline physical testing. Treadmill testing shows poor tolerance for endurance activities. Posture and gait observations reveal little antalgic deviations. Individual program to be developed slowly over the first two weeks of program with initial focus on symptom management strategies. FRP Goals for Physical Therapy will focus on regaining functional status and functional goals stated above, but objectively Adrian will have: Improved flexibility, strength, and cardiovascular fitness, the ability to self manage symptoms, and adequately monitor and progress an individualized HEP. Plan Adrian will start with FRP for functional and restorative training. Home exercise instruction will compliment daily conditioning. See enclosed FRP protocol for further details. Total time for testin minutes documented in this encounter Plan of Treatment Not on file documented as of this encounter Visit Diagnoses Diagnosis Low back pain, non-specific documented in this encounter Care Teams Barrel Lapper Relationship Specialty Start Date End Date Maryse Perry MD [address] [place] [address] PCP - General Family Medicine 11/28/20 documented as of this encounter
--- OUTSIDE RECORDS SUMMARY | 2024-06-02 15:23 | XMS_ITS | Encounter Summary ---
Author Organization [facility] Address One [facility] [place] [address] Care Team Providers Care Dental Practice Manager Name Role Phone Maryse Perry MD Primary Care Provider [phone] Encounter Details Date Type Department Care Team (Late st Contact Info) Description 09/14/2022 Telephone Functional Quaker Program at [facility] [address] [place] [phone] Lena Maguire, CLIENT TECHNICAL PROFESSIONAL Social History Tobacco Use Types Packs/Day Years [...] encounter Miscellaneous Notes * Telephone Encounter - Lena Maguire, CLIENT TECHNICAL PROFESSIONAL - 09/14/2022 3:14 PM EST Spoke with Adrian Guardado, who is recommended and medically cleared for the Functional Quaker Program. He hopes to attend the September 22, 2022-October 16, 2022 program and authorized a technology sales representative of [facility] to contact his insurance provider to help determine his eligibility and costs to participate. Notified him that if he wishes to proceed with these plans, he will need to receive a formal invitation in the mail and must respond by phone to confirm attendance prior to the start of [facility] Day 1. An [facility] staff member offered to call the patient's insurance carrier with the list of CPT codes to verify to the best of their ability that the codes: 1) Are covered by their carrier 2) Do not require Prior Authorization This does not guarantee coverage or any official cost of the Functional Quaker Program. Ultimately, verification of coverage and prior authorization requirements is the responsibility of the patient. The CPT codes noted in bold below can be referenced by a patient. Any reference # provided to the staff member by the insurance carrier is listed below and can be used for further verification/clarification of questions by the patient. Insurance carrier information used and listed below was located in patient chart or gotten directlyfrom the patient over the phone. PRIMARY INSURANCE Insurance Carrier: [employer] Insurance Plan: [employer] HMO/[employer] Access Plus Carrier Plan Phone #: [phone] Group Number: [id number] Subscriber Name: Maribel Guardado Insurance Type: Commercial Patient Relation to Subscriber: Spouse/Significant Other Call to carrier made by [facility] staff member: Lena Maguire Call date: 09/07/22 Reference #: [id number] (Online 09/04/2022) Ref #[id number] Add'l eval 8816 Contract with [facility] Provider In-Network? Yes Eligibility Date (Benefits reset): February 16 Benefits Applies to Medical Provider (MD YARI) and Therapy visits: $20 co-pay per visit until Out Of Pocket Max met Out of Pocket Max Individual $1000 ($280 met/$720 left)* Per [employer], $720 left in OOP Max applies for FRP Family $2000 ($380 met/$1620 left) OT/PT/LOCOMOTIVE ENGINEER ELECTRIC: 60 Joint visits per year ; 0 used) CPT codes Coverage and Prior authorization check: (* any that are cause for concern) PT/OT require pre-authorization? No PT/OT codes covered? Yes [address]005 [place] [address] Neuro Re-education (41622 Manual Therapy) 28647 Group Therapy 76138 PT Eval - Moderate Complexity 63809 OT Eval - Moderate Complexity 48169 Ther Act 73040 Tests and Measures Medical Provider require pre-authorization? No Medical Provider codes covered? No 64031 Level 3 Estab patient 59270 Level 4 Estab patient 32232 Rehabilitation training (Provider Discussion/Lecture) - Conf # [id number] No prior approval neededbut will be reviewed Estimated patient financial liability is: $720 in copays for just FRP visits. Enough for 19 FRP days and 2 follow up visits? Therapy Yes Medical Yes Estimated FRP PT/OT [id number] cost $720 Yes Spoke with pt to review financial implications and discuss payment plan or [place] if indicated. Estimate given with best information available in good isatu but with no guarantee. Final charges may differ. It is recommended that the patient follow up directly with insurer with any additional questions. documented in this encounter Plan of Treatment Not on file documented as of this encounter Visit Diagnoses Not on filedocumented in this encounter Care Teams Dental Practice Manager Relationship Specialty Start Date End Date Maryse Perry MD [facility] [address] [place] [address] PCP - General Family Medicine 11/28/20 documented as of this encounter
--- OUTSIDE RECORDS SUMMARY | 2024-06-02 15:23 | XMS_ITS | Encounter Summary ---
Author Organization [facility] Address [facility] [place] [address] Care Team Providers Care Nursing Home Director Name Role Phone Maryse Perry MD Primary Care Provider [phone] Encounter Details Date Type Department Care Team (Late st Contact Info) Description 12/31/2020 Ancillary Procedure Radiology Library at [facility] [place] [phone] Maryse Prery MD [address] [place] [address] [address] Social History Tobacco Use Types Packs/Day Years [...] FILM LIBRARY STORAGE ONLY MR SPINE Routine 12/31/2020 12:00 AM EDT documented in this encounter Results * Film Library- Storage Only MR Spine (12/31/2020 12:00 AM EDT) Narrative [facility] - 01/01/2021 11:52 AM EDT This exam is auto-finalizing. It's purpose is for storage only. Maryse Perry MD IMG FILM LIBRARY ORD ERABLES [facility] [place] documented in this encounter Visit Diagnoses Not on filedocumented in this encounter Care Teams Nursing Home Director Relationship Specialty Start Date End Date Maryse Perry MD [address] [facility] [address] [place] [address] PCP - General Family Medicine 11/28/20 documented as of this encounter
[2024-06-05 11:14] LABS: Measles IgG Antibody Positive (See Note); Mumps Antibody IgG Negative (See Note)
[2024-06-05 11:18] LABS: Rubella IgG Ab (UVM) Negative (See Note)
[2024-06-05 12:27] LABS: TB Interpretation Negative (Negative)
[2024-06-05 18:10] LABS: Hepatitis B Surface Ag Negative (Negative)
== END 2024-06-02 15:21 | disposition home or self-care (01) ==
LOC: LBO 15:20
PROVIDERS: PCP Family Medicine; Visit Provider Nurse Practitioner Family
DX: Z02.1 Encounter for pre-employment examination (principal)
CPT/HCPCS: 36415; 87340; 86480; 86735; 86762; 86765

== ENCOUNTER 2024-07-03 13:53 | Emergency (ER) | payer OTHER, SELFPAY ==
[2024-07-03 13:54] VITALS: BP 150/102; PULSE 81; RESP 15; TEMP 36.4; O2SAT 98
[2024-07-03 14:00] VITALS: BP 150/102; PULSE 81; RESP 15; TEMP 36.4; O2SAT 98
--- OUTSIDE RECORDS SUMMARY | 2024-07-03 14:00 | XMS_ITS | Clinical Summary ---
Author Organization [facility] Address [address] [place] [address] Care Team Providers Care Wood Turning Lathe Operator Name Role Phone Maryse Perry MD Primary Care Provider [phone] Encounters Date Type Department Care Team Description 06/04/2024 Lab Requisition [facility] Pathology & Laboratory [address] [address] Outr Resulting Lab, Provider 06/02/2024 Lab Requisition [facility] Pathology & Laboratory [address] [address] Outr Resulting Lab, Provider 06/02/2024 Lab Requisition [facility] Pathology Laboratory [address] [address] Outr Resulting Lab, Provider 05/29/2024 Lab Requisition [facility] Pathology Laboratory [address] [address] Silviano Sales MD Encounter for screening for [...] - 19+ 3-dose series) 04/05 COVID-19 Vaccine (2023- season) 2024 Hepatitis C Screen Completed 06/09/2021 Procedures Procedure Name Priority Date/Time Associated Diagnosis Comments QUANTIFERON INTERPRETATION (PERFORMABLE) Today 06/02/2024 14:35 EST QUANTIFERON MITOGEN (PERFORMABLE) Today 06/02/2024 14:35 EST QUANTIFERON TB2 (PERFORMABLE) Today 06/02/2024 14:35 EST QUANTIFERON TB1 (PERFORMABLE) Today 06/02/2024 14:35 EST QUANTIFERON NIL (PERFORMABLE) Today 06/02/2024 14:35 EST QUANTIFERON TB GOLD PLUS Routine 06/02/2024 14:35 EST HOLD SST Today 06/02/2024 14:35 EST HOLD SST Today 06/02/2024 14:35 EST HEPATITIS B SURFACE ANTIGEN Routine 06/02/2024 14:35 EST MEASLES IGG AB Today 06/02/2024 14:35 EST MUMPS ANTIBODY IGG Today 06/02/2024 14 :35 EST RUBELLA IGG ANTIBODY Today 06/02/2024 14:35 EST SURGICAL PATHOLOGY Today 05/29/2024 10 :35 EST Encounter for screening for malignant neoplasm of colon HEPATITIS C AB W REFLEX TO HCV RNA BY PCR Routine 06/09/2021 10:17 EST from Last 3 Months or Most Recently Relevant to Health Maintenance Results * QUANTIFERON MITOGEN (PERFORMABLE) (06/02/2024 14:35 EST) Blood VENOUS BLOOD / Unknown 06/02/2024 14:35 EST 06/04/2024 16:15 EST us Provider Outr Resulting Lab IMMUNOLOGY AND SEROL OGY ORDERABLES Final Result [facility] [address] [place] [address] * QUANTIFERON TB2 (PERFORMABLE) (06/02/2024 14:35 EST) Blood VENOUS BLOOD / Unknown 06/02/2024 14:35 EST 06/04/2024 16:15 EST us Provider Outr Resulting Lab IMMUNOLOGY AND SEROL OGY ORDERABLES Final Result Performing Organization Address [facility]/ZIP Co de Phone Number [facility] [address] [place] [address] * QUANTIFERON TB1 (PERFORMABLE) (06/02/2024 14:35 EST) Blood VENOUS BLOOD / Unknown 06/02/2024 14:35 EST 06/04/2024 16:15 EST us Provider Outr Resulting Lab IMMUNOLOGY AND SEROL OGY ORDERABLES Final Result Performing Organization Address [facility]/ZIP Co de Phone Number [facility] [address] [place] [address] * QUANTIFERON NIL (PERFORMABLE) (06/02/2024 14:35 EST) Blood VENOUS BLOOD / Unknown 06/02/2024 14:35 EST 06/04/2024 16:15 EST us Provider Outr Resulting Lab IMMUNOLOGY AND SEROL OGY ORDERABLES Final Result Performing Organization Address [facility] Co de Phone Number [facility] [address] [place] [phone] * QUANTIFERON INTERPRETATION (PERFORMABLE) (06/02/2024 14:35 EST) [facility] Quantiferon Interpretation Negative Negative 06/05/2024 12:22 EST [facility] Comment:No interferon-gamma response to M. tuberculosis antigens was detected. ??Infection with M. tuberculosis is unlikely. A single negative result does not exclude infection with M. tuberculosis. ??In patients at high risk for M. tuberculosis infection, a second test should be considered. TB1 Ag minus Nil 0.00 IU/mL 06/05/20 24 12:22 EST [facility] TB2 Ag minus Nil 0.00 IU/mL 06/05/20 24 12:22 EST [facility] Blood VENOUS BLOOD / Unknown 06/02/2024 14:35 EST 06/05/2024 11:18 EST us Provider Outr Resulting Lab IMMUNOLOGY AND SEROL OGY ORDERABLES Final Result [facility] [address] [place] [address] * HOLD SST (06/02/2024 14:35 EST) Only the most recent of2 resultswithin the time period is included. Hold Hold 06/02/2024 23:01 EST [facility] Blood VENOUS BLOOD / Unknown 06/02/2024 14:35 EST 06/02/2024 21:54 EST us Provider Outr Resulting Lab LAB INFO SERVICE AND SUPPORT & PHONE RESULT Final Result Performing Organization Address [facility]/ZIP Co de Phone Number [facility] [address] [place] [address] * MEASLES IGG AB (06/02/2024 14:35 EST) Measles IgG Ab Positive See Note 06/05/2024 11:08 EST [facility] Comment:Presence of detectab le measles virus IgG antibodies. Blood VENOUS BLOOD / Unknown 06/02/2024 14:35 EST 06/02/2024 21:54 EST us Provider Outr Resulting Lab IMMUNOLOGY AND SEROL OGY ORDERABLES Final Result Performing Organization Address City/[facility]/ZIP Co de Phone Number [facility] [address] [place] [address] * RUBELLA IGG ANTIBODY (06/02/2024 14:35 EST) Rubella IgG Ab Negative See Note 06/05/2024 11:14 EST [facility] Comment:Sample is considered negative for IgG antibodies to Rubella virus. A negative result presumes that immunity has not been acquired. If exposure to Rubella virus is suspected despite a negative finding, a second specimen should be collected and tested for Rubella IgG Ab one or two weeks later. Blood VENOUS BLOOD / Unknown 06/02/2024 14:35 EST 06/02/2024 21:54 EST us Provider Outr Resulting Lab CHEMISTRY & BLOOD GA S ORDERABLES Final Result Performing Organization Address [facility] de Phone Number [facility] [address] [place] [phone] * HEPATITIS B SURFACE ANTIGEN (06/02/2024 14:35 EST) Hep B Surface Ag Negative Negative 06/05/2024 18:05 EST [facility] Blood VENOUS BLOOD / Unknown 06/02/2024 14:35 EST 06/02/2024 21:54 EST us Provider Outr Resulting Lab CHEMISTRY & BLOOD GA S ORDERABLES Final Result Performing Organization Address [facility] de Phone Number [facility] [address] [place] [address] * MUMPS ANTIBODY IGG (06/02/2024 14:35 EST) Mumps Antibody IgG Negative See Note 06/05/2024 11:08 EST [facility] Comment:Absence of detectabl e mumps virus IgG antibodies. A negative result generally indicates that the patient is susceptible to mumps. Blood VENOUS BLOOD / Unknown 06/02/2024 14:35 EST 06/02/2024 21:54 EST us Provider Outr Resulting Lab IMMUNOLOGY AND SEROL OGY ORDERABLES Final Result [facility] [address] [place] [address] * SURGICAL PATHOLOGY (05/29/2024 10:35 EST) Note to Patient The following pathology results have been interpreted by your pathologist and may be available to you before your health provider has had the opportunity to review them. Please allow time for your provider to receive these results and explore management options, if applicable. 05/30/2024 18:06 [facility] Final Diagnosis A. RECTUM, POLYP, BIOPSY: - Hyperplastic polyp. 05/30/2024 18:06 [facility] Attestation By the signature below, the attending physician certifies that they have 1) personally conducted a gross and/or microscopic examination of the described specimen(s), and/or personally interpreted the results of laboratory testing of the described specimen(s), and 2) personally rendered or confirmed the above diagnosis. 05/30/2024 18:06 [facility] at 1806 Clinical History Colorectal cancer screening, history of colon polyps, daily incontinent of liquid stool 05/30/2024 18:06 [facility] Gross Description A. Received in formalin labelled with proper patient identification (initials D, T) and rectal polyp is a single garcía focally brown tissue (0.3 x 0.3 x 0.2 cm). Submitted intact in A1. Shreya Denney 05/30/2024 6:15 05/30/2024 18:06 [facility] Performing Lab [facility] 05/30/2024 18:06 [facility] Scanned Images 05/30/2024 18:06 [facility] Tissue SPECIMEN FROM RECTUM / Unknown 05/29/2024 10:35 EST 05/29/2024 17:58 EST us Silviano Sales MD PATHOLOGY ORDERABLES Final Resu lt [facility] [address] [place], [place] [address] * HEPATITIS C AB W REFLEX TO HCV RNA BY PCR (06/09/2021 10:17 EST) Hep C Antibody Negative Negative 06/10/2021 9:48 EST [facility] Blood VENOUS BLOOD / Unknown 06/09/2021 10:17 EST 06/09/2021 21:38 EST us Provider Outr Resulting Lab CHEMISTRY & BLOOD GA S ORDERABLES Final Result [facility] [address] [place] [address] from Last 3 Months or Most Recently Relevant to Health Maintenance Insurance [facility] Care Teams Wood Turning Lathe Operator Relationship Specialty Start Date End Date Maryse Perry MD [address] [place] [phone] PCP - General 05/29/15
--- OUTSIDE RECORDS SUMMARY | 2024-07-03 14:01 | XMS_ITS | Encounter Summary ---
Author Organization [facility] Address [address] [facility] [place] [address] Care Team Providers Care Appointment Coordinator Name Role Phone Maryse Perry MD Primary Care Provider [phone] Encounter Details Date Type Department Care Team [...] on filedocumented in this encounter Care Teams Appointment Coordinator Relationship Specialty Start Date End Date Maryse Perry MD [address] [place] [address] PCP - General Family Medicine 11/28/20 documented as of this encounter
--- OUTSIDE RECORDS SUMMARY | 2024-07-03 14:01 | XMS_ITS | Encounter Summary ---
Author Organization [facility] Address [address] [place] [address] Care Team Providers Care Gum Cook Name Role Phone Maryse Perry MD Primary Care Provider [phone] Encounter Details Date Type Department Care Team (Late st Contact Info) Description 06/04/[address] [facility] Pathology & Laboratory [facility] [address], [place] [id number] Outr Resulting Lab, Provider Social History Tobacco [...] Name Priority Date/Time Associated Diagnosis Comments QUANTIFERON MITOGEN (PERFORMABLE) Today 06/02/2024 14:35 EST QUANTIFERON TB2 (PERFORMABLE) Today 06/02/2024 14:35 EST QUANTIFERON TB1 (PERFORMABLE) Today 06/02/2024 14:35 EST QUANTIFERON NIL (PERFORMABLE) Today 06/02/2024 14:35 EST QUANTIFERON INTERPRETATION (PERFORMABLE) Today 06/02/2024 14:35 EST QUANTIFERON TB GOLD PLUS Routine 06/02/2024 14:35 EST documented in this encounter Results * QUANTIFERON INTERPRETATION (PERFORMABLE) (06/02/2024 14:35 EST) [facility] Quantiferon Interpretation Negative Negative 06/05/2024 12:22 EST [facility] Comment:No interferon-gamma response to M. tuberculosis antigens was detected. ??Infection with M. tuberculosis is unlikely. A single negative result does not exclude infection with M. tuberculosis. ??In patients at high risk for M. tuberculosis infection, a second test should be considered. TB1 Ag minus Nil 0.00 IU/mL 06/05/20 24 12:22 EST [facility] TB2 Ag minus Nil 0.00 IU/mL 06/05/20 12:22 EST [facility] Blood VENOUS BLOOD / Unknown 06/02/2024 14:35 EST 06/05/2024 11:18 EST us Provider Outr Resulting Lab IMMUNOLOGY AND SEROL OGY ORDERABLES Final Result Performing Organization Address [facility] Co de Phone Number [facility] [address] [place] [address] * QUANTIFERON MITOGEN (PERFORMABLE) (06/02/2024 14:35 EST) Blood VENOUS BLOOD / Unknown 06/02/2024 14:35 EST 06/04/2024 16:15 EST us Provider Outr Resulting Lab IMMUNOLOGY AND SEROL OGY ORDERABLES Final Result Performing Organization Address [facility] Co de Phone Number [facility] [address] [place] [address] * QUANTIFERON TB2 (PERFORMABLE) (06/02/2024 14:35 EST) Blood VENOUS BLOOD / Unknown 06/02/2024 14:35 EST 06/04/2024 16:15 EST us Provider Outr Resulting Lab IMMUNOLOGY AND SEROL OGY ORDERABLES Final Result Performing Organization Address [facility]/ZIP Co de Phone Number [facility] [address] [place] [address] * QUANTIFERON TB1 (PERFORMABLE) (06/02/2024 14:35 EST) Blood VENOUS BLOOD / Unknown 06/02/2024 14:35 EST 06/04/2024 16:15 EST us Provider Outr Resulting Lab IMMUNOLOGY AND SEROL OGY ORDERABLES Final Result Performing Organization Address [facility] Co de Phone Number [facility] [address] [place] [address] * QUANTIFERON NIL (PERFORMABLE) (06/02/2024 14:35 EST) Blood VENOUS BLOOD / Unknown 06/02/2024 14:35 EST 06/04/2024 16:15 EST us Provider Outr Resulting Lab IMMUNOLOGY AND SEROL OGY ORDERABLES Final Result Performing Organization Address [facility] Co de Phone Number [facility] [address] [place] [address] documented in this encounter Visit Diagnoses Not on filedocumented in this encounter Care Teams Gum Cook Relationship Specialty Start Date End Date Maryse Perry MD [address] [place] [phone] PCP - General 05/29/15 documented as of this encounter
--- OUTSIDE RECORDS SUMMARY | 2024-07-03 14:01 | XMS_ITS | Encounter Summary ---
Author Organization [facility] [place] [address] Care Team Providers Care Mine Car Dispatcher Name Role Phone Maryse Perry MD Primary Care Provider [phone] Encounter Details Date Type Department Care Team (Late st Contact Info) Description 10/09/2022 8:00 AM EDT Office Visit Functional Rastafari Program at [facility] [address] [place] [phone] Stanley Flannery Jr., PT Low back pain, [...] session. Plan: Return for follow up with [facility] per protocol. 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
--- OUTSIDE RECORDS SUMMARY | 2024-07-03 14:01 | XMS_ITS | Referral Summary ---
Author Organization [facility] Address [address] [place] [address] Care Team Providers Care General Accounting Clerk Name Role Phone Maryse Perry MD Primary Care Provider [phone] Encounters Date Type Department Care Team Description 06/04/2024 Lab Requisition [facility] Pathology & Laboratory [address] [address] Outr Resulting Lab, Provider 06/02/2024 Lab Requisition [facility] Pathology & Laboratory [address] [address] Outr Resulting Lab, Provider 06/02/2024 Lab Requisition [facility] Pathology Laboratory [address] [address] Outr Resulting Lab, Provider 05/29/2024 Lab Requisition [facility] Pathology Laboratory [address] [address] Silviano Sales MD Encounter for screening for [...] IMMUNOLOGY AND SEROL OGY ORDERABLES Final Result [facility] [address] [place] [address] * QUANTIFERON TB2 (PERFORMABLE) (06/02/2024 14:35 EST) Blood VENOUS BLOOD / Unknown 06/02/2024 14:35 EST 06/04/2024 16:15 EST us Provider Outr Resulting Lab IMMUNOLOGY AND SEROL OGY ORDERABLES Final Result Performing Organization Address City/[facility]/ZIP Co de Phone Number [facility] [address] [place], [place] [address] * QUANTIFERON TB1 (PERFORMABLE) (06/02/2024 14:35 EST) Blood VENOUS BLOOD / Unknown 06/02/2024 14:35 EST 06/04/2024 16:15 EST us Provider Outr Resulting Lab IMMUNOLOGY AND SEROL OGY ORDERABLES Final Result Performing Organization Address [facility] Co de Phone Number [facility] [address] [place], [place] [address] * QUANTIFERON NIL (PERFORMABLE) (06/02/2024 14:35 EST) Blood VENOUS BLOOD / Unknown 06/02/2024 14:35 EST 06/04/2024 16:15 EST us Provider Outr Resulting Lab IMMUNOLOGY AND SEROL OGY ORDERABLES Final Result Performing Organization Address [facility] Co de Phone Number [facility] [address] [place], [place] [address] * QUANTIFERON INTERPRETATION (PERFORMABLE) (06/02/2024 14:35 EST) Pathologist [facility] Quantiferon Interpretation Negative Negative 06/05/2024 12:22 EST [facility] Comment:No interferon-gamma response to M. tuberculosis antigens was detected. ??Infection with M. tuberculosis is unlikely. A single negative result does not exclude infection with M. tuberculosis. ??In patients at high risk for M. tuberculosis infection, a second test should be considered. TB1 Ag minus Nil 0.00 IU/mL 06/05/20 24 12:22 EST [facility] TB2 Ag minus Nil 0.00 IU/mL 06/05/20 24 12:22 EST [facility] Blood VENOUS BLOOD / Unknown 06/02/2024 14:35 EST 06/05/2024 11:18 EST us Provider Outr Resulting Lab IMMUNOLOGY AND SEROL OGY ORDERABLES Final Result Performing Organization Address City/[facility]/ZIP Co de Phone Number [facility] [address] [place] [address] * HOLD SST (06/02/2024 14:35 EST) Only the most recent of2 resultswithin the time period is included. Hold Hold 06/02/2024 23:01 EST [facility] Blood VENOUS BLOOD / Unknown 06/02/2024 14:35 EST 06/02/2024 21:54 EST us Provider Outr Resulting Lab LAB INFO SERVICE AND SUPPORT & PHONE RESULT Final Result Performing Organization Address [facility]/ZIP Co de Phone Number [facility] [address] [place] [address] * MEASLES IGG AB (06/02/2024 14:35 EST) Measles IgG Ab Positive See Note 06/05/2024 11:08 EST [facility] Comment:Presence of detectab le measles virus IgG antibodies. Blood VENOUS BLOOD / Unknown 06/02/2024 14:35 EST 06/02/2024 21:54 EST us Provider Outr Resulting Lab IMMUNOLOGY AND SEROL OGY ORDERABLES Final Result Performing Organization Address City/[facility]/ZIP Co de Phone Number [facility] [address] [place] [address] * RUBELLA IGG ANTIBODY (06/02/2024 14:35 EST) Rubella IgG Ab Negative See Note 06/05/2024 11:14 EST [facility] Comment:Sample is considered negative for [...] & BLOOD GA S ORDERABLES Final Result [facility] [address] [place] [address] * HEPATITIS B SURFACE ANTIGEN (06/02/2024 14:35 EST) Hep B Surface Ag Negative Negative 06/05/2024 18:05 EST [facility] Blood VENOUS BLOOD / Unknown 06/02/2024 14:35 EST 06/02/2024 21:54 EST us Provider Outr Resulting Lab CHEMISTRY & BLOOD GA S ORDERABLES Final Result Performing Organization Address [facility] Co de Phone Number [facility] [address] [place] [address] * MUMPS ANTIBODY IGG (06/02/2024 14:35 EST) Mumps Antibody IgG Negative See Note 06/05/2024 11:08 EST [facility] Comment:Absence of detectabl e mumps virus IgG antibodies. A negative result generally indicates that the patient is susceptible to mumps. Blood VENOUS BLOOD / Unknown 06/02/2024 14:35 EST 06/02/2024 21:54 EST us Provider Outr Resulting Lab IMMUNOLOGY AND SEROL OGY ORDERABLES Final Result Performing Organization Address [facility]/ZIP Co de Phone Number [facility] [address] [place] [address] * SURGICAL PATHOLOGY (05/29/2024 10:35 EST) Note to Patient The following pathology results have been interpreted by your pathologist and may be available to you before your health provider has had the opportunity to review them. Please allow time for your provider to receive these results and explore management options, if applicable. 05/30/2024 18:06 [facility] Final Diagnosis A. RECTUM, POLYP, BIOPSY: - Hyperplastic polyp. 05/30/2024 18:06 [facility] Attestation By the signature below, the attending physician certifies that they have 1) personally conducted a gross and/or microscopic examination of the described specimen(s), and/or personally interpreted the results of laboratory testing of the described specimen(s), and 2) personally rendered or confirmed the above diagnosis. 05/30/2024 18:06 [facility] at 1806 Clinical History Colorectal cancer screening, history of colon polyps, daily incontinent of liquid stool 05/30/2024 18:06 [facility] Gross Description A. Received in formalin labelled with proper patient identification (initials D, T) and rectal polyp is a single garcía focally brown tissue (0.3 x 0.3 x 0.2 cm). Submitted intact in A1. Shreya Denney 05/30/2024 6:15 05/30/2024 18:06 [facility] Performing Lab [facility] 05/30/2024 18:06 [facility] Scanned Images 05/30/2024 18:06 [facility] Tissue SPECIMEN FROM RECTUM / Unknown 05/29/2024 10:35 EST 05/29/2024 17:58 EST us Silviano Sales MD PATHOLOGY ORDERABLES Final Resu lt [facility] [address] [place] [address] * HEPATITIS C AB W REFLEX TO HCV RNA BY PCR (06/09/2021 10:17 EST) Hep C Antibody Negative Negative 06/10/2021 9:48 EST [facility] Blood VENOUS BLOOD / Unknown 06/09/2021 10:17 EST 06/09/2021 21:38 EST us Provider Outr Resulting Lab CHEMISTRY & BLOOD GA S ORDERABLES Final Result [facility] [address] [place] [address] from Last 3 Months or Most Recently Relevant to Health Maintenance Insurance [facility] Care Teams General Accounting Clerk Relationship Specialty Start Date End Date Maryse Perry MD [address] [place] [phone] PCP - General 05/29/15
--- OUTSIDE RECORDS SUMMARY | 2024-07-03 14:01 | XMS_ITS | Encounter Summary ---
Author Organization [facility] Address [address] [facility] [place] [address] Care Team Providers Care Amalgamator Name Role Phone Maryse Perry MD Primary Care Provider [phone] Encounter Details Date Type Department Care Team [...] on filedocumented in this encounter Care Teams Amalgamator Relationship Specialty Start Date End Date Maryse Perry MD [address] [place] [address] PCP - General Family Medicine 11/28/20 documented as of this encounter
--- OUTSIDE RECORDS SUMMARY | 2024-07-03 14:01 | XMS_ITS | Encounter Summary ---
Author Organization [facility] Address One [facility] [place] [address] Care Team Providers Care Dedicated Owner Operator Name Role Phone Maryse Perry MD Primary Care Provider [phone] Encounter Details Date Type Department Care Team [...] on filedocumented in this encounter Care Teams Dedicated Owner Operator Relationship Specialty Start Date End Date Maryse Perry MD [address] [place] [address] PCP - General Family Medicine 11/28/20 documented as of this encounter
--- OUTSIDE RECORDS SUMMARY | 2024-07-03 14:01 | XMS_ITS | Encounter Summary ---
Author Organization [facility] Address One [facility] [place] [address] Care Team Providers Care Job Change Crew Member Name Role Phone Maryse Perry MD Primary Care Provider [phone] Reason for Visit * Reason Comments Back Pain Encounter Details Date Type Department Care Team (Late st Contact Info) Description 11/13/2022 8:00 AM EDT Office Visit Functional Yarsani Program at [facility] [address] [place] [phone] Jacque Engel, OT Low back pain, non-specific [...] the original note were not included. 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 FRP Self Group Home Program Type of Exercise Specific recommendations Frequency 1 Week Follow Up 1 Month Follow Up Mindfulness/ Relaxation ? ? 3 minute breathing & Progressive Muscle Relaxation (Insight Timer Alexandra - Wiliam Markham) ??? 10 Percent Happier 2-3x/day AM & PM Compliant Has been doing some Qigong Stretching Mat stretches (mp3 in [facility]) 5-7x/wk Compliant Daily MECHANICAL STRATEGIES: 1. Back: [...] Step routine (mp3 in myDH) Warm Up [place] (mp3 in myD) Treadmill Rowing Machine Biking [...] Continue with current plan Counseling: None Next [facility] Follow-up Date: 3 month follow up as needed. 60 minutes was spent to review status of goals, test physical performance, and plan for continued self care. Cc: Adrian Guardado [address] [place] [address] [place] [address] Maryse Perry MD [address] [place] [address] documented in this encounter Plan of Treatment Not on file documented as of this encounter Visit Diagnoses Diagnosis Low back pain, non-specific documented in this encounter Care Teams Job Change Crew Member Relationship Specialty Start Date End Date Maryse Perry MD [address] [place] [address] PCP - General Family Medicine 11/28/20 documented as of this encounter
--- OUTSIDE RECORDS SUMMARY | 2024-07-03 14:01 | XMS_ITS | Encounter Summary ---
Author Organization [facility] Address One [facility] [place] [address] Care Team Providers Care Foreign Agent Name Role Phone Maryse Perry MD Primary Care Provider [phone] Encounter Details Date Type Department Care Team [...] on filedocumented in this encounter Care Teams Foreign Agent Relationship Specialty Start Date End Date Maryse Perry MD [address] [place] [address] PCP - General Family Medicine 11/28/20 documented as of this encounter
--- OUTSIDE RECORDS SUMMARY | 2024-07-03 14:01 | XMS_ITS | Encounter Summary ---
Author Organization [facility] Address [facility] [place] [address] Care Team Providers Care Nanotechnician Name Role Phone Maryse Perry MD Primary Care Provider [phone] Encounter Details Date Type Department Care Team (Late st Contact Info) Description 10/05/2022 10:00 AM EDT Office Visit Functional Sabianist Program at [facility] [address] [place] [address] Serenity Smart APRN [facility] [place] [address] Low back pain, non-specific; Chronic bilateral low [...] unspecified documented in this encounter Care Teams Nanotechnician Relationship Specialty Start Date End Date Maryse Perry MD [facility] [address] [facility] [address] [place] [address] PCP - General Family Medicine 11/28/20 documented as of this encounter
--- OUTSIDE RECORDS SUMMARY | 2024-07-03 14:01 | XMS_ITS | Encounter Summary ---
Author Organization [facility] Address [facility] [place] [address] Care Team Providers Care Bodywork Therapist Name Role Phone Maryse Perry MD Primary Care Provider [phone] Reason for Visit * Reason Comments Follow-up FRP 1 MON F/U - Test ing prior at [facility] Encounter Details Date Type Department Care Team (Late st Contact Info) Description 11/13/2022 9:30 AM EDT Office Visit [facility] [place] [address] Serenity Smart, WORKERS COMPENSATION ANALYST [facility] [place] [address] Low back pain, non-specific; Sacroiliac joint dysfunction [...] follow up to completion of the Functional Jew program. In general, things have gone fairly well. 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
--- OUTSIDE RECORDS SUMMARY | 2024-07-03 14:01 | XMS_ITS | Encounter Summary ---
Author Organization Replaced By [facility] [place] [address] Care Team Providers Care Board Setter Name Role Phone Maryse Perry MD Primary Care Provider [phone] Reason for Visit * Reason Comments Back Pain Encounter Details Date Type Department Care Team (Late st Contact Info) Description 10/14/2022 11:00 AM EDT Office Visit Functional Uatsdin Program at [facility] [address] [place] [phone] Jacque Engel, OT Low back pain, non-specific [...] 11:00 AM EDT P Occupational Therapy Note [facility] Day 17 Protocol Subjective: Mr. Guardado returns today for a scheduled follow up appointment with [facility]. He reports no new complaints today. Objective: Refer to [facility] protocol for details and explanation [...] Be able to bend over to load certified pathology assistant, reach for dog bowl, ??Be able to sleep for 6hrs continuously documented in this encounter Plan of Treatment Not on file documented as of this encounter Visit Diagnoses Diagnosis Low back pain, non-specific documented in this encounter Care Teams Board Setter Relationship Specialty Start Date End Date Maryse Perry MD [address] [place] [address] PCP - General Family Medicine 11/28/20 documented as of this encounter
--- OUTSIDE RECORDS SUMMARY | 2024-07-03 14:01 | XMS_ITS | Encounter Summary ---
Author Organization [facility] Address One [facility] [place] [address] Care Team Providers Care Truck Driving Name Role Phone Maryse Perry MD Primary Care Provider [phone] Encounter Details Date Type Department Care Team [...] filedocumented in this encounter Care Teams Truck Driving Relationship Specialty Start Date End Date Maryse Perry MD [address] [place] [address] PCP - General Family Medicine 11/28/20 documented as of this encounter
--- OUTSIDE RECORDS SUMMARY | 2024-07-03 14:01 | XMS_ITS | Encounter Summary ---
Author Organization [facility] Address One [facility] [place] [address] Care Team Providers Care Miller First Name Role Phone Maryse Perry MD Primary Care Provider [phone] Encounter Details Date Type Department Care Team (Late st Contact Info) Description 10/13/2022 8:00 AM EDT Office Visit Functional Jewish Program at [facility] [address] [place] [phone] Stanley Flannery Jr., PT Low back pain, [...] EDT FRP Physical Therapy Note P Day 16 Protocol Subjective: Adrian returns today for a [...] session. Plan: Return for follow up with [facility] per protocol. Length of visit: Participated [...] Be able to bend over to load well service floor worker, reach for dog bowl, ??Be able [...] unspecified documented in this encounter Care Teams Miller First Relationship Specialty Start Date End Date Maryse Perry MD [address] [place] [address] PCP - General Family Medicine 11/28/20 documented as of this encounter
--- OUTSIDE RECORDS SUMMARY | 2024-07-03 14:01 | XMS_ITS | Encounter Summary ---
Author Organization [facility] Address [address] [place] [address] Care Team Providers Care Adult Basic Education Manager Name Role Phone Maryse Perry MD Primary Care Provider [phone] Encounter Details Date Type Department Care Team (Late st Contact Info) Description 05/29/2024 Lab Requisition [facility] Pathology & Laboratory Medicine - [facility] [address] [place] [address] Silviano Sales MD [address] [place] [address], [address] [place], [place] [id number] Encounter for screening for malignant neoplasm of [...] explore management options, if applicable. 05/30/2024 18:06 [facility] Final Diagnosis A. RECTUM, POLYP, BIOPSY: - Hyperplastic polyp. 05/30/2024 18:06 [facility] Attestation By the signature below, the attending physician certifies that they have 1) personally conducted a gross and/or microscopic examination of the described specimen(s), and/or personally interpreted the results of laboratory testing of the described specimen(s), and 2) personally rendered or confirmed the above diagnosis. 05/30/2024 18:06 [facility] at 1806 Clinical History Colorectal cancer screening, history of colon polyps, daily incontinent of liquid stool 05/30/2024 18:06 [facility] Gross Description A. Received in formalin labelled with proper patient identification (initials D, T) and rectal polyp is a single garcía focally brown tissue (0.3 x 0.3 x 0.2 cm). Submitted intact in A1. Shreya Denney 05/30/2024 6:15 05/30/2024 18:06 [facility] Performing Lab [facility] 05/30/2024 18:06 [facility] Scanned Images 05/30/2024 18:06 [facility] Tissue SPECIMEN FROM RECTUM / Unknown 05/29/2024 10:35 EST 05/29/2024 17:58 EST us Silviano Sales MD PATHOLOGY ORDERABLES Final Resu lt [facility] [address] [place] [address] documented in this encounter Visit Diagnoses Diagnosis Encounter for screening for malignant neoplasm of colon Special screening for malignant neoplasms, colon documented in this encounter Care Teams Adult Basic Education Manager Relationship Specialty Start Date End Date Maryse Perry MD [address] [place] [address] [phone] PCP - General 05/29/15 documented as of this encounter
--- OUTSIDE RECORDS SUMMARY | 2024-07-03 14:01 | XMS_ITS | Encounter Summary ---
Author Organization [facility] Address [facility] [place] [address] Care Team Providers Care Semi Conductor Assembler Name Role Phone Maryse Perry MD Primary Care Provider [phone] Reason for Visit * Reason Comments Back Pain Encounter Details Date Type Department Care Team (Late st Contact Info) Description 10/09/2022 11:00 AM EDT Office Visit Functional Pentecostal Program at [facility] [address] [place] [phone] Jacque Engel, OT Low back pain, non-specific [...] 11:00 AM EDT P Occupational Therapy Note [facility] Day 14 Protocol Subjective: Mr. Guardado returns today for a scheduled follow up appointment with [facility]. He reports he is feeling sore this afternoon. Objective: Refer to [facility] protocol for details and explanation of each [...] Be able to bend over to load log loader helper, reach for dog bowl, ??Be able to sleep for 6hrs continuously documented in this encounter Plan of Treatment Not on file documented as of this encounter Visit Diagnoses Diagnosis Low back pain, non-specific documented in this encounter Care Teams Semi Conductor Assembler Relationship Specialty Start Date End Date Maryse Perry MD [facility] [address] [place] [address] PCP - General Family Medicine 11/28/20 documented as of this encounter
--- OUTSIDE RECORDS SUMMARY | 2024-07-03 14:01 | XMS_ITS | Encounter Summary ---
Author Organization [facility] Address [facility] [place] [address] Care Team Providers Care Shareholder Name Role Phone Maryse Perry MD Primary Care Provider [phone] Reason for Visit * Reason Comments Back Pain Encounter Details Date Type Department Care Team (Late st Contact Info) Description 10/06/2022 11:00 AM EDT Office Visit Functional Gnosticist Program at [facility] [address] [place] [phone] Jacque Engel, OT Low back pain, non-specific [...] 11:00 AM EDT P Occupational Therapy Note [facility] Day 11 Protocol Subjective: Mr. Guardado returns today for a scheduled follow up appointment with [facility]. He reports no new complaints today. 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
--- OUTSIDE RECORDS SUMMARY | 2024-07-03 14:01 | XMS_ITS | Encounter Summary ---
Author Organization Counts Include [facility] Address One [facility] [place] [address] Care Team Providers Care Railroad Firer/Fireman Name Role Phone Maryse Perry MD Primary Care Provider [phone] Encounter Details Date Type Department Care Team (Latest Contact Info) Description 10/05/2022 Travel Social History Tobacco Use Types Packs/Day [...] on filedocumented in this encounter Care Teams Railroad Firer/Fireman Relationship Specialty Start Date End Date Maryse Perry MD [address] [place] [address] PCP - General Family Medicine 11/28/20 documented as of this encounter
--- OUTSIDE RECORDS SUMMARY | 2024-07-03 14:01 | XMS_ITS | Encounter Summary ---
Author Organization [facility] Address One [facility] [place] [address] Care Team Providers Care Juice Packaging Machines Setter Name Role Phone Maryse Perry MD Primary Care Provider [phone] Encounter Details Date Type Department Care Team [...] on filedocumented in this encounter Care Teams Juice Packaging Machines Setter Relationship Specialty Start Date End Date Maryse Perry MD [address] [place] [address] PCP - General Family Medicine 11/28/20 documented as of this encounter
--- OUTSIDE RECORDS SUMMARY | 2024-07-03 14:01 | XMS_ITS | Encounter Summary ---
Author Organization [facility] Address [facility] [place] [address] Care Team Providers Care Child Care Sitter Name Role Phone Maryse Perry MD Primary Care Provider [phone] Reason for Visit * Reason Comments Back Pain Encounter Details Date Type Department Care Team (Late st Contact Info) Description 10/23/2022 3:00 PM EDT Office Visit Functional Samaritan Program at [facility] [address] [place] [phone] Lena Maguire, [employer] Low back pain, non-specific Social History Tobacco [...] x 20' Stretching: FIS, EIS FIS, EIS Gtzrj-xq-auran str leg lift (x20) 27.5# 27.5# Brpez-qn-cxubjkeh lift (x20) 22.5# 22.5# Squat lift (x5) 60# 60# Patient Education/Home Exercise Program: Reviewed Adrian's home exercise program and reviewed the importance of establishing consistent routine early, which he has done. No barriers to home program identified at this time. FRP Self [facility] Program Type of Exercise Specific recommendations Frequency 1 week status Mindfulness/ Relaxation ? ? 3 minute breathing & Progressive Muscle Relaxation (800razors Timer Alexandra - Wiliam Markham) ??? 10 [...] Step routine (mp3 in myDH) Warm Up [place] (mp3 in myDH) Treadmill Rowing Machine Biking [...] will meet with LUIS Garcia, for the [facility] follow-up in approximately one month. Adrian [...] non-specific documented in this encounter Care Teams Child Care Sitter Relationship Specialty Start Date End Date Maryse Perry MD [address] [place] [address] PCP - General Family Medicine 11/28/20 documented as of this encounter
--- OUTSIDE RECORDS SUMMARY | 2024-07-03 14:01 | XMS_ITS | Encounter Summary ---
Author Organization [facility] Address [address] [place] [address] Care Team Providers Care Performing Arts Technicians Name Role Phone Maryse Damon MD Primary Care Provider [phone] Encounter Details Date Type Department Care Team (Late st Contact Info) Description 03/24/2017 Results Only [facility] [phone] Eliseo Dutton, [address] [place] [address] Social History Tobacco Use Types [...] ? ADRIAN SPICER ? Accession #: ? [id number] ? : ? 1965 (Age: 51) ??M [...] [place] 03/25/2017 11:43 AM End of Report [facility] 03/24/2017 9:54 EDT 03/25/2017 9:54 EDT us Eliseo Dutton DO PATHOLOGY ORDERABLES Fi nal Result [facility] [address] [place] [address] documented in this encounter Visit Diagnoses Not on filedocumented in this encounter Care Teams Performing Arts Technicians Relationship Specialty Start Date End Date Maryse Damon MD [address] [place] [phone] PCP - General 05/29/15 documented as of this encounter
--- OUTSIDE RECORDS SUMMARY | 2024-07-03 14:01 | XMS_ITS | Encounter Summary ---
Author Organization [facility] Address One [facility] [place] [address] Care Team Providers Care Functional Tester Typewriters Name Role Phone Maryse Perry MD Primary Care Provider [phone] Encounter Details Date Type Department Care Team [...] on filedocumented in this encounter Care Teams Functional Tester Typewriters Relationship Specialty Start Date End Date Maryse Perry MD [address] [place] [address] PCP - General Family Medicine 11/28/20 documented as of this encounter
--- OUTSIDE RECORDS SUMMARY | 2024-07-03 14:01 | XMS_ITS | Encounter Summary ---
Author Organization [facility] Address [facility] [place] [address] Care Team Providers Care Public Policy Associate Name Role Phone Maryse Perry MD Primary Care Provider [phone] Reason for Visit * Reason Comments Back Pain Encounter Details Date Type Department Care Team (Late st Contact Info) Description 10/12/2022 11:00 AM EDT Office Visit Functional Moravian Program at [facility] [address] [place] [phone] Jacque Engel, OT Low back pain, non-specific [...] AM EDT P Occupational Therapy Note [facility] Day 15 Protocol Subjective: Mr. Guardado returns today for a scheduled follow up appointment with [facility]. He reports continued back pain, however finds his function has improved. 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
--- OUTSIDE RECORDS SUMMARY | 2024-07-03 14:01 | XMS_ITS | Encounter Summary ---
Author Organization [facility] Address One [facility] [place] [address] Care Team Providers Care Houseman Name Role Phone Maryse Perry MD Primary Care Provider [phone] Encounter Details Date Type Department Care Team [...] on filedocumented in this encounter Care Teams Houseman Relationship Specialty Start Date End Date Maryse Perry MD [address] [place] [address] PCP - General Family Medicine 11/28/20 documented as of this encounter
--- OUTSIDE RECORDS SUMMARY | 2024-07-03 14:01 | XMS_ITS | Encounter Summary ---
Author Organization [facility] Address [address] [place] [address] Care Team Providers Care Scrap Preparation Supervisor Name Role Phone Maryse Perry MD Primary Care Provider [phone] Encounter Details Date Type Department Care Team (Late st Contact Info) Description 06/02/2024 Lab Requisition [place] Pathology & Laboratory Medicine - [facility] [address] [place], [place] [id number] Outr Resulting Lab, Provider Social History Tobacco [...] Name Priority Date/Time Associated Diagnosis Comments HEPATITIS B SURFACE ANTIGEN Routine 06/02/2024 14:35 EST documented in this encounter Results * HEPATITIS B SURFACE ANTIGEN (06/02/2024 14:35 EST) Hep B Surface Ag Negative Negative 06/05/2024 18:05 EST [facility] Blood VENOUS BLOOD / Unknown 06/02/2024 14:35 EST 06/02/2024 21:54 EST us Provider Outr Resulting Lab CHEMISTRY & BLOOD GA S ORDERABLES Final Result Performing Organization Address City/State/[facility] Co de Phone Number [facility] [address] [place], [place] [address] documented in this encounter Visit Diagnoses Not on filedocumented in this encounter Care Teams Scrap Preparation Supervisor Relationship Specialty Start Date End Date Maryse Perry MD [address] [place] [phone] PCP - General 05/29/15 documented as of this encounter
--- OUTSIDE RECORDS SUMMARY | 2024-07-03 14:01 | XMS_ITS | Encounter Summary ---
Author Organization [facility] Address One [facility] [place] [address] Care Team Providers Care Billet Heater Name Role Phone Maryse Perry MD Primary Care Provider [phone] Encounter Details Date Type Department Care Team [...] on filedocumented in this encounter Care Teams Billet Heater Relationship Specialty Start Date End Date Maryse Perry MD [address] [place] [address] PCP - General Family Medicine 11/28/20 documented as of this encounter
--- OUTSIDE RECORDS SUMMARY | 2024-07-03 14:01 | XMS_ITS | Encounter Summary ---
Author Organization [facility] Address [address] [place] [address] Care Team Providers Care Centrifugal Wax Molder Name Role Phone Maryse Perry MD Primary Care Provider [phone] Encounter Details Date Type Department Care Team (Late st Contact Info) Description 06/09/2021 Lab Requisition [facility] Pathology & Laboratory Medicine - [facility] [address] [place], [place] [id number] Outr Resulting Lab, Provider Social History Tobacco [...] 4th Generation Negative Negative 06/10/2021 10:06 EST [facility] Comment:If acute HIV-1 infec tion is suspected in a high risk patient, submit plasma specimen for HIV-1 RNA quantitation test. Blood VENOUS BLOOD / Unknown 06/09/2021 10:17 EST 06/09/2021 21:38 EST Narrative [facility] - 06/10/2021 10:06 EST Fourth Generation assay performed on the StarSightingsaur XPT. us Provider Outr Resulting Lab IMMUNOLOGY AND SEROL OGY ORDERABLES Final Result [facility] [address] [place] [address] documented in this encounter Visit Diagnoses Not on filedocumented in this encounter Care Teams Centrifugal Wax Molder Relationship Specialty Start Date End Date Maryse Perry MD [address] [place] [phone] PCP - General 05/29/15 documented as of this encounter
--- OUTSIDE RECORDS SUMMARY | 2024-07-03 14:01 | XMS_ITS | Encounter Summary ---
Author Organization [facility] Address [address] [place] [address] Care Team Providers Care Hair Specialist Name Role Phone Maryse Perry MD Primary Care Provider [phone] Encounter Details Date Type Department Care Team (Late st Contact Info) Description 01/03/2021 Lab Requisition [facility] Pathology & Laboratory Medicine - [facility] [address] [place] [address] Jacqui Olmos, DO [address] [place], [place] [address] Encounter for other general examination Social History [...] POLYPECTOMY: - Tubulovillous adenoma. 01/06/2021 17:39 EDT [facility] Attestation By the signature below, the attending physician certifies that they have 1) personally conducted a gross and/or microscopic examination of the described specimen(s), and/or personally interpreted the results of laboratory testing of the described specimen(s), and 2) personally rendered or confirmed the above diagnosis. 01/06/2021 17:39 [facility] at 1739 Clinical History Heme occult positive 01/06/2021 17:39 EDT [facility] Gross Description A. Received in formalin labelled with proper patient identification (initials D, T) and polyp @ 20 cm is a single brown nodular polypoid tissue (0.7 x 0.5 x 0.3 cm). The specimen is bisected and submitted entirely in A1. JESUSITA PRO(ASC) 01/04/2021 13:46 01/06/2021 17:39 EDT [facility] Performing Lab [facility] 01/06/2021 17:39 T [facility] Scanned Images 01/06/2021 17:39 T [facility] Tissue ENTIRE COLON / Unknown 01/03/2021 16:20 EDT 01/03/2021 22:22 EDT us Jacqui Olmos DO PATHOLOGY ORDERABLES Final Re sult [facility] [address] [place] [address] documented in this encounter Visit Diagnoses Diagnosis Encounter for other general examination documented in this encounter Care Teams Hair Specialist Relationship Specialty Start Date End Date Maryse Perry MD [address] [place] [phone] PCP - General 05/29/15 documented as of this encounter
--- OUTSIDE RECORDS SUMMARY | 2024-07-03 14:01 | XMS_ITS | Encounter Summary ---
Author Organization [facility] Address [facility] [place] [address] Care Team Providers Care Engineering Patternmaker Name Role Phone Maryse Perry MD Primary Care Provider [phone] Encounter Details Date Type Department Care Team (Late st Contact Info) Description 10/12/2022 10:00 AM EDT Office Visit Functional Restorationist Program at [facility] [address] [place] [address] Madeeline Durham APRN [facility] [place] [address] Low back pain, non-specific Social History Tobacco [...] Durham APRN - 10/12/2022 10:00 AM EDT [id number] Adrian Guardado 10/12/2022 FUNCTIONAL RSTORATION PROGRAM REHABILITATION [...] non-specific documented in this encounter Care Teams Engineering Patternmaker Relationship Specialty Start Date End Date Maryse Perry MD [address] [place] [address] PCP - General Family Medicine 11/28/20 documented as of this encounter
--- OUTSIDE RECORDS SUMMARY | 2024-07-03 14:01 | XMS_ITS | Encounter Summary ---
Author Organization [facility] [place] [address] Care Team Providers Care Trash Man Name Role Phone Maryse Perry MD Primary Care Provider [phone] Encounter Details Date Type Department Care Team (Late st Contact Info) Description 10/16/2022 10:30 AM EDT Office Visit Functional Yarsanism Program at [facility] [address] [place] [address] Madeleine Durham APRN [facility] [place] [address] Low back pain, non-specific Social History Tobacco [...] included. [facility] Functional Yarsanism Program Discharge Summary Mr. Adrian Guardado [id number] 10/16/2022 I, Zaira Justice, am compiling the information for Madeleine Durham APRN to discuss and review with the patient. Mr. Guardado attended the Functional Yarsanism Program (FRP) from September 22 to October 16, 2022. The FRP combines progressive physical training, pain and disability education, behavioral med icine and vocational/activity planning geared toward achieving personal functional goals. I met with Mr. Guardado for 25 minutes today to discuss his discharge and progress in the Functional Yarsanism Program as written in this note. We [...] carpal tunnel. ?? 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 He??reports there is not??an active worker's compensation claim and/or there??is not??a personal injury claim associated with this injury.?? The progress during the [facility] was remarkable for the following outcomes. 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 Be able to [...] Step routine (mp3 in myDH) Warm Up [place] (mp3 in myDH) Treadmill Rowing Machine Biking [...] Flannery Jr., DPT, Cert MDT 3:[address] 1 Month Follow Up Sunday, November 13, 2022 Tablet Questionnaire LUIS Garcia/Aisha Smart APRN 7:30 AM 8:00 AM 9:[address] [facility] Airplane Engineer 3D [facility] *Please note that your tablet questionnaires can be completed through [facility] the day prior to your appointment. Please plan for a 1-year survey follow-up. I, Madeleine Durham, have reviewed the above compiled information and agree with its accuracy. I spentthe the entire 25 minutes with the patient discussing progress, goals and plans as documented in this note. cc: [place] [phone] Maryse Perry MD [address] [place] [address] Madeleine Durham APRN [facility] [place] [place] [address] documented in this encounter Plan of Treatment Not on file documented as of this encounter Visit Diagnoses Diagnosis Low back pain, non-specific documented in this encounter Care Teams Trash Man Relationship Specialty Start Date End Date Maryse Perry MD [address] [place] [address] PCP - General Family Medicine 11/28/20 documented as of this encounter
--- OUTSIDE RECORDS SUMMARY | 2024-07-03 14:01 | XMS_ITS | Encounter Summary ---
Author Organization [facility] Address One [facility] [place] [address] Care Team Providers Care Assistant Professor Of English Name Role Phone Maryse Peryr MD Primary Care Provider [phone] Reason for Visit * Reason Comments Back Pain Encounter Details Date Type Department Care Team (Late st Contact Info) Description 10/13/2022 11:00 AM EDT Office Visit Functional Jainism Program at [facility] [address] [place] [phone] Jacque Engel, OT Low back pain, non-specific [...] Engel OT - 10/13/2022 11:[address] [facility] Occupational Therapy Note [facility] Day 16 Protocol Subjective: Mr. Guardado returns today for a scheduled follow up appointment with [facility]. He reports feeling good this morning. Objective: Refer to 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
--- OUTSIDE RECORDS SUMMARY | 2024-07-03 14:01 | XMS_ITS | Encounter Summary ---
Author Organization [facility] Address [facility] [place] [address] Care Team Providers Care Lime Supervisor Name Role Phone Maryse Perry MD Primary Care Provider [phone] Encounter Details Date Type Department Care Team (Late st Contact Info) Description 10/15/2022 8:00 AM EDT Office Visit Functional Druze Program at [facility] [address] [place] [phone] Stanley Flannery Jr., PT Low back pain, [...] right neg.,?left neg. Treatment Received: Refer to [facility] protocol for explanation of program/physical therapy details. 1. Therapeutic and Functional Exercise: See [facility] flow sheets for progression. Strengthening and conditioning designed per [facility] protocol was: (x) Completed ( ) [...] 3 minute breathing & Progressive Muscle Relaxation ([employer] Timer Alexandra- Wiliam Markham) - 10 Percent [...] Step routine (mp3 in myDH) Warm Up [place] (mp3 in myDH) Treadmill Rowing Machine Biking [...] sacrum documented in this encounter Care Teams Lime Supervisor Relationship Specialty Start Date End Date Maryse Perry MD [address] [place] [address] PCP - General Family Medicine 11/28/20 documented as of this encounter
--- OUTSIDE RECORDS SUMMARY | 2024-07-03 14:01 | XMS_ITS | Encounter Summary ---
Author Organization [facility] Address [address] [place] [address] Care Team Providers Care Public Safety Dispatcher Name Role Phone Maryse Perry MD Primary Care Provider [phone] Encounter Details Date Type Department Care Team (Late st Contact Info) Description 06/09/2021 Lab Requisition [facility] Pathology & Laboratory Medicine - [facility] [address], [place] [phone] Outr Resulting Lab, Provider Social History Tobacco [...] Negative Negative 06/10/2021 9:48 EST [facility] Blood VENOUS BLOOD / Unknown 06/09/2021 10:17 EST 06/09/2021 21:38 EST us Provider Outr Resulting Lab CHEMISTRY & BLOOD GA S ORDERABLES Final Result [facility] [address] [place] [address] documented in this encounter Visit Diagnoses Not on filedocumented in this encounter Care Teams Public Safety Dispatcher Relationship Specialty Start Date End Date Maryse Perry MD [address] [place] [phone] PCP - General 05/29/15 documented as of this encounter
--- OUTSIDE RECORDS SUMMARY | 2024-07-03 14:01 | XMS_ITS | Encounter Summary ---
Author Organization [facility] Address [address] [place] [address] Care Team Providers Care Technical Project Coordinator Name Role Phone Maryse Perry MD Primary Care Provider [phone] Encounter Details Date Type Department Care Team (Late st Contact Info) Description 02/09/2020 Lab Requisition [facility] Pathology & Laboratory Medicine - [facility] [address] [place], [place] [address] Outr Resulting Lab, Provider Social History Tobacco [...] in accordance with CLIA regulations, College of [employer] Path[employer] (CAP) guidelines (Oct 05, 2019), and FDA guidance (Sep 16, 2019). This test is only for use under the Food and Drug Administration's Emergency Use Authorization. Swab ENTIRE NASOPHARYNX / Unknown 02/09/2020 11:15 EDT 02/09/2020 15:48 EDT us Provider Outr Resulting Lab MICROBIOLOGY - GENER AL ORDERABLES Final Result [facility] [place], [place] * COVID-19 TESTING (02/09/2020 11:15 EDT) [facility] COVID-19 rt-PCR Result NEGATIVE Negative 02/10/2020 23:40 EDT [facility] Comment: 2019-novel Coronavirus (2019-nCoV) not detected [...] in accordance with CLIA regulations, College of [employer] Pathologists (CAP) guidelines (Oct 05, 2019), and FDA guidance (Sep 16, 2019). This test is only for use under the Food and Drug Administration's Emergency Use Authorization. Performing Lab [facility] 02/10/2020 23:40 EDT [facility] Swab 02/09/2020 11:1 5 EDT 02/09/2020 15:48 EDT us Provider Outr Resulting Lab MICROBIOLOGY - GENER AL ORDERABLES Final Result [facility] [address] [place] [address] [facility] [place], [place] documented in this encounter Visit Diagnoses Not on filedocumented in this encounter Care Teams Technical Project Coordinator Relationship Specialty Start Date End Date Maryse Perry MD [address] [place] [phone] PCP - General 05/29/15 documented as of this encounter
--- OUTSIDE RECORDS SUMMARY | 2024-07-03 14:01 | XMS_ITS | Clinical Summary ---
Author Organization [facility] Address One [facility] [place] [address] Care Team Providers Care Puppet Engineer Name Role Phone Maryse Perry MD Primary Care Provider [phone] Allergies Active Allergy Reactions Criticality Noted Date [...] daily. 12/12/2020 Active menthol 16 % Aerosol, [place] Apply topically daily as needed. Active Camphor-Methyl Salicyl-Menthol ([place]) 3-15-5 % Cream Apply topically daily as [...] EDT) Glucose 91 65 - 199 mg/dL [facility] Comment:Diabetes: >=200 mg/d L plus symptoms Blood Urea Nitrogen 15 10 - 20 mg/dL [facility] Creatinine 0.86 0.80 - 1.50 mg/dL [facility] Sodium 141 135 - 145 mmol/L [facility] Potassium 4.4 3.5 - 5.0 mmol/L [facility] Comment: Please note: ??Patients with WBC >100,000 may have falsely elevated Potassium levels. ??For accurate Potassium quantification in these patients send serum separator tube (gold top) for subsequent determinations. ??Contact the Clinical Chemistry Laboratory if there are any questions. Chloride 103 98 - 107 mmol/L [facility] Carbon Dioxide 30 22 - 31 mmol/L [facility] Anion Gap 8 5 - 15 mmol/L [facility] Calcium 9.2 8.5 - 10.5 mg/dL [facility] Protein, Total 6.8 6.1 - 8.0 gm/dL [facility] Albumin 4.6 3.2 - 5.2 gm/dL [facility] Aspartate Aminotransferase 19 0 - 39 unit/L [facility] Alanine Aminotransferase 22 0 - 55 unit/L [facility] Alkaline Phosphatase 66 40 - 130 unit/L [facility] Bilirubin, Total 0.4 0.2 - 1.3 mg/dL [facility] Est Glomerular Filtration Rate 99 >=60 mL/min/1. 73 m?? [facility] Comment: This patient? s estimated glomerular [...] In Lab Rob Díaz MD CHEMISTRY ORDERABLES [facility] [address] [place] [address] from Last 3 Months or Most Recently Relevant to Health Maintenance Care Teams Puppet Engineer Relationship Specialty Start Date End Date Maryse Perry MD [address] [place] [address] PCP - General Family Medicine 11/28/20
--- OUTSIDE RECORDS SUMMARY | 2024-07-03 14:01 | XMS_ITS | Encounter Summary ---
Author Organization [facility] Address [address] [place] [address] Care Team Providers Care Collar Baster Name Role Phone Maryse Perry MD Primary Care Provider [phone] Encounter Details Date Type Department Care Team (Latest Contact Info) Description 03/24/2017 8:55 EDT - 03/24/2017 23:59 EDT Hospital Encounter [address] [address] Unknown, Provider, MD Discharge Disposition: Home or [...] on filedocumented in this encounter Care Teams Collar Baster Relationship Specialty Start Date End Date Maryse Perry MD [address] [place] [phone] PCP - General 05/29/15 documented as of this encounter
--- OUTSIDE RECORDS SUMMARY | 2024-07-03 14:01 | XMS_ITS | Encounter Summary ---
Author Organization [facility] Address [facility] [address] Care Team Providers Care Furniture Duster Name Role Phone Maryse Perry MD Primary Care Provider [phone] Reason for Visit * Reason Comments Back Pain Encounter Details Date Type Department Care Team (Late st Contact Info) Description 10/05/2022 11:00 AM EDT Office Visit Functional Anglican Program at [facility] [address] [place] [phone] Jacque Engel, OT Low back pain, non-specific [...] 11:00 AM EDT [facility] Occupational Therapy Note [facility] Day 10 Protocol Subjective: Mr. Guardado returns today for a scheduled follow up appointment with [facility]. He reports feeling okay, weekend was challenging. Objective: Refer to [facility] protocol for details and explanation [...] non-specific documented in this encounter Care Teams Furniture Duster Relationship Specialty Start Date End Date Maryse Perry MD [address] [place] [address] PCP - General Family Medicine 11/28/20 documented as of this encounter
--- OUTSIDE RECORDS SUMMARY | 2024-07-03 14:01 | XMS_ITS | Encounter Summary ---
Author Organization [facility] Address [address] [place] [address] Care Team Providers Care Front End Loader Driver Name Role Phone Maryse Perry MD Primary Care Provider [phone] Encounter Details Date Type Department Care Team (Late st Contact Info) Description 11/03/2019 Lab Requisition [facility] Path[facility] [address] [place] [address] Miky Meraz MD [address] [place] [phone] Encounter for other general examination Social [...] rt-PCR Result Negative Negative 11/04/2019 15:49 EDT [facility] Comment: Negative results do [...] the FDA is pending. Performed on the [employer] Fast Swab ENTIRE NASOPHARYNX / Unknown 11/03/2019 11:52 EDT 11/03/2019 22:15 EDT Miky Meraz MD MICROBIOLOGY - GENERAL ELENA YAO Final Result [facility] [address] [place] [address] documented in this encounter Visit Diagnoses Diagnosis Encounter for other general examination documented in this encounter Care Teams Front End Loader Driver Relationship Specialty Start Date End Date Maryse Perry MD [address] [place] [phone] PCP - General 05/29/15 documented as of this encounter
--- OUTSIDE RECORDS SUMMARY | 2024-07-03 14:01 | XMS_ITS | Encounter Summary ---
Author Organization [facility] Address One [facility] [place] [address] Care Team Providers Care Advanced Clinical Specialist Name Role Phone Maryse Perry MD Primary Care Provider [phone] Encounter Details Date Type Department Care Team [...] on filedocumented in this encounter Care Teams Advanced Clinical Specialist Relationship Specialty Start Date End Date Maryse Perry MD [address] [place] [address] PCP - General Family Medicine 11/28/20 documented as of this encounter
--- OUTSIDE RECORDS SUMMARY | 2024-07-03 14:01 | XMS_ITS | Encounter Summary ---
Author Organization [facility] Address [address] [place] [address] Care Team Providers Care Senior Business Architect Name Role Phone Maryse Perry MD Primary Care Provider [phone] Encounter Details Date Type Department Care Team (Late st Contact Info) Description 11/26/2020 Lab Requisition [facility] Pathology & Laboratory Medicine - [facility] [address] [place], [place] [phone] Outr Resulting Lab, Provider Social History Tobacco [...] 16:17 EDT) Hold Hold 11/26/2020 17:45 EDT [facility] Blood VENOUS BLOOD / Unknown 11/25/2020 16:17 EDT 11/26/2020 16:43 EDT us Provider Outr Resulting Lab LAB INFO SERVICE AND SUPPORT & PHONE RESULT Final Result [facility] [address] [place] [address] * HOLD SST (11/25/2020 16:17 EDT) Hold Hold 11/26/2020 17:45 EDT [facility] Blood VENOUS BLOOD / Unknown 11/25/2020 16:17 EDT 11/26/2020 16:43 EDT us Provider Outr Resulting Lab LAB INFO SERVICE AND SUPPORT & PHONE RESULT Final Result Performing Organization Address [facility]/ZIP Co de Phone Number [facility] [address] [place] [address] * ANTI NUCLEAR AB (RENETTA), IFA (11/25/2020 16:17 EDT) [facility] RENETTA Interpretation Negative Negative 2020 13:23 EDT [facility] Comment:No titer performed, RENETTA Screen is negative. Blood VENOUS BLOOD / Unknown 11/25/2020 16:17 EDT 11/26/2020 16:42 EDT Narrative [facility] - 11/27/2020 13:23 EDT Results were obtained with the [employer]OVA NOVA Lite HEp-2 RENETTA Kit by indirect immunofluorescence. us Provider Outr Resulting Lab IMMUNOLOGY AND SEROL OGY ORDERABLES Final Result Performing Organization Address [facility]/ZIP Co de Phone Number [facility] [address] [place] [address] * CCP ANTIBODIES (11/25/2020 16:17 EDT) CCP Antibodies <2.5 <5.0 U/mL 11/27/2020 10:09 EDT [facility] Blood VENOUS BLOOD / Unknown 11/25/2020 16:17 EDT 11/26/2020 16:42 EDT us Provider Outr Resulting Lab IMMUNOLOGY AND SEROL OGY ORDERABLES Final Result Performing Organization Address [facility] de Phone Number [facility] [address] [place] [address] * CELIAC DISEASE PANEL (11/25/2020 16:17 EDT) Tissue Transglutaminase Antibody IGA <1.2 <4.0 U/mL 11/27/2020 13:26 EDT [facility] Comment: A negative result may be due to IgA deficiency and does not rule out celiac disease. ? Negative: ??<4.0 U/mL ? Weak Positive: ??4.0 - 10.0 U/mL ? Positive: ??>10.0 U/mL Results were obtained with the [employer] QUANTA Lite R h-tTG IgA VANITA assay on the Selphee DSX. IgA 186 85 - 499 mg/dL 11/27/2020 13:26 EDT [facility] Celiac Disease Interpretation Negative Serology. Celiac disease unlikely. Approximately 10% of patients with celiac disease are seronegative. Patients who are already adhering to a gluten-free diet may also be seronegative. If celiac disease is highly clinically suspected, referral to gastroenterology for additional evaluation is recommended. 11/27/2020 13:26 EDT [facility] Blood VENOUS BLOOD / Unknown 11/25/2020 16:17 EDT 11/26/2020 16:42 EDT us Provider Outr Resulting Lab IMMUNOLOGY AND SEROL OGY ORDERABLES Final Result Performing Organization Address [facility]/ZIP Co de Phone Number [facility] [address] [place] [address] documented in this encounter Visit Diagnoses Not on filedocumented in this encounter Care Teams Senior Business Architect Relationship Specialty Start Date End Date Maryse Perry MD [address] [place] [phone] PCP - General 05/29/15 documented as of this encounter
--- OUTSIDE RECORDS SUMMARY | 2024-07-03 14:01 | XMS_ITS | Encounter Summary ---
Author Organization [facility] Address [facility] [place] [address] Care Team Providers Care Hvac Instructor Name Role Phone Maryse Perry MD Primary Care Provider [phone] Encounter Details Date Type Department Care Team (Late st Contact Info) Description 10/12/2022 8:00 AM EDT Office Visit Functional Christianity Program at [facility] [address] [place] [phone] Stanley Flannery Jr., PT Low back pain, [...] 3 minute breathing & Progressive Muscle Relaxation ([employer] Timer Alexandra- Wiliam Markham) - 10 Percent [...] Step routine (mp3 in myDH) Warm Up [place] (mp3 in myDH) Treadmill Rowing Machine Biking [...] exercises, and relaxation techniques to continue for terminal computer operator gains. Establishedself-care Flare-up plan. Adrian understands the [...] Be able to bend over to load jet aircraft servicer, reach for dog bowl, ??Be able to [...] sacrum documented in this encounter Care Teams Hvac Instructor Relationship Specialty Start Date End Date Maryse Perry MD [address] [place] [address] PCP - General Family Medicine 11/28/20 documented as of this encounter
--- OUTSIDE RECORDS SUMMARY | 2024-07-03 14:01 | XMS_ITS | Encounter Summary ---
Author Organization [facility] Address [facility] [place] [address] Care Team Providers Care Mold Repair Technician Name Role Phone Maryse Perry MD Primary Care Provider [phone] Encounter Details Date Type Department Care Team (Late st Contact Info) Description 10/02/2022 8:00 AM EDT Office Visit Functional Islam Program at [facility] [address] [place] [phone] Serenity Smart, SENIOR ENGINEER [facility] [place] [address] Low back pain, non-specific; Radiculopathy of lumbar [...] of??migraine headaches daily. Has been having headaches. [place] that he may have had less earringing [...] and is feeling better. PLAN; Continued functional jew for chief complaint of lower back and [...] sacrum documented in this encounter Care Teams Mold Repair Technician Relationship Specialty Start Date End Date Maryse Perry MD [address] [place] [address] PCP - General Family Medicine 11/28/20 documented as of this encounter
--- OUTSIDE RECORDS SUMMARY | 2024-07-03 14:01 | XMS_ITS | Encounter Summary ---
Author Organization [facility] Address [facility] [place] [address] Care Team Providers Care Group Social Worker Name Role Phone Maryse Perry MD Primary Care Provider [phone] Reason for Visit * Reason Comments Back Pain Encounter Details Date Type Department Care Team (Late st Contact Info) Description 10/02/2022 11:00 AM EDT Office Visit Functional Taoist Program at [facility] [address] [place] [phone] Lena Maguire OTA Low back pain, non-specific [...] 11:00 AM EDT P Occupational Therapy Note [facility] Day 9 Protocol Subjective: Mr. Guardado returns today for a scheduled follow up appointment with [facility]. He reports that he is ok with the peg activity although it is challenging. Objective: Refer to [facility] protocol for details and explanation [...] non-specific documented in this encounter Care Teams Group Social Worker Relationship Specialty Start Date End Date Maryse Perry MD [address] [place] [address] PCP - General Family Medicine 11/28/20 documented as of this encounter
--- OUTSIDE RECORDS SUMMARY | 2024-07-03 14:01 | XMS_ITS | Encounter Summary ---
Author Organization [facility] Address [address] [place] [address] Care Team Providers Care Chief Digital Officer Name Role Phone Maryse Perry MD Primary Care Provider [phone] Encounter Details Date Type Department Care Team (Late st Contact Info) Description 06/02/2024 Lab Requisition [facility] Pathology & Laboratory Medicine - [facility] [address], [place] [id number] Outr Resulting Lab, Provider Social History Tobacco [...] Procedure Name Priority Date/Time Associated Diagnosis Comments HOLD SST Today 06/02/2024 14:35 EST HOLD SST Today 06/02/2024 14:35 EST MEASLES IGG AB Today 06/02/2024 14:35 EST RUBELLA IGG ANTIBODY Today 06/02/2024 14:35 EST MUMPS ANTIBODY IGG Today 06/02/2024 14 :35 EST documented in this encounter Results * HOLD SST (06/02/2024 14:35 EST) Hold Hold 06/02/2024 23:01 EST [facility] Blood VENOUS BLOOD / Unknown 06/02/2024 14:35 EST 06/02/2024 21:54 EST us Provider Outr Resulting Lab LAB INFO SERVICE AND SUPPORT & PHONE RESULT Final Result Performing Organization Address City/[facility]/ZIP Co de Phone Number [facility] [address] [place] [address] * HOLD SST (06/02/2024 14:35 EST) Hold Hold 06/02/2024 23:01 EST [facility] Blood VENOUS BLOOD / Unknown 06/02/2024 14:35 EST 06/02/2024 21:54 EST us Provider Outr Resulting Lab LAB INFO SERVICE AND SUPPORT & PHONE RESULT Final Result Performing Organization Address [facility] Co de Phone Number [facility] [address] [place] [address] * MEASLES IGG AB (06/02/2024 14:35 EST) Pathologist [facility] Measles IgG Ab Positive See Note 06/05/2024 11:08 EST [facility] Comment:Presence of detectab le measles virus IgG antibodies. Blood VENOUS BLOOD / Unknown 06/02/2024 14:35 EST 06/02/2024 21:54 EST us Provider Outr Resulting Lab IMMUNOLOGY AND SEROL OGY ORDERABLES Final Result Performing Organization Address [facility] Co de Phone Number [facility] [address] [place] [address] * MUMPS ANTIBODY IGG (06/02/2024 14:35 EST) Mumps Antibody IgG Negative See Note 06/05/2024 11:08 EST [facility] Comment:Absence of detectabl e mumps virus IgG antibodies. A negative result generally indicates that the patient is susceptible to mumps. Blood VENOUS BLOOD / Unknown 06/02/2024 14:35 EST 06/02/2024 21:54 EST us Provider Outr Resulting Lab IMMUNOLOGY AND SEROL OGY ORDERABLES Final Result Performing Organization Address [facility] Co de Phone Number [facility] [address], [place] [phone] * RUBELLA IGG ANTIBODY (06/02/2024 14:35 EST) Rubella IgG Ab Negative See Note 06/05/2024 11:14 EST [facility] Comment:Sample is considered negative for [...] S ORDERABLES Final Result Performing Organization Address [facility] Co de Phone Number [facility] [address] [place] [phone] documented in this encounter Visit Diagnoses Not on filedocumented in this encounter Care Teams Chief Digital Officer Relationship Specialty Start Date End Date Maryse Perry MD [address] [place] [phone] PCP - General 05/29/15 documented as of this encounter
--- OUTSIDE RECORDS SUMMARY | 2024-07-03 14:01 | XMS_ITS | Encounter Summary ---
Author Organization [facility] [place] [address] Care Team Providers Care Hairspring Inspector Name Role Phone Maryse Perry MD Primary Care Provider [phone] Encounter Details Date Type Department Care Team (Late st Contact Info) Description 10/07/2022 8:00 AM EDT Office Visit Functional Scientologist Program at [facility] [address] [place] [phone] Stanley Flannery Jr., PT Low back pain, [...] session. Plan: Return for follow up with [facility] per protocol. Length of visit: Participated [...] Be able to bend over to load sawmill hand, reach for dog bowl, ??Be able [...] unspecified documented in this encounter Care Teams Hairspring Inspector Relationship Specialty Start Date End Date Maryse Perry MD [facility] [address] [place] [address] PCP - General Family Medicine 11/28/20 documented as of this encounter
--- OUTSIDE RECORDS SUMMARY | 2024-07-03 14:01 | XMS_ITS | Encounter Summary ---
Author Organization [facility] Address [facility] [place] [address] Care Team Providers Care Food Service Technician Name Role Phone Maryse Perry MD Primary Care Provider [phone] Reason for Visit * Reason Comments Back Pain Encounter Details Date Type Department Care Team (Late st Contact Info) Description 10/08/2022 11:00 AM EDT Office Visit Functional Latter-Day Program at [facility] [address] [place] [phone] Jacque Engel, OT Low back pain, non-specific [...] EDT P Occupational Therapy Note [facility] Day 13 Protocol Subjective: Mr. Guardado returns today for a scheduled follow up appointment with [facility]. He reports feeling okay, sore as usual. Objective: Refer to [facility] protocol for details and explanation [...] intervention with individualized cues provided. Lena Maguire PTA/JAMSEON, present and assisting in supervision of session. [...] Be able to bend over to load smoking tobacco cutter operator, reach for dog bowl, ??Be able to sleep for 6hrs continuously documented in this encounter Plan of Treatment Not on file documented as of this encounter Visit Diagnoses Diagnosis Low back pain, non-specific documented in this encounter Care Teams Food Service Technician Relationship Specialty Start Date End Date Maryse Perry MD [address] [place] [address] PCP - General Family Medicine 11/28/20 documented as of this encounter
--- OUTSIDE RECORDS SUMMARY | 2024-07-03 14:01 | XMS_ITS | Encounter Summary ---
Author Organization [facility] Address [address] [facility] [address] Care Team Providers Care Paring Machine Operator Name Role Phone Maryse Perry MD Primary Care Provider [phone] Reason for Visit * Reason Comments Back Pain Encounter Details Date Type Department Care Team (Late st Contact Info) Description 10/15/2022 11:00 AM EDT Office Visit Functional Worship Program at [facility] [address] [place] [phone] Jacque Engel, OT Low back pain, non-specific [...] FRP Occupational Therapy Note [facility]P Re-evaluation/Final Testing [facility] Day 18 Protocol Subjective: Mr. Guardado returns today for a scheduled follow up appointment with [facility]. He reports he is feeling good [...] continue progressing his functional capacities after discharge. [facility] Occupational Performance Measure Results - 3 Month [...] Be able to bend over to load mold hoister, reach for dog bowl, 2 2 Met [...] provided by both an Occupational Therapist and Tar Pot Worker, [place] documented in this encounter Plan of Treatment Not on file documented as of this encounter Visit Diagnoses Diagnosis Low back pain, non-specific documented in this encounter Care Teams Paring Machine Operator Relationship Specialty Start Date End Date Maryse Perry MD [address] [place] [address] PCP - General Family Medicine 11/28/20 documented as of this encounter
--- OUTSIDE RECORDS SUMMARY | 2024-07-03 14:01 | XMS_ITS | Encounter Summary ---
Author Organization [facility] [place] [address] Care Team Providers Care Tire Stripper Name Role Phone Maryse Perry MD Primary Care Provider [phone] Encounter Details Date Type Department Care Team (Late st Contact Info) Description 10/14/2022 8:00 AM EDT Office Visit Functional Orthodox Program at [facility] [address] [place] [phone] Stanley Flannery Jr., PT Low back pain, [...] session. Plan: Return for follow up with [facility] per protocol. Length of [...] Be able to bend over to load pricing supervisor, reach for dog bowl, ??Be able to [...] sciatica documented in this encounter Care Teams Tire Stripper Relationship Specialty Start Date End Date Maryse Perry MD [facility] [address] [place] [address] PCP - General Family Medicine 11/28/20 documented as of this encounter
--- OUTSIDE RECORDS SUMMARY | 2024-07-03 14:01 | XMS_ITS | Encounter Summary ---
Author Organization [facility] Address [address] [facility] [place] [address] Care Team Providers Care It Generalist Name Role Phone Maryse Perry MD Primary Care Provider [phone] Encounter Details Date Type Department Care Team (Late st Contact Info) Description 10/05/2022 8:00 AM EDT Office Visit Functional Worship Program at [facility] [address] [place] [phone] Stanley Flannery Jr., PT Low back pain, [...] session. Plan: Return for follow up with [facility] per protocol. Length of visit: Participated [...] Be able to bend over to load inside sales lead, reach for dog bowl, ??Be able to [...] sciatica documented in this encounter Care Teams It Generalist Relationship Specialty Start Date End Date Maryse Perry MD [address] [facility] [address] [place] [address] PCP - General Family Medicine 11/28/20 documented as of this encounter
--- OUTSIDE RECORDS SUMMARY | 2024-07-03 14:01 | XMS_ITS | Encounter Summary ---
Author Organization [facility] Address [address] [place] [address] Care Team Providers Care Retail Cashier Name Role Phone Unavailable Primary Care Provider Unavailabl e Encounter Details Date Type Department Care Team (Late st Contact Info) Description 02/24/2001 Results Only [facility] [address] [place] [address] Jewel Hamilton MD [address] [place] [address] Social History Tobacco Use Types [...] ? ADRIAN SPICER ? Accession #: ? [id number] ? : ? 1965 (Age: 35) ??M [...] a wall thickness of 0.1 cm. ??Two digital media representative cross sections are submitted as (A). Received in formalin labelled Debby and #2 L vas deferens is a garcía-white cylindrically shaped fragment of tissue that measures 1.1 cm in length and 0.2 cm in diameter. ??Serial sectioning reveals a pinpoint lumen with a wall thickness of 0.1 cm. ??Two digital media representative cross sections are submitted as (B). (Dr. Green-PL)/mhd End of Report [facility] 02/24/2001 02/28/2001 15: 51 EDT us Jewel Hamilton MD PATHOLOGY ORDERABLES Final Resul t [facility] [address] [place] [address] documented in this encounter Visit Diagnoses Not on filedocumented in this encounter
--- OUTSIDE RECORDS SUMMARY | 2024-07-03 14:01 | XMS_ITS | Encounter Summary ---
Author Organization [facility] Address One [facility] [place] [address] Care Team Providers Care Rn Lpn Lvn Name Role Phone Maryse Perry MD Primary Care Provider [phone] Reason for Visit * Reason Comments Back Pain Encounter Details Date Type Department Care Team (Late st Contact Info) Description 10/07/2022 11:00 AM EDT Office Visit Functional Latter Day Program at [facility] [address] [place] [phone] Jacque Engel, OT Low back pain, non-specific [...] 11:00 AM EDT FRP Occupational Therapy Note [facility] Day 12 Protocol Subjective: Mr. Guardado returns today for a scheduled follow up appointment with [facility]. He reports feeling sore today. Objective: Refer to [facility] protocol for details and explanation [...] that he has been practicing while at [facility], and how he will incorporate them into his individual self-care plan. Continued to discuss the process of developing a specific home program with Mr. Guardado for him tocontinue progressing his functional capacities after discharge. Mr. Guardado was oriented to the resources provided in the program binder that describe the variouscardio, stretching, and strengthening exercises completed during [facility] that can be incorporated into their home-based [...] Be able to bend over to load sharepoint administrator, reach for dog bowl, ??Be able to sleep for 6hrs continuously ?? documented in this encounter Plan of Treatment Not on file documented as of this encounter Visit Diagnoses Diagnosis Low back pain, non-specific documented in this encounter Care Teams Rn Lpn Lvn Relationship Specialty Start Date End Date Maryse Perry MD [address] [place] [address] PCP - General Family Medicine 11/28/20 documented as of this encounter
--- OUTSIDE RECORDS SUMMARY | 2024-07-03 14:01 | XMS_ITS | Encounter Summary ---
Author Organization [facility] Address [address] [place] [address] Care Team Providers Care Refrigeration Engineer Name Role Phone Maryse Perry MD Primary Care Provider [phone] Encounter Details Date Type Department Care Team (Late st Contact Info) Description 09/02/2020 Lab Requisition [facility] Pathology & Laboratory Medicine - [facility] [address] [place], [place] [phone] Outr Resulting Lab, Provider Social History Tobacco [...] MICROBIOLOGY - GENER AL ORDERABLES Final Result [facility] [address] [place] [address] * COVID-19 TESTING (09/02/2020 13:43 EST) COVID-19 rt-PCR Result Negative Negative 09/03/2020 19:32 EST [facility] Comment: This test was developed and its performance characteristics determined by [facility]. It has not been cleared or approved [...] testing. This test is based on the [facility] COVID-19 Emergency Use Authorization (EUA) assay, with minor modification as defined by the FDA Performed on the Elite Form Pro RT-PCR System. This test has not [...] history, and epidemiological information. Performing Lab [facility] 09/03/2020 19:32 EST [facility] Swab 09/02/2020 13:4 3 EST 09/02/2020 20:51 EST us Provider Outr Resulting Lab MICROBIOLOGY - GENER AL ORDERABLES Final Result Performing Organization Address City/[facility]/ZIP Co de Phone Number [facility] [address] [place] [address] documented in this encounter Visit Diagnoses Not on filedocumented in this encounter Care Teams Refrigeration Engineer Relationship Specialty Start Date End Date Maryse Perry MD [address] [place] [phone] PCP - General 05/29/15 documented as of this encounter
--- OUTSIDE RECORDS SUMMARY | 2024-07-03 14:01 | XMS_ITS | Encounter Summary ---
Author Organization [facility] Address [facility] [place] [address] Care Team Providers Care Preparation Supervisor Name Role Phone Maryse Perry MD Primary Care Provider [phone] Encounter Details Date Type Department Care Team (Late st Contact Info) Description 10/08/2022 8:00 AM EDT Office Visit Functional Adventist Program at [facility] [address] [place] [phone] Stanley Flannery Jr., PT Low back pain, [...] session. Plan: Return for follow up with [facility] per protocol. Length of visit: Participated [...] Be able to bend over to load research chemical engineer, reach for dog bowl, ??Be able [...] sacrum documented in this encounter Care Teams Preparation Supervisor Relationship Specialty Start Date End Date Maryse Perry MD [address] [facility] [address] [place] [address] PCP - General Family Medicine 11/28/20 documented as of this encounter
--- OUTSIDE RECORDS SUMMARY | 2024-07-03 14:01 | XMS_ITS | Encounter Summary ---
Author Organization [facility] Address [facility] [place] [address] Care Team Providers Care Lawn Mower Operator Name Role Phone Maryse Perry MD Primary Care Provider [phone] Encounter Details Date Type Department Care Team (Late st Contact Info) Description 10/06/2022 8:00 AM EDT Office Visit Functional Yazidism Program at [facility] [address] [place] [phone] Stanley Flannery Jr., PT Low back pain, [...] Be able to bend over to load lung gun operator, reach for dog bowl, ??Be able [...] sacrum documented in this encounter Care Teams Lawn Mower Operator Relationship Specialty Start Date End Date Maryse Perry MD [address] [facility] [address] [place] [address] PCP - General Family Medicine 11/28/20 documented as of this encounter
--- OUTSIDE RECORDS SUMMARY | 2024-07-03 14:02 | XMS_ITS | Encounter Summary ---
Author Organization [facility] Address [facility] [place] [address] Care Team Providers Care Insurance Administrator Name Role Phone Maryse Perry MD Primary Care Provider [phone] Encounter Details Date Type Department Care Team (Late st Contact Info) Description 09/14/2022 Telephone Pain and Spine Center at [facility] [place] [address] Zaira Justice Social History Tobacco Use Types [...] confirmation of enrollment in the upcoming Functional Zoroastrianism Program for dates 09/22 -10/16 Invitation Packet [...] know the following information: Hybrid Capability: Yes [facility] Account: Active Wifi: Yes (Yes, No, [...] is of utmost importance to the Functional Zoroastrianism Program (FRP). documented in this encounter Plan of Treatment Not on file documented as of this encounter Visit Diagnoses Not on filedocumented in this encounter Care Teams Insurance Administrator Relationship Specialty Start Date End Date Maryse Perry MD [address] [place] [address] PCP - General Family Medicine 11/28/20 documented as of this encounter
--- OUTSIDE RECORDS SUMMARY | 2024-07-03 14:02 | XMS_ITS | Encounter Summary ---
Author Organization [facility] Address One [facility] [place] [address] Care Team Providers Care Predatory Hunter Name Role Phone Maryse Perry MD Primary Care Provider [phone] Encounter Details Date Type Department Care Team [...] on filedocumented in this encounter Care Teams Predatory Hunter Relationship Specialty Start Date End Date Maryse Perry MD [address] [place] [address] PCP - General Family Medicine 11/28/20 documented as of this encounter
--- OUTSIDE RECORDS SUMMARY | 2024-07-03 14:02 | XMS_ITS | Encounter Summary ---
Author Organization [facility] [place] [address] Care Team Providers Care Retail Merchandising Specialist Name Role Phone Maryse Perry MD Primary Care Provider [phone] Encounter Details Date Type Department Care Team (Late st Contact Info) Description 08/31/2022 2:00 PM EST Office Visit Pain and Spine Center at [facility] [place] [address] [facility] [place] [address] Sacro-iliac pain Social History Tobacco Use Types [...] Care interdisciplinary treatment options, including the Functional Mormon Program or Pain Coaching documented in this encounter Plan of Treatment Not on file documented as of this encounter Visit Diagnoses Diagnosis Sacro-iliac pain Disorders of sacrum documented in this encounter Care Teams Retail Merchandising Specialist Relationship Specialty Start Date End Date Maryse Perry MD [facility] [address] [place] [address] PCP - General Family Medicine 11/28/20 documented as of this encounter
--- OUTSIDE RECORDS SUMMARY | 2024-07-03 14:02 | XMS_ITS | Encounter Summary ---
Author Organization [facility] Address [facility] [place] [address] Care Team Providers Care Quantitative Research Analyst Name Role Phone Maryse Perry MD Primary Care Provider [phone] Encounter Details Date Type Department Care Team (Late st Contact Info) Description 09/29/2022 11:00 AM EDT Office Visit Functional Worship Program at [facility] [address] [place] [phone] Jacque Engel, OT Low back pain, non-specific [...] Engel OT - 09/29/2022 11:00 AM EDT [facility] Occupational Therapy Note [facility] Day 6 Protocol Subjective: Mr. Guardado returns today for a scheduled follow up appointment with [facility]. He reports no new complaints today. Half day of program today due to inclement weather. Objective: Refer to [facility] protocol for details and explanation of each [...] hour??with inclines, Be able to start up [employer], be ableto cut, stack wood, Be able to garden Daily Living:?Be able to vacuum, Be able to bend over to load participant administrator, reach for dog bowl, ??Be able to sleep for 6hrs continuously ? documented in this encounter Plan of Treatment Not on file documented as of this encounter Visit Diagnoses Diagnosis Low back pain, non-specific documented in this encounter Care Teams Quantitative Research Analyst Relationship Specialty Start Date End Date Maryse Perry MD [address] [place] [address] PCP - General Family Medicine 11/28/20 documented as of this encounter
--- OUTSIDE RECORDS SUMMARY | 2024-07-03 14:02 | XMS_ITS | Encounter Summary ---
Author Organization [facility] Address [facility] [place] [address] Care Team Providers Care Distribution Manager Name Role Phone Maryse Perry MD Primary Care Provider [phone] Reason for Referral * Consultation (Routine) - Closed Specialty Diagnoses / Procedures Referred By Adolfo lopez Referred To Contact [facility] Diagnoses Radiculopathy of lumbar region Chronic bilateral low back pain with bilateral sciatica Moises Rayo PA [facility] [place] [address] [facility] [place] [address] Referral ID Status Reason Start Date Expiration Date V isits Requested Visits Authorized [id number] Closed Consult, Test & Treat 04/16/2022 04/16/2023 3 3 Encounter Details Date Type Department Care Team (Late st Contact Info) Description 04/16/2022 Orders Only [place] [phone] Moises Rayo PA [facility] [place] [address] Radiculopathy of lumbar region; Chronic [...] would like to have this scheduled at [facility]. [facility] informed of the above, he [...] sciatica documented in this encounter Care Teams Distribution Manager Relationship Specialty Start Date End Date Maryse Perry MD [address] [place] [address] PCP - General Family Medicine 11/28/20 documented as of this encounter
--- OUTSIDE RECORDS SUMMARY | 2024-07-03 14:02 | XMS_ITS | Encounter Summary ---
Author Organization [facility] [place] [address] Care Team Providers Care Front Maker Name Role Phone Maryse Perry MD Primary Care Provider [phone] Reason for Visit * Auth/Cert (Routine) Specialty Diagnoses / Procedures Referred By Adolfo lopez Referred To Contact Diagnoses SI dysfunction Procedures PRO INJECTION, SACROILIAC JOINT INJECTION PROCEDURE, SACROILIAC JOINT (WRVU 1.48) Hiren Hickey MD [facility] [place] [address] [facility] Referral ID Status Reason Start Date Expiration Date Visits Re quested Visits Authorized [id number] 1 1 Encounter Details Date Type Department Care Team (Late st Contact Info) Description 07/01/2022 3:30 PM EST - 07/01/2022 4:00 PM EST [place] [phone] Hiren Hickey MD [facility] [place] [address] INJECTION PROCEDURE, SACROILIAC JOINT (WRVU 1.48) Social [...] 2 times daily. menthol 16 % Aerosol, [place] Apply topically daily as needed. Camphor-Methyl Salicyl-Menthol ([place]) 3-15-5 % Cream Apply topically daily as [...] by Randy Can MD at [facility] MAIN OR ??? PRO LAMINOTOMY, LUMBAR DISK, 1 INTRSP Left 05/07/2020 LAMINOTOMY, DECOMPRESSION, FORAMINOTOMY, LUMBAR (WRVU 13.18) performed by Randy Can MD at [facility] OR ??? PRO MICROSURG TECHNIQUES, REQ OPER MICROSCOPE Left 05/07/2020 MICROSCOPE USE (WRVU 3.46) performed by Randy Can MD at [facility] OR FAMILY HISTORY: No family history [...] Tree and shrub pollen MEDICATIONS: Medications 07/01/22 4621 Medication Sig Taking? amLODIPine (Norvasc) 10 mg [...] needed. Salon paws menthol 16 % Aerosol, [place] Apply topically daily as needed. Camphor-Methyl Salicyl-Menthol ([place]) 3-15-5 % Cream Apply topically daily as [...] Bonilla MD MPH PGY5 Pain Management Fellow [address] [address] / [facility] I have seen and examined the patient and reviewed the fellow's above history and agree with the details as written. The assessment and plan were formulated in discussion with me, and I agree with them as documented. Hiren Hickey MD, MS Annual Campaign Manager of Anesthesiology [facility] [address] [address] / [facility] documented in this encounter Miscellaneous Notes * Op Note - Hiren Hickey MD - 07/01/2022 4:33 PM EST Pain Management Operative Note Patient Name: Adrian Guardado : [id number] MR#: [id number] Case Date: 07/01/2022 Surgeon: Surgeon(s) and Role: [...] the entire procedure. Hiren Hickey MD, MS Annual Campaign Manager of Anesthesiology [facility] [address] [address] / [facility] CC: JESUSITA Roe [facility] [place] [place] [address] documented in this encounter Plan of Treatment Not on file documented as of this encounter Procedures Procedure Name Priority Date/Time Associated Diagnosis Comments Injection, Sacroiliac Joint (91426) 07/01/2022 4:28 PM EST Sacro-iliac pain INJECTION [...] SIJ) documented in this encounter Care Teams Front Maker Relationship Specialty Start Date End Date Maryse Perry MD [facility] [address] [facility] [address] [place] [address] PCP - General Family Medicine 11/28/20 documented as of this encounter
--- OUTSIDE RECORDS SUMMARY | 2024-07-03 14:02 | XMS_ITS | Encounter Summary ---
Author Organization [facility] Address [facility] [place] [address] Care Team Providers Care Power Sweeper Operator Name Role Phone Maryse Perry MD Primary Care Provider [phone] Reason for Visit * Reason Onset Date Comments Questions 04/25/2021 Encounter Details Date Type Department Care Team (Late st Contact Info) Description 04/25/2021 Telephone Neurology at [facility] [place] [phone] Rob Díaz MD [facility] [place] [address] Questions Social History Tobacco Use Types Packs/Day [...] to return call to: Eduin Cobian, RN, [facility] Neurology, . * Telephone Encounter - Alex Pena - 04/25/2021 8:58 AM EDT Call Center / [place] Message - General Issue Call Provider patient sees in Clinic: Rob Díaz Caller and relationship (if other than patient-full name): [employer] and position if other than patient or family: n/a Call back number: [phone] Ok to leave a message: yes Reason for call: Pt stated he is wondering what the next steps are. Pt stated he is still experiencing nerve pain and would like to schedule a fuv. Pt stated he is still waiting for the MRI result. Please call to discuss. Disposition of Call (choose one and remove others) Routine Message sent to the Nurse: Nurse/[place] contacted via: Message: y Call: n Pager: n documented in this encounter Plan of Treatment Not on file documented as of this encounter Visit Diagnoses Not on filedocumented in this encounter Care Teams Power Sweeper Operator Relationship Specialty Start Date End Date Maryse Perry MD [address] [place] [address] PCP - General Family Medicine 11/28/20 documented as of this encounter
--- OUTSIDE RECORDS SUMMARY | 2024-07-03 14:02 | XMS_ITS | Encounter Summary ---
Author Organization [facility] Address [facility] [place] [address] Care Team Providers Care Operations Architect Name Role Phone Maryse Perry MD Primary Care Provider [phone] Encounter Details Date Type Department Care Team (Late st Contact Info) Description 09/14/2022 Telephone Functional Yazidism Program at [facility] [address] [place] [phone] Lena Maguire, REACTOR FUELING SUPERVISOR Social History Tobacco Use Types Packs/Day Years [...] Notes * Telephone Encounter - Lena Maguire, REACTOR FUELING SUPERVISOR - 09/14/2022 3:14 PM EST Spoke with Adrian Guardado, who is recommended and medically cleared for the Functional Yazidism Program. He hopes to attend the September 22, 2022-October 16, 2022 program and authorized a printing sales representative of [facility] to contact his insurance provider to help determine his eligibility and costs to participate. Notified him that if he wishes to proceed with these plans, he will need to receive a formal invitation in the mail and must respond by phone to confirm attendance prior to the start of [facility] Day 1. An [facility] staff member offered to call the patient's insurance carrier with the list of CPT codes to verify to the best of their ability that the codes: 1) Are covered by their carrier 2) Do not require Prior Authorization This does not guarantee coverage or any official cost of the Functional Yazidism Program. Ultimately, verification of coverage and prior [...] over the phone. PRIMARY INSURANCE Insurance Carrier: [employer] Plan: [employer], a division of [employer] Carrier Plan Phone #: [phone] Group Number: [id number] Subscriber Name: Maribel Gaurdado Insurance Type: Commercial Patient Relation to Subscriber: Spouse/Significant Other Call to carrier made by [facility] staff member: Lena Maguire Call date: 09/07/22 Reference #: [id number] (Online 09/04/2022) Ref #[id number] Add'l eval 8816 Contract with [facility] Provider In-Network? Yes Eligibility Date (Benefits reset): February 16 Benefits Applies to Medical Provider (MD YARI) and Therapy visits: $20 co-pay per visit until Out Of Pocket Max met Out of Pocket Max Individual $1000 ($280 met/$720 left)* Per [employer], $720 left in OOP Max applies for FRP Family $2000 ($380 met/$1620 left) OT/PT/DISH STACKER: 60 Joint visits per year ; 0 used) CPT codes Coverage and Prior authorization check: (* any that are cause for concern) PT/OT require pre-authorization? No PT/OT codes covered? Yes [address] [place] [address] Neuro Re-education (93677 Manual Therapy) 72308 Group Therapy 29295 PT Eval - Moderate Complexity 75674 OT Eval - Moderate Complexity 74976 Ther Act 76683 Tests and Measures Medical Provider require pre-authorization? No Medical Provider codes covered? No 84828 Level 3 Estab patient 20064 Level 4 Estab patient 93674 Rehabilitation training (Provider Discussion/Lecture) - Conf # [id number] No prior approval neededbut will be reviewed Estimated patient financial liability is: $720 in copays for just FRP visits. Enough for 19 FRP days and 2 follow up visits? Therapy Yes Medical Yes Estimated FRP PT/OT [id number] cost $720 Yes Spoke with pt to review financial implications and discuss payment plan or [place] if indicated. Estimate given with best information available in good isatu but with no guarantee. Final charges may differ. It is recommended that the patient follow up directly with insurer with any additional questions. documented in this encounter Plan of Treatment Not on file documented as of this encounter Visit Diagnoses Not on filedocumented in this encounter Care Teams Operations Architect Relationship Specialty Start Date End Date Maryse Perry MD [facility] [address] [place] [address] PCP - General Family Medicine 11/28/20 documented as of this encounter
--- OUTSIDE RECORDS SUMMARY | 2024-07-03 14:02 | XMS_ITS | Encounter Summary ---
Author Organization [facility] Address [facility] [place] [address] Care Team Providers Care Manager Helpdesk Name Role Phone Maryse Perry MD Primary Care Provider [phone] Encounter Details Date Type Department Care Team (Late st Contact Info) Description 06/23/2022 Telephone [place] [phone] Letha Ramos LNA Social History Tobacco Use [...] and change appt with Dr Young to [place] or to Jul 27 2022 in person documented in this encounter Plan of Treatment Not on file documented as of this encounter Visit Diagnoses Not on filedocumented in this encounter Care Teams Manager Helpdesk Relationship Specialty Start Date End Date Maryse Perry MD [address] [place] [address] PCP - General Family Medicine 11/28/20 documented as of this encounter
--- OUTSIDE RECORDS SUMMARY | 2024-07-03 14:02 | XMS_ITS | Encounter Summary ---
Author Organization [facility] Address One [facility] [place] [address] Care Team Providers Care Gallery Assistant Name Role Phone Maryse Perry MD Primary Care Provider [phone] Encounter Details Date Type Department Care Team (Late st Contact Info) Description 09/23/2022 8:00 AM EST Office Visit Functional Scientology Program at [facility] [address] [place] [phone] Stanley Flannery Jr., PT Low back pain, [...] Be able to bend over to load oil dipper, reach for dog bowl, ??Be able to [...] sacrum documented in this encounter Care Teams Gallery Assistant Relationship Specialty Start Date End Date Maryse Perry MD [address] [facility] [address] [place] [address] PCP - General Family Medicine 11/28/20 documented as of this encounter
--- OUTSIDE RECORDS SUMMARY | 2024-07-03 14:02 | XMS_ITS | Encounter Summary ---
Author Organization [facility] Address [facility] [place] [address] Care Team Providers Care Loader Semiconductor Dies Name Role Phone Maryse Perry MD Primary Care Provider [phone] Encounter Details Date Type Department Care Team (Late st Contact Info) Description 09/24/2022 10:00 AM EST Office Visit Functional Religion Program at [facility] [address] [place] [address] Madeleine Durham, ASSISTANT TO THE VICE PRESIDENT [facility] [place] [address] Low back pain, non-specific Social [...] YARI - 09/24/2022 10:00 AM EST 09/24/2022 [id number] Adrian Guardado FUNCTIONAL PROTESTANT PROGRAM REHABILTIATION TRAINING LECTURE Chief complaint requiring rehabilitation: back pain Title: ? Pain & Function? Presenter: Madeleine Durham MS ASSISTANT TO THE VICE PRESIDENT This one hour lecture began with interactive [...] non-specific documented in this encounter Care Teams Loader Semiconductor Dies Relationship Specialty Start Date End Date Maryse Perry MD [address] [place] [address] PCP - General Family Medicine 11/28/20 documented as of this encounter
--- OUTSIDE RECORDS SUMMARY | 2024-07-03 14:02 | XMS_ITS | Encounter Summary ---
Author Organization [facility] Address [facility] [place] [address] Care Team Providers Care Tire And Lube Technician Name Role Phone Maryse Perry MD Primary Care Provider [phone] Encounter Details Date Type Department Care Team (Late st Contact Info) Description 12/31/2020 12:05 AM EDT Ancillary Procedure Radiology Library [place] [facility] [place] [address] Maryse Perry MD [address] [place] [address] [address] Social History Tobacco Use Types Packs/Day Years [...] Perry MD IMG FILM LIBRARY ORD ERABLES [place], [place] documented in this encounter Visit Diagnoses Not on filedocumented in this encounter Care Teams Tire And Lube Technician Relationship Specialty Start Date End Date Maryse Perry MD [facility] [address] [facility] [address] [place] [address] PCP - General Family Medicine 11/28/20 documented as of this encounter
--- OUTSIDE RECORDS SUMMARY | 2024-07-03 14:02 | XMS_ITS | Encounter Summary ---
Author Organization [facility] Address [facility] [place] [address] Care Team Providers Care Pvc Loader Name Role Phone Maryse Perry MD Primary Care Provider [phone] Encounter Details Date Type Department Care Team (Late st Contact Info) Description 09/24/2022 8:00 AM EST Office Visit Functional Anglican Program at [facility] [address] [place] [phone] Stanley Flannery Jr., PT Low back pain, [...] session Plan: Return for follow up with [facility] per protocol. Length of visit: Participated [...] Be able to bend over to load hot stamp operator, reach for dog bowl, ??Be able [...] unspecified documented in this encounter Care Teams Pvc Loader Relationship Specialty Start Date End Date Maryse Perry MD [address] [place] [address] PCP - General Family Medicine 11/28/20 documented as of this encounter
--- OUTSIDE RECORDS SUMMARY | 2024-07-03 14:02 | XMS_ITS | Encounter Summary ---
Author Organization [facility] Address [facility] [place] [address] Care Team Providers Care Fishing Line Winding Machine Operator Name Role Phone Maryse Perry MD Primary Care Provider [phone] Reason for Visit * Consultation (Routine) - Closed Specialty Diagnoses / Procedures Referred By Adolfo lopez Referred To Contact Neurology Diagnoses Zoster without complications Paresthesia of skin Dorsalgia, unspecified paresthesia LE - EMG and consult Randy Can MD [address] [place] [address] [facility] [address] [place] [address] Referral ID Status Reason Start Date Expiration Date V isits Requested Visits Authorized [id number] Closed Evaluate and Treat 12/13/2020 12/13/2021 1 1 Encounter Details Date Type Department Care Team (Late st Contact Info) Description 02/25/2021 9:00 AM EDT [place] [address] Rob Díaz MD [facility] [place] [address] Paresthesia Social History Tobacco Use Types Packs/Day [...] - 02/25/2021 9:00 [place] [address] 02/25/2021 Patient name: Adrian Guardado Date of : 1965 Referring provider: Randy Can MD [address] [place] [address] HISTORY REASON FOR REFERRAL/CHIEF COMPLAINT: Paresthesia HISTORY OF PRESENTING COMPLAINTS: 57 Y M referred for diffuse paresthesiae. He is following with Dr. Can at [facility] for chronic back issues. He says he [...] 15.37) performed by Randy Can MD at [facility] MAIN OR ??? PRO LAMINOTOMY, LUMBAR DISK, 1 INTRSP Left 05/07/2020 LAMINOTOMY, DECOMPRESSION, FORAMINOTOMY, LUMBAR (WRVU 13.18) performed by Randy Can MD at [facility] MAIN OR ??? PRO MICROSURG TECHNIQUES, REQ OPER MICROSCOPE Left 05/07/2020 MICROSCOPE USE (WRVU 3.46) performed by Randy Can MD at [facility] MAIN OR Family History: No family history on file. Mother had arthritis related issues. Social History: reports that he quit smoking about 7 months ago. His smoking use included cigarettes. He has a 9.00pack-year smoking history. He has never used smokeless tobacco. He reports current alcohol use. He reports current drug use. Drug: Marijuana. No flowsheet data found. Lives in [place] with and daughter. He has 2 daughters. Review of systems: [x] Review of systems otherwise negative Medications: Current Outpatient Medications on File Prior to Visit Medication Sig Dispense Refill ??? ARNICA TOP Apply topically daily as needed. Roll on ??? UNABLE TO FIND daily as needed. Salon paws ??? menthol 16 % Aerosol, [place] Apply topically daily as needed. ??? Camphor-Methyl Salicyl-Menthol ([place]) 3-15-5 % Cream Apply topically daily as [...] GENERAL THYROID: No results found for: TSH, X0YZCXR, FREET4, TT4, THYROIDAB, THGAB FolateNo results found for: SFOLATE ESRNo results found for: SEDRATE CRPNo results found for: CRP B12No results found for: TBYSUWXI53 CKNo results found for: CK Angiotensin ConvertaseNo [...] LDLCHOL, LDLDIRECT MAYDA 65No results found for: HDY85SA ANTI GM1,ANTI SGPG, MAG@RESUFAST (MAGAUTOAB,SGPG,MAGWB,GM1AB)@ HEAVY METAL [...] ANNA1, ANNA2, ANNA3, AGNA1, PCA1, PCA2, PCATYPETR, AMPHIPHYSIN,GDGG0DTG, STRIATMSCLAB, CACHABPQTYPE, CACHABNTYPE, ACHRBINDAB, NEUROKCHAB, NMDARECEPTOR, AFJ50FG THROMBOSIS HOMEOCYSTEINENo results found for: HOMOCYSTEINE THROMBOSIS PANELNo results found for: ACAIGM, A9GBONMPVVD FACTOR V LEIDEN No components found for: [...] EMG. Rob Díaz MD Department of Neurology [facility] documented in this encounter Miscellaneous Notes [...] LABORATORY Neutrophil Absolute 4.17 1.70 - 6.10 x10(3)/[facility] LABORATORY Lymph % 25.0 % [facility] LABORATORY Lymphocytes Abs 1.7 0.9 - 3.2 x10(3)/[facility] LABORATORY Monocyte % 10.2 % [facility] LABORATORY Monocyte Abs 0.7 0.3 - 0.9 x10(3)/[facility] LABORATORY Eos % 2.9 % [facility] LABORATORY Eosinophils Abs 0.2 0.0 - 0.4 x10(3)/[facility] LABORATORY Basophil % 1.0 % [facility] LABORATORY Baso Absolute 0.1 0.0 - 0.1 x10(3)/[facility] LABORATORY Immature Gran % 0.30 % [facility] Comment: Immature granulocytes(IG's)percentage and absolute count will include metamyelocytes, myelocytes, and promyelocytes. Blood smears from CBCs yielding IG's will be scanned manually for concordance. If this scan disagrees with the automated IG or if promyelocytes are noted, a manual differential will be performed. Immature Gran Absolute 0.02 0.00 - 0.04 x10(3)/[facility] LABORATORY Blood 02/25/2021 9:42 AM EDT 02/25/2021 10:04 AM EDT Narrative Resulting Agency Comment Spec In Lab Rob Díaz MD HEMATOLOGY ORDERABLE S [facility] [place] [address] * (ABNORMAL) Hemogram (02/25/2021 9:42 AM EDT) White Blood Cell 6.9 4.0 - 9.5 x10(3)/[facility] LABORATORY Red Blood Cell 4.10(L) 4.58 - 5.54 x10(6)/mc L [facility] Hemoglobin 12.9(L) 13.7 - 16.5 gm/dL [facility] Hematocrit 38.9(L) 40.5 - 48.5 % [facility] Mean Cell Volume 94.9(H) 82.9 - 93.1 fL [facility] Mean Cell Hemoglobin 31.5 27.5 - 32.1 pg [facility] Mean Cell Hemoglobin Concentration 33.2 32.0 - 35.7 gm/dL [facility] Platelet 244 145 - 357 x10(3)/mc L [facility] RDW Standard Deviation 46.0(H) 36.0 - 45.0 fL [facility] RDW coefficient of variation 13.2 11.4 - 13.8 % [facility] Mean Platelet Volume 10.2 7.6 - 12.9 fL [facility] NRBC% auto 0.0 % [facility] NRBC Absolute 0.000 0.000 - 0.000 x10(3)/mc L [facility] Blood 02/25/2021 9:42 AM EDT 02/25/2021 10:04 AM EDT Narrative Resulting Agency Comment Spec In Lab Rob Díaz MD HEMATOLOGY ORDERABLE S [facility] [place] [address] * Lyme IgG & IgM Antibody (02/25/2021 9:42 AM EDT) [place] Antibody Neg Neg [facility] Blood 02/25/2021 9:42 AM EDT 02/26/2021 5:17 AM EDT Narrative Resulting Agency Comment Spec In Lab Rob Díaz MD IMMUNOLOGY ORDERABLE S [facility] [place] [address] * Gamma GT (02/25/2021 9:42 AM EDT) Gamma Glutamyl Transferase 17 8 - 61 unit/L [facility] Blood 02/25/2021 9:42 AM EDT 02/25/2021 10:04 AM EDT Narrative Resulting Agency Comment Spec In Lab Rob Díaz MD CHEMISTRY ORDERABLES Performing Organization Address City/[facility]/ZIP Co de Phone Number [facility] [place] [address] * Vitamin B12 (02/25/2021 9:42 AM EDT) Vitamin B12 820 232 - 1,245 pg/mL [facility] Blood 02/25/2021 9:42 AM EDT 02/25/2021 10:04 AM EDT Narrative Resulting Agency Comment Spec In Lab Rob Díaz MD CHEMISTRY ORDERABLES Performing Organization Address [facility] Co de Phone Number [facility] [place] [address] * TSH (02/25/2021 9:42 AM EDT) Pathologist [facility] Thyroid Stimulating Hormone 2.46 0.27 - 4.20 mcIU/mL [facility] Comment: Reference Interval (mcIU/mL): Females: ??First Trimester: 0.23-3.88 ??Second Trimester: 0.22-3.90 ??Third Trimester: 0.44-4.66 Blood 02/25/2021 9:42 AM EDT 02/25/2021 10:04 AM EDT Narrative Resulting Agency Comment Spec In Lab Rob Díaz MD CHEMISTRY ORDERABLES Performing Organization Address [facility] Co de Phone Number [facility] [place] [address] * CK (02/25/2021 9:42 AM EDT) [facility] Creatine Kinase 82 0 - 200 unit/L [facility] Blood 02/25/2021 9:42 AM EDT 02/25/2021 10:04 AM EDT Narrative Resulting Agency Comment Spec In Lab Rob Díaz MD CHEMISTRY ORDERABLES Performing Organization Address [facility] Co de Phone Number [facility] [place] [address] * Protein Electrophoresis, serum (02/25/2021 9:42 AM EDT) [facility] Total Prot Electrophoresis 6.5 6.1 - 8.0 gm/dL [facility] Albumin Electrophoresis 4.48 3.60 - 6.00 gm/dL [facility] Alpha 1 Globulin 0.14 0.10 - 0.30 gm/dL [facility] Alpha 2 Globulin 0.60 0.40 - 0.90 gm/dL [facility] Beta Globulin 0.60 0.50 - 1.00 gm/dL [facility] Gamma Globulin 0.68 0.50 - 1.30 gm/dL [facility] M1 Band None Detected None Detected [facility] Blood 02/25/2021 9:42 AM EDT 02/25/2021 10:04 AM EDT Narrative Resulting Agency Comment Spec In Lab Rob Díaz MD CHEMISTRY ORDERABLES [facility] [place] [address] * Comprehensive metabolic panel (non-fasting) (02/25/2021 9:42 AM EDT) Glucose 91 65 - 199 mg/dL [facility] Comment:Diabetes: >=200 mg/d L plus symptoms Blood Urea Nitrogen 15 10 - 20 mg/dL [facility] Creatinine 0.86 0.80 - 1.50 mg/dL [facility] Sodium 141 135 - 145 mmol/L [facility] Potassium 4.4 3.5 - 5.0 mmol/L [facility] Comment: Please note: ??Patients with WBC >100,000 may have falsely elevated Potassium levels. ??For accurate Potassium quantification in these patients send serum separator tube (gold top) for subsequent determinations. ??Contact the Clinical Chemistry Laboratory if there are any questions. Chloride 103 98 - 107 mmol/L [facility] Carbon Dioxide 30 22 - 31 mmol/L [facility] Anion Gap 8 5 - 15 mmol/L [facility] Calcium 9.2 8.5 - 10.5 mg/dL [facility] Protein, Total 6.8 6.1 - 8.0 gm/dL [facility] Albumin 4.6 3.2 - 5.2 gm/dL [facility] Aspartate Aminotransferase 19 0 - 39 unit/L [facility] Alanine Aminotransferase 22 0 - 55 unit/L [facility] Alkaline Phosphatase 66 40 - 130 unit/L [facility] Bilirubin, Total 0.4 0.2 - 1.3 mg/dL [facility] Est Glomerular Filtration Rate 99 >=60 mL/min/1. 73 m?? [facility] Comment: This patient? s estimated [...] In Lab Rob Díaz MD CHEMISTRY ORDERABLES [facility] [place] [address] documented in this encounter Visit Diagnoses Diagnosis Paresthesia Disturbance of skin sensation documented in this encounter Care Teams Fishing Line Winding Machine Operator Relationship Specialty Start Date End Date Maryse Perry MD [address] [place] [address] PCP - General Family Medicine 11/28/20 documented as of this encounter
--- OUTSIDE RECORDS SUMMARY | 2024-07-03 14:02 | XMS_ITS | Encounter Summary ---
Author Organization [facility] Address [facility] [place] [address] Care Team Providers Care Raymond Mill Operator Name Role Phone Maryse Perry MD Primary Care Provider [phone] Encounter Details Date Type Department Care Team (Latest Contact Info) Description 03/31/2021 8:30 AM EDT [place] [address] Stevie Vazquez MD [facility] [place] [address] Small fiber neuropathy Social History Tobacco Use [...] Dr. Rob Díaz and Maryse Perry MD [facility] [address] [place] [address] to look for evidence of large fiber peripheral neuropathy. Report scannedinto ED. All results are normal. 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
--- OUTSIDE RECORDS SUMMARY | 2024-07-03 14:02 | XMS_ITS | Encounter Summary ---
Author Organization [facility] [place] [address] Care Team Providers Care Building Rental Superintendent Name Role Phone Maryse Perry MD Primary Care Provider [phone] Encounter Details Date Type Department Care Team (Late st Contact Info) Description 09/28/2022 8:00 AM EDT Office Visit Functional Protestant Program at [facility] [address] [place] [address] Stanley Flannery Jr., PT Low back pain, [...] session. Plan: Return for follow up with [facility] per protocol. 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
--- OUTSIDE RECORDS SUMMARY | 2024-07-03 14:02 | XMS_ITS | Encounter Summary ---
Author Organization [facility] Address [facility] [place] [address] Care Team Providers Care Head Of Mathematics Name Role Phone Maryse Perry MD Primary Care Provider [phone] Encounter Details Date Type Department Care Team (Late st Contact Info) Description 04/16/2022 Orders Only [facility] at [facility] [place] [address] Raysa Andrews RN Radiculopathy of lumbar region; [...] sciatica documented in this encounter Care Teams Head Of Mathematics Relationship Specialty Start Date End Date Maryse Perry MD [address] [place] [address] PCP - General Family Medicine 11/28/20 documented as of this encounter
--- OUTSIDE RECORDS SUMMARY | 2024-07-03 14:02 | XMS_ITS | Encounter Summary ---
Author Organization [facility] Address [facility] [place] [address] Care Team Providers Care Iv Technician Name Role Phone Maryse Perry MD Primary Care Provider [phone] Reason for Visit * Reason Comments Back Pain Encounter Details Date Type Department Care Team (Late st Contact Info) Description 09/22/2022 9:30 AM EST Office Visit Functional Buddhism Program at [facility] [address] [place] [address] Shon Singh, PT Low back pain, non-specific [...] 09/22/2022 9:30 AM ESTSummary: FRP Evaluation Functional Buddhism Program (Day 1) Physical Therapy Examination Personal [...] Be able to bend over to load radial router operator, reach for dog bowl, Be able to [...] tunnel. ?? 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 He reports there is not an [...] non-specific documented in this encounter Care Teams Iv Technician Relationship Specialty Start Date End Date Maryse Perry MD [address] [place] [address] PCP - General Family Medicine 11/28/20 documented as of this encounter
--- OUTSIDE RECORDS SUMMARY | 2024-07-03 14:02 | XMS_ITS | Encounter Summary ---
Author Organization [facility] [place] [address] Care Team Providers Care Surgical Product Sales Consultant Name Role Phone Maryse ePrry MD Primary Care Provider [phone] Reason for Visit * Reason Comments Back Pain Encounter Details Date Type Department Care Team (Late st Contact Info) Description 09/22/2022 12:30 PM EST Office Visit Functional Jewish Program at [facility] [address] [place] [address] Jacque Engel, OT Low back pain, non-specific [...] OT - 09/22/2022 12:30 PM EST Functional Jewish Program (Day 1) Group #: [id number] Occupational [...] guarding prevents spontaneous motions 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 Subjective: Mr. 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 OCCUPATIONAL PROFILE Work / Productive Activity Status: Present work status: Excused for the month to complete work. 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 Mr. Guardado reports the following return to work plan: Planning to return [employer] as a Material Mixer. Do you plan to return to work [...] on the occupational performance interview of the [place] Occupational Performance Measure (COPM), Mr. Guardado reports Moderate limitationsin self-care and leisure activities. He reports most difficulty with lifting and carrying heavier items with work related tasks and daily activities, and recreational activities. [place]ian Occupational Performance Measure Results - 3 Month [...] Be able to bend over to load marine mammal trainer, reach for dog bowl, 2 2 Be [...] endurance in order to meet functional goals. [facility] Goals: While working towards the theology teacher (3 month) functional goals listed above, Mr. [...] non-specific documented in this encounter Care Teams Surgical Product Sales Consultant Relationship Specialty Start Date End Date Maryse Perry MD [facility] [address] [facility] [address] [place] [address] PCP - General Family Medicine 11/28/20 documented as of this encounter
--- OUTSIDE RECORDS SUMMARY | 2024-07-03 14:02 | XMS_ITS | Encounter Summary ---
Author Organization [facility] Address One [facility] [place] [address] Care Team Providers Care Field Radio Technician Name Role Phone Maryse Perry MD Primary Care Provider [phone] Encounter Details Date Type Department Care Team [...] on filedocumented in this encounter Care Teams Field Radio Technician Relationship Specialty Start Date End Date Maryse Perry MD [address] [place] [address] PCP - General Family Medicine 11/28/20 documented as of this encounter
--- OUTSIDE RECORDS SUMMARY | 2024-07-03 14:02 | XMS_ITS | Encounter Summary ---
Author Organization [facility] Address [facility] [place] [address] Care Team Providers Care Survey Research Manager Name Role Phone Maryse Perry MD Primary Care Provider [phone] Reason for Referral * Consultation (Routine) - Closed Specialty Diagnoses / Procedures Referred By Adolfo lopez Referred To Contact [facility] Center Diagnoses Low back pain, non-specific Procedures AR GROUP THERAPEUTIC PROCEDURES AR GROUP THERAPEUTIC PROCEDURES PRO ESTABLISHED PATIENT LEVEL 3 AR GROUP HEALTH EDUCATION PRO THERAPEUTIC ACTIVITIES,DIRECT PT CONTACT BY PROVIDER, EACH 15 MIN PRO THERAPEUTIC ACTIVITIES,DIRECT PT CONTACT BY PROVIDER, EACH 15 MIN Madeleine Durham APRN [facility] [place] [address] [facility] [address] [place] [address] Referral ID Status Reason Start Date Expiration Date V isits Requested Visits Authorized [id number] Closed Consult, Test & Treat 09/14/2022 09/14/2023 1 1 Encounter Details Date Type Department Care Team (Late st Contact Info) Description 09/14/2022 Orders Only [facility] [place] [address] Madeleine Durham APRN [facility] [place] [address] Low back pain, non-specific (Primary [...] Primary documented in this encounter Care Teams Survey Research Manager Relationship Specialty Start Date End Date Maryse Perry MD [address] [place] [address] PCP - General Family Medicine 11/28/20 documented as of this encounter
--- OUTSIDE RECORDS SUMMARY | 2024-07-03 14:02 | XMS_ITS | Encounter Summary ---
Author Organization [facility] Address [facility] [place] [address] Care Team Providers Care Field Sales Associate Name Role Phone Maryse Perry MD Primary Care Provider [phone] Encounter Details Date Type Department Care Team (Late st Contact Info) Description 09/28/2022 10:00 AM EDT Office Visit Functional Jain Program at [facility] [address] [place] [address] Serenity Smart APRN [facility] [place] [address] Low back pain, non-specific; Sacroiliac joint dysfunction [...] Smart APRN - 09/28/2022 10:00 AM EDT [id number] Adrian Guardado 09/24/2022 Chief complaint requiring rehabilitation:lumbar radiculopathy, SIJ dysfunction FUNCTIONAL PRESYBETERIAN PROGRAM REHABILTIATION TRAINING LECTURE Title: SPINAL ANATOMY, [...] sacrum documented in this encounter Care Teams Field Sales Associate Relationship Specialty Start Date End Date Maryse Perry MD [address] [place] [address] PCP - General Family Medicine 11/28/20 documented as of this encounter
--- OUTSIDE RECORDS SUMMARY | 2024-07-03 14:02 | XMS_ITS | Encounter Summary ---
Author Organization [facility] Address One [facility] [place] [address] Care Team Providers Care Cyanide Furnace Operator Name Role Phone Maryse Perry MD Primary Care Provider [phone] Encounter Details Date Type Department Care Team (Late st Contact Info) Description 10/01/2022 8:00 AM EDT Office Visit Functional Christian Program at [facility] [address] [place] [address] Stanley Flannery Jr., PT Low back pain, [...] PT - 10/01/2022 8:00 AM EDT Functional Christian Program (Day 8) Physical Therapy Mid-Way Testing [...] Be able to bend over to load tank 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 Subjective: Mr. Guardado returns today for a scheduled follow up appointment with FRP. 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
--- OUTSIDE RECORDS SUMMARY | 2024-07-03 14:02 | XMS_ITS | Encounter Summary ---
Author Organization [facility] Address One [facility] [place] [address] Care Team Providers Care Manufacturing Engineering Director Name Role Phone Maryse Perry MD Primary Care Provider [phone] Encounter Details Date Type Department Care Team (Late st Contact Info) Description 09/25/2022 8:00 AM EST Office Visit Functional Orthodox Program at [facility] [address] [place] [address] Stanley Flannery Jr., PT Low back pain, [...] on. Plan: Return for follow up with [facility] per protocol. 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
--- OUTSIDE RECORDS SUMMARY | 2024-07-03 14:02 | XMS_ITS | Encounter Summary ---
Author Organization [facility], Located [facility] [place] [address] Care Team Providers Care Pharmacy Director Name Role Phone Maryse Perry MD Primary Care Provider [phone] Reason for Referral * Consultation (Routine) - Closed Specialty Diagnoses / Procedures Referred By Contac t Referred To [facility] Diagnoses Sacro-iliac pain Madeleine Durham APRN [facility] [place] [address] [facility] [place] [address] Referral ID Status Reason Start Date Expiration Date V isits Requested Visits Authorized [id number] Closed Consult, Test & Treat 05/07/2022 05/07/2023 1 1 Reason for Visit * Consultation (Routine) - Closed Specialty Diagnoses / Procedures Referred By Contac t Referred To [facility] Diagnoses Radiculopathy of lumbar region Chronic bilateral low back pain with bilateral sciatica Moises Rayo PA [facility] [place] [address] [facility] [place] [address] Referral ID Status Reason Start Date Expiration Date V isits Requested Visits Authorized [id number] Closed Consult, Test & Treat 04/16/2022 04/16/2023 3 3 Encounter Details Date Type Department Care Team (Late st Contact Info) Description 05/07/2022 8:00 AM EDT Office Visit Pain and Spine Center [place] [facility] [address] Madeleine Durham, YARI [facility] [place] [address] Sacro-iliac pain (Primary Dx) Social History Tobacco [...] Progress Notes * Madeleine Durham, YARI - 05/07/2022 8:00 AM EDT Images from the original note were not included. 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 He walks his elderly Month[employer] and [employer] about 20 minutes a day. 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 PRO LAMINOTOMY, LUMBAR DISK, 1 INTRSP Left 05/07/2020 LAMINOTOMY, DECOMPRESSION, FORAMINOTOMY, LUMBAR (WRVU 13.18) performed by Randy Can MD at [facility] OR ??? PRO MICROSURG TECHNIQUES, REQ OPER MICROSCOPE Left 05/07/2020 MICROSCOPE USE (WRVU 3.46) performed by Randy Can MD at [facility] OR Review of Systems: Denies fever, [...] y.o. year-old male who presents to the [facility] clinic seen at [...] him in addition, we discussed the functional caodaism program and the welcome group for the active pain service and he is quite interested in this. He is uncertain as to whether or not he can take off the whole month for the functional caodaism program so we did also talked about the community- based FRP based at [facility] with Dr. Mahmood. Viraj agreed to have [...] in Adrian Guardado's care. Madeleine Durham, MS, BAKERY ASSOCIATE-BC, ASSOCIATE PROFESSOR PHYSICIAN Nurse practitioner Pain management [facility] documented in this encounter Plan of Treatment Scheduled Referrals Name Type Priority Associated Diagnoses Orde r Schedule Amb Referral to Active Pain Care Services Outpatient Referral Routine Sacro-iliac pain Ordered: 05/07/2022 documented as of this encounter Visit Diagnoses Diagnosis Sacro-iliac pain- Primary Disorders of sacrum documented in this encounter Care Teams Pharmacy Director Relationship Specialty Start Date End Date Maryse Perry MD [address] [place] [address] PCP - General Family Medicine 11/28/20 documented as of this encounter
--- OUTSIDE RECORDS SUMMARY | 2024-07-03 14:02 | XMS_ITS | Encounter Summary ---
Author Organization [facility] [address] Care Team Providers Care Welder Name Role Phone Maryse Perry MD Primary Care Provider [phone] Reason for Referral * Consultation (Routine) - Closed Specialty Diagnoses / Procedures Referred By Adolfo lopez Referred To Contact Pain and Spine Center Diagnoses Sacroiliitis Spine - Sacroiliitis/ buttock pain/ MRI 11/2020 & XR 10/2020 in [facility] Deshawn Vazquez APRN [address] [place] [address] [facility] [place] [address] Referral ID Status Reason Start Date Expiration Date V isits Requested Visits Authorized [id number] Closed Evaluate and Treat PCP Updated and/or Approved 01/21/2022 01/21/2023 3 3 Encounter Details Date Type Department Care Team (Late st Contact Info) Description 01/21/2022 Transcribe Orders eD Incoming Referrals [phone] Deshawn Vazquez APRN [address] [place] [address] Sacroiliitis Social History Tobacco Use Types Packs/Day [...] classified documented in this encounter Care Teams Welder Relationship Specialty Start Date End Date Maryse Perry MD [facility] [address] [place] [address] PCP - General Family Medicine 11/28/20 documented as of this encounter
--- OUTSIDE RECORDS SUMMARY | 2024-07-03 14:02 | XMS_ITS | Encounter Summary ---
Author Organization [facility] Address [facility] [place] [address] Care Team Providers Care Crate Liner Name Role Phone Maryse Perry MD Primary Care Provider [phone] Reason for Referral * Physical Therapy (Routine) - Closed Specialty Diagnoses / Procedures Referred By Contac t Referred To Contact Diagnoses Radiculopathy of lumbar region Chronic bilateral low back pain with bilateral sciatica Moises Rayo PA [facility] [address] Referral ID Status Reason Start Date Expiration Date V isits Requested Visits Authorized [id number] Closed Evaluate and Treat Non PCP 04/16/2022 10/13/2022 12 12 Reason for Visit * Reason Comments Back Pain Buttock Pain * Consultation (Routine) - Closed Specialty Diagnoses / Procedures Referred By Contac t Referred To Contact Pain and Spine Center Diagnoses Sacroiliitis Spine - Sacroiliitis/ buttock pain/ MRI 11/2020 & XR 10/2020 in [facility] Deshawn Vazquez, CONTINUITY CLERK [address] [place] [address] [facility] [place] [address] Referral ID Status Reason Start Date Expiration Date V isits Requested Visits Authorized [id number] Closed Evaluate and Treat PCP Updated and/or Approved 01/21/2022 01/21/2023 3 3 Encounter Details Date Type Department Care Team (Latest Contact Info) Description 04/16/2022 9:45 AM EDT Office Visit [facility] [place] [address] Moises Rayo PA [facility] [place] [address] Radiculopathy of lumbar region; Chronic bilateral low [...] the Center for Pain and Spine @ [facility] for evaluation. Brief summary and plan: Diagnosis: [...] which he continues a home exercise program. healthcare network consultant. Epidural and SI injections. SI provided modest back relief but did not alleviate leg symptoms. He also has a shoe insert in the left recommended by his chiropractor for leg length. 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
--- OUTSIDE RECORDS SUMMARY | 2024-07-03 14:02 | XMS_ITS | Encounter Summary ---
Author Organization [facility] Address [facility] [place] [address] Care Team Providers Care Pot Feeder Name Role Phone Maryse Perry MD Primary Care Provider [phone] Encounter Details Date Type Department Care Team (Late st Contact Info) Description 09/03/2022 Telephone Pain and Spine Center at [facility] [place] [address] Zaira Justice Social History Tobacco Use Types [...] been accepted into the September 2022 Functional Caodaism Program. Requested that he keep a look [...] on filedocumented in this encounter Care Teams Pot Feeder Relationship Specialty Start Date End Date Maryse Perry MD [address] [place] [address] PCP - General Family Medicine 11/28/20 documented as of this encounter
--- OUTSIDE RECORDS SUMMARY | 2024-07-03 14:02 | XMS_ITS | Encounter Summary ---
Author Organization [facility] Address [facility] [place] [address] Care Team Providers Care Cracking Unit Operator Name Role Phone Maryse Perry MD Primary Care Provider Reason for Visit * Reason Comments Back Pain Encounter Details Date Type Department Care Team (Late st Contact Info) Description 09/24/2022 11:00 AM EST Office Visit Functional Christian Program at [facility] [address] [place] [address] Jacque Engel, OT Low back pain, non-specific [...] for a scheduled follow up appointment with [facility]. He reports feeling some stiffness and soreness [...] Be able to bend over to load burial agent, reach for dog bowl, ??Be able to sleep for 6hrs continuously documented in this encounter Plan of Treatment Not on file documented as of this encounter Visit Diagnoses Diagnosis Low back pain, non-specific documented in this encounter Care Teams Cracking Unit Operator Relationship Specialty Start Date End Date Maryse Perry MD [address] [place] [address] PCP - General Family Medicine 11/28/20 documented as of this encounter
--- OUTSIDE RECORDS SUMMARY | 2024-07-03 14:02 | XMS_ITS | Encounter Summary ---
Author Organization [facility] Address [facility] [place] [address] Care Team Providers Care Design Manager Name Role Phone Maryse Perry MD Primary Care Provider [phone] Encounter Details Date Type Department Care Team (Late st Contact Info) Description 04/30/2022 Ancillary Procedure Radiology Library at [facility] [place] [id number] Maryse Perry MD [address] [place] [address] [address] Social History Tobacco Use Types Packs/Day Years [...] Perry MD IMG FILM LIBRARY ORD ERABLES [place], [place] documented in this encounter Visit Diagnoses Not on filedocumented in this encounter Care Teams Design Manager Relationship Specialty Start Date End Date Maryse Perry MD [address] [facility] [address] [place] [address] PCP - General Family Medicine 11/28/20 documented as of this encounter
--- OUTSIDE RECORDS SUMMARY | 2024-07-03 14:02 | XMS_ITS | Encounter Summary ---
Author Organization [facility] [place] [address] Care Team Providers Care Drill Runner Helper Name Role Phone Maryse Perry MD Primary Care Provider [phone] Encounter Details Date Type Department Care Team (Late st Contact Info) Description 09/29/2022 8:00 AM EDT Office Visit Functional Pentecostal Program at [facility] [address] [place] [phone] Stanley Flannery Jr., PT Low back pain, [...] Plan: Return for follow up with [facility] per protocol. Length of visit: [...] Be able to bend over to load stitch rubber, reach for dog bowl, ??Be able to [...] unspecified documented in this encounter Care Teams Drill Runner Helper Relationship Specialty Start Date End Date Maryse Perry MD [address] [place] [address] PCP - General Family Medicine 11/28/20 documented as of this encounter
--- OUTSIDE RECORDS SUMMARY | 2024-07-03 14:02 | XMS_ITS | Encounter Summary ---
Author Organization [facility] Address One [facility] [place] [address] Care Team Providers Care Carpenter Packing Name Role Phone Maryse Perry MD Primary Care Provider [phone] Encounter Details Date Type Department Care Team (Late st Contact Info) Description 10/02/2022 8:00 AM EDT Office Visit Functional Mormonism Program at [facility] [address] [place] [phone] Stanley Flannery Jr., PT Low back pain, [...] session. Plan: Return for follow up with [facility] per protocol. Length of visit: [...] Be able to bend over to load loan analyst, reach for dog bowl, ??Be able [...] unspecified documented in this encounter Care Teams Carpenter Packing Relationship Specialty Start Date End Date Maryse Perry MD [facility] [address] [facility] 1 [place] [address] PCP - General Family Medicine 11/28/20 documented as of this encounter
--- OUTSIDE RECORDS SUMMARY | 2024-07-03 14:02 | XMS_ITS | Encounter Summary ---
Author Organization [facility] Address [facility] [place] [address] Care Team Providers Care Child Development Associate Teacher Name Role Phone Maryse Perry MD Primary Care Provider [phone] Reason for Visit * Reason Comments Back Pain Encounter Details Date Type Department Care Team (Late st Contact Info) Description 09/28/2022 11:00 AM EDT Office Visit Functional Advent Program at [facility] [address] [place] [phone] Jacque Engel, OT Low back pain, non-specific [...] 11:00 AM EDT P Occupational Therapy Note [facility] Day 5 Protocol Subjective: Mr. Guardado returns today for a scheduled follow up appointment with [facility]. 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 Objective: Refer to [facility] protocol for details and explanation [...] Be able to bend over to load drop board man, reach for dog bowl, ??Be able to sleep for 6hrs continuously ?? documented in this encounter Plan of Treatment Not on file documented as of this encounter Visit Diagnoses Diagnosis Low back pain, non-specific documented in this encounter Care Teams Child Development Associate Teacher Relationship Specialty Start Date End Date Maryse Perry MD [facility] [address] [place] [address] PCP - General Family Medicine 11/28/20 documented as of this encounter
--- OUTSIDE RECORDS SUMMARY | 2024-07-03 14:02 | XMS_ITS | Encounter Summary ---
Author Organization [facility] Address [facility] [place] [address] Care Team Providers Care Accounts Receivable Supervisor Name Role Phone Maryse Perry MD Primary Care Provider [phone] Reason for Visit * Consultation (Routine) - Closed Specialty Diagnoses / Procedures Referred By Adolfo lopez Referred To Contact Rheumatology Diagnoses Other fatigue Pain in unspecified joint Maryse Perry MD [facility] [address] [place] [address] [facility] [address] [place] [phone] Referral ID Status Reason Start Date Expiration Date V isits Requested Visits Authorized [id number] Closed Consult, Test & Treat [facility] PCP Updated and/or Approved 11/25/2020 11/25/2021 6 6 Encounter Details Date Type Department Care Team (Late st Contact Info) Description 01/10/2021 3:00 PM EDT Office [place] [address] Meet Mustafa MD [facility] [place] [address] Fibromyalgia Social History Tobacco Use Types Packs/Day [...] 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 He has been taking cyclobenzaprine for [...] to visit. 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 Gaurdado that I would be happy to evaluate him at some future point if there are remain questionsor concerns. Total time for this [id number] encounter including coordination of care and counselin minutes. documented in this encounter Plan of Treatment Not on file documented as of this encounter Visit Diagnoses Diagnosis Fibromyalgia Mylagia and myositis, unspecified documented in this encounter Care Teams Accounts Receivable Supervisor Relationship Specialty Start Date End Date Maryse Perry MD [address] [place] [address] PCP - General Family Medicine 11/28/20 documented as of this encounter
--- OUTSIDE RECORDS SUMMARY | 2024-07-03 14:02 | XMS_ITS | Encounter Summary ---
Author Organization [facility] Address One [facility] [place] [address] Care Team Providers Care Instructional Technology Coach Name Role Phone Maryse Perry MD Primary Care Provider [phone] Reason for Visit * Reason Comments Back Pain Encounter Details Date Type Department Care Team (Late st Contact Info) Description 10/01/2022 11:00 AM EDT Office Visit Functional Religion Program at [facility] [address] [place] [phone] Jacque Engel, OT Low back pain, non-specific [...] 11:00 AM EDT P Occupational Therapy Note [facility] Day 8 Protocol Subjective: Mr. Guardado returns today for a scheduled follow up appointment with [facility]. He reports he is feeling good overall and stronger and his pain is not as bad when he came into the program. 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 Planning to meet sometime next week for return to work planning. Objective: Refer to [facility] protocol for details and explanation of each [...] provided by both an Occupational Therapist and Nurse Paralegal, [place] Goals Personal Function 3 Month Goals ?? 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 Be able to lift??60lbs Recreational:?Be able to walk for 1 hour??with inclines, Be able to start up chain pan, be ableto cut, stack wood, Be able to garden Daily Living:?Be able to vacuum, Be able to bend over to load tornado chaser, reach for dog bowl, ??Be able to sleep for 6hrs continuously ?? documented in this encounter Plan of Treatment Not on file documented as of this encounter Visit Diagnoses Diagnosis Low back pain, non-specific documented in this encounter Care Teams Instructional Technology Coach Relationship Specialty Start Date End Date Maryse Perry MD [address] [facility] 1 [place] [address] PCP - General Family Medicine 11/28/20 documented as of this encounter
--- OUTSIDE RECORDS SUMMARY | 2024-07-03 14:02 | XMS_ITS | Encounter Summary ---
Author Organization [facility] Address [facility] [place] [address] Care Team Providers Care Crystal Slicer Name Role Phone Maryse Perry MD Primary Care Provider [phone] Encounter Details Date Type Department Care Team (Late st Contact Info) Description 09/03/2022 Notes Only Pain [place] [address] Zaira Justice Social History Tobacco Use Types [...] EST Mailed Invitation Packet for the Functional Anabaptism Program to the patient Program: September 22 - October 16 Pain Education: Complete Start date - 09/22/2022 Arrival Time - TBD once patient has called to confirm Location: [address] Confirmation request date - 09/15/2022 documented in this encounter Plan of Treatment Not on file documented as of this encounter Visit Diagnoses Not on filedocumented in this encounter Care Teams Crystal Slicer Relationship Specialty Start Date End Date Maryse Perry MD [facility] [address] [place] [address] PCP - General Family Medicine 11/28/20 documented as of this encounter
--- OUTSIDE RECORDS SUMMARY | 2024-07-03 14:02 | XMS_ITS | Encounter Summary ---
Author Organization [facility] Address One [facility] [place] [address] Care Team Providers Care Linoleum Layer Helper Name Role Phone Maryse Perry MD Primary Care Provider [phone] Encounter Details Date Type Department Care Team [...] on filedocumented in this encounter Care Teams Linoleum Layer Helper Relationship Specialty Start Date End Date Maryse Perry MD [address] [place] [address] PCP - General Family Medicine 11/28/20 documented as of this encounter
--- OUTSIDE RECORDS SUMMARY | 2024-07-03 14:02 | XMS_ITS | Encounter Summary ---
Author Organization [facility] [place] [address] Care Team Providers Care Ear Nose Throat Surgeon Name Role Phone Maryse Perry MD Primary Care Provider [phone] Reason for Visit * Auth/Cert (Routine) Specialty Diagnoses / Procedures Referred By Adolfo lopez Referred To Contact Diagnoses SI dysfunction Procedures PRO INJECTION, SACROILIAC JOINT INJECTION PROCEDURE, SACROILIAC JOINT (WRVU 1.48) Hiren Hickey MD [facility] [place] [address] [facility] Referral ID Status Reason Start Date Expiration Date Visits Re quested Visits Authorized [id number] 1 1 Encounter Details Date Type Department Care Team (Latest Contact Info) Description 07/01/2022 2:48 PM EST - 07/01/2022 4:44 PM [facility] Hospital Encounter [place] [address] Hiren Hickey MD [facility] [place] [address] Sacro-iliac pain Discharge Disposition: Home Social History [...] 2 times daily. menthol 16 % Aerosol, Manning Apply topically daily as needed. Camphor-Methyl Salicyl-Menthol ([place]) 3-15-5 % Cream Apply topically daily as [...] 15.37) performed by Randy Can MD at [facility] MAIN OR ??? PRO LAMINOTOMY, LUMBAR DISK, 1 INTRSP Left 05/07/2020 LAMINOTOMY, DECOMPRESSION, FORAMINOTOMY, LUMBAR (WRVU 13.18) performed by Randy Can MD at [facility] MAIN OR ??? PRO MICROSURG TECHNIQUES, REQ OPER MICROSCOPE Left 05/07/2020 MICROSCOPE USE (WRVU 3.46) performed by Randy Can MD at [facility] MAIN OR FAMILY HISTORY: No family history [...] needed. Salon paws menthol 16 % Aerosol, Manning Apply topically daily as needed. Camphor-Methyl Salicyl-Menthol ([place]) 3-15-5 % Cream Apply topically daily as [...] Bonilla MD MPH PGY5 Pain Management Fellow [address] [address] / [facility] I have seen and examined the patient and reviewed the fellow's above history and agree with the details as written. The assessment and plan were formulated in discussion with me, and I agree with them as documented. Hiren Hickey MD, MS Flight Inspector of Anesthesiology [facility] [address] [phone] / [facility] documented in this encounter Miscellaneous Notes * Op Note - Hiren Hickey MD - 07/01/2022 4:33 PM EST Pain Management Operative Note Patient Name: Adrian Guardado : [id number] MR#: [id number] Case Date: 07/01/2022 Surgeon: Surgeon(s) and Role: [...] the entire procedure. Hiren Hickey MD, MS Flight Inspector of Anesthesiology [facility] [address] [address] / [facility] CC: JESUSITA Roe [facility] [place] [address] documented in this encounter Plan of Treatment Not on file documented as of this encounter Procedures Procedure Name Priority Date/Time Associated Diagnosis Comments Injection, Sacroiliac Joint (77184) 07/01/2022 4:28 PM EST Sacro-iliac pain INJECTION [...] SIJ) documented in this encounter Care Teams Ear Nose Throat Surgeon Relationship Specialty Start Date End Date Maryse Perry MD [address] [place] [address] PCP - General Family Medicine 11/28/20 documented as of this encounter
--- OUTSIDE RECORDS SUMMARY | 2024-07-03 14:02 | XMS_ITS | Encounter Summary ---
Author Organization [facility] Address [facility] [place] [address] Care Team Providers Care Shoe Handler Name Role Phone Maryse Perry MD Primary Care Provider [phone] Encounter Details Date Type Department Care Team (Late st Contact Info) Description 04/02/2021 External [place] [address] Stevie Vazquez MD [facility] [place] [address] Social History Tobacco Use Types Packs/Day Years [...] on filedocumented in this encounter Care Teams Shoe Handler Relationship Specialty Start Date End Date Maryse Perry MD [address] [place] [address] [address] [place] [address] PCP - General Family Medicine 11/28/20 documented as of this encounter
--- OUTSIDE RECORDS SUMMARY | 2024-07-03 14:02 | XMS_ITS | Encounter Summary ---
Author Organization [facility] [place] [address] Care Team Providers Care Shroud Line Tier Name Role Phone Maryse Perry MD Primary Care Provider [phone] Encounter Details Date Type Department Care Team (Late st Contact Info) Description 08/31/2022 1:00 PM EST Office Visit Pain and Spine Center at [facility] [place] [address] Madeleine Durham APRN [facility] [place] [address] Low back pain, non-specific Social History Tobacco [...] the original note were not included. Functional Voodoo Program Medica;l [place] Chief complaint requiring rehabilitation: right side low back/SI joint pain and right lower extremity tingling, left low sided back pain, radiating down left lower extremity S: Adrian is being seen today for medical clearance for the Functional Voodoo program, a graduated exercise program aimed at the patient achieving His functional goals, despite having chronic pain. DESC; HIS, HER, THEIR:[id number]} pain pattern is described as right side [...] Be able to bend over to load test engineering intern, reach for dog bowl, Be able to sleep for 6hrs continuously ?? 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 He reports there is not an [...] Adrian is a green light for functional mu-ism. He is currently on the wait list [...] be in detail. . Madeleine Durham, MS, BAG PATCHER-BC, PUBLIC HEALTH OFFICER Nurse practitioner Pain management [facility] documented in this encounter Plan of Treatment Not on file documented as of this encounter Visit Diagnoses Diagnosis Low back pain, non-specific documented in this encounter Care Teams Shroud Line Tier Relationship Specialty Start Date End Date Maryse Perry MD [facility] [address] [facility] [address] [place] [address] PCP - General Family Medicine 11/28/20 documented as of this encounter
--- OUTSIDE RECORDS SUMMARY | 2024-07-03 14:02 | XMS_ITS | Encounter Summary ---
Author Organization [facility] Address One [facility] [address] Care Team Providers Care Customer Service Administrator Name Role Phone Maryse Perry MD Primary Care Provider [phone] Encounter Details Date Type Department Care Team [...] on filedocumented in this encounter Care Teams Customer Service Administrator Relationship Specialty Start Date End Date Maryse Perry MD [address] [place] [address] PCP - General Family Medicine 11/28/20 documented as of this encounter
--- OUTSIDE RECORDS SUMMARY | 2024-07-03 14:02 | XMS_ITS | Encounter Summary ---
Author Organization [facility] Address [facility] [place] [address] Care Team Providers Care School Supervisor Name Role Phone Maryse Perry MD Primary Care Provider Encounter Details Date Type Department Care Team (Late st Contact Info) Description 09/30/2022 11:00 AM EDT Office Visit Functional Baptist Program at [facility] [address] [place] [phone] Jacque Engel, OT Low back pain, non-specific [...] 11:00 AM EDT P Occupational Therapy Note [facility] Day 7 Protocol Subjective: Mr. Guardado returns today for a scheduled follow up appointment with [facility]. He reports the PEG exercise is becoming easier. He also reports he wore different footwear today which seemed tohelp with his low back pain. Objective: Refer to [facility] protocol for details and explanation [...] educational video with Ricky Sweeney, PhD, Dsc ([email or web address].com/[email or web address]) describing the brain's role in pain processing, [...] of group intervention with individualized cues provided. Lnea Maguire PTA/JAMESON, present and assisting in supervision [...] Be able to bend over to load print controller, reach for dog bowl, ??Be able to sleep for 6hrs continuously documented in this encounter Plan of Treatment Not on file documented as of this encounter Visit Diagnoses Diagnosis Low back pain, non-specific documented in this encounter Care Teams School Supervisor Relationship Specialty Start Date End Date Maryse Perry MD [address] [place] [address] PCP - General Family Medicine 11/28/20 documented as of this encounter
--- OUTSIDE RECORDS SUMMARY | 2024-07-03 14:02 | XMS_ITS | Encounter Summary ---
Author Organization [facility] Address 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 Is tired at the end of the day. Tried working 8 hours but couldn't tolerate. Travelling an hour here. Not sure if will do hybrid. Stressed due to financials. Spine surgery [address] Can. Improved gait. This is the goals and health barriers visit and note for admission to the Functional Restorationism Program. The patient's current goals are : [...] Be able to bend over to load pattern setter, reach for dog bowl, ??Be able to [...] above. Serenity Smart APRN Nurse practitioner Functional Restorationism Program [facility] documented in this encounter Plan of Treatment Not on file documented as of this encounter Visit Diagnoses Diagnosis Low back pain, non-specific Sacroiliac joint dysfunction of right side Disorders of sacrum Radiculopathy of lumbar region Thoracic or lumbosacral neuritis or radiculitis, unspecified documented in this encounter Care Teams Subpoena Server Relationship Specialty Start Date End Date Maryse Perry MD [facility] [address] [facility] 1 [place] [address] PCP - General Family Medicine 11/28/20 documented as of this encounter
--- OUTSIDE RECORDS SUMMARY | 2024-07-03 14:02 | XMS_ITS | Encounter Summary ---
Author Organization [facility] Address One [facility] [place] [address] Care Team Providers Care Manager Of Construction Name Role Phone Maryse Perry MD Primary Care Provider [phone] Encounter Details Date Type Department Care Team [...] in this encounter Care Teams Manager Of Construction Relationship Specialty Start Date End Date Maryse Perry MD [address] [place] [address] PCP - General Family Medicine 11/28/20 documented as of this encounter
--- OUTSIDE RECORDS SUMMARY | 2024-07-03 14:02 | XMS_ITS | Encounter Summary ---
Author Organization [facility] Address One [facility] [place] [address] Care Team Providers Care Stablehand Name Role Phone Maryse Perry MD Primary Care Provider [phone] Encounter Details Date Type Department Care Team [...] on filedocumented in this encounter Care Teams Stablehand Relationship Specialty Start Date End Date Maryse Perry MD [address] [place] [address] PCP - General Family Medicine 11/28/20 documented as of this encounter
--- OUTSIDE RECORDS SUMMARY | 2024-07-03 14:02 | XMS_ITS | Encounter Summary ---
Author Organization [facility] [place] [address] Care Team Providers Care Drill Rig Operator Name Role Phone Maryse Perry MD Primary Care Provider [phone] Encounter Details Date Type Department Care Team (Latest Contact Info) Description 07/27/2022 4:30 PM EST TH Visit (TeleHealth) [place] [address] Madeleine Durham APRN [facility] [place] [address] Sacro-iliac pain; Sacroiliac joint dysfunction of right [...] from the original note were not included. 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 He walks his elderly [employer] and [employer] mix about 20 minutes a day. He does work on his daughter's house and enjoys that but finds that it is limited. He is done a lot of lifestyle changes he is trying to his diet and has lost a lot of weight, he is quit smoking, he drinks alcohol minimally. He is otherwise healthy. 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 PRO LAMINEC/FACETECT/FORAMIN, LUMBAR 1 SEG Left 05/07/2020 LAMINECTOMY, FACETECTOMY & FORAMINOTOMY,LUMBAR, ONE LEVEL (WRVU 15.37) performed by Randy Can MD at [facility] MAIN OR ??? PRO LAMINOTOMY, LUMBAR DISK, 1 INTRSP Left 05/07/2020 LAMINOTOMY, DECOMPRESSION, FORAMINOTOMY, LUMBAR (WRVU 13.18) performed by Randy Can MD at [facility] MAIN OR ??? PRO MICROSURG TECHNIQUES, REQ OPER MICROSCOPE Left 05/07/2020 MICROSCOPE USE (WRVU 3.46) performed by Randy Can MD at [facility] MAIN OR Review of Systems: Denies fever, [...] y.o. year-old male who presents to the [facility] seen at the [...] willbe a good candidate for the functional sabianist program in September. We had talked about having doing some PT in the meantime but it decided to hold off until after he comes to the functional sabianist gap assessment. Thank you Dr. Rayo for allowing my participation in Adrian Guardado's care. Madeleine Durham, , AIRPLANE FUELER-BC, MANAGEMENT PROFESSOR Nurse practitioner Pain management [facility] documented in this encounter Plan of Treatment Not on file documented as of this encounter Visit Diagnoses Diagnosis Sacro-iliac pain Disorders of sacrum Sacroiliac joint dysfunction of right side Disorders of sacrum documented in this encounter Care Teams Drill Rig Operator Relationship Specialty Start Date End Date Maryse Perry MD [address] [place] [address] PCP - General Family Medicine 11/28/20 documented as of this encounter
--- OUTSIDE RECORDS SUMMARY | 2024-07-03 14:02 | XMS_ITS | Encounter Summary ---
Author Organization [facility] Address [facility] [place] [address] Care Team Providers Care Iron Molder Helper Name Role Phone Maryse Perry MD Primary Care Provider [phone] Encounter Details Date Type Department Care Team (Late st Contact Info) Description 09/30/2022 8:00 AM EDT Office Visit Functional Oriental Orthodox Program at [facility] [address] [place] [address] Stanley Flannery Jr., PT Low back pain, [...] session. Plan: Return for follow up with [facility] per protocol. Length of visit: [...] Be able to bend over to load display card writer, reach for dog bowl, ??Be able to [...] sacrum documented in this encounter Care Teams Iron Molder Helper Relationship Specialty Start Date End Date Maryse Perry MD [address] [facility] 1 [place] [address] PCP - General Family Medicine 11/28/20 documented as of this encounter
--- OUTSIDE RECORDS SUMMARY | 2024-07-03 14:02 | XMS_ITS | Encounter Summary ---
Author Organization [facility] Address [facility] [place] [address] Care Team Providers Care Cook Roast Name Role Phone Maryse Perry MD Primary Care Provider [phone] Encounter Details Date Type Department Care Team (Late st Contact Info) Description 09/25/2022 10:00 AM EST Office Visit Functional Samaritan Program at [facility] [address] [place] [address] Madeleine Durham APRN [facility] [place] [address] Low back pain, non-specific Social History Tobacco [...] from the original note were not included. [facility] Center for Pain and Spine Functional Samaritan Program Admission Staff Meeting 09/24/2022 Zaira Nuñez, am compiling the information for Madeleine Durham APRN, to discuss and review with the patient. I met with Mr. Guardado for the entire 30 minutes today to discuss his admission and progress in the Functional Samaritan Program as written in this note. We [...] carpal tunnel. ?? 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 He??reports there is not??an active worker's compensation claim and/or there??is not??a personal injury claim associated with this injury. Results of the Touch Pad Questionnaires You Filled out: 09/22/2022 [facility] DISCHARGE SUMMARY QUESTIONNAIRE TOTALS INSOMNIA SEVERITY INDEX 15 (Moderately severe insomnia) Total PHQ-9 13 (Moderate Depression) Central Sensitization Inventory 59 (Severe) PDQ Total Score 90 (Severe) AMYDA-7 13 (Moderate Anxiety) Facs Scoring 62 (Severe) [...] Be able to bend over to load door framer, reach for dog bowl, Be able to sleep for 6hrs continuously PLAN: Functional Samaritan Program. Cc: Adrian Guardado [address] [place] [address] Maryse Perry MD [address] [address] FUNCTIONAL RASTAFARIAN PROGRAM (FRP) PROTOCOL DESCRIPTION IN ORDER TO [...] & AEROBICS 1 hour daily with 2 [facility] staff members (combination of: DPT,OT, METALLURGICAL TECHNICIAN/TOVAR) Low impact aerobic conditioning and strengthening class [...] CARDIOVASCULAR EXERCISE 1 hour daily with 2 [facility] staff members (DPT & METALLURGICAL TECHNICIAN) The physical therapy staff instructs, modifies, and [...] by patients during their time away from [facility] (evenings, weekends - off days as necessary). [...] sessions - AM and PM) with 2 [facility] staff members (OT, TOVAR/METALLURGICAL TECHNICIAN, occasionally DPT) Work Conditioning: Involves progressive and [...] TRAINING & STRETCHING 1 hour with 2 [facility] staff members (OT, TOVAR/METALLURGICAL TECHNICIAN, occasionally DPT) Walk: 2-5x/wk patients will walk [...] the patient going forward, including the Self Jail Program, and any work plans ifapplicable. PAIN [...] of the mysteries of pain. 2. The Uci-Mtlkdk-Uaodjc Model of Pain and Multidisciplinary Treatment - [...] accompanying medical co-morbidities. Topics covered: 1. FUNCTIONAL RASTAFARIAN & GOAL SETTING ??? Interactive exercises to [...] share helpful coping strategies. SUPPLEMENTAL DISCUSSIONS by [facility] staff OT, TOVAR/METALLURGICAL TECHNICIAN, DPT, RAILROAD CAR REPAIRMAN as needed 1. COUNTERACTING STRAINS OF DAILY [...] common types of disability; Workers Compensation, Short term/Mcc Disability, Social Security Disability, Tort/Liability, Intelligence Chief [place], and Medicaid. ??? During the course of [...] faced by patients as they end Functional Samaritan and come to plateau. Patients who are not workers compensation are also encouraged to participate in this conversation as part of a therapeutic review of understanding their fellow participants and the challenges faced by others. FUNCTIONAL RASTAFARIAN PROGRAM (FRP) DAILY PROTOCOL OVERVIEW: FRP consists [...] many as 20 due to staffinglimitations Functional Samaritan Protocol Day 1 - Testing PT Evaluation [...] Stretch, Strengthening and Aerobics Class (1 hour) [place] Testing (60 min) Strengthening and Cardiovascular Exercise (30 minutes) Functional Conditioning (30 minutes) Pain Education/Medical Provider/Other Supplemental Discussion Topic (1 hour) Functional Conditioning (1 hour) Walk/Unguarded Activity, Mindfulness/Relaxation and Stretching (1 hour) Day 9 Stretch, Strengthening and Aerobics Class (1 hour) Strengthening and Cardiovascular Exercise (1 hour) Functional Conditioning (1 hour) Meeting with KIAH (25 minutes) - [place] review Pain Education/Medical Provider/Other Supplemental Discussion Topic [...] non-specific documented in this encounter Care Teams Cook Roast Relationship Specialty Start Date End Date Maryse Perry MD [facility] [address] [place] [address] PCP - General Family Medicine 11/28/20 documented as of this encounter
--- OUTSIDE RECORDS SUMMARY | 2024-07-03 14:02 | XMS_ITS | Encounter Summary ---
Author Organization [facility] Address [facility] [place] [address] Care Team Providers Care Global Chief Creative Officer Name Role Phone Maryse Perry MD Primary Care Provider [phone] Reason for Visit * Reason Comments Back Pain Encounter Details Date Type Department Care Team (Late st Contact Info) Description 09/25/2022 11:00 AM EST Office Visit Functional Advent Program at [facility] [address] [place] [address] Jacque Engel, OT Low back pain, non-specific [...] 11:00 AM EST FRP Occupational Therapy Note [facility] Day 4 Protocol Subjective: Mr. Guardado returns today for a scheduled follow up appointment with P. He reports feeling increased pain in his low back today. Objective: Refer to [facility] protocol for details and explanation of [...] Be able to bend over to load car repairer, reach for dog bowl, ??Be able to sleep for 6hrs continuously ?? documented in this encounter Plan of Treatment Not on file documented as of this encounter Visit Diagnoses Diagnosis Low back pain, non-specific documented in this encounter Care Teams Global Chief Creative Officer Relationship Specialty Start Date End Date Maryse Perry MD [address] [place] [address] PCP - General Family Medicine 11/28/20 documented as of this encounter
--- OUTSIDE RECORDS SUMMARY | 2024-07-03 14:02 | XMS_ITS | Encounter Summary ---
Author Organization [facility] [place] [address] Care Team Providers Care Cardiothoracic Surgeon Name Role Phone Maryse Perry MD Primary Care Provider [phone] Reason for Visit * Consultation (Routine) - Closed Specialty Diagnoses / Procedures Referred By Adolfo lopez Referred To Contact [facility] Diagnoses Sacro-iliac pain Madeleine Durham, YARI [facility] [place] [address] [facility] [place] [address] Referral ID Status Reason Start Date Expiration Date V isits Requested Visits Authorized [id number] Closed Consult, Test & Treat 05/07/2022 05/07/2023 1 1 Encounter Details Date Type Department Care Team (Late st Contact Info) Description 05/28/2022 12:00 PM EST Notes Only [facility] [place] [address] Maryse Young, Shravan [facility] [place] [address] Social History Tobacco Use Types [...] of this encounter Progress Notes * Senna, Azira M - 05/28/2022 12:00 PM EST [facility] Active Pain Care, A Service of the [...] on filedocumented in this encounter Care Teams Cardiothoracic Surgeon Relationship Specialty Start Date End Date Maryse Perry MD [address] [place] [address] PCP - General Family Medicine 11/28/20 documented as of this encounter
--- OUTSIDE RECORDS SUMMARY | 2024-07-03 14:02 | XMS_ITS | Encounter Summary ---
Author Organization [facility] [place] [address] Care Team Providers Care Manager Practice Name Role Phone Maryse Perry MD Primary Care Provider [phone] Reason for Visit * Auth/Cert (Routine) Specialty Diagnoses / Procedures Referred By Adolfo lopez Referred To Contact Diagnoses SI dysfunction Procedures PRO INJECTION, SACROILIAC JOINT INJECTION PROCEDURE, SACROILIAC JOINT (WRVU 1.48) Hiren Hickey MD [facility] [place] [address] [facility] Referral ID Status Reason Start Date Expiration Date Visits Re quested Visits Authorized [id number] 1 1 Encounter Details Date Type Department Care Team (Late st Contact Info) Description 07/01/2022 3:30 PM EST [place]illary [place] [address] Hiren Hickey MD [facility] [place] [address] Social History Tobacco Use Types Packs/Day Years [...] Clinic C-Arm (07/01/2022 4:40 PM EST) Narrative [facility] - 07/01/2022 4:40 PM EST See PACS for result report. Hiren Hickey MD IMG FILM LIBRARY ORD ERABLES Performing Organization Address City/State/[facility] Co de Phone Number [place], [place] documented in this encounter Visit Diagnoses Not on filedocumented in this encounter Care Teams Manager Practice Relationship Specialty Start Date End Date Maryse Perry MD Cynthia [address] [facility] [address] [place] [address] PCP - General Family Medicine 11/28/20 documented as of this encounter
--- OUTSIDE RECORDS SUMMARY | 2024-07-03 14:02 | XMS_ITS | Encounter Summary ---
Author Organization [facility] Address [facility] [place] [address] Care Team Providers Care Economic Research Analyst Name Role Phone Maryse Perry MD Primary Care Provider Reason for Visit * Reason Comments Back Pain Encounter Details Date Type Department Care Team (Late st Contact Info) Description 09/23/2022 11:00 AM EST Office Visit Functional Adventism Program at [facility] [address] [place] [address] Jacque Engel, OT Low back pain, non-specific [...] Engel OT - 09/23/2022 11:00 AM EST [facility] Occupational Therapy Note In Person Orientation to Functional Conditioning [facility] Day 2 Protocol Subjective: Mr. Guardado returns for Day 2 of the Functional Adventism Program. He reports he is feeling sore, specifically during the afternoon functional conditioning exercises. He reports the PEG exercise aggravated his low back pain. Objective: Refer to [facility] protocol for additional explanation of program/occupational [...] in a regular session of conditioning at [place] [facility]. Exercises reviewed are as follows: - Crate [...] meditation and it's application within the functional yazidism program. Discussed it's use as an effective [...] Be able to bend over to load right of way supervisor, reach for dog bowl, Be able to sleep for 6hrs continuously documented in this encounter Plan of Treatment Not on file documented as of this encounter Visit Diagnoses Diagnosis Low back pain, non-specific documented in this encounter Care Teams Economic Research Analyst Relationship Specialty Start Date End Date Maryse Perry MD [address] [place] [address] PCP - General Family Medicine 11/28/20 documented as of this encounter
--- OUTSIDE RECORDS SUMMARY | 2024-07-03 14:02 | XMS_ITS | Encounter Summary ---
Author Organization [facility] Address [facility] [place] [address] Care Team Providers Care Bilingual Account Manager Name Role Phone Maryse Perry MD Primary Care Provider Reason for Visit * Reason Comments Back Pain Encounter Details Date Type Department Care Team (Late st Contact Info) Description 08/31/2022 11:00 AM EST Office Visit Functional Mu-Ism Program at [facility] [address] [place] [address] Jacque Engel, OT Sacro-iliac pain Social History [...] with determining candidacy foradmission into the Functional Mu-Ism Program. Mr. Guardado reports that the chief [...] carpal tunnel. 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 Employer: [employer]). 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 He has concerns about potential logistical barriers that may affect his ability to participate in the intensive rehab program, so should speak with [facility] social work staff prior to leaving [...] sacrum documented in this encounter Care Teams Bilingual Account Manager Relationship Specialty Start Date End Date Maryse Perry MD [address] [place] [address] PCP - General Family Medicine 11/28/20 documented as of this encounter
--- OUTSIDE RECORDS SUMMARY | 2024-07-03 14:03 | XMS_ITS | Encounter Summary ---
Author Organization [facility] [place] [address] Care Team Providers Care Olap Developer Name Role Phone None Primary Care Provider [...] Expiration Date Visits Re quested Visits Authorized [id number] 1 1 Encounter Details Date Type Department Care Team (Late st Contact Info) Description 05/07/2020 7:30 AM EDT - 05/07/2020 9:58 AM EDT Surgery Operating Room [address] [place] [address] Randy Can MD [address] [place] [address] LAMINECTOMY, FACETECTOMY & FORAMINOTOMY,LUMBAR, ONE LEVEL (WRVU [...] six weeks after surgery with a Physician???s Bridge Ironworker at the surgeon???s office. You will have [...] to stop taking it. ??? Only take vhgz-fmx-thonnse or prescription medicine for pain, discomfort or [...] If you have any questions, please call [facility] Neurology and Neurosurgery at [phone], during business hours of Wednesday through Wednesday from 8:00 a.m. until 4:00 p.m. In case of emergency during non-business hours, please call the same main number and follow the prompts to page the neurosurgeon second shift supervisor. SMOKING CESSATION INFORMATION: ??? [place] QUITLINE: ??? [place] QUITLINE: ??? [email or web address] If you smoke, stop now! Smoking may impede healing. MAKE SURE YOU: ??? Understand these instructions. ??? Will seek medical care if you are feeling poor, or get worse. ??? Will call the surgeon???s office with any questions or concerns at : [phone] The above information has been presented or [...] 1 tablet by mouth daily. HYDROcodone-acetaminoph en ([place]) 5-325 mg Tablet Take 1-2 tablets by [...] Can MD - 05/07/2020 9:21 AM EDT [facility] [place] [address] Patient Name: Adrian Guardado : [id number] MR#: [id number] Case Date: 05/07/2020 Case Scheduled Time: 729 Surgeon: Surgeon(s) and Role: * Randy Can MD - Primary * Moises Shannon PA - Physician Bridge Ironworker Preoperative diagnosis: HNP, Spondylosis Postoperative diagnosis: HNP, [...] duration of the operative session. The assistant production editor adequately prepped the operative site and maintained the best possible exposure of anatomy incident to the procedure. Randy Can MD 05/07/2020 documented in this encounter Plan of Treatment Not on file documented as of this encounter Procedures Procedure Name Priority Date/Time Associated Diagnosis Comments XR FLUORO NO RAD <1HR - OR USE Routine 05/07/2020 8:41 AM EDT Microsurg Techniques, Req Oper Microscope (73572) 05/07/2020 7:33 AM EDT HNP, Spondylosis Laminotomy, Lumbar Disk, 1 Intrsp ([id number]) 05/07/2020 7:33 AM EDT HNP, Spondylosis Laminec/Facetect/Fo javan, Lumbar 1 Seg ([id number]) 05/07/2020 7:33 AM EDT HNP, Spondylosis documented in this encounter Results * XR Fluoro No Rad <1Hr - OR Use (05/07/2020 8:41 AM EDT) Narrative RAD - 05/07/2020 8:42 AM EDT This exam is auto-finalizing. No interpretation was done. Randy Can MD IMG FLUORO ORDERABLE [place], [place] documented in this encounter Visit Diagnoses [...] 20 mLs 19 - Surgical Site HYDROcodone-acetaminophen ([place]) 5-325 mg per tablet 1-2 tablet 1-2 [...] (Given - Provider: Randy Can MD) HYDROcodone-acetaminophen ([place]) 5-325 mg per tablet 1-2 tablet (CANCELED) [...] 0952 (Given - Provid er: Consuelo Darden RN)0938 (Given - Provider: Consuelo Darden RN) documented in this encounter Care Teams Olap Developer Relationship Specialty Start Date End Date None None PCP - General 05/07/20 11/27/20 documented as of this encounter
--- OUTSIDE RECORDS SUMMARY | 2024-07-03 14:03 | XMS_ITS | Encounter Summary ---
Author Organization [facility] [place] [address] Care Team Providers Care Bakery Demonstrator Name Role Phone None Primary Care Provider [...] Expiration Date Visits Re quested Visits Authorized [id number] 1 1 Encounter Details Date Type Department Care Team (Latest Contact Info) Description 05/07/2020 6:33 AM EDT - 05/07/2020 11:20 AM EDT Hospital Encounter Post Acute Care Unit at [facility] [address] [place] [phone] Randy Can MD [address] [facility] [place] [address] Displacement of lumbar intervertebral disc without myelopathy [...] six weeks after surgery with a Physician???s Can Handler at the surgeon???s office. You will have [...] to stop taking it. ??? Only take syri-nuy-wnnrftj or prescription medicine for pain, discomfort or [...] If you have any questions, please call [facility] Neurology and Neurosurgery at [phone], during business hours of Wednesday through Wednesday from 8:00 a.m. until 4:00 p.m. In case of emergency during non-business hours, please call the same main number and follow the prompts to page the neurosurgeon iron miner. SMOKING CESSATION INFORMATION: ??? [place] QUITLINE: ??? [place] QUITLINE: ??? [email or web address] If you smoke, stop now! Smoking may impede healing. MAKE SURE YOU: ??? Understand these instructions. ??? Will seek medical care if you are feeling poor, or get worse. ??? Will call the surgeon???s office with any questions or concerns at : [phone] The above information has been presented or [...] 1 tablet by mouth daily. HYDROcodone-acetaminoph en ([place]) 5-325 mg Tablet Take 1-2 tablets by [...] Can MD - 05/07/2020 9:21 AM EDT [facility] [place] [address] Patient Name: Adrian Guardado : [id number] MR#: [id number] Case Date: 05/07/2020 Case Scheduled Time: 729 Surgeon: Surgeon(s) and Role: * Randy Can MD - Primary * Moises Shannon PA - Physician Can Handler Preoperative diagnosis: HNP, Spondylosis Postoperative diagnosis: HNP, [...] the duration of the operative session. The speech therapy assistant adequately prepped the operative site and maintained the best possible exposure of anatomy incident to the procedure. Randy Can MD 05/07/2020 documented in this encounter Plan of Treatment Not on file documented as of this encounter Procedures Procedure Name Priority Date/Time Associated Diagnosis Comments XR FLUORO NO RAD <1HR - OR USE Routine 05/07/2020 8:41 AM EDT Microsurg Techniques, Req Oper Microscope ([id number]) 05/07/2020 7:33 AM EDT HNP, Spondylosis Laminotomy, Lumbar Disk, 1 Intrsp ([id number]) 05/07/2020 7:33 AM EDT HNP, Spondylosis Laminec/Facetect/Fo javan, Lumbar 1 Seg (03687) 05/07/2020 7:33 AM EDT HNP, Spondylosis documented in this encounter Results * XR Fluoro No Rad <1Hr - OR Use (05/07/2020 8:41 AM EDT) Narrative RAD - 05/07/2020 8:42 AM EDT This exam is auto-finalizing. No interpretation was done. Randy Can MD IMG FLUORO ORDERABLE S Performing Organization Address City/State/[facility] Co de Phone Number [place], [place] documented in this encounter Visit Diagnoses Diagnosis Displacement of lumbar intervertebral disc without myelopathy documented in this encounter Administered Medications Inactive Administered Medications - up to 3 most recent administrations Medication Order MAR Action Action Date Dose Rate Site HYDROcodone-acetaminophen ([place]) 5-325 mg per tablet 1-2 tablet 1-2 [...] (Given - Provider: Randy Can MD) HYDROcodone-acetaminophen ([place]) 5-325 mg per tablet 1-2 tablet (CANCELED) [...] RN) documented in this encounter Care Teams Bakery Demonstrator Relationship Specialty Start Date End Date None None PCP - General 05/07/20 11/27/20 documented as of this encounter
--- OUTSIDE RECORDS SUMMARY | 2024-07-03 14:03 | XMS_ITS | Encounter Summary ---
Author Organization [facility] [place] [address] Care Team Providers Care Centrifugal Station Operator Name Role Phone None Primary Care Provider [...] Expiration Date Visits Re quested Visits Authorized [id number] 1 1 Encounter Details Date Type Department Care Team (Late st Contact Info) Description 05/07/2020 7:34 AM EDT Anesthesia Event [facility] [place] [address] Marcia Narvaez MD [facility] [place] [address] Anesthesia Record Procedure Summary Procedure Name Responsible [...] 0644; 04/23/21 (LDA Cleanup utility RA#[id number]); 1650 (Vyatta Cleanup utility RA#[id number]) 05/07/20 0644 by Tabitha Serna RN 04/23/21 1650 by Eleuterio Ballesteros (RETIRED) Peripheral IV Line - Single Lumen 05/07/20; 0712; cephalic vein (lateral side of arm), right; sjzq-ibx-ixugwr catheter system; 18 gauge; bryn,b; distraction; no longer indicated, removed per policy/procedure, catheter/device intact; 05/07/20; 1107 05/07/20 0712 by Tabitha Seran RN 05/07/20 1107 by Consuelo Darden RN [...] Incision 05/07/20; 0801; lumb ar spine; 03/16/22 (Vyatta cleanup utility RA#[id number]); 1715 (LDA cleanup utility [...] Procedure Summary Date: 05/07/20 Room / Location: [facility] OR MAIN OR Anesthesia Start: 733 Anesthesia [...] mg documented in this encounter Care Teams Centrifugal Station Operator Relationship Specialty Start Date End Date None None PCP - General 05/07/20 11/27/20 documented as of this encounter
--- OUTSIDE RECORDS SUMMARY | 2024-07-03 14:03 | XMS_ITS | Encounter Summary ---
Author Organization [facility] [place] [address] Care Team Providers Care Small Business Sales Representative Name Role Phone Unknown Primary Care Provider Unavailabl e Encounter Details Date Type Department Care Team (Late st Contact Info) Description 04/30/2020 12:45 PM EDT Telephone Pre-Admission Testing [place] [facility] [place] [address] Social History Tobacco Use Types [...] on filedocumented in this encounter Care Teams Small Business Sales Representative Relationship Specialty Start Date End Date Unknown None PCP - General 04/30/20 05/06/20 documented as of this encounter
--- OUTSIDE RECORDS SUMMARY | 2024-07-03 14:03 | XMS_ITS | Encounter Summary ---
Author Organization [facility] Address [facility] [place] [address] Care Team Providers Care Deicer Finisher Name Role Phone Maryse Perry MD Primary Care Provider [phone] Encounter Details Date Type Department Care Team (Late st Contact Info) Description 12/31/2020 Ancillary Procedure Radiology Library at [facility] [place] [phone] Maryse Perry MD [address] [place] [address] [address] Social History Tobacco Use Types Packs/Day Years [...] MR Spine (12/31/2020 12:00 AM EDT) Narrative [facility] - 01/01/2021 11:52 AM EDT This exam is auto-finalizing. It's purpose is for storage only. Maryse Perry MD IMG FILM LIBRARY ORD ERABLES [facility] [place] documented in this encounter Visit Diagnoses Not on filedocumented in this encounter Care Teams Deicer Finisher Relationship Specialty Start Date End Date Maryse Perry MD Cynthia [address] [facility] 1 [place] [address] PCP - General Family Medicine 11/28/20 documented as of this encounter
--- OUTSIDE RECORDS SUMMARY | 2024-07-03 14:03 | XMS_ITS | Encounter Summary ---
Author Organization [facility] Address [facility] [place] [address] Care Team Providers Care Speed Belt Sander Name Role Phone Unknown Primary Care Provider Unavailabl e Encounter Details Date Type Department Care Team (Late st Contact Info) Description 05/02/2020 External Results Pre-Admission Testing at [facility] [address] [place] [address] Social History Tobacco Use Types [...] on filedocumented in this encounter Care Teams Speed Belt Sander Relationship Specialty Start Date End Date Unknown None PCP - General 04/30/20 05/06/20 documented as of this encounter
--- OUTSIDE RECORDS SUMMARY | 2024-07-03 14:03 | XMS_ITS | Encounter Summary ---
Author Organization [facility] [place] [address] Care Team Providers Care Chief Drafter Name Role Phone Shannon Hendricks APRN Primary Care Provider Encounter Details Date Type Department Care Team (Late st Contact Info) Description 04/01/2020 Ancillary Procedure Radiology at [facility] [address] [place] [phone] Randy Can MD [address] [facility] [place] [address] Social History Tobacco Use Types Packs/Day Years [...] Can MD IMG FILM LIBRARY ORD ERABLES [place], [place] documented in this encounter Visit Diagnoses Not on filedocumented in this encounter Care Teams Chief Drafter Relationship Specialty Start Date End Date Shannon Hendricks APRN [address] [place] [address] PCP - General 06/10/10 04/29/20 documented as of this encounter
--- OUTSIDE RECORDS SUMMARY | 2024-07-03 14:03 | XMS_ITS | Encounter Summary ---
Author Organization [facility] Address [facility] [place] [address] Care Team Providers Care Pig Handler Name Role Phone None Primary Care Provider [...] Expiration Date Visits Re quested Visits Authorized [id number] 1 1 Encounter Details Date Type Department Care Team (Late st Contact Info) Description 05/07/2020 7:25 AM EDT Ancillary Procedure Radiology Xray at [facility] [place] [phone] Social History Tobacco Use Types Packs/Day Years [...] IMG FLUORO ORDERABLE S Performing Organization Address City/State/[facility] Co de Phone Number [place], [place] documented in this encounter Visit Diagnoses Not on filedocumented in this encounter Care Teams Pig Handler Relationship Specialty Start Date End Date None None PCP - General 05/07/20 11/27/20 documented as of this encounter
--- OUTSIDE RECORDS SUMMARY | 2024-07-03 14:03 | XMS_ITS | Encounter Summary ---
Author Organization [facility] Address One [facility] [place] [address] Care Team Providers Care Parts Picker Name Role Phone None Primary Care Provider Unavailabl e Encounter Details Date Type Department Care Team (Late st Contact Info) Description 10/17/2020 Ancillary Procedure Radiology at [facility] [address] [place] [phone] Randy Can MD [address] [place] [address] Social History Tobacco Use Types Packs/Day Years [...] Can MD G FILM LIBRARY ORD ERABLES [place], [place] documented in this encounter Visit Diagnoses Not on filedocumented in this encounter Care Teams Parts Picker Relationship Specialty Start Date End Date None None PCP - General 05/07/20 11/27/20 documented as of this encounter
--- OUTSIDE RECORDS SUMMARY | 2024-07-03 14:03 | XMS_ITS | Encounter Summary ---
Author Organization [facility] Address [facility] [place] [address] Care Team Providers Care Butt Presser Name Role Phone None Primary Care Provider Unavailabl e Encounter Details Date Type Department Care Team (Late st Contact Info) Description 06/04/2020 Ancillary Procedure Radiology at [facility] [address] [place] [phone] Randy Can MD [address] [place] [address] Social History Tobacco Use Types Packs/Day Years [...] Can MD IMG FILM LIBRARY ORD ERABLES [place], [place] documented in this encounter Visit Diagnoses Not on filedocumented in this encounter Care Teams Butt Presser Relationship Specialty Start Date End Date None None PCP - General 05/07/20 11/27/20 documented as of this encounter
--- OUTSIDE RECORDS SUMMARY | 2024-07-03 14:03 | XMS_ITS | Encounter Summary ---
Author Organization [facility] Address [facility] [address] Care Team Providers Care Semiconductor Lab Technician Name Role Phone None Primary Care Provider Unavailabl e Encounter Details Date Type Department Care Team (Late st Contact Info) Description 11/19/2020 Ancillary Procedure Radiology at [facility] [address] [place] [phone] Randy Can MD [address] [place] [address] Social History Tobacco Use Types Packs/Day Years [...] Can MD G FILM LIBRARY ORD ERABLES [place], [place] documented in this encounter Visit Diagnoses Not on filedocumented in this encounter Care Teams Semiconductor Lab Technician Relationship Specialty Start Date End Date None None PCP - General 05/07/20 11/27/20 documented as of this encounter
--- NOTE | 2024-07-03 14:15 | DI.CT_ITS ---
Exam(s) CT ABDOMEN PELVIS W EXAM: CT ABDOMEN PELVIS W CLINICAL HISTORY: RLQ tenderness, reducible R inguinal hernia TECHNIQUE: Imaging Protocol: Axial computed tomography images with coronal and sagittal reformatted images were created and reviewed. CONTRAST MATERIAL: Intravenous: Omnipaque 350 Contrast volume:75 mL Oral: No COMPARISON: CT ABD PELVIS WO CONTRAST from 03/06/[address] ABDOMEN W from 10/29/[address] CHEST LUNG CANCER SCREEN from 10/10/2021 FINDINGS: ABDOMEN: Lung Bases: No acute abnormality. Liver: Normal density. No measurable mass. Portal, Superior Mesenteric, and Splenic Veins: Unremarkable. Gallbladder and Biliary Tract: No radiodense calculus or dilation. Pancreas: Normal density, no abnormal calcifications or inflammatory process. Spleen: Normal. Adrenals: There is a stable hypodense nodule in the left adrenal gland likely reflecting an adenoma. No follow-up is recommended. The right adrenal gland is unremarkable. Kidneys: Normal size, contour and axis. No radiodense stones or obstructive uropathy. There is a simp le cyst in the right kidney. No follow-up is recommended. Abdominal Aorta: Abdominal portion non-dilated. Atherosclerotic calcification is present. Bowel: There is diverticulosis of the colon but no evidence of acute diverticulitis. There is no evid ence of bowel obstruction or bowel wall thickening. Appendix is unremarkable. Peritoneal Cavity: No ascites, collection or mesenteric inflammatory response. No free air. Lymph Nodes: Within normal limits. Bones: Within normal limits for the patient's age. Soft Tissues: There is a small fat containing umbilical hernia. No CT evidence of an inguinal hernia. PELVIS: Bladder: Symmetric distention, no gross wall thickening. Reproductive Organs: Unremarkable as visualized. Lymph Nodes: Within normal limits. Bones: Within normal limits for the patient's age. IMPRESSION: 1. No acute abdominal or pelvic process. 2. Normal appendix. 3. No evidence of nephrolithiasis or hydronephrosis. No cholelithiasis or biliary ductal dilatation. 4. No CT evidence of an inguinal hernia. RADIATION DOSE DELIVERED: 479.52mGy.cm Total DLP DATA REPOSITORY: All CT scans at this facility are submitted to the National Radiology Data Registry (NRDR) Dose Index Registry (DIR) with the [employer] (A[employer]). RADIATION OPTIMIZATION: All CT scans at this facility use at least one of these dose optimization te chniques: automated exposure control; mA and/or kV adjustment per patient size (includes targeted exa ms where dose is matched to clinical indication); or iterative reconstruction.
--- NOTE | 2024-07-03 14:31 | ED.GENADUL_ITS ---
Discharge Plan Disposition Patient Disposition: Home Condition: Good Discharge Details Clinical Impression: Reducible right inguinal hernia Primary Care Provider: Maryse Perry ED Provider: Timmy Shearer Home Meds and New Rx's Prescriptions: New docusate sodium [Colace] 100 mg capsule 100 mg PO DAILY Qty: 60 0RF No Action multivitamin [Daily Multi-Vitamin] Tablet 1 tab PO DAILY magnesium 400 mg PO DAILY amlodipine 10 mg tablet 10 mg PO HS cyclobenzaprine 10 mg tablet 10 mg PO HS gabapentin 300 mg capsule 300 mg PO QHS turmeric 400 mg capsule 400 mg PO DAILY vitamin B complex Capsule 1 cap PO DAILY amitriptyline 10 mg tablet 10 mg PO HS Patient Comments: TAKE ONE TO TWO TABLETS BY MOUTH AT BEDTIME omega-3 fatty acids Capsule 1,000 mg PO BID Discharge Instructions Instructions: Groin hernias Additional Instructions: At this time your CAT scan shows no evidence of appendicitis or other significant abnormality. You do have your hernia, which will need to be not emergently surgically repaired. We have placed a referral with our surgeons. Their office will contact you for follow-up and further discussion of potential surgical options. In the meantime please make sure that your stools stay soft. Please take the Colace that was prescribed as a stool softener every day. Drink plenty of fluids and to eat a high-fiber diet. Please avoid any heavy lifting or straining as this can bring about your hernia and certainly make it worse. Please wear supportive underwear, pants belt and abdominal support brace if you do any lifting. Please do your best to avoid lifting anything greater than 5 to 10 pounds. If you notice that the hernia comes back and cannot be reduced back into place, the pain becomes severe, or you have vomiting, please return immediately. If you notice any worsening of your symptoms, or any new symptoms such as vomiting, diarrhea, fever, chills, shortness of breath, chest pain, numbness, weakness, or fainting , please return immediately to the emergency department for reevaluation. Please follow up with your primary care provider as soon as possible for reassessment and reevaluation. As always, it was a pleasure participating in your medical care today. Referrals: Maryse Perry MD [Primary Care Provider] - Silviano Sales MD [ [facility] STAFF PHYSICIAN] - [facility] General Date/Time Provider Initiated Documentation: 07/03/24 14:08 . HPI Narrative: 59-year-old male with a past medical history of irritable bowel syndrome, GERD, prediabetic, with a history of left inguinal hernia repair, presents today for right lower quadrant abdominal pain. Patient states that over the last few weeks he has had a recurrent right inguinal hernia which she has been able to reduce. It comes out when he exerts himself or Valsalva's. However he has noticed over the last few days that he has had persistent right lower quadrant pain even when the hernia has been reduced. He denies fever or chills. He denies vomiting or diarrhea. No testicular pain. No urinary compla ints. No other complaints at this time. He did go to urgent care earlier today, and after exam and history was recommended he came here for further assessment. Related Data Home Medications ?Medication ?Instructions ?Recorded ?Confirmed multivitamin (Daily Multi-Vitamin 1 tab PO DAILY 02/07/20 07/03/24 tablet) omega-3 fatty acids 1,000 mg PO BID 08/21/21 07/03/24 magnesium 400 mg PO DAILY 05/11/23 07/03/24 amlodipine 10 mg tablet 10 mg PO HS 02/22/24 07/03/24 cyclobenzaprine 10 mg tablet 10 mg PO HS 02/22/24 07/03/24 gabapentin 300 mg capsule 300 mg PO QHS 02/22/24 07/03/24 turmeric 400 mg capsule 400 mg PO DAILY 02/22/24 07/03/24 vitamin B complex 1 cap PO DAILY 02/22/24 07/03/24 amitriptyline 10 mg tablet 10 mg PO HS 05/29/24 07/03/24 docusate sodium 100 mg capsule 100 mg PO DAILY #60 caps 07/03/24 (Colace) Previous Rx's ?Medication ?Instructions ?Recorded docusate sodium 100 mg capsule 100 mg PO DAILY #60 caps 07/03/24 (Colace) Allergies Allergy/AdvReac Type Severity Reaction Status Date / Time tree and shrub pollen Allergy Other (See Verified 07/03/24 14:01 Comment) General Stated Complaint: Abd Prob JYOTI: 3 Review of Systems All systems reviewed & are unremarkable except as noted in HPI and below Exam Narrative Exam Narrative: 1.Const: Well-nourished, Well-developed, appearing stated age 2.Eyes: PERRL, no conjunctival injection, and symmetrical lids. 3.ENT: Atraumatic external nose and ears. Moist MM. Neck: Symmetric, trachea midline, No thyromegaly. 4.CVS: +S1/S2, Peripheral pulses 2+ and equal in all extremities. Brisk capillary refill in all extremities. 5.RESP: Unlabored respiratory effort. Clear to auscultation bilaterally. No wheezes rales or rhonchi 6.GI: Soft, nondistended, no guarding or rebound. Right inguinal hernia is present with Valsalva, it is easily reduced. Mildly tender when this occurs. No testicular mass or scrotal mass. Mild residual right lower quadrant tenderness. Negative Nicolas sign. No flank or CVA tenderness. No left inguinal pain. 7.MSK: Normocephalic/Atraumatic, Extremities w/o deformity or ttp No cyanosis or clubbing, Normal movement of all extremities 8.Skin: Warm, Dry. No rashes or lesions. 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 Sensation grossly intact, no focal neurologic deficits. 10.Psych: (AAO) x3. Appropriate mood and affect Course Vital Signs Vital signs: Vital Signs Temperature 36.4 C 07/03/24 13:54 Pulse 81 07/03/24 13:54 Respiratory Rate 15 07/03/24 13:54 Blood Pressure 150/102 H 07/03/24 13:54 Pulse Oximetry 98 07/03/24 13:54 Temperature 36.4 C 07/03/24 14:00 Pulse 81 07/03/24 14:00 Respiratory Rate 15 07/03/24 14:00 Blood Pressure 150/102 H 07/03/24 14:00 Blood Pressure Position Sitting 07/03/24 14:00 Pulse Oximetry 98 07/03/24 14:00 Oxygen Delivery Method Room Air 07/03/24 14:00 Oxygen Flow Rate 0 07/03/24 14:00 Medical Decision Making 59-year-old male with a past medical history of irritable bowel syndrome, GERD, prediabetic, with a history of left inguinal hernia repair, presents today for right lower quadrant abdominal pain. Patient states that over the last few weeks he has had a recurrent right inguinal hernia which she has been able to reduce. It comes out when he exerts himself or Valsalva's. However he has noticed over the last few days that he has had persistent right lower quadrant pain even when the hernia has been reduced. He denies fever or chills. He denies vomiting or diarrhea. No testicular pain. No urinary complaints. No other complaints at this time. He did go to urgent care earlier today, and after exam and history was recommended he came here for further assessment. Exam demonstrates an easily reducible right lower groin hernia. No other signs of mass. No evidence of incarceration or strangulation. However in addition to this he also has mild right lower quadrant residual tenderness, which is concerning for potential appendicitis, irritated small intestines or mesentery. We will get CT imaging laboratory workup for further assessment. Will give IV NSAID therapy for treatment of pain. Will monitor closely and reassess. 3:40 PM Pain notably improved after NSAID therapy. Repeat exam remains notably nonsurgical thankfully. CT scan results shows no evidence of appendicitis or other acute process. At this time I do feel that the patient does not have an indication for emergent surgical intervention. However he does need nonemergent outpatient surgical management. 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 Recommend continued soft diet, support belts, and avoidance of straining. Discussed emergent symptoms which would represent necessitated return. I have extensively reviewed the treatment plan and discharge instructions with the patient. I have addressed all patient concerns at this time. The patient was made aware of what symptoms to monitor for that would warrant a return to the emergency department. Discussed the plan with the patient, they demonstrate verbal understanding and agreement with our assessment and plan at this time. The documentation in this chart was dictated using [employer] dictation software. Please excuse any dictation errors. INDINGS: ABDOMEN: Lung Bases: No acute abnormality. Liver: Normal density. No measurable mass. Portal, Superior Mesenteric, and Splenic Veins: Unremarkable. Gallbladder and Biliary Tract: No radiodense calculus or dilation. Pancreas: Normal density, no abnormal calcifications or inflammatory process. Spleen: Normal. Adrenals: There is a stable hypodense nodule in the left adrenal gland likely reflecting an adenoma. No follow-up is recommended. The right adrenal gland is unremarkable. Kidneys: Normal size, contour and axis. No radiodense stones or obstructive uropathy. There is a simple cyst in the right kidney. No follow-up is recommended. Abdominal Aorta: Abdominal portion non-dilated. Atherosclerotic calcification is present. Bowel: There is diverticulosis of the colon but no evidence of acute diverticu litis. There is no evidence of bowel obstruction or bowel wall thickening. Appendix is unremarkable. Peritoneal Cavity: No ascites, collection or mesenteric inflammatory response. No free air. Lymph Nodes: Within normal limits. Bones: Within normal limits for the patient's age. Soft Tissues: There is a small fat containing umbilical hernia. No CT evidence of an inguinal hernia. PELVIS: Bladder: Symmetric distention, no gross wall thickening. Reproductive Organs: Unremarkable as visualized. Lymph Nodes: Within normal limits. Bones: Within normal limits for the patient's age. IMPRESSION: 1. No acute abdominal or pelvic process. 2. Normal appendix. 3. No evidence of nephrolithiasis or hydronephrosis. No cholelithiasis or biliary ductal dilatation. 4. No CT evidence of an inguinal hernia. Quality:SDOH Health Related Social Needs: No Data to Display PFSH All Active Problems Reducible right inguinal hernia (Acute) Encounter for screening colonoscopy (Acute) Asymmetric SNHL (sensorineural hearing loss) (Acute) Lumbar radiculitis (Acute) Neuropathy (Acute) Insomnia (Acute) Chronic back pain (Acute) Sensorineural hearing loss (SNHL) of both ears (Acute) Tinnitus of both ears (Acute) Allergic rhinitis (Acute) Impacted cerumen, right ear (Acute) Tinnitus, bilateral (Acute) Peripheral neuropathy (Acute) Tubulovillous adenoma (Acute) Heme + stool (Acute) Inguinodynia (Acute) Shingles outbreak (Acute) Chronic low back pain with right-sided sciatica (Acute) Former smoker (Acute) Left inguinal hernia (Acute) H/O vasectomy (Acute) Medical History Hyperplastic colon polyp (~05/2024) IBS (irritable bowel syndrome) Preventative health care Bilateral lumbar radiculopathy History of prediabetes Acute depression Numbness and tingling of foot Left leg pain 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 states if he gets up fast or bends over he gets dizzy Shingles GERD (gastroesophageal reflux disease) VALENTIN (dyspnea on exertion) Rash Low back pain Sciatica, left side Hypertension Fatigue Pre-diabetes Situational depression Lumbar disc herniation with radiculopathy History of chest pain Pt. states he thinks it related to his hernia and states my whole torso is screwed up Abdominal pain Back pain Hernia Surgical History History of colonoscopy with polypectomy (~05/2024) Status post lumbar surgery History of left inguinal hernia repair Family History Mother Hypertension Arthritis Kidney stones Father Hernia Brother Kidney stones Brother Kidney stones Sister Kidney stones Maternal Uncle Cancer Other Heart disease Social History Smoking/Tobacco Use Status: Former Tobacco Use Quit Date: 05/19/20 Smoking risk assessment performed?: Yes Alcohol Intake: current Alcohol Intake frequency: holidays/special occasions only Alcohol type: beer and hard liquor Drug use: Occasionally Substance use type: marijuana Details: 2-3x week Household members: spouse and children Housing: house Number of Children: 2 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
[2024-07-03 14:55] LABS: Lactate 0.9 mmol/L (0.6-1.4)
[2024-07-03 14:56] LABS: Abs Immature Grans 0.01 10^3/uL (0.0-0.06); Absolute Basophil Count 0.04 10^3/uL (0.0-0.2); Absolute Eosinophil Count 0.18 10^3/uL (0.0-0.7); Basophils % 0.5 %; Eosinophils % 2.2 %; HCT 40.2 % (40.0-50.0); HGB 13.6 g/dL (13.5-17.5); Immature Grans % 0.1 %; Lymphocytes % 22.4 %; MCHC 33.8 % (32.0-36.0); MCV 92 fL (80-95); MPV 9.9 fL (8.0-11.0); Monocytes % 6.2 %; Neutrophils % 68.6 %; Platelet Count 269 10^3/uL (130-400); RBC 4.39 10^6/uL (4.36-5.78); RDW-SD 43.5 fL; WBC 8.03 10^3/uL (4.4-10.8)
[2024-07-03] MEDS: Omnipaque 350 MG/ML 100 ML BTL IJ (15:11)
[2024-07-03 15:12] LABS: Lipase 54 U/L (<78)
[2024-07-03] MEDS: Normal Saline - Diluent 50 ML VIAL IJ (15:12)
[2024-07-03 15:19] LABS: ALT 26 U/L (16-63); AST 16 U/L (15-37); Albumin 3.8 g/dL (3.4-5.0); Alkaline Phosphatase 85 U/L (46-116); Anion Gap 8.7 mmol/L (3-11); BUN 14 mg/dL (7-18); CO2 29.3 mmol/L (21.0-32.0); CREATININE 0.8 mg/dL (0.70-1.30); Calcium 8.5 mg/dL (8.5-10.1); Chloride 105 mmol/L (98-107); Estimated GFR 103.22 (mL/min/1.73m2); Glucose 89 mg/dL (74-106); Potassium 3.7 mmol/L (3.5-5.1); Sodium 143 mmol/L (136-145); Total Protein 7.3 g/dL (6.4-8.2)
[2024-07-03] MEDS: ACETAMINOPHEN 1,000 MG/100 ML BAG 400 MG IVPB (15:20)
[2024-07-03] MEDS: Ketorolac 15 MG/ML VIAL IVP (15:20)
[2024-07-03 15:25] VITALS: BP 138/96; PULSE 62; RESP 16; O2SAT 99
[2024-07-03 15:52] VITALS: BP 161/116; PULSE 77; RESP 18; O2SAT 100
[2024-07-03 15:52] LABS: Bilirubin Negative (Negative); Blood Negative (Negative); Clarity Clear (Clear); Glucose Negative (Negative); Ketones Negative (Negative); Leukocyte Esterase Negative (Negative); Nitrite Negative (Negative); Specific Gravity 1.015 (1.005-1.025); Urobilinogen 0.2 mg/dL (Up to 0.2)
== END 2024-07-03 16:02 | disposition home or self-care (01) ==
PROVIDERS: Emergency Provider Student in an Organized Health Care Education/Training Program; PCP Family Medicine
DX: R10.31 Right lower quadrant pain (principal); K40.90 Unilateral inguinal hernia, without obstruction or gangrene, not specified as recurrent; Z87.891 Personal history of nicotine dependence
CPT/HCPCS: 36415; 80053; 83690; 96374; 96375; 99285; 74177; 81003; 83605; 85025; J0131; J1885; J3490

== ENCOUNTER 2024-08-08 12:18 | Day surgery (SDC) | payer OTHER, SELFPAY ==
--- NOTE | 2024-08-07 20:32 | PDOC.DSDIS_ITS ---
Date of service: 08/08/24 Discharge Plan Disposition Patient Disposition: Home Condition: Good Discharge Details Reason For Visit: hernia repair Attending Provider: Jacqui Olmos Primary Care Provider: Maryse Perry Home Meds and New Rx's Prescriptions: New oxycodone 5 mg tablet 5 mg PO Q6H PRNQty: 14 0RF Continued multivitamin [Daily Multi-Vitamin] Tablet 1 tab PO DAILY magnesium 400 mg PO DAILY amlodipine 10 mg tablet 10 mg PO HS cyclobenzaprine 10 mg tablet 10 mg PO HS gabapentin 300 mg capsule 300 mg PO QHS turmeric 400 mg capsule 400 mg PO DAILY vitamin B complex Capsule 1 cap PO DAILY amitriptyline 10 mg tablet 10 mg PO HS Patient Comments: TAKE ONE TO TWO TABLETS BY MOUTH AT BEDTIME docusate sodium [Colace] 100 mg capsule 100 mg PO DAILY Qty: 60 0RF omega-3 fatty acids Capsule 1,000 mg PO BID Discharge Instructions Additional Instructions: Dr. Olmos HERNIA REPAIR ? POSTOPERATIVE INSTRUCTIONS Patients who have this type of surgery can usually be expected to return to work within two weeks and have minimal amounts of discomfort. ? ACTIVITY: The day of surgery should be spent resting. However, you can be up for short periods of time, I.E., going to the bathroom or kitchen. Avoid lifting or straining. On the day following surgery, you can be up and about as desired. ? LIFTING: Restrict your lifting to no more than five (5) pounds for two weeks after surgery. ??We will decide when you are done with restrictions and when you can return to work, at your follow-up appointment.? No sexual activity for two weeks.? ? DIET: There are no dietary restrictions following surgery. However, you may want to start with small amounts of liquids to avoid nausea the day of surgery. ? INCISION CARE: You will notice purple skin glue closing the incision.? Do not peel this off- it will wear off on its own.? After 24 hours you may shower. The dressing may be replaced for comfort, but is not necessary. ?An ice bag may be applied to the incision for 72 hours following surgery. ? SIGNS OF INFECTION: It is not unusual to have some black and blue d iscoloration of the skin around the incision, but also scrotum and penis.? ?It will slowly disappear. If you have any increased redness, drainage, fever (above 100 degrees), please contact your doctor for an examination. ? DISCOMFORT: You may expect to have some mild discomfort at the incision sight. If severe pain develops you should contact your doctor for further instructions. ? URINATION: Patients who have surgery occasionally have problems urinating. If you experience problems and are not able to urinate within 6 hours following your surgery, please call your doctor immediately or go to your nearest Emergency Room for evaluation. ? DRIVING: NO driving for three (3) days after surgery, or if you are still taking narcotic pain medication.? ? MEDICATIONS: Alternate Tylenol 1000mg by mouth every 8 hours and Ibuprofen 600mg every 6 hours. ?Make sure you take ibuprofen with food and not on an empty stomach. ?Take the Tylenol and ibuprofen continuously for the first 72hrs- not just when you have pain.? Use the tramadol for breakthrough pain/pain >7.? Use ICE!?? Twenty minutes on, and then off, continuously for the first 72hours. If you are taking narcotic pain medication, follow the instructions on the label and do not drive. Pain medications can make you very constipated. Make sure you are moving your bowels daily. If not, take Miralax or Milk of Magnesia.?? Anesthesia makes you very constipated.? Take a dose of Miralax the morning after surgery. ? REPORT: Unusual swelling, severe pain, unresolved nausea, signs of infection, or difficulty in urination to your surgeon. Follow up in clinic with Dr. Olmos in 2 weeks.? [phone] Activity:: see above Remove Dressings/Wound Care:: 24 hours Shower/Bathe:: 24 hours Diet:: As Tolerated DS: Diagnosis Discharge Diagnosis (1) Former smoker: Status: Acute (2) Chronic back pain: Status: Acute (3) Chronic low back pain with right-sided sciatica: Status: Acute (4) Inguinodynia: Status: Acute (5) Right inguinal hernia: Status: Acute Asessment and Plan: The patient is doing well post-op from their [facility] inguinal surgery.? They are having no nausea or vomiting. They are tolerating liquids and a snack. The pt is not having any chest pain or SOB.? Their pain is adequately controlled. They have been able to urinate.? ?HEENT:? no eye pain/drainage/redness/swelling. Mild sore throat ?Cardio- NSR, no chest pain, BP stable- see VS record ?Pulm: no sob or productive cough. No hemoptysis ?Incision- dressing is c/d/i w/ no excessive bleeding or drainage ?I discussed with the patient the findings at the time of surgery and the patient?s progress. ?We reviewed expectations at home; what the patient could expect for recovery time, and in the post-operative period.? We discussed the importance of walking to avoid blood clots and pneumonia.? We discussed and reviewed the patient's post-operative wound care and dressing needs.?? We reviewed their [place] pain management plan, Rx called to the pharmacy of their choice.? We reviewed activity and limitations-see discharge instructions. We reviewed warning signs, and when to seek medical attention- see d/c instructions.?? Patient was given a postoperative follow-up appointment. Patient verbalized understanding of their postoperative instructions, how do to take care of themselves and their incision, and the pain management plan. Please see discharge instructions.?
--- NOTE | 2024-08-07 20:38 | W.PM.OP ---
Operative Note Operative Note PRE-OP DIAGNOSIS: right inguinal hernia POST-OP DIAGNOSIS: same (Indirect) PROCEDURE: open right inguinal hernia repair w/ mesh SURGEON: Norbert Moeller CORDWOOD CUTTER: Lexy Aguilar ANESTHESIA TYPE: Local By Surgeon, General LMA/ETT and Primary Nerve Block Refer to Anesthesia Record ESTIMATED BLOOD LOSS: 5 PATHOLOGY: none sent COMPLICATIONS: None Patient was transported to: PACU Patient's condition: stable Procedure Description: INDICATIONS: The pt is here today for surgery regarding symptomatic --right- inguinal hernia that has failed outpatient conservative medical management and he is here today for repair. Informed consent was obtained, explaining risks and benefits of the procedure including but not limited to bleeding, infection, pneumonia, blood clots, chronic pain, chronic numbness, damage to testicle resulting in removal, recurrence of hernia, reaction to Mesh necessitating removal, and other unforetold complications, and complications of anesthesia-which were addressed by the MEDICAL ASSISTANT SECRETARY. The patient is marked in preOp prior to the procedure DESCRIPTION OF PROCEDURE:? The pt is then brought to the operative room suite. Anesthesia was administered per the Department of Anesthesia. ?A nerve block was performed by anesthesia under US guidance. The patient was prepped and draped in the usual sterile fashion using ChloraPrep scrub solution. Pause for the cause was done. He did receive preop IV antibiotics, and 30 mL of .25% Marcaine w/ epinephrine was used for local anesthetization. A #12 blade was used to make an incision over the external ring. Electrocautery used to provide hemostasis and dissect down to the fascia. The ext oblique is opened using Maile. The cord is elevated. The nerve was identified and destroyed using elctrocautery.. There is a medium cord lipomas.?This is excised. Electro-cautery is used to provide hemostasis. A Helga drain was placed around the cord to assist in mobilization. The cord was explored. ?There was is medium hernia sac on the cord. There is no direct hernia pushing through the floor. The hernia sac is dissected off the cord using a combination of blunt dissection and electrocautery.? Electrocautery is used to provide hemostasis.?? There are no contents within the hernia sac.? The hernia sac is ligated and tied off. The stump is then inverted and returned to the abdominal cavity.? A medium size plug is than inserted into the defect through the internal ring, and over sewn to tighten up the ring with 2-0 vicryl.? Please see RN notes from Lot number of the [employer] mesh patch/plug.? The cord structures are still able to freely move through the ring itself.? The patch was then placed onto the floor, and using 2-0 Vicryl, sewn into the pubic tubercle and the shelving portions of the inguinal ligament, in the standard Lichenstein fashion.? ?The tails of the mesh are brought around the cord, sewn together w/ 2-0 Vicryl, and tucked under the external oblique.? The wound was copiously irrigated. There was no bleeding noted. The drain was removed. All structures are returned to normal anatomical position. The nerve is not sewn into the mesh, nor caught up in any sutures. The external oblique is re-approximated using 2-0 vicryl in a running fashion. ?Deep tissue was approximated with 3-0 Vicryl in a running fashion, and skin was approximated with 4-0 Monocryl in a running subcuticular fashion. Skin glue and sterile dressings are applied. The patient tolerated the procedure without complications to recovery in stable condition. NORBERT MOELLER, Date of Procedure: 08/08/24
[2024-08-08 13:01] VITALS: BP 151/101; PULSE 68; RESP 16; TEMP 36.6; O2SAT 100
[2024-08-08] MEDS: Lactated Ringers 1,000 ML 80 ML IV (13:10)
[2024-08-08] MEDS: Gabapentin 300 MG CAP 600 MG PO (13:11)
[2024-08-08] MEDS: Acetaminophen 500 MG TAB 1000 MG PO (13:12)
--- NOTE | 2024-08-08 13:31 | W.ANESPRE ---
General Info Date of Service Date Performed: 08/08/24 Height: 5 ft 9 in Weight: 78.3 kg Body Mass Index (BMI): 25.4 Surgical Procedure: Operation Date: 08/08/24 12:55 Proposed Procedure Side Surgeon p Herniorrhaphy Inguinal w/Mesh Right Jacqui Olmos, Meds Allergies and Home Medications Allergies Allergy/AdvReac Type Severity Reaction Status Date / Time No Known Allergies Allergy Verified 08/08/24 13:09 Home Medication ?Medication ?Instructions ?Recorded multivitamin (Daily Multi-Vitamin 1 tab PO DAILY 02/07/20 tablet) omega-3 fatty acids 1,000 mg PO BID 08/21/21 magnesium 400 mg PO DAILY 05/11/23 amlodipine 10 mg tablet 10 mg PO HS 02/22/24 cyclobenzaprine 10 mg tablet 10 mg PO HS 02/22/24 gabapentin 300 mg capsule 300 mg PO QHS 02/22/24 turmeric 400 mg capsule 400 mg PO DAILY 02/22/24 vitamin B complex 1 cap PO DAILY 02/22/24 amitriptyline 10 mg tablet 10 mg PO HS 05/29/24 docusate sodium 100 mg capsule 100 mg PO DAILY #60 caps 07/03/24 (Colace) oxycodone 5 mg tablet 5 mg PO Q6H PRN #14 tabs 08/07/24 Current Visit Medications: Current Medications Generic Name Dose Route Start Last Admin Trade Name Freq PRN Reason Stop Dose Admin Acetaminophen 1,000 mg 08/08/24 06:00 08/08/24 13:12 Acetaminophen 500 Mg Tab PO 08/08/24 23:59 1,000 mg PREOP BONIFACIO Administration Gabapentin 600 mg 08/08/24 06:00 08/08/24 13:11 Gabapentin 300 Mg Cap PO 08/08/24 23:59 600 mg PREOP BONIFACIO Administration Ringer's Solution 1,000 mls @ 0 mls/hr 08/08/24 06:00 08/08/24 13:10 IV 08/08/24 23:59 80 mls/hr INFUSION BONIFACIO Administration Cefazolin Sodium/Dextrose 2 gm in 50 mls @ 100 mls/hr 08/08/24 06:00 Ancef Duplex IVPB 08/08/24 23:59 PREOP BONIFACIO IV Miscellaneous Supplies 1 each 08/08/24 06:00 Iv Access IV 08/08/24 23:59 DIRECTED BONIFACIO Sodium Chloride 0 ml 08/08/24 06:00 Normal Saline Flush 10 Ml Syr IV 08/08/24 23:59 PRN PRN Sodium Chloride 0 ml 08/08/24 06:00 Normal Saline 10 Ml Vial IJ 08/08/24 23:59 DIRECTED PRN Sterile Water 0 ml 08/08/24 06:00 Water,Injection,Sterile 10 Ml Vial IJ 08/08/24 23:59 DIRECTED PRN PFSH Active Problems Active Problems: Problem Status Onset Code Asymmetric SNHL (sensorineural hearing loss) Acute H90.3 Lumbar radiculitis Acute M54.16 Neuropathy Acute G62.9 Insomnia Acute G47.00 Chronic back pain Acute M54.9, G89.29 Sensorineural hearing loss (SNHL) of both ears Acute H90.3 Tinnitus of both ears Acute H93.13 Impacted cerumen, right ear Acute H61.21 Tinnitus, bilateral Acute H93.13 Peripheral neuropathy Acute G62.9 Tubulovillous adenoma Acute D36.9 Former smoker Acute Z87.891 Chronic low back pain with right-sided sciatica Acute M54.41, G89.29 Shingles outbreak Acute B02.9 Inguinodynia Acute R10.30 H/O vasectomy Acute Z98.52 Allergic rhinitis Acute J30.9 Medical History Medical History Hyperplastic colon polyp (~05/2024) IBS (irritable bowel syndrome) Preventative health care Bilateral lumbar radiculopathy History of prediabetes Acute depression Numbness and tingling of foot Left leg pain 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 states if he gets up fast or bends over he gets dizzy Shingles 2020 GERD (gastroesophageal reflux disease) VALENTIN (dyspnea on exertion) Rash Low back pain Sciatica, left side Hypertension Fatigue Pre-diabetes Situational depression Lumbar disc herniation with radiculopathy History of chest pain Pt. states he thinks it related to his hernia and states my whole torso is screwed up Back pain Medical History Comments:: 2-3x week marijauna smoke; 3/10 headache Surgical History Surgical History History of colonoscopy with polypectomy (~05/2024) Status post lumbar surgery History of left inguinal hernia repair Tobacco Smoking/Tobacco Use Status: Former Tobacco Use Alcohol Alcohol Intake: current Alcohol intake frequency: holidays/special occasions only Alcohol type: beer and hard liquor Substance Use Substance use: Occasionally Substance use type: marijuana Details: 2-3x week 08/05/24 smoked marijuana Vital Signs and Lab Results Vital Signs Most Recent Vital Signs in EMR: Most Recent Vital Signs Temp Pulse Resp BP Pulse Ox 36.6 C 68 16 151/101 H 100 08/08/24 13:01 08/08/24 13:01 08/08/24 13:01 08/08/24 13:01 08/08/24 13:01 Lab Results Blood Type / Crossmatch: No Data to Display Complete Blood Count: No Data to Display Complete Metabolic Panel: No Data to Display Liver Function Panel: No Data to Display Coagulation Panel: No Data to Display Cardiac Panel: No Data to Display Arterial Blood Gas: No Data to Display Venous Blood Gas: No Data to Display Pancreas Panel: No Data to Display Thyroid Panel: No Data to Display Infectious Disease: No Data to Display Blood Cultures: No Data to Display Toxicology Panel: No Data to Display Imaging and Studies Imaging and Studies Study information below may be from another EMR and interpreted by another provider. Please see original notes in EMR for more complete details. Stress Test Summary: Impressions: Normal study after maximal exercise. Summary: Stress: Exercise capacity is average for age. 07/25/15 Pulmonary Function Summary: Impression Mild obstructive airways disease with no bronchodilator response, this is associated with Mild diffusion defect Clinical Correlation therefore is recommended. 09/09/20 Anesthesia Assessment and Plan Anesthesia History Personal History: No History of Anesthesia Complications Family History: No Family History of Anesthesia Complications Exercise Tolerance Exercise Tolerance: Metabolic Equivalents>4 Pertinent Negatives Pertinent Negatives: No Symptoms of GERD, No Major Cardiovascular Symptoms or Complaints and No Major Pulmonary Symptoms or Complaints Cardiac & Pulmonary Exam Cardiac Exam: Normal S1/S2 Heart Sounds Pulmonary Exam: Clear Bilateral Breath Sounds Implantable Cardiac Device Does patient have a Pacemaker or an ICD?: No Airway Exam Known Difficult Airway: No Mallampati Class: 1 Mouth Opening: Narrow (< 3cm) Thyromental Distance: Greater than 3 cm Neck Range of Motion: Full ROM Neck Circumference: Normal Teeth Condition: Normal Dentition ASA Classification ASA Score: ASA 2 Emergency Case?: No NPO Status NPO Status: NPO Clears >2 hours, Solids >8 hours Anesthesia Plan Resuscitation Status: Full Code Anesthesia Technique: General Anesthesia Airway Planned: LMA Pain Management: Surgeon and patient request nerve block Monitors Used: Standard Monitors and SedLine Preoperative Comments:: Patient elects to right TAP block with Exparel. Options and alternatives offered and patient elects to proceed with PNB.
[2024-08-08 13:50] VITALS: BMI 25.4
[2024-08-08] MEDS: ceFAZolin 2 GM/50 ML BAG IVPB (14:23)
--- NOTE | 2024-08-08 15:02 | W.ANESNERVE ---
Nerve Block Single Injection Procedure Date and Time Date Performed: 08/08/24 Procedure Start: 14:36 Location Where Procedure Performed Procedure Location: Operating Room Procedure Stop: 14:42 Reason Performed: Postoperative Analgesia Requesting Provider: Jacqui Olmos Timeout Performed Timeout Performed: Yes Monitoring Used ECG, Blood Pressure, SpO2 and See EMR for corresponding vital signs Sterility Sterility: Hand Hygiene, Surgical Cap, Surgical Mask, Sterile Gloves, Sterile Drape/Sheet, Sterile Gown and Chlorhexidine Sedation Given During Procedure Sedation Given (Indicate Dose Given): No Sedation given Patient Mental Status Patient Mental Status: Performed under general anesthesia Nerve Block 1st Nerve Block: Laterality: Right Block Type: TAP Unilateral (Prep administered before time out) Ultrasound Image Saved?: Yes Needle / Catheter Used: 100mm SonoPlex II Local Anesthetic Bolus (Indicate Dose Given): Injected in 3-5ml increments after negative blood aspiration, Bupivacaine 0.25% Dose:: 15mL and Exparel Dose:: 10mL Additives (Indicate Dose Given): None Ultrasound: Sterile probe cover and gel used Nerve Stimulator: Not Used Paresthesia: None Procedure Tolerated: No Complications Procedure Outcome: Successful Procedure Comment: Michaela Centeno CRNA present for block Performed By: Lima Morataya
[2024-08-08] MEDS: Bupivacaine 0.25% Pres-Free 30 ML VIAL (15:12)
[2024-08-08 15:55] VITALS: TEMP 36.5
[2024-08-08 16:10] VITALS: TEMP 36.5
[2024-08-08 16:25] VITALS: TEMP 36.5
[2024-08-08 16:34] VITALS: BP 141/100; PULSE 60; RESP 14; TEMP 36.2; O2SAT 99
--- NOTE | 2024-08-08 16:40 | W.ANESPOSTOP ---
Postoperative Evaluation Date, Time and Location Date Performed: 08/08/24 Time Performed: 16:40 Patient Location: PACU Vital Signs Most Recent Imported Vital Signs: Most Recent Vital Signs Temp Pulse Resp BP Pulse Ox 36.2 C L 60 14 141/100 H 99 08/08/24 16:34 08/08/24 16:34 08/08/24 16:34 08/08/24 16:34 08/08/24 16:34 Pain Score Most Recent Pain Score: Most Recent Pain Score Pain Level 0 08/08/24 16:34 Assessment Mental Status: Awake (Alert & Oriented to Patient Baseline) Airway and Respiratory Function: Patent airway with normal (patient baseline) respiratory exam Cardiovascular Function: Hemodynamically Stable Hydration Status: Adequately Hydrated Nausea & Vomiting: No Nausea or Vomiting Pain: Pain is tolerable per patient Peripheral Nerve Block: Regional nerve block not resolved at time of post operative discharge
[2024-08-08 17:15] VITALS: BP 145/99; PULSE 57; RESP 14; TEMP 36.4; O2SAT 97
== END 2024-08-08 17:24 | disposition home or self-care (01) ==
LOC: SUR 12:18
PROVIDERS: PCP Family Medicine; Visit Provider Surgery
PROC: (CPT 49505; principal; 2024-08-08 12:45)
DX: R10.30 Lower abdominal pain, unspecified; K40.90 Unilateral inguinal hernia, without obstruction or gangrene, not specified as recurrent
CPT/HCPCS: 49505; 64486; C1781; J0665; J0666; J0690; J1100; J1885; J2250; J2405; J2704